=== PATIENT | male | born 1930 | race Hispanic/Latino ===

== ENCOUNTER 2018-08-09 19:24 | Emergency (ER) | payer OTHER ==
--- OUTSIDE RECORDS SUMMARY | 2018-08-09 19:26 | XMS REPORT | Clinical Summary ---
:1930 Author Organization [facility] Address [address] [place] [address] Care Team Providers Name Role Phone Asked, No Pcp Primary Care Provider Unavailable Allergies Active Allergy Reactions Severity Noted Date Comments Iodine Other (See Comments) 11/08/2015 Patient and family member does not know thw reaction Medications Medication Sig Dispensed Refills Start Date End Date Status carvedilol (COREG) 3.125 Take 3.125 mg by 0 Active MG tablet mouth 2 (two) times a day with meals. pravastatin (PRAVACHOL) Take 40 mg by 0 Active 40 MG tablet mouth daily. clopidogrel (PLAVIX) 75 Take 75 mg by 0 Active mg tablet mouth daily. torsemide (DEMADEX) 100 Take 100 mg by 0 Active MG tablet mouth daily. ezetimibe (ZETIA) 10 mg Take 10 mg by 0 Active tablet mouth daily. levothyroxine Take 75 mcg by 0 Active (SYNTHROID, LEVOTHROID) mouth every 75 MCG tablet morning. albuterol (PROVENTIL Inhale 2 puffs 0 Active HFA;VENTOLIN HFA) 90 every 6 (six) mcg/actuation inhaler hours as needed for wheezing. spironolactone Take 25 mg by 0 Active (ALDACTONE) 25 MG tablet mouth daily. tamsulosin (FLOMAX) 0.4 Take 0.4 mg by 0 Active mg capsule,extended mouth daily. release 24hr finasteride (PROSCAR) 5 Take 5 mg by 0 Active mg tablet mouth daily. Active Problems No known active problems Social History Tobacco Use Types Packs/Day Years Used Date Former Smoker Cigarettes 1.5 50 Quit: 2006 Alcohol Use Drinks/Week oz/Week Comments Yes Sex Assigned at Date Recorded Not on file Job Start Date Occupation Industry Not on file Not on file Not on file Travel History Travel Start Travel End No recent travel history available. Last Filed Vital Signs Not on file Plan of Treatment Not on file Results Not on fileafter 08/08/2017 Insurance Payer Benefit Plan / Group Subscriber ID Type Phone Address MEDICARE MEDICARE PART A AND B xxxxxxxxxx Medicare [place], [place] AETNA AETNA PPO OPEN CHOICE xxxxxxxxx PPO Advance Directives Patient has advance care planning documents on file. For more information, please contact:Coy [address] [place] [address]
--- OUTSIDE RECORDS SUMMARY | 2018-08-09 19:26 | XMS REPORT ---
:1930 [facility] Address [address] [place] [address] Dr. Sa[address] [place] [id number] Care Team Providers Name Role Phone Unavailable Unavailable Unavailable Problems This patient has no known problems. Allergies, Adverse Reactions, Alerts This patient has no known allergies or adverse reactions. Medications This patient has no known medications.
--- OUTSIDE RECORDS SUMMARY | 2018-08-09 19:26 | XMS REPORT | Continuity of Care Document ---
:1930 Author Organization Interface Problems Problem Status Onset Date Classification Date Comments Source Reported Medications Medication Details Route Status Patient Ordering Order Source Instructions Provider Date Allergies, Adverse Reactions, Alerts Substance Category Reaction Severity Reaction Status Date Comments Source type Reported Immunizations Immunization Date Given Site Status Last Updated Comments Source Results Order Results Value Reference Date Interpretation Comments Source Name Range Vital Signs Vital Sign Value Date Comments Source Encounters Location Location Encounter Encounter Reason Attending ADM DC Status Source Details Type Number For Provider Date Date Visit Outpatient [id number] [facility] 03/10 Active [facility] [place] Out[facility] [id number] [facility] 04/08 Active [facility] [place] Outpatient [id number] [facility] 08/05 [facility] Procedures Procedure Code Date Perfomer Comments Source
[2018-08-09 20:30] LABS: Absolute Lymphocytes (CBC) 3.3 K/uL (0.7-4.9); Absolute Neutrophil 5.8 K/uL (1.8-8.0); Basophils % 0.4 % (0-1.3); Eosinophils % 1.1 % (0-4.4); Hematocrit 37.9 % (39.6-49.0); MPV 8.3 fL (7.6-11.3); Monocytes % 9.9 % (3.3-12.3); RBC Red Blood Cell Count 4.02 M/uL (4.33-5.43)
--- NOTE | 2018-08-09 20:44 | RAD REPORT ---
EXAM DESCRIPTION: CT - Head Brain Wo Cont - 08/09/2018 8:22 pm CLINICAL HISTORY: Alteration of awareness/confusion COMPARISON: None TECHNIQUE: Computed axial tomography of the head was obtained. IV contrast was not requested. All CT scans are performed using dose optimization technique as appropriate and may include automated exposure control or mA/KV adjustment according to patient size. FINDINGS: An intracranial bleed is not seen . The ventricles are normal in caliber. 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 No extra-axial fluid collection is noted. Mild to moderate low-density areas within periventricular, deep and subcortical white matter likely represent ischemic changes secondary to small vessel disease . Fluid within the sinuses/ mastoids is not seen. IMPRESSION: No acute intracranial abnormality is seen. If patient's symptoms persist MRI of the bra in would be recommended.
[2018-08-09] MEDS ORDERED: ONDANSETRON 4 MG/2 ML VIAL ONE ×2 (20:49→22:58)
[2018-08-09 21:28] LABS: Albumin 3.4 g/dL (3.4-5.0); Bilirubin Total 0.3 mg/dL (0.2-1.0); Potassium 5.1 mmol/L (3.5-5.1); Protein, Total 7.8 g/dL (6.4-8.2); Troponin (Emerg Dept Use Only) 0.03 ng/mL (0.0-0.045)
[2018-08-09 21:50] LABS: Urine Appearance CLOUDY; Urine Bilirubin NEGATIVE (NEG); Urine Blood NEGATIVE (NEG); Urine Color YELLOW; Urine Glucose NEGATIVE (NEG); Urine Protein NEGATIVE (NEG); Urine Urobilinogen 0.2 mg/dL (0.2-1.0); Urine pH 6.5 (5.0-7.0)
[2018-08-09 21:55] LABS: Urine Microscopic Reflex ORDER UMIC
[2018-08-09 22:04] LABS: Urine Bacteria <20 /HPF (NONE SEEN); Urine Culture Reflex Order REFLEXED; Urine RBC NONE SEEN /HPF (NONE SEEN); Urine Yeast PRESENT (NONE SEEN)
[2018-08-09 22:16] LABS: Urine Blood NEGATIVE (NEG); Urine Glucose NEGATIVE (NEG); Urine Protein NEGATIVE (NEG); Urine Specific Gravity 1.015 (1.005-1.030)
[2018-08-09] MEDS ORDERED: NA CHLORIDE 0.9% 100 ML IV ONE (22:54)
[2018-08-09] MEDS ORDERED: LEVETIRACETAM 500 MG/5 ML VIAL IV ONE (22:54)
--- NOTE | 2018-08-10 | ER ---
Nurse's Notes [facility] Name: Rohan Eubanks Age: 88 yrs Sex: Male : 1930 Arrival Date: 08/09/2018 Time: 19:37 Bed 25 Private MD: Diagnosis: new onset seizures;Vomiting, unspecified Presentation: 08/09 19:37 Presenting complaint: EMS states: patient had 2 seizure episodes prior to arrival. last mg2 episode was 30 min ago and lasted for 10 seconds. no history of seizure disorder. patient complains of headache too. Transition of care: patient was not received from another setting of care. Onset of symptoms was August 09, 2018 at 19:10. Risk Assessment: Do you want to hurt yourself or someone else? Patient reports no desire to harm self or others. Initial Sepsis Screen: Does the patient meet any 2 criteria? No. Patient's initial sepsis screen is negative. Does the patient have a suspected source of infection? No. Patient's initial sepsis screen is negative. Care prior to arrival: None. 19:37 Method Of Arrival: EMS: [facility] 19:37 Acuity: [place] 3 mg2 Historical: - Allergies: 19:48 Iodine; mg2 - Home Meds: 23:23 aspirin 81 mg Oral chew 1 tab once daily [Active]; carvedilol 3.125 mg Oral tab mg2 [Active]; donepezil Oral [Active]; finasteride Oral [Active]; Levothroid 75 mcg Oral tab 1 tab once daily [Active]; Plavix 75 mg Oral tab 1 tab once daily [Active]; Potassium Chloride Oral [Active]; pravastatin Oral [Active]; Spironolactone Oral [Active]; Spironolactone Oral [Active]; torsemide Oral [Active]; - PMHx: 19:48 Anemia; CAD; CHF; Hernia (obstructed, gangrene, cholostomy); High Cholesterol; mg2 Hypertension; Open wound to abdomen; renal insufficiency; Sepsis; COPD; Dementia; - PSHx: 19:48 Colostomy; 2 abdominal surgeries; mg2 - Immunization history:: Flu vaccine is up to date. - Social history:: Smoking status: Patient/guardian denies using tobacco, Patient/guardian denies using alcohol, street drugs, IV drugs. - Ebola Screening: : No symptoms or risks identified at this time. Screenin:50 Abuse screen: Denies threats or abuse. Denies injuries from another. Nutritional mg2 screening: No deficits noted. Tuberculosis screening: No symptoms or risk factors identified. Fall Risk IV access (20 points). Assessment: 23:28 General: Appears in no apparent distress. comfortable, Behavior is calm, cooperative. mg2 Pain: Complains of pain in head Pain does not radiate. Pain currently is 4 out of 10 on a pain scale. Quality of pain is described as aching, Pain began gradually. Neuro: Level of Consciousness is awake, alert, obeys commands, Oriented to person, place, time, situation, Reports headache. Neuro: Reports Seizure activity reported prior to arrival. Type of seizure: partial seizure. Cardiovascular: Capillary refill < 3 seconds Patient's skin is warm and dry. Respiratory: Airway is patent Respiratory effort is even, unlabored, Respiratory pattern is regular, symmetrical. GI: Pt is actively vomiting undigested food. : No signs and/or symptoms were reported regarding the genitourinary system. EENT: No signs and/or symptoms were reported regarding the EENT system. Derm: Skin is intact, is healthy with good turgor, Skin is pink, warm \T\ dry. normal. Musculoskeletal: Circulation, motion, and sensation intact. Capillary refill < 3 seconds. 08/10 00:20 Reassessment: Patient denies pain at this time. Patient states feeling better. mg2 Vital Signs: 08/09 19:45 Pulse 76; Resp 18; Temp 98; Pulse Ox 92% on R/A; Weight 90.72 kg; Height 5 ft. 7 in. mg2 (170.18 cm); Pain 4/10; 21:32 BP 100 / 69; Pulse 70; Resp 18; Pulse Ox 93% on R/A; Pain 0/10; mg2 22:41 BP 98 / 86; Pulse 74; Resp 19; Pulse Ox 96% ; lt1 23:03 BP 116 / 63; Pulse 66; Resp 25; Pulse Ox 96% on R/A; ca1 23:22 BP 98 / 70; Pulse 69; Resp 18; Pulse Ox 97% on R/A; mg2 08/10 00:19 BP 96 / 68; Pulse 70; Resp 17; Temp 98; Pulse Ox 95% on R/A; Pain 0/10; mg2 08/09 19:45 Body Mass Index 31.32 (90.72 kg, 170.18 cm) mg2 ED Course: 08/09 19:37 Patient arrived in ED. mg2 19:39 Stalin Woods MD is Attending Physician. tw4 19:45 Triage completed. mg2 19:48 Arm band placed on. mg2 19:49 No provider procedures requiring assistance completed. Inserted saline lock: in left mg2 antecubital area, using aseptic technique. Blood collected. 20 \T\ LAC. 19:55 Moi Welch, RN is Primary Nurse. mg2 20:[address] nj 20:20 CT completed. Patient tolerated procedure well. Patient moved back from CT. nj 20:22 CT Head Brain wo Cont In Process Unspecified. EDMS 23:22 Patient has correct armband on for positive identification. Pulse ox on. NIBP on. mg2 08/10 00:00 Louis Esquivel MD is Referral Physician. tw4 00:20 IV discontinued, intact, bleeding controlled, No redness/swelling at site. Pressure mg2 dressing applied. Administered Medications: 08/09 20:42 Drug: Zofran 4 mg Route: IVP; Site: right antecubital; mg2 22:02 Follow up: Response: No adverse reaction; Marked relief of symptoms mg2 22:52 Drug: Keppra 1000 mg Route: IV; Rate: calculated rate; Site: right antecubital; mg2 23:41 Follow up: Response: No adverse reaction; Marked relief of symptoms; IV Status: mg2 Completed infusion 22:53 Drug: Zofran 4 mg Route: IVP; Site: right antecubital; mg2 23:41 Follow up: Response: No adverse reaction; Marked relief of symptoms mg2 Outcome: 08/10 00:00 Discharge ordered by . tw4 00:20 Discharged to home via wheelchair, with family. mg2 00:20 Condition: stable 00:20 Discharge instructions given to patient, family, Instructed on discharge instructions, follow up and referral plans. medication usage, Demonstrated understanding of instructions, follow-up care, medications, Prescriptions given X 2. 00:20 Patient left the ED. mg2 Signatures: Dispatcher [employer] EDMS Juan C Duque [place], MD MD tw4 Moi Welch RN RN [facility] Roya Malhotra RN RN [facility] Sana Guillaume 1 Corrections: (The following items were deleted from the chart) 08/09 22:03 21:32 Pulse 70bpm; Resp 18bpm; Pulse Ox 93% RA; Pain 0/10; mg2 mg2
--- NOTE | 2018-08-10 | EDPHYS ---
Physician Documentation [facility] Name: Rohan Eubanks Age: 88 yrs Sex: Male : 1930 Arrival Date: 08/09/2018 Time: 19:37 Bed 25 Private MD: ED Physician Stalin Woods HPI: 08/10 06:43 This 88 yrs old Male presents to ER via EMS with complaints of seizure. tw4 06:43 The patient presents after having a single isolated seizure. Character of seizure(s): tw4 Loss of consciousness:. Seizure onset: just prior to arrival. Context: the seizure(s) was witnessed, by family. Seizure Hx: the patient has no previous seizure history. Associated injury: The patient did not suffer any apparent associated injury. The patient has not experienced similar symptoms in the past. Historical: - Allergies: 08/09 19:48 Iodine; mg2 - Home Meds: 23:23 aspirin 81 mg Oral chew 1 tab once daily [Active]; carvedilol 3.125 mg Oral tab mg2 [Active]; donepezil Oral [Active]; finasteride Oral [Active]; Levothroid 75 mcg Oral tab 1 tab once daily [Active]; Plavix 75 mg Oral tab 1 tab once daily [Active]; Potassium Chloride Oral [Active]; pravastatin Oral [Active]; Spironolactone Oral [Active]; Spironolactone Oral [Active]; torsemide Oral [Active]; - PMHx: 19:48 Anemia; CAD; CHF; Hernia (obstructed, gangrene, cholostomy); High Cholesterol; mg2 Hypertension; Open wound to abdomen; renal insufficiency; Sepsis; COPD; Dementia; - PSHx: 19:48 Colostomy; 2 abdominal surgeries; mg2 - Immunization history:: Flu vaccine is up to date. - Social history:: Smoking status: Patient/guardian denies using tobacco, Patient/guardian denies using alcohol, street drugs, IV drugs. - Ebola Screening: : No symptoms or risks identified at this time. ROS: 08/10 06:43 Constitutional: Negative for fever, chills, and weight loss, Eyes: Negative for injury, tw4 pain, redness, and discharge, Cardiovascular: Negative for chest pain, palpitations, and edema, Respiratory: Negative for shortness of breath, cough, wheezing, and pleuritic chest pain, Abdomen/GI: Negative for abdominal pain, nausea, vomiting, diarrhea, and constipation, Back: Negative for injury and pain, MS/Extremity: Negative for injury and deformity, Skin: Negative for injury, rash, and discoloration. Neuro: Positive for seizure activity, Negative for altered mental status, dizziness, gait disturbance, headache, tinnitus. Exam: 06:43 Constitutional: This is a well developed, well nourished patient who is awake, alert, tw4 and in no acute distress. Head/Face: Normocephalic, atraumatic. Chest/axilla: Normal chest wall appearance and motion. Nontender with no deformity. No lesions are appreciated. Cardiovascular: Regular rate and rhythm with a normal S1 and S2. No gallops, murmurs, or rubs. Normal PMI, no JVD. No pulse deficits. Respiratory: Lungs have equal breath sounds bilaterally, clear to auscultation and percussion. No rales, rhonchi or wheezes noted. No increased work of breathing, no retractions or nasal flaring. Abdomen/GI: Soft, non-tender, with normal bowel sounds. No distension or tympany. No guarding or rebound. No evidence of tenderness throughout. MS/ Extremity: Pulses equal, no cyanosis. Neurovascular intact. Full, normal range of motion. Neuro: Awake and alert, GCS 15, oriented to person, place, time, and situation. Cranial nerves II-XII grossly intact. Motor strength 5/5 in all extremities. Sensory grossly intact. Cerebellar exam normal. Normal gait. Vital Signs: 08/09 19:45 Pulse 76; Resp 18; Temp 98; Pulse Ox 92% on R/A; Weight 90.72 kg; Height 5 ft. 7 in. mg2 (170.18 cm); Pain 4/10; 21:32 BP 100 / 69; Pulse 70; Resp 18; Pulse Ox 93% on R/A; Pain 0/10; mg2 22:41 BP 98 / 86; Pulse 74; Resp 19; Pulse Ox 96% ; lt1 23:03 BP 116 / 63; Pulse 66; Resp 25; Pulse Ox 96% on R/A; ca1 23:22 BP 98 / 70; Pulse 69; Resp 18; Pulse Ox 97% on R/A; mg2 08/10 00:19 BP 96 / 68; Pulse 70; Resp 17; Temp 98; Pulse Ox 95% on R/A; Pain 0/10; mg2 08/09 19:45 Body Mass Index 31.32 (90.72 kg, 170.18 cm) mg2 MDM: 08/09 19:41 Patient medically screened. tw4 08/10 06:43 Differential diagnosis: cerebral vascular accident, drug overdose, seizure. Data tw4 reviewed: vital signs, nurses notes. Data interpreted: Pulse oximetry: Interpretation: normal. Test interpretation: by ED physician or midlevel provider: ECG, plain radiologic studies. Counseling: I had a detailed discussion with the patient and/or guardian regarding: the historical points, exam findings, and any diagnostic results supporting the discharge/admit diagnosis, lab results, radiology results. Medication response: Response to treatment: and as a result, I will discharge patient. Special discussion: I discussed with the patient/guardian in detail that at this point there is no indication for admission to the hospital. It is understood, however, that if the symptoms persist or worsen the patient needs to return immediately for re-evaluation. Further emergent ED testing is not indicated at this point in time. I discussed with the patient/guardian in detail the need to arrange with the PCP or specialist further outpatient testing, EEG. Based on the history and exam findings, there is no indication for further emergent testing or inpatient evaluation. I discussed with the patient/guardian the need to see the neurologist for further evaluation of the symptoms. 08/09 20:12 Order name: CBC with Diff tw4 08/09 20:12 Order name: Urinalysis; Complete Time: 23:53 tw4 08/09 23:53 Interpretation: Normal except: UESTR 3+. tw4 08/09 20:41 Order name: Comprehensive Metabolic Panel; Complete Time: 22:33 EDMS 08/09 22:33 Interpretation: Normal except: NA 133; CL 97; GLUC 120; BUN 82; CRE 1.90; GFR 34. tw4 08/09 20:41 Order name: Troponin (Emerg Dept Use Only); Complete Time: 22:33 EDMS 08/09 20:12 Order name: CT Head Brain wo Cont; Complete Time: 22:33 tw4 08/09 20:12 Order name: EKG - Nurse/Tech; Complete Time: 20:48 tw4 08/09 21:40 Order name: Urine Dipstick--Ancillary (enter results); Complete Time: 22:34 mw2 08/09 22:02 Order name: Urine Microscopic Only; Complete Time: 22:32 EDMS 08/09 22:05 Order name: Urine Culture EDMS EC:01 Rate is 73 beats/min. Rhythm is regular with Occasional PVCs. QRS [place] is Normal. RI tw4 interval is normal. QRS interval is normal. QT interval is normal. No Q waves. T waves are Normal. No ST changes noted. Clinical impression: NSR w/ Non-specific ST/T Changes. Interpreted by me. Reviewed by me. Administered Medications: 08/09 20:42 Drug: Zofran 4 mg Route: IVP; Site: right antecubital; mg2 22:02 Follow up: Response: No adverse reaction; Marked relief of symptoms mg2 22:52 Drug: Keppra 1000 mg Route: IV; Rate: calculated rate; Site: right antecubital; mg2 23:41 Follow up: Response: No adverse reaction; Marked relief of symptoms; IV Status: mg2 Completed infusion 22:53 Drug: Zofran 4 mg Route: IVP; Site: right antecubital; mg2 23:41 Follow up: Response: No adverse reaction; Marked relief of symptoms mg2 Disposition: 08/10/18 00:00 Discharged to Home. Impression: new onset seizures, Vomiting, unspecified. - Condition is Stable. - Discharge Instructions: Nausea and Vomiting, Adult, Seizure, Adult, [id number]. - Prescriptions for Zofran 4 mg Oral Tablet - take 1 tablet by ORAL route every 12 hours As needed; 6 tablet. Keppra 500 mg Oral Tablet - take 1 tablet by ORAL route every 12 hours; 20 tablet. - Medication Reconciliation Form, Thank You Letter, Antibiotic Education, Prescription Opioid Use form. - Follow up: Private Physician; When: Upon discharge from the Emergency Department; Reason: If symptoms return, Recheck today's complaints, Continuance of care. Follow up: Louis Esquivel MD; When: Upon discharge from the Emergency Department; Reason: If symptoms return, Recheck today's complaints, Continuance of care. - Problem is new. - Symptoms have improved. Signatures: Dispatcher [employer] EDStalin Parkinson MD MD tw4 Mio Welch RN RN mg2 Corrections: (The following items were deleted from the chart) 20:40 20:12 COMPREHENSIVE METABOLIC PANEL+C.LAB.BRZ ordered. EDIL EDMS 20:40 20:12 TROPONIN I+C.LAB.BRZ ordered. EDIL EDIL 08/10 00:00 00:00 08/10/2018 00:00 Discharged to Home. Impression: new onset seizures; Vomiting, tw4 unspecified. Condition is Stable. Forms are Medication Reconciliation Form, Thank You Letter, Antibiotic Education, Prescription Opioid Use. Follow up: Private Physician; When: Upon discharge from the Emergency Department; Reason: If symptoms return, Recheck today's complaints, Continuance of care. Problem is new. Symptoms have improved. tw4 : 00:00 08/10/2018 00:00 Discharged to Home. Impression: new onset seizures; Vomiting, mg2 unspecified. Condition is Stable. Forms are Medication Reconciliation Form, Thank You Letter, Antibiotic Education, Prescription Opioid Use. Follow up: Private Physician; When: Upon discharge from the Emergency Department; Reason: If symptoms return, Recheck today's complaints, Continuance of care. Follow up: Louis Esquivel; When: Upon discharge from the Emergency Department; Reason: If symptoms return, Recheck today's complaints, Continuance of care. Problem is new. Symptoms have improved. tw4
[2018-08-10 01:26] VITALS: TEMP 98
[2018-08-10 01:32] VITALS: BP 96/68; O2SAT 95
--- NOTE | 2018-08-10 12:21 | EKG ---
Test Date: 2018-08-09 Test Time: 20:40:46 [employer] Operator: LMT MEASUREMENT RESULTS: Intervals: Rate: 72 NE: 138 QRSD: 110 QT: 422 QTc: 462 [place]: P: 17 NE: 138 QRS: 21 T: -5 INTERPRETIVE STATEMENTS: Sinus rhythm with occasional premature ventricular complexes Low voltage QRS Incomplete right bundle branch block T wave abnormality, non specific Prolonged QT Abnormal ECG Compared to ECG 04/13/2017 13:08:08 Ventricular premature complex(es) now present Low QRS voltage now present Incomplete right bundle-branch block now present Sinus bradycardia no longer present T-wave abnormality still present Electronically Signed On 08-10-18 12:21:08 CDT by Raul Diaz
== END 2018-08-10 00:20 | disposition home or self-care (01) ==
LOC: ER 19:24
DX: R56.9 Unspecified convulsions (principal); R11.10 Vomiting, unspecified; I10 Essential (primary) hypertension; J44.9 Chronic obstructive pulmonary disease, unspecified; F03.90 Unspecified dementia, unspecified severity, without behavioral disturbance, psychotic disturbance, mood disturbance, and anxiety; E78.00 Pure hypercholesterolemia, unspecified; Z79.01 Long term (current) use of anticoagulants; Z79.82 Long term (current) use of aspirin; Z91.048 Other nonmedicinal substance allergy status
CPT/HCPCS: 96365; 93005; 87088; 85025; 87086; 36415; 84484; 80053; 70450; 96375; 99285; J1953; J2405 ×2; 81003; 81015

== ENCOUNTER 2019-05-30 15:51 | Inpatient (IN) | payer OTHER ==
--- OUTSIDE RECORDS SUMMARY | 2019-05-30 15:53 | XMS REPORT ---
:1930 [facility] Address [address] [place] [address] Dr. Saenz [address] [place] [id number] Care Team Providers Name Role Phone Unavailable Unavailable Unavailable Problems This patient has no known problems. Allergies, Adverse Reactions, Alerts This patient has no known allergies or adverse reactions. Medications This patient has no known medications.
[2019-05-30 16:56] LABS: Absolute Lymphocytes (CBC) 1.8 K/uL (0.7-4.9); Basophils % 0.7 % (0-1.3); Hematocrit 34.5 % (39.6-49.0); Lymphocytes % 25.2 % (15.3-44.8); MPV 7.8 fL (7.6-11.3); RBC Red Blood Cell Count 3.71 M/uL (4.33-5.43)
[2019-05-30 16:57] LABS: Protime INR 1.04
[2019-05-30 17:14] LABS: ALT/SGPT 15 U/L (12-78); AST/SGOT 9 U/L (15-37); Albumin 2.7 g/dL (3.4-5.0); Alkaline Phosphatase 62 U/L (45-117); BUN Blood Urea Nitrogen 24 mg/dL (7-18); Bicarbonate 31 mmol/L (21-32); Bilirubin Direct < 0.1 mg/dL (0-0.2); Bilirubin Total 0.2 mg/dL (0.2-1.0); Glucose Level 99 mg/dL (74-106); Magnesium 1.7 mg/dL (1.8-2.4); NT PRO-BNP 1224 pg/mL (<450); Potassium 4.9 mmol/L (3.5-5.1); Protein, Total 6.5 g/dL (6.4-8.2); Sodium Level 143 mmol/L (136-145); Troponin (Emerg Dept Use Only) < 0.02 ng/mL (0.0-0.045)
--- NOTE | 2019-05-30 17:16 | RAD REPORT ---
EXAM DESCRIPTION: RAD - Chest Single View - 05/30/2019 4:50 pm CLINICAL HISTORY: weakness Chest pain. COMPARISON: Chest Single View dated 04/13/2017; Chest Single View dated 03/22/2017; Chest Single Vie w dated 09/01/2016; Chest Single View dated 08/31/2016 FINDINGS: Portable technique limits examination quality. Mild to moderate pulmonary edema is seen. The heart is mildly enlarged in size with sternotomy wires present. No displaced fractures. IMPRESSION: Mild to moderate CHF versus volume overload pattern.
--- NOTE | 2019-05-30 18:12 | ER ---
Nurse's Notes [facility] Name: Rohan Eubanks Age: 89 yrs Sex: Male : 1930 Arrival Date: 05/30/2019 Time: 15:53 Bed 4 Private MD: Diagnosis: Unspecified combined systolic (congestive) and diastolic (congestive) heart failure;Shortness of breath Presentation: 05/30 15:55 Presenting complaint: Pt's family states "his caregiver said he was confused today and aa5 he's also been having congestion for about 2 weeks now. Pt denies pain. Pt is A\\T\\O x person and place. Transition of care: patient was not received from another setting of care. Onset of symptoms was May 30, 2019. Risk Assessment: Do you want to hurt yourself or someone else? Unable to obtain. Initial Sepsis Screen: Does the patient meet any 2 criteria? No. Patient's initial sepsis screen is negative. Does the patient have a suspected source of infection? No. Patient's initial sepsis screen is negative. Care prior to arrival: None. 15:55 Acuity: [place] 3 aa5 15:55 Method Of Arrival: Wheelchair aa5 Historical: - Allergies: 15:57 Iodine; aa5 - Home Meds: 16:21 aspirin 81 mg Oral chew 1 tab once daily [Active]; carvedilol 3.125 mg Oral tab mg2 [Active]; donepezil Oral [Active]; finasteride Oral [Active]; Levothroid 75 mcg Oral tab 1 tab once daily [Active]; Plavix 75 mg Oral tab 1 tab once daily [Active]; Potassium Chloride Oral [Active]; pravastatin Oral [Active]; Spironolactone Oral [Active]; Spironolactone Oral [Active]; torsemide Oral [Active]; - PMHx: 15:57 Anemia; CAD; CHF; COPD; Dementia; Hernia (obstructed, gangrene, cholostomy); High aa5 Cholesterol; Hypertension; Open wound to abdomen; renal insufficiency; Sepsis; - PSHx: 15:57 Colostomy; 2 abdominal surgeries; aa5 - Immunization history:: Pneumococcal vaccine is not up to date, Flu vaccine is not up to date. - Social history:: Smoking status: Patient/guardian denies using tobacco. - Ebola Screening: : No symptoms or risks identified at this time. Screenin:06 Abuse screen: Denies threats or abuse. Denies injuries from another. Nutritional hb screening: No deficits noted. Tuberculosis screening: No symptoms or risk factors identified. 16:20 Fall Risk None identified. mg2 Assessment: 16:19 General: Appears in no apparent distress. comfortable, Behavior is calm, cooperative. mg2 Pain: Denies pain. Neuro: Level of Consciousness is awake, alert, obeys commands, Oriented to person, place, time, situation. Cardiovascular: Capillary refill < 3 seconds Patient's skin is warm and dry. Respiratory: Airway is patent Respiratory effort is even, unlabored, Respiratory pattern is regular, symmetrical, Parent/caregiver reports the patient having cough that is. GI: No signs and/or symptoms were reported involving the gastrointestinal system. : No signs and/or symptoms were reported regarding the genitourinary system. EENT: Parent/caregiver reports the patient having nasal congestion. Derm: Skin is intact, is healthy with good turgor, Skin is pink, warm \\T\\ dry. normal. Musculoskeletal: Circulation, motion, and sensation intact. Capillary refill < 3 seconds. 16:46 Reassessment: Patient appears in no apparent distress at this time. mg2 18:00 Reassessment: Patient appears in no apparent distress at this time. Patient and/or mg2 family updated on plan of care and expected duration. Pain level reassessed. Patient is alert, oriented x 3, equal unlabored respirations, skin warm/dry/pink. 19:15 Reassessment: Patient and/or family updated on plan of care and expected duration. Pain vc level reassessed. Patients family at bedside, notified that we are waiting for a room upstairs. 20:26 Reassessment: Attempted to give report to AAKASH Jay, will call back. vc 20:30 Reassessment: Patient sitting in wheelchair, eating tacos at this time. Waiting for vc nurse to receive report on patient. 21:00 Reassessment: Patient took home prescriptions, a copy of list located in patients chart.vc Vital Signs: 15:57 BP 108 / 48; Pulse 52; Resp 18 S; Temp 98.3(O); Pulse Ox 96% on R/A; aa5 16:47 BP 107 / 54; Pulse 60; Resp 18; Pulse Ox 100% on 3 lpm NC; mg2 18:00 BP 132 / 54; Pulse 49; Resp 18; Pulse Ox 97% on R/A; mg2 19:30 BP 109 / 52; Pulse 60; Resp 22; Pulse Ox 98% on R/A; vc 20:30 BP 131 / 65; Pulse 66; Resp 22; Temp 98.6(O); Pulse Ox 98% on R/A; vc 21:17 BP 133 / 76; Pulse 83; Resp 18; Pulse Ox 100% on R/A; Pain 0/10; vc ED Course: 15:53 Patient arrived in ED. aa5 15:55 Arm band placed on. aa5 15:56 Triage completed. aa5 16:02 Yuval Steiner MD is Attending Physician. kdr 16:06 Patient has correct armband on for positive identification. Bed in low position. Call hb light in reach. Side rails up X 1. 16:19 Moi Welch, RN is Primary Nurse. mg2 16:19 No provider procedures requiring assistance completed. mg2 16:46 Inserted saline lock: 20 gauge in right antecubital area, using aseptic technique. mg2 Blood collected. 17:00 XRAY Chest (1 view) In Process Unspecified. EDMS 18:09 Prince Jurado MD is Hospitalizing Provider. kdr 20:06 Primary Nurse role handed off by Moi Welch, AAKASH vc 20:06 María Rubin, AAKASH is Primary Nurse. vc 21:20 Patient admitted, IV remains in place. vc Administered Medications: No medications were administered Outcome: 18:09 Decision to Hospitalize by Provider. kdr 21:20 Admitted to Med/surg accompanied by nurse, family with patient, via wheelchair, room vc 204. 21:20 Condition: improved 21:20 Discharge instructions given to patient, family, Instructed on the need for admit. vc 21:21 Patient left the ED. vc Signatures: Dispatcher [employer] EDOH Yuval Steiner MD MD kdr Taemra Ku RN RN aa5 Lola Yarbrough RN RN Moi Welch RN RN mg2 María Rubin RN RN vc Corrections: (The following items were deleted from the chart) 23:06 20:59 Reassessment: vc vc
--- NOTE | 2019-05-30 18:12 | EDPHYS ---
Physician Documentation [facility] Name: Rohan Eubanks Age: 89 yrs Sex: Male : 1930 Arrival Date: 05/30/2019 Time: 15:53 Bed 4 Private MD: ED Physician Yuval Steiner HPI: 05/30 17:06 This 89 yrs old Male presents to ER via Wheelchair with complaints of Altered kdr Mental Status, Congestion. 17:06 The patient presents with agitation. kdr 18:10 Onset: The symptoms/episode began/occurred The patient has had chronic congestion which kdr has become worse today. Home health noted that he was having some difficulty breathing and that his oxygen saturation was decreased. He is normally on oxygen at home. Possible causes: CHF exacerbation, NV. Associated signs and symptoms: Pertinent positives: Pertinent negatives: abdominal pain, agitation, ataxia, blurred vision, chest pain, combativeness, confusion. Patient's baseline: Neuro: alert and fully oriented, Motor: no deficits, Ambulation: walks with assist only. The patient has not experienced similar symptoms in the past. The patient has not recently seen a physician. Historical: - Allergies: 15:57 Iodine; aa5 - Home Meds: 16:21 aspirin 81 mg Oral chew 1 tab once daily [Active]; carvedilol 3.125 mg Oral tab mg2 [Active]; donepezil Oral [Active]; finasteride Oral [Active]; Levothroid 75 mcg Oral tab 1 tab once daily [Active]; Plavix 75 mg Oral tab 1 tab once daily [Active]; Potassium Chloride Oral [Active]; pravastatin Oral [Active]; Spironolactone Oral [Active]; Spironolactone Oral [Active]; torsemide Oral [Active]; - PMHx: 15:57 Anemia; CAD; CHF; COPD; Dementia; Hernia (obstructed, gangrene, cholostomy); High aa5 Cholesterol; Hypertension; Open wound to abdomen; renal insufficiency; Sepsis; - PSHx: 15:57 Colostomy; 2 abdominal surgeries; aa5 - Immunization history:: Pneumococcal vaccine is not up to date, Flu vaccine is not up to date. - Social history:: Smoking status: Patient/guardian denies using tobacco. - Ebola Screening: : No symptoms or risks identified at this time. ROS: 18:10 Constitutional: Negative for fever, chills, and weight loss, Eyes: Negative for injury, kdr pain, redness, and discharge, Neck: Negative for injury, pain, and swelling, Abdomen/GI: Negative for abdominal pain, nausea, vomiting, diarrhea, and constipation, Back: Negative for injury and pain, : Negative for injury, bleeding, discharge, and swelling, Skin: Negative for injury, rash, and discoloration, Neuro: Negative for headache, weakness, numbness, tingling, and seizure activity. Psych: Negative for depression, anxiety, suicide ideation, homicidal ideation, and hallucinations, Allergy/Immunology: Negative for hives, rash, and allergies, Endocrine: Negative for neck swelling, polydipsia, polyuria, polyphagia, and marked weight changes, Hematologic/Lymphatic: Negative for swollen nodes, abnormal bleeding, and unusual bruising. 18:10 Cardiovascular: Positive for edema, Negative for chest pain, palpitations, paroxysmal nocturnal dyspnea. 18:10 Respiratory: Positive for dyspnea on exertion, shortness of breath, on exertion. 18:10 MS/extremity: Positive for swelling, Chronic peripheral edema. Exam: 18:10 Constitutional: This is a well developed, well nourished patient who is awake, alert, kdr and in no acute distress. Head/Face: Normocephalic, atraumatic. Eyes: Pupils equal round and reactive to light, extra-ocular motions intact. Lids and lashes normal. Conjunctiva and sclera are non-icteric and not injected. Cornea within normal limits. Periorbital areas with no swelling, redness, or edema. Neck: Trachea midline, no thyromegaly or masses palpated, and no cervical lymphadenopathy. Supple, full range of motion without nuchal rigidity, or vertebral point tenderness. No Meningismus. Chest/axilla: Normal chest wall appearance and motion. Nontender with no deformity. No lesions are appreciated. Cardiovascular: Regular rate and rhythm with a normal S1 and S2. No gallops, murmurs, or rubs. Normal PMI, no JVD. No pulse deficits. Back: No spinal tenderness. No costovertebral tenderness. Full range of motion. 18:10 Respiratory: mild respiratory distress is noted, Respirations: normal, Breath sounds: rales, that are mild, are located in both bases. 18:10 Abdomen/GI: Inspection: The patient has a right sided colostomy that appears in good kdr condition and a chronic midline wound that has an intact and clean dressing - per family, the patient had a dehiscence of a midline incision that is non-resolving, Bowel sounds: normal, active, Palpation: soft, in all quadrants. Vital Signs: 15:57 BP 108 / 48; Pulse 52; Resp 18 S; Temp 98.3(O); Pulse Ox 96% on R/A; aa5 16:47 BP 107 / 54; Pulse 60; Resp 18; Pulse Ox 100% on 3 lpm NC; mg2 18:00 BP 132 / 54; Pulse 49; Resp 18; Pulse Ox 97% on R/A; mg2 19:30 BP 109 / 52; Pulse 60; Resp 22; Pulse Ox 98% on R/A; vc 20:30 BP 131 / 65; Pulse 66; Resp 22; Temp 98.6(O); Pulse Ox 98% on R/A; vc 21:17 BP 133 / 76; Pulse 83; Resp 18; Pulse Ox 100% on R/A; Pain 0/10; vc MDM: 18:09 Patient medically screened. kdr 18:10 Data reviewed: vital signs, nurses notes, lab test result(s), radiologic studies. kdr Counseling: I had a detailed discussion with the patient and/or guardian regarding: the historical points, exam findings, and any diagnostic results supporting the discharge/admit diagnosis, lab results, radiology results, the need for further work-up and treatment in the hospital. Physician consultation: Prince Adrien QUINTEROS regarding admission, and will see patient in inpatient room, later today. 05/30 16:28 Order name: Basic Metabolic Panel; Complete Time: 17:59 kdr 05/30 16:28 Order name: CBC with Diff; Complete Time: 17:59 kdr 05/30 16:28 Order name: LFT's; Complete Time: 17:59 kdr 05/30 16:28 Order name: Magnesium; Complete Time: 17:59 kdr 05/30 16:28 Order name: NT PRO-BNP; Complete Time: 17:59 kdr 05/30 16:28 Order name: PT-INR; Complete Time: 17:59 kdr 05/30 16:28 Order name: Troponin (emerg Dept Use Only); Complete Time: 17:59 kdr 05/30 16:28 Order name: XRAY Chest (1 view); Complete Time: 17:59 kdr 05/30 16:28 Order name: EKG; Complete Time: 16:30 kdr 05/30 16:28 Order name: Cardiac monitoring; Complete Time: 16:46 kdr 05/30 16:28 Order name: EKG - Nurse/Tech; Complete Time: 16:46 kdr 05/30 16:28 Order name: IV Saline Lock; Complete Time: 16:46 kdr 05/30 16:28 Order name: Labs collected and sent; Complete Time: 16:46 kdr 05/30 16:28 Order name: O2 Per Protocol; Complete Time: 16:46 kdr 05/30 16:28 Order name: O2 Sat Monitoring; Complete Time: 16:46 kdr Administered Medications: No medications were administered Disposition: 05/30/19 18:09 Hospitalization ordered by Prince Adrien for Inpatient Admission. Preliminary diagnosis are Unspecified combined systolic (congestive) and diastolic (congestive) heart failure, Shortness of breath. - Bed requested for Telemetry/MedSurg (Inpatient). - Status is Inpatient Admission. vc - Condition is Fair. - Problem is an acute exacerbation. - Symptoms have improved. UTI on Admission? No Signatures: Dispatcher [employer] EDMS Jessica Zuniga RN RN Yuval Steiner MD MD [facility] Tamera Ku RN RN aa5 Moi Welch RN RN mg2 María Rubin RN RN vc Corrections: (The following items were deleted from the chart) 19:52 18:09 Hospitalization Ordered by Prince Adrien QUINTEROS for Inpatient Admission. Preliminary diagnosis is Unspecified combined systolic (congestive) and diastolic (congestive) heart failure; Shortness of breath. Bed requested for Telemetry/MedSurg (Inpatient). Status is Inpatient Admission. Condition is Fair. Problem is an acute exacerbation. Symptoms have improved. UTI on Admission? No. kdr 21:21 19:52 05/30/2019 18:09 Hospitalization Ordered by Prince Adrien QUINTEROS for Inpatient vc Admission. Preliminary diagnosis is Unspecified combined systolic (congestive) and diastolic (congestive) heart failure; Shortness of breath. Bed requested for Telemetry/MedSurg (Inpatient). Status is Inpatient Admission. Condition is Fair. Problem is an acute exacerbation. Symptoms have improved. UTI on Admission? No. mw
--- NOTE | 2019-05-30 20:25 | P.HP ---
Certification for Inpatient Patient admitted to: Inpatient With expected LOS: >2 Midnights Practitioner: I am a practitioner with admitting privileges, knowledge of patient current condition, hospital course, and medical plan of care. Services: Services provided to patient in accordance with Admission requirements found in Title 42 Section 412.3 of the Code of Federal Regulations Patient History Date of Service: 05/31/19 Reason for admission: Shortness of breath History of Present Illness: 89-year-old gentleman with a history of chronic diastolic heart failure, arrhythmia, chronic peripheral edema was brought to the emergency department due to an episode of respiratory distress which occurred this morning. According to the family, this is the 2nd episode in 1 week where patient developed respiratory distress. Family mentioned his heart rate was as low as 19, and oxygen saturation was on recordable during the 1st episode. They stated that the patient got revived several minutes after they placed oxygen on him. Family reports nonproductive cough and intermittent wheezing at this time. He also reports increased bilateral lower extremity edema. He was discharged from hospice about 6 months ago. He uses oxygen intermittently at home. His chest x-ray in the ED demonstrated vascular congestion. EKG demonstrated sinus bradycardia with frequent PVCs and nonspecific ST-T changes. His initial troponin is negative. The patient is admitted for further management of CHF exacerbation. Allergies iodine Allergy (Verified 06/20/18 14:17) Hives/Rash Home Medications: Aspirin Enteric Coated [ASPIRIN 81 MG EC*] 81 mg PO DAILY 09/25/12 Levothyroxine [Synthroid*] 0.12 mg PO [id number] 09/25/12 Spironolactone [Aldactone*] 25 mg PO BID 09/25/12 Donepezil HCl [Aricept] 10 mg PO BEDTIME 05/30/19 Finasteride [Proscar*] 5 mg PO DAILY 05/30/19 Potassium Chloride [Klor-Con 10] 1 tab PO DAILY 05/30/19 Trazodone [Desyrel*] 50 mg PO BEDTIME 05/30/19 metOLazone [Zaroxolyn*] 2.5 mg PO SEECOM 05/30/19 - Past Medical/Surgical History Diabetic: No -: CAD -: CHF - Family History Family History: Reviewed- Non-Contributory - Family History Father -: Heart disease, Diabetes Mother -: Other (see notes) Notes: depression due to sons - Social History Alcohol use: No CD- Drugs: No Caffeine use: Yes Review of Systems Other: General: No fever, no malaise, no unintentional weight loss. Eyes: No eye discharge, CVS: No chest pain, no palpitation, no lightheadedness. GI: No abdominal pain, no nausea no vomit, no constipation, no diarrhea. Genitourinary: No dysuria, no urinary frequency, no incontinence, no hematuria. Musculoskeletal: No joint pains, or joint swelling. Neurology: No headache, no asymmetric weakness, no problem with swallowing. Except as documented, all other systems reviewed and negative. Physical Examination - Physical Exam General: In no apparent distress, Oriented x2, Cooperative HEENT: Atraumatic, PERRLA, Mucous membr. moist/pink Neck: Supple, JVD not distended Respiratory: Normal air movement, Crackles/rales (Mild bibasilar rales) Cardiovascular: Other (Bradycardia), Edema (3+ bilateral lower extremity pitting edema), Irregular heart rate/rhythm Gastrointestinal: Normal bowel sounds, Soft and benign, No tenderness ( Bilateral lower extremity erythema) Integumentary: Erythema (Bilateral lower extremity) Neurological: Normal speech, Normal strength at 5/5 x4 extr - Studies Laboratory Data (last 24 hrs) 05/30/19 16:40: PT 12.2, INR 1.04 05/30/19 16:40: WBC 7.0, Hgb 11.0 L, Hct 34.5 L, Plt Count 254 05/30/19 16:40: Sodium 143, Potassium 4.9, BUN 24 H, Creatinine 1.35 H, Glucose 99, Magnesium 1.7 L, Total Bilirubin 0.2, AST 9 L, ALT 15, Alkaline Phosphatase 62 Assessment and Plan - Problems (Diagnosis) (1) Acute on chronic diastolic CHF (congestive heart failure) Current Visit: Yes Status: Acute (2) Chronic kidney disease, stage 3 Current Visit: Yes Status: Acute (3) HTN (hypertension) Onset Date: 09/01/16 Current Visit: No Status: Acute - Plan Admit to general medical floor Will diurese with IV Lasix Continue home dose Aldactone and metolazone Bronchodilators. Check echocardiogram Monitor intake and output and daily weight Hold Coreg due to intermittent bradycardia. Replace Coreg with amlodipine if there is the need to treat blood pressure. Monitor renal function while receiving IV Lasix. Patient is currently full code. I discussed DNR with them and they are yet to make a decision regarding that. - Advance Directives Does patient have a Living Will: No Does patient have a Durable POA for Healthcare: No
[2019-05-30] MEDS ORDERED: MAGNESIUM SULFATE 1 gm IVPB 1 GM/100 ML BAG IV ONE (21:52)
[2019-05-30] MEDS ORDERED: NA CHLORIDE 0.9% 250 ML ONE (23:08)
[2019-05-31] MEDS: HEPARIN 5000 UNIT/ML 1 ML VIAL SQ SCH ×3 (00:49→17:16)
[2019-05-31 05:32] LABS: Absolute Lymphocytes (CBC) 1.7 K/uL (0.7-4.9); Basophils % 0.7 % (0-1.3); Lymphocytes % 23.5 % (15.3-44.8); RBC Red Blood Cell Count 3.78 M/uL (4.33-5.43)
[2019-05-31 05:45] LABS: Magnesium 2.2 mg/dL (1.8-2.4); Phosphorus 3.5 mg/dL (2.5-4.9); Potassium 4.7 mmol/L (3.5-5.1)
--- NOTE | 2019-05-31 07:22 | EKG ---
Test Date: 2019-05-30 Test Time: 16:55:38 Vp Platforms: KIRSTEN MEASUREMENT RESULTS: Intervals: Rate: 54 IA: 148 QRSD: 96 QT: 458 QTc: 434 [place]: P: 34 IA: 148 QRS: 77 T: -6 INTERPRETIVE STATEMENTS: Sinus bradycardia with occasional premature ventricular complexes Low voltage QRS Incomplete right bundle branch block Nonspecific ST and T wave abnormality Abnormal ECG Compared to ECG 08/09/2018 20:40:46 ST (T wave) deviation now present Sinus rhythm no longer present T-wave abnormality no longer present Prolonged QT interval no longer present Electronically Signed On 05-31-19 07:22:12 [employer]IL[employer]CH[employer] by Raul Diaz
[2019-05-31] MEDS ORDERED: PNEUMOCOCCAL VACCINE 0.5 ML IMVAC ONE (08:00)
[2019-05-31] MEDS ORDERED: INFLUENZA VACCINE (for 3y+) 0.5 ML DOSE IMVAC ONE (08:00)
[2019-05-31] MEDS ORDERED: FUROSEMIDE 40 MG/4 ML VIAL IV SCH (09:00)
[2019-05-31] MEDS ORDERED: ASPIRIN EC 81 MG TAB PO SCH (09:00)
[2019-05-31] MEDS ORDERED: FINASTERIDE 5 MG TAB PO SCH (09:00)
--- NOTE | 2019-05-31 10:41 | ECHO ---
HEIGHT: 5 ft 5 in WEIGHT: 211 lb 4 oz DATE OF STUDY: 05/31/[address]: Prince Jose Luis Jurado MD 2-DIMENSIONAL: YES M.MODE: YES DOPPLER: YES COLOR FLOW: YES TDS: YES PORTABLE: NO DEFINITY: NO BUBBLE STUDY: NO DIAGNOSIS: CONGESTIVE HEART FAILURE CARDIAC HISTORY: CATHERIZATION: SURGERY: PROSTHETIC VALVE: PACEMAKER: MEASUREMENTS (cm) DIASTOLIC (NORMALS) SYSTOLIC (NORMALS) IVSd 1.2 (0.6-1.2) LA Diam (1.9-4.0) LVEF 42% LVIDd 4.6 (3.5-5.7) LVIDs 3.7 (2.0-3.5) %FS 20% LVPWd 1.2 (0.6-1.2) Ao Diam 3.4 (2.0-3.7) 2 DIMENSIONAL ASSESSMENT: RIGHT ATRIUM: NORMAL LEFT ATRIUM: DILATED RIGHT VENTRICLE: NORMAL LEFT VENTRICLE: LEFT VENTRICULAR HYPERTROPHY TRICUSPID VALVE: NORMAL MITRAL VALVE: NORMAL PULMONIC VALVE: NORMAL AORTIC VALVE: NORMAL PERICARDIAL EFFUSION: NONE AORTIC ROOT: NORMAL LEFT VENTRICULAR WALL MOTION: INFERIOR, POSTEROBASAL, LATERAL BASAL AKINESIS. DOPPLER/COLOR FLOW: NOT APPLICABLE, PATIENT WAS UNCOOPERATIVE. COMMENTS: DEPRESSED LEFT VENTRICULAR EJECTION FRACTION WITH OLD POSTERIOR, INFERIOR INFARCT. LEFT VENTRICULAR HYPERTROPHY. DILATED LEFT ATRIUM. LIMITED STUDY. TECHNOLOGIST: JOCELYNN MEDEIROS
--- NOTE | 2019-05-31 11:23 | P.PN ---
Subjective Date of Service: 05/31/19 Chief Complaint: Shortness of breath Patient seen this morning. The daughter at bedside. He is hard of hearing. He reports improvement of the symptoms. Currently on supplemental oxygen via nasal cannula. Not dyspneic. Physical Examination - Vital Signs Temperature: 97.9 F Blood Pressure: 144/65 Pulse: 66 Respirations: 17 Pulse Ox (%): 95 - Physical Exam General: Alert, In no apparent distress, Cooperative (Physically deconditioned and lethargic), Other HEENT: Atraumatic, Normocephalic, EOMI Neck: Supple Respiratory: Diminished, Crackles/rales Cardiovascular: Normal pulses, Regular rate/rhythm, Edema (1+ pitting edema bilateral) Gastrointestinal: Normal bowel sounds, Soft and benign, Non-distended, Other ( Large ventral hernia) Musculoskeletal: Swelling Neurological: Normal speech, Normal affect - Studies Laboratory Data (last 24 hrs) 05/30/19 16:40: PT 12.2, INR 1.04 05/30/19 16:40: WBC 7.0, Hgb 11.0 L, Hct 34.5 L, Plt Count 254 05/30/19 16:40: Sodium 143, Potassium 4.9, BUN 24 H, Creatinine 1.35 H, Glucose 99, Magnesium 1.7 L, Total Bilirubin 0.2, AST 9 L, ALT 15, Alkaline Phosphatase 62 Assessment & Plan Physician Review Additional Text: Impression: Patient is a 89-year-old male with a known past medical history of COPD intermittently on supplemental oxygen at home, CHF, hypertension and coronary disease was currently admitted for CHF exacerbation. He presented with oxygen saturation 85%. Physical exam significant for bibasilar crackles and his chest x-ray revealed mild to moderate evidence of volume overload. BNP 1224 on admission. He has responded to schedule diuresis. His net - 1 L Overnight. He is 2D echo revealed depressed left ventricular EF at 42%, with multiple wall motion abnormalities and evidence of LVH. 1. Acute hypoxemic respiratory failure 2. 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 Chronic COPD 4. Dementia 5. Coronary disease 6. Anemia 7. BPH Plan: 1. Continue diuresis and monitor ins and out 2. Continue supplemental oxygen via nasal cannula and wean off as tolerated. 3. Continue holding metolazone and spironolactone due to soft blood pressures. 4. JAYMIE wrap for bilateral lower extremity edema 5. Encourage protein intake (ensure) given low albumin 6. Resume donepezil and finasteride for dementia and BPH, respectively. Time Spent Managing Pts Care (In Minutes): 35
[2019-05-31] MEDS ORDERED: ENSURE HIGH PROTEIN 237 ML CAN PO SCH (12:00)
[2019-05-31 16:31] VITALS: O2SAT 93
[2019-05-31] MEDS: ENSURE HIGH PROTEIN 237 ML CAN PO SCH (17:16)
[2019-05-31] MEDS: FUROSEMIDE 40 MG/4 ML VIAL IV SCH (17:16)
[2019-05-31] MEDS: TRAZODONE 50 MG TABLET PO SCH (20:49)
[2019-05-31] MEDS: DONEPEZIL HCL 5 MG TAB PO SCH (20:50)
[2019-05-31] MEDS ORDERED: DONEPEZIL HCL 5 MG TAB PO SCH (21:00)
[2019-05-31] MEDS ORDERED: TRAZODONE 50 MG TABLET PO SCH (21:00)
[2019-06-01] MEDS: HEPARIN 5000 UNIT/ML 1 ML VIAL SQ SCH ×3 (00:34→16:44)
[2019-06-01] MEDS ORDERED: LEVOTHYROXINE SOD 0.05 MG TABLET PO SCH (06:00)
[2019-06-01] MEDS ORDERED: FINASTERIDE 5 MG TAB ONE (07:47)
[2019-06-01] MEDS ORDERED: HEPARIN 5000 UNIT/ML 1 ML VIAL ONE (07:47)
[2019-06-01] MEDS ORDERED: FUROSEMIDE 40 MG/4 ML VIAL ONE (07:48)
[2019-06-01] MEDS ORDERED: ASPIRIN 81 MG CHEWABLE TABLET ONE (07:48)
[2019-06-01] MEDS: ENSURE HIGH PROTEIN 237 ML CAN PO SCH ×3 (08:19→16:44)
[2019-06-01 08:35] LABS: Magnesium 1.9 mg/dL (1.8-2.4)
[2019-06-01 08:36] LABS: Potassium 4.8 mmol/L (3.5-5.1)
[2019-06-01] MEDS: ASPIRIN EC 81 MG TAB PO SCH (09:00)
[2019-06-01] MEDS: FINASTERIDE 5 MG TAB PO SCH (09:00)
[2019-06-01] MEDS: FUROSEMIDE 40 MG/4 ML VIAL IV SCH (09:00)
--- NOTE | 2019-06-01 10:25 | RAD REPORT ---
EXAM DESCRIPTION: RAD - Chest Pa And Lat (2 Views) - 06/01/2019 10:14 am CLINICAL HISTORY: CHF Chest pain. COMPARISON: Chest Single View dated 05/30/2019; Chest Single View dated 04/13/2017; Chest Single View dated 03/22/2017; Chest Single View dated 09/01/2016 FINDINGS: Mild interstitial pulmonary edema is present with bilateral pleural effusions. Lung aerati on appears mildly to moderately improved since prior study. The heart is mildly enlarged in size with sternotomy wires present. No displaced fractures. IMPRESSION: Mild CHF. Lung aeration appears mildly to moderately improved since study.
--- NOTE | 2019-06-01 13:59 | P.PN ---
Subjective Date of Service: 06/01/19 Chief Complaint: Shortness of breath Patient continues to improve with diuresis. Is still requiring supplemental oxygen but is not dyspneic. Good urine output with diuresis. Physical Examination - Vital Signs Temperature: 97.2 F Blood Pressure: 116/60 Pulse: 54 Respirations: 19 Pulse Ox (%): 94 - Physical Exam General: Mild distress HEENT: Atraumatic, Normocephalic, EOMI Neck: JVD distended Respiratory: Clear to auscultation bilaterally, Normal air movement, Diminished (Diminished breath sounds in both lung bases) Cardiovascular: No edema, Regular rate/rhythm, Normal S1 S2, Edema (Pitting edema in both lower extremities. Karl wraps applied.) Gastrointestinal: Normal bowel sounds (Large ventral hernia) Integumentary: No rashes, No tenderness/swelling, No erythema Neurological: Normal speech, Normal affect, Other (Patient is hard of hearing) Assessment & Plan Physician Review Additional Text: Impression: Patient is a 89-year-old male with a known past medical history of COPD intermittently on supplemental oxygen at home, CHF, hypertension and coronary disease was currently admitted for CHF exacerbation. He presented with oxygen saturation 85%. Physical exam significant for bibasilar crackles and his chest x-ray revealed mild to moderate evidence of volume overload. BNP 1224 on admission. He has responded to scheduled diuresis. Repeat chest x-ray reveals moderately improved lung aeration. His 2D echo revealed depressed left ventricular EF at 42%, with multiple wall motion abnormalities and evidence of LVH. 1. Acute hypoxemic respiratory failure 2. 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 Chronic COPD 4. Dementia 5. Coronary disease 6. Anemia 7. BPH Plan: 1. Start patient on low dose beta blockers and monitor response 2. Transition to oral diuresis and monitor ins and out 3. Continue supplemental oxygen via nasal cannula and wean off as tolerated. 4. Continue holding metolazone and spironolactone due to soft blood pressures. 5. Encourage protein intake (ensure) given low albumin 6. Resume donepezil and finasteride for dementia and BPH, respectively.
[2019-06-01] MEDS: carvediloL 6.25 MG TAB PO SCH ×2 (16:43→21:02)
[2019-06-01] MEDS: FUROSEMIDE 40 MG TABLET PO SCH (16:43)
[2019-06-01] MEDS ORDERED: carvediloL 6.25 MG TAB ONE (20:27)
[2019-06-01] MEDS ORDERED: DONEPEZIL HCL 5 MG TAB ONE (20:28)
[2019-06-01] MEDS ORDERED: TRAZODONE 50 MG TABLET ONE (20:28)
[2019-06-01] MEDS: DONEPEZIL HCL 5 MG TAB PO SCH (21:02)
[2019-06-01] MEDS: TRAZODONE 50 MG TABLET PO SCH (21:02)
[2019-06-02] MEDS: HEPARIN 5000 UNIT/ML 1 ML VIAL SQ SCH ×2 (01:06→09:00)
[2019-06-02 05:12] VITALS: BMI 34.0
[2019-06-02 05:23] LABS: Magnesium 1.8 mg/dL (1.8-2.4); Phosphorus 2.8 mg/dL (2.5-4.9)
[2019-06-02] MEDS ORDERED: MAGNESIUM SULFATE 1 gm IVPB 1 GM/100 ML BAG IV ONE (05:54)
[2019-06-02] MEDS: ENSURE HIGH PROTEIN 237 ML CAN PO SCH (08:00)
[2019-06-02] MEDS ORDERED: HEPARIN 5000 UNIT/ML 1 ML VIAL ONE (08:34)
[2019-06-02] MEDS ORDERED: carvediloL 6.25 MG TAB ONE (08:34)
[2019-06-02] MEDS ORDERED: ASPIRIN 81 MG CHEWABLE TABLET ONE (08:34)
[2019-06-02] MEDS ORDERED: FINASTERIDE 5 MG TAB ONE (08:34)
[2019-06-02] MEDS ORDERED: FUROSEMIDE 40 MG TABLET ONE (08:35)
[2019-06-02 08:55] LABS: Absolute Lymphocytes (CBC) 1.7 K/uL (0.7-4.9); Basophils % 0.7 % (0-1.3); Hematocrit 37.2 % (39.6-49.0); Lymphocytes % 21.7 % (15.3-44.8); MPV 7.6 fL (7.6-11.3); RBC Red Blood Cell Count 4.03 M/uL (4.33-5.43)
[2019-06-02] MEDS: FUROSEMIDE 40 MG TABLET PO SCH (09:00)
[2019-06-02] MEDS: FINASTERIDE 5 MG TAB PO SCH (09:00)
[2019-06-02] MEDS: carvediloL 6.25 MG TAB PO SCH (09:00)
[2019-06-02] MEDS: ASPIRIN EC 81 MG TAB PO SCH (09:00)
[2019-06-02 09:09] LABS: Potassium 4.7 mmol/L (3.5-5.1)
--- NOTE | 2019-06-02 12:05 | P.DS ---
Admission Date: 05/30/19 Discharge Date: 06/02/19 Disposition: DC HOME/HOME HEALTH CARE Discharge Condition: GOOD Reason for Admission: Shortness of breath Brief History of Present Illness: Mr. Eubanks is 89-year-old Sami-speaking male with a known past medical history of hypertension, hyperlipidemia, heart failure with reduced ejection fraction, COPD intermittently on supplemental oxygen. He presented to the hospital with worsening shortness of breath and cough andwas found to be in CHF exacerbation. Hospital Course: Patient was admitted for CHF exacerbation. His echocardiogram revealed an ejection fraction of 42% with an old inferior wall infarct. He was placed on IV diuresis. Maintain net negative fluid balance for most of his hospital stay and was successfully transitioned to oral furosemide. He had evidence of 3rd spacing and bilateral lower extremity edema. His albumin level was 2.5. He was started on Ensure to supplement his nutrition status. On the day of admission, I developed an episode of epistaxis which resolved with nasal compression. No ENT consult. Vital Signs/Physical Exam: Temp Pulse Resp BP Pulse Ox 97.6 F 55 18 140/70 94 06/02/19 08:00 06/02/19 08:00 06/02/19 08:00 06/02/19 08:00 06/02/19 08:00 General: Alert, In no apparent distress, Cachectic, Other (mild epistaxis) HEENT: Atraumatic, Normocephalic, EOMI Neck: Supple Respiratory: Clear to auscultation bilaterally, Normal air movement Cardiovascular: No edema, Normal pulses, Regular rate/rhythm, Normal S1 S2 Gastrointestinal: Normal bowel sounds, Soft and benign, Non-distended, Other ( Ventral hernia, colostomy bag in place. Stoma viable and functional) Musculoskeletal: Swelling Integumentary: Warmth Neurological: Normal speech, Normal affect Laboratory Data at Discharge: WBC 7.8 K/uL (4.3-10.9) 06/02/19 08:41 Hgb 12.0 g/dL (13.6-17.9) L 06/02/19 08:41 Hct 37.2 % (39.6-49.0) L 06/02/19 08:41 Plt Count 253 K/uL (152-406) 06/02/19 08:41 PT 12.2 SECONDS (9.5-12.5) 05/30/19 16:40 INR 1.04 05/30/19 16:40 Sodium 138 mmol/L (136-145) 06/02/19 08:41 Potassium 4.7 mmol/L (3.5-5.1) 06/02/19 08:41 BUN 35 mg/dL (7-18) H 06/02/19 08:41 Creatinine 1.70 mg/dL (0.55-1.3) H 06/02/19 08:41 Glucose 132 mg/dL (74-106) H 06/02/19 08:41 Phosphorus 2.8 mg/dL (2.5-4.9) 06/02/19 04:00 Magnesium 1.8 mg/dL (1.8-2.4) 06/02/19 04:00 Total Bilirubin 0.2 mg/dL (0.2-1.0) 05/30/19 16:40 AST 9 U/L (15-37) L 05/30/19 16:40 ALT 15 U/L (12-78) 05/30/19 16:40 Alkaline Phosphatase 62 U/L (45-117) 05/30/19 16:40 Home Medications: Aspirin Enteric Coated [ASPIRIN 81 MG EC*] 81 mg PO DAILY 09/25/12 Levothyroxine [Synthroid*] 0.12 mg PO [id number] 09/25/12 Donepezil HCl [Aricept] 10 mg PO BEDTIME 05/30/19 Finasteride [Proscar*] 5 mg PO DAILY 05/30/19 Potassium Chloride [Klor-Con 10] 1 tab PO DAILY 05/30/19 Trazodone [Desyrel*] 50 mg PO BEDTIME 05/30/19 metOLazone [Zaroxolyn*] 2.5 mg PO SEECOM 05/30/19 Ensure High Protein 237 ml PO TIDWM can 06/02/19 Furosemide [Lasix*] 40 mg PO BIDL tab 06/02/19 carvediloL [Coreg*] 6.25 mg PO BID #60 tab 06/02/19 New Medications: carvediloL [Coreg*] 6.25 mg PO BID #60 tab Diet: AHA Activity: Fall precautions
[2019-06-02 12:26] VITALS: BP 110/70; TEMP 97.5
== END 2019-06-02 12:56 | disposition home health service (06) | DRG 291 ==
LOC: ER 15:51 → ERHOLD 18:27 → 2ND 21:01
PROVIDERS: ADMIT Internal Medicine; ATTEND Internal Medicine
DX: I13.0 Hypertensive heart and chronic kidney disease with heart failure and stage 1 through stage 4 chronic kidney disease, or unspecified chronic kidney disease (principal); I50.33 Acute on chronic diastolic (congestive) heart failure; J96.21 Acute and chronic respiratory failure with hypoxia; N18.3 Chronic kidney disease, stage 3 (moderate); J44.9 Chronic obstructive pulmonary disease, unspecified; I25.10 Atherosclerotic heart disease of native coronary artery without angina pectoris; D64.9 Anemia, unspecified; N40.0 Benign prostatic hyperplasia without lower urinary tract symptoms; L89.151 Pressure ulcer of sacral region, stage 1; F03.90 Unspecified dementia, unspecified severity, without behavioral disturbance, psychotic disturbance, mood disturbance, and anxiety; Z99.81 Dependence on supplemental oxygen
CPT/HCPCS: 36415; 71045; 71046; 80048; 80076; 82947; 83735; 83880; 84100; 84484; 85025; 85610; 93005; 93306; 94760; 97116; 97161; 97530; 99285; J1644; J1940; J3475; J7030

== ENCOUNTER 2019-06-23 12:02 | Inpatient (IN) | payer OTHER ==
--- OUTSIDE RECORDS SUMMARY | 2019-06-23 12:04 | XMS REPORT ---
:1930 [facility] Address [address] [place] [address] Dr. Saenz [address] [place] [id number] Care Team Providers Name Role Phone Unavailable Unavailable Unavailable Problems This patient has no known problems. Allergies, Adverse Reactions, Alerts This patient has no known allergies or adverse reactions. Medications This patient has no known medications.
[2019-06-23 12:50] LABS: Absolute Lymphocytes (CBC) 2.3 K/uL (0.7-4.9); Basophils % 0.4 % (0-1.3); Hematocrit 35.3 % (39.6-49.0); RBC Red Blood Cell Count 3.85 M/uL (4.33-5.43)
[2019-06-23 13:01] LABS: Potassium 4.8 mmol/L (3.5-5.1)
[2019-06-23 13:10] LABS: Urine Blood 1+ (NEG); Urine Glucose NEGATIVE (NEG); Urine Protein NEGATIVE (NEG); Urine Specific Gravity 1.015 (1.005-1.030)
--- NOTE | 2019-06-23 13:46 | EKG ---
Test Date: 2019-06-23 Test Time: 12:21:50 Ophthalmic Aide: NUSRAT MEASUREMENT RESULTS: Intervals: Rate: 53 NH: 146 QRSD: 110 QT: 460 QTc: 431 [place]: P: 21 NH: 146 QRS: 33 T: 20 INTERPRETIVE STATEMENTS: Sinus bradycardia Incomplete right bundle branch block Nonspecific T wave abnormality Abnormal ECG Compared to ECG 05/30/2019 16:55:38 T-wave abnormality now present Ventricular premature complex(es) no longer present ST (T wave) deviation no longer present Electronically Signed On 06-23-19 13:45:29 [employer] by Raffaele Bravo
--- NOTE | 2019-06-23 13:47 | RAD REPORT ---
EXAM DESCRIPTION: RAD - Chest Pa And Lat (2 Views) - 06/23/2019 1:29 pm CLINICAL HISTORY: COUGH, hypotension COMPARISON: Chest Pa And Lat (2 Views) dated 06/01/2019; Chest Single View dated 05/30/2019 TECHNIQUE: Frontal and lateral views of the chest were obtained. FINDINGS: The lungs are normal volume. Diaphragm is flattened. Chronic interstitial lung changes are present. Left base assessment is limited by body habitus and portable technique. Lung markings are s imilar or less prominent in each base when compared with the June 01 study. Heart size is normal and central vasculature is within normal limits. Mild costophrenic angle blunting present. No pneumo thorax. Sternotomy wires in place. No acute bony finding noted. No aortic abnormality. IMPRESSION: Chronic interstitial lung disease is present similar or slightly less pronounced than se en on prior study. No significant failure or volume overload findings.
[2019-06-23 13:50] LABS: Urine Bacteria >50 /HPF (NONE SEEN)
[2019-06-23 13:51] LABS: Urine Culture Reflex Order NOT NEEDED
--- NOTE | 2019-06-23 14:15 | ER ---
Nurse's Notes [facility] Name: Rohan Eubanks Age: 89 yrs Sex: Male : 1930 Arrival Date: 06/23/2019 Time: 12:05 Bed 15 Private MD: Diagnosis: Urinary tract infection, site not specified;Dehydration;Iliac artery Aneurysm Presentation: 06/23 12:10 Presenting complaint: Child states: Daughter states that the home health nurse had low sg BP readings, 80's/40's at home, tried three different machines with all low and similar readings, pt denies any other symptoms at this time, reports " I feel fine". Transition of care: patient was not received from another setting of care. Onset of symptoms was June 23, 2019. Risk Assessment: Do you want to hurt yourself or someone else? Patient reports no desire to harm self or others. Initial Sepsis Screen: Does the patient meet any 2 criteria? Does the patient have a suspected source of infection? No. Patient's initial sepsis screen is negative. Care prior to arrival: None. 12:10 Method Of Arrival: Wheelchair sg 12:10 Acuity: [place] 3 sg Historical: - Allergies: 12:11 Iodine; sg - Home Meds: 12:14 aspirin 81 mg Oral chew 1 tab once daily [Active]; carvedilol 3.125 mg Oral tab tw2 [Active]; donepezil Oral [Active]; finasteride Oral [Active]; Levothroid 75 mcg Oral tab 1 tab once daily [Active]; Plavix 75 mg Oral tab 1 tab once daily [Active]; Potassium Chloride Oral [Active]; pravastatin Oral [Active]; Spironolactone Oral [Active]; Spironolactone Oral [Active]; torsemide Oral [Active]; - PMHx: 12:11 Anemia; CAD; CHF; COPD; Dementia; Hernia (obstructed, gangrene, cholostomy); High sg Cholesterol; Hypertension; Open wound to abdomen; renal insufficiency; Sepsis; - PSHx: 12:11 Colostomy; 2 abdominal surgeries; sg - Immunization history:: Adult Immunizations up to date. - Coronavirus screen:: The patient has NOT traveled to [place], [place], or [place] in the past 14 days. The patient has NOT had contact with known/suspected case of Coronavirus? Proceed with normal triage procedures. - Social history:: Smoking status: Patient denies any tobacco usage or history of. - Ebola Screening: : Patient negative for fever greater than or equal to 101.5 degrees Fahrenheit, and additional compatible Ebola Virus Disease symptoms Patient denies exposure to infectious person Patient denies travel to an Ebola-affected area in the 21 days before illness onset No symptoms or risks identified at this time. Screenin:12 Abuse screen: Denies threats or abuse. Nutritional screening: No deficits noted. tw2 Tuberculosis screening: No symptoms or risk factors identified. Fall Risk Secondary diagnosis (15 points) impaired mobility. Assessment: 12:18 General: Appears in no apparent distress. uncomfortable, Behavior is calm, cooperative, jl7 appropriate for age. Pain: Denies pain. Neuro: Level of Consciousness is awake, alert, obeys commands. Cardiovascular: Heart tones present Patient's skin is warm and dry. Respiratory: Airway is patent Respiratory effort is even, unlabored, Respiratory pattern is regular, symmetrical, Breath sounds with wheezes in right posterior upper lobe, right posterior middle lobe and right posterior lower lobe. Derm: Skin is pink, warm \\T\\ dry. 13:00 Reassessment: Patient appears in no apparent distress at this time. No changes from jl7 previously documented assessment. Patient and/or family updated on plan of care and expected duration. Pain level reassessed. 14:00 Reassessment: Patient appears in no apparent distress at this time. No changes from jl7 previously documented assessment. Patient and/or family updated on plan of care and expected duration. Pain level reassessed. 15:00 Reassessment: Patient appears in no apparent distress at this time. No changes from jl7 previously documented assessment. Patient and/or family updated on plan of care and expected duration. Pain level reassessed. 16:06 Reassessment: Patient appears in no apparent distress at this time. No changes from jl7 previously documented assessment. Patient and/or family updated on plan of care and expected duration. Pain level reassessed. GI: Pt has a colostomy, family takes care of maintenance. 17:00 Reassessment: Patient appears in no apparent distress at this time. No changes from jl7 previously documented assessment. Patient and/or family updated on plan of care and expected duration. Pain level reassessed. 18:00 Reassessment: Dr. Hoff at bedside. jl7 19:26 Reassessment: Patient and/or family updated on plan of care and expected duration. Pain ea level reassessed. Pt alert and oriented to self, place and situation. Respirations even and unlabored, family at bedside. EMS at facility for transfer. Pt left ED via stretcher per EMS, tolerating well. Vital Signs: 12:12 Pulse 77; Resp 18; Temp 98.8(TE); Pulse Ox 100% on R/A; Pain 0/10; sg 12:16 BP 106 / 63; jl7 13:00 BP 107 / 72; Pulse 52; Resp 19 S; Pulse Ox 97% on R/A; jl7 14:00 BP 121 / 58; Pulse 52; Resp 17 S; Pulse Ox 98% on R/A; jl7 15:00 BP 112 / 68; Pulse 51; Resp 18 S; Pulse Ox 95% on R/A; jl7 15:55 BP 112 / 68; Pulse 55; Resp 19 S; Pulse Ox 100% on R/A; jl7 17:00 BP 119 / 68; Pulse 54; Resp 16 S; Pulse Ox 99% on R/A; Pain 0/10; jl7 18:00 BP 133 / 83; Pulse 56; Resp 17 S; Pulse Ox 92% on R/A; Pain 0/10; jl7 19:00 BP 117 / 67; Pulse 56; Resp 16; Pulse Ox 95% on R/A; ea ED Course: 12:05 Patient arrived in ED. mr 12:06 [facility] snw 12:06 Neeraj Douglas MD is Attending Physician. snw 12:10 Arm band placed on. sg 12:12 Triage completed. sg 12:12 Bed in low position. Call light in reach. Adult w/ patient. tw2 12:13 Larry Farnsworth, AAKASH is Primary Nurse. jl7 12:15 monitoring and evaluation advisor on. Pulse ox on. NIBP on. jl7 12:34 Initial lab(s) drawn, by il, sent to lab. First set of blood cultures drawn by me. 3 Inserted saline lock: 20 gauge in right wrist, using aseptic technique. Blood collected. 12:50 Second set of blood cultures drawn by il. dh3 12:53 Urine collected: clean catch specimen, cloudy. dh3 13:36 Chest Pa And Lat (2 Views) XRAY In Process Unspecified. EDMS 14:12 Dakota Hoff is Hospitalizing Provider. snw 14:25 CT Abd/Pelvis - Without Contrast In Process Unspecified. EDMS 14:49 Price cath inserted, using sterile technique, 18 Fr., by il, balloon inflated, to tw2 gravity drainage, other Gabi, Eboni served as automobile mechanic supervisor. 17:[address] Hoff the hospitalist with [facility] from the [facility]. 17:51 administrative approval given by Gema Collins/ patient has been accepted to [facility] bed 1014/ Dr. Vasquez has accepted the patient in transfer/ report to be called to [phone]. 18:00 No provider procedures requiring assistance completed. Patient transferred, IV remains jl7 in place. intact, No redness/swelling at site. Administered Medications: 14:39 Drug: NS 0.9% 1000 ml Route: IV; Rate: 75 ml/hr; Site: right wrist; tw2 16:10 Follow up: Response: No adverse reaction; IV Status: Infusion continued upon admission jl7 14:39 Drug: Rocephin 1 grams Route: IV; Rate: calculated rate; Site: right wrist; tw2 14:46 Follow up: IV Status: Completed infusion tw2 Outcome: 14:13 Decision to Hospitalize by Provider. snw 18:00 Transferred by ground EMS to [facility], Transfer form completed. jl7 X-rays sent w/ patient. 18:00 Condition: stable 18:00 Discharge instructions given to patient, family, Instructed on the need for transfer, Demonstrated understanding of instructions. 18:45 ER care complete, transfer ordered by . rn 19:30 Patient left the ED. ea Signatures: Dispatcher [employer] EDMS Michael Piña, RN Edie Myers, CLAY WASHER-C CLAY WASHER-Csnw Ana M Da Silva mr Neeraj Douglas MD MD rn Wise, Tara, RN RN tw2 Larry Farnsworth RN RN 7 Gabi Kennedy 3 Misty Canales RN RN ea Botello, Elizabeth Corrections: (The following items were deleted from the chart) 12:19 12:10 Initial Sepsis Screen: Does the patient meet any 2 criteria? Systolic BP < 90 sg mmHg. Does the patient have a suspected source of infection? No. Patient's initial sepsis screen is negative. sg
--- NOTE | 2019-06-23 14:15 | EDPHYS ---
Physician Documentation [facility] Name: Rohan Eubanks Age: 89 yrs Sex: Male : 1930 Arrival Date: 06/23/2019 Time: 12:05 Bed 15 Private MD: ED Physician Neeraj Douglas HPI: 06/23 12:55 This 89 yrs old Male presents to ER via Wheelchair with complaints of Blood snw Pressure Problem. 12:55 Pt was seen by home health and his blood pressure readings were low x 2 attempts. Pt snw without complaint. Family states he has been afebrile, congested, and has some cough with sputum.. Onset: The symptoms/episode began/occurred acutely. Severity of symptoms: At their worst the symptoms were moderate. It is unknown whether or not the patient has had similar symptoms in the past. It is unknown whether or not the patient has recently seen a physician. Historical: - Allergies: 12:11 Iodine; sg - Home Meds: 12:14 aspirin 81 mg Oral chew 1 tab once daily [Active]; carvedilol 3.125 mg Oral tab tw2 [Active]; donepezil Oral [Active]; finasteride Oral [Active]; Levothroid 75 mcg Oral tab 1 tab once daily [Active]; Plavix 75 mg Oral tab 1 tab once daily [Active]; Potassium Chloride Oral [Active]; pravastatin Oral [Active]; Spironolactone Oral [Active]; Spironolactone Oral [Active]; torsemide Oral [Active]; - PMHx: 12:11 Anemia; CAD; CHF; COPD; Dementia; Hernia (obstructed, gangrene, cholostomy); High sg Cholesterol; Hypertension; Open wound to abdomen; renal insufficiency; Sepsis; - PSHx: 12:11 Colostomy; 2 abdominal surgeries; sg - Immunization history:: Adult Immunizations up to date. - Coronavirus screen:: The patient has NOT traveled to [place], [place], or [place] in the past 14 days. The patient has NOT had contact with known/suspected case of Coronavirus? Proceed with normal triage procedures. - Social history:: Smoking status: Patient denies any tobacco usage or history of. - Ebola Screening: : Patient negative for fever greater than or equal to 101.5 degrees Fahrenheit, and additional compatible Ebola Virus Disease symptoms Patient denies exposure to infectious person Patient denies travel to an Ebola-affected area in the 21 days before illness onset No symptoms or risks identified at this time. ROS: 12:55 Constitutional: Negative for fever, chills, and weight loss, Eyes: Negative for injury, snw pain, redness, and discharge, ENT: Negative for injury, pain, and discharge, Neck: Negative for injury, pain, and swelling, Cardiovascular: Negative for chest pain, palpitations, and edema, Abdomen/GI: Negative for abdominal pain, nausea, vomiting, diarrhea, and constipation, Back: Negative for injury and pain, : Negative for injury, bleeding, discharge, and swelling, MS/Extremity: Negative for injury and deformity, Skin: Negative for injury, rash, and discoloration, Neuro: Negative for headache, weakness, numbness, tingling, and seizure, Psych: Negative for depression, anxiety, suicide ideation, homicidal ideation, and hallucinations. 12:55 Respiratory: Positive for cough, congestion. Exam: 12:57 Head/Face: Normocephalic, atraumatic. Eyes: Pupils equal round and reactive to light, snw extra-ocular motions intact. Lids and lashes normal. Conjunctiva and sclera are non-icteric and not injected. Cornea within normal limits. Periorbital areas with no swelling, redness, or edema. 12:57 Neck: Trachea midline, no thyromegaly or masses palpated, and no cervical lymphadenopathy. Supple, full range of motion without nuchal rigidity, or vertebral point tenderness. No Meningismus. Chest/axilla: Normal chest wall appearance and motion. Nontender with no deformity. No lesions are appreciated. Cardiovascular: Regular rate and rhythm with a normal S1 and S2. No gallops, murmurs, or rubs. Normal PMI, no JVD. No pulse deficits. 12:57 Back: No spinal tenderness. No costovertebral tenderness. Full range of motion. Skin: Warm, dry with normal turgor. Normal color with no rashes, no lesions, and no evidence of cellulitis. MS/ Extremity: Pulses equal, no cyanosis. Neurovascular intact. Full, normal range of motion. Neuro: Awake and alert, GCS 15, oriented to person, place, time, and situation. Cranial nerves II-XII grossly intact. Motor strength 5/5 in all extremities. Sensory grossly intact. Cerebellar exam normal. Normal gait. 12:57 Constitutional: The patient appears alert, awake, frail, uncomfortable. 12:57 ENT: TM's: are normal, Nose: is normal, Posterior pharynx: erythema, that is moderate, Voice: is normal. 12:57 Respiratory: Respirations: shallow respirations, Breath sounds: bronchial sounds, + upper airway congestion. typically SpO2 is 91%, Home O2 prn. 12:57 Abdomen/GI: Inspection: distension, that is mild, Bowel sounds: normal, Palpation: mild abdominal tenderness, in all quadrants. Vital Signs: 12:12 Pulse 77; Resp 18; Temp 98.8(TE); Pulse Ox 100% on R/A; Pain 0/10; sg 12:16 BP 106 / 63; jl7 13:00 BP 107 / 72; Pulse 52; Resp 19 S; Pulse Ox 97% on R/A; jl7 14:00 BP 121 / 58; Pulse 52; Resp 17 S; Pulse Ox 98% on R/A; jl7 15:00 BP 112 / 68; Pulse 51; Resp 18 S; Pulse Ox 95% on R/A; jl7 15:55 BP 112 / 68; Pulse 55; Resp 19 S; Pulse Ox 100% on R/A; jl7 17:00 BP 119 / 68; Pulse 54; Resp 16 S; Pulse Ox 99% on R/A; Pain 0/10; jl7 18:00 BP 133 / 83; Pulse 56; Resp 17 S; Pulse Ox 92% on R/A; Pain 0/10; jl7 19:00 BP 117 / 67; Pulse 56; Resp 16; Pulse Ox 95% on R/A; ea MDM: 12:09 Patient medically screened. snw 14:10 Data reviewed: vital signs, nurses notes. Data interpreted: Pulse oximetry: on room air snw is 88 %. Interpretation: hypoxia. Plan: O2 by NC applied. Counseling: I had a detailed discussion with the patient and/or guardian regarding: the historical points, exam findings, and any diagnostic results supporting the discharge/admit diagnosis, lab results, radiology results, the need for further work-up and treatment in the hospital, to return to the emergency department if symptoms worsen or persist or if there are any questions or concerns that arise at home. Response to treatment: the patient's symptoms have mildly improved after treatment. Physician consultation: Dakota Hoff was called at 14:11, was contacted at 14:11, regarding admission, to the telemetry unit. Special discussion:. 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 Pt snw family knows risks of aneurysm rupture will result in . Pt has seen Dr. Pablo (vascular) in the past and the aneurysm was known, evaluated, and no intervention was deemed necessary. Pt and family want to stay at this facility and get IVF and IV abx. Will f/u with Dr. Pablo post discharge. Again, pt and family accept risks of aneurysm rupture. Dr. Hoff apparently spoke with a vascular surgeon and has transfer arrangement pending. 18:17 ED course: Majority of family still declining and refusing transfer, Miller Hoff has rn been speaking to patient and new family member arrived who is amenable to transfer. Patient accepted for transfer to [facility]. Dr. Hoff states family has accepted transfer. . 18:17 ED course: Pt here for transient hypotension, no evidence of dissection or leakage, no pattern cleaner thrombus/flap. No indication that aneurysmal dilation is cause of what brought patient to ER today. Incidental finding, as CT abdomen obtained only to evaluate for hydronephrosis as cause or evidence of acute renal failure, but insisted by Dr. Hoff to transfer, ultimately family agrees to transfer for evaluation. Family states they do not want surgical intervention anyway. . 06/23 12:16 Order name: CBC with Diff; Complete Time: 12:54 [facility] 06/23 12:16 Order name: Chem 7; Complete Time: 13:02 [facility] 06/23 12:16 Order name: Blood Culture Adult (2) [facility] 06/23 12:16 Order name: Urine Culture [facility] 06/23 12:16 Order name: Urine Microscopic Only; Complete Time: 13:55 [facility] 06/23 12:59 Order name: Urine Dipstick--Ancillary (enter results); Complete Time: 13:18 06/23 12:16 Order name: EKG; Complete Time: 12:16 [facility] 06/23 12:16 Order name: EKG - Nurse/Tech; Complete Time: 12:34 [facility] 06/23 12:16 Order name: Saline Lock; Complete Time: 12:34 snw 06/23 12:16 Order name: Urine Dipstick-Ancillary (obtain specimen); Complete Time: 12:53 snw 06/23 12:26 Order name: Chest Pa And Lat (2 Views) XRAY; Complete Time: 14:35 snw 06/23 13:59 Order name: CT Abd/Pelvis - Without Contrast; Complete Time: 15:10 snw 06/23 14:06 Order name: Price; Complete Time: 14:53 snw Administered Medications: 14:39 Drug: NS 0.9% 1000 ml Route: IV; Rate: 75 ml/hr; Site: right wrist; tw2 16:10 Follow up: Response: No adverse reaction; IV Status: Infusion continued upon admission jl7 14:39 Drug: Rocephin 1 grams Route: IV; Rate: calculated rate; Site: right wrist; tw2 14:46 Follow up: IV Status: Completed infusion tw2 Disposition: 18:17 Co-signature as Attending Physician, Neeraj Douglas MD. rn Disposition: 06/23/19 18:[address] [facility]. Diagnosis are Urinary tract infection, site not specified, Dehydration, Iliac artery Aneurysm. - Reason for transfer: Higher level of care. - Accepting physician is Dr. Vasquez. - Condition is Stable. - Problem is new. - Symptoms have improved. Signatures: Dispatcher [employer] EDMS Sonja Cancino RN RN dw Gay, Steven, RN RN sg Edie Nevarez, ADMINISTRATIVE AIDE-C ADMINISTRATIVE AIDE-Csnw Neeraj Douglas MD MD rn Wise, Tara, RN RN tw2 Misty Canales RN RN ea Botello, Elizabeth eb Leal, Jahala RN jl7 Corrections: (The following items were deleted from the chart) 17:17 14:13 Hospitalization Ordered by Dakota Hoff for Inpatient Admission. Preliminary eb diagnosis is Acute kidney failure; Dehydration; Urinary tract infection, site not specified. Bed requested for Telemetry/MedSurg (Inpatient). Status is Inpatient Admission. Condition is Stable. Problem is an acute exacerbation. Symptoms are unchanged. UTI on Admission? Yes. snw 18:21 18:17 ED course: Pt here for transient hypotension, no evidence of dissection trolley car operator leakage, no acute thrombus/flap. No indication that aneurysmal dilation is cause of what brought patient to ER today. Incidental finding, but insisted by Dr. Hoff to transfer, ultimately family agrees to transfer for evaluation. Family states they do not want surgical intervention anyway. . rn 18:37 17:17 06/23/2019 14:13 Hospitalization Ordered by Dakota Hoff for Inpatient dw Admission. Preliminary diagnosis is Acute kidney failure; Dehydration; Urinary tract infection, site not specified. Bed requested for Telemetry/MedSurg (Inpatient). Status is Inpatient Admission. Condition is Stable. Problem is an acute exacerbation. Symptoms are unchanged. UTI on Admission? Yes. eb 18:45 18:37 06/23/2019 14:13 Hospitalization Ordered by Dakota Hoff for Inpatient internal grinder. Preliminary diagnosis is Acute kidney failure; Dehydration; Urinary tract infection, site not specified. Bed requested for Telemetry/MedSurg (Inpatient). Status is Inpatient Admission. Condition is Stable. Problem is an acute exacerbation. Symptoms are unchanged. UTI on Admission? Yes. dw 19:30 18:45 06/23/2019 18:[address] [facility]. ea Diagnosis is Urinary tract infection, site not specified; Dehydration; Iliac artery Aneurysm. Reason for transfer: Higher level of care. Accepting physician is Dr. Vasquez. Condition is Stable. Problem is new. Symptoms have improved. rn
[2019-06-23] MEDS ORDERED: NA CHLORIDE 0.9% 1,000 ML ONE (14:35)
[2019-06-23] MEDS ORDERED: CEFTRIAXONE/SWI 1gm 1 GM/10 ML SYR ONE (14:35)
--- NOTE | 2019-06-23 14:43 | RAD REPORT ---
EXAM DESCRIPTION: CT - Abdomen Pelvis Wo Contrast - 06/23/2019 2:21 pm CLINICAL HISTORY: ABD PAIN COMPARISON: CT ABDOMEN PELVIS WO CONTRAST dated 09/24/2012 TECHNIQUE: Axial [address] imaging of the abdomen and pelvis was performed without IV contrast. No IV contrast was given because of allergy, abnormal renal function, patient refusal or physician re quest. No oral contrast given. All CT scans are performed using dose optimization technique as appropriate and may include automated exposure control or mA/KV adjustment according to patient size. FINDINGS: No acute lung base abnormality. Fibrotic stranding in the posterior gutter on the left not substantially different in 2013. Borderline cardiomegaly present without pericardial effusion. The liver, spleen and pancreas show no suspicious findings on non-contrast imaging. Gallbladder is ab sent. No biliary tree dilatation. No obstructing calculi. No right-sided hydronephrosis. A 2.9 centimeter low-density mass medial upper pole right kidney has enlarged since 2013. A 2.7 centimeter isodense mass posterior mid left kidney has decreased in size from prior imaging. A 2.2 centimeter low-density mass exophytic lateral left ki dney measures slightly larger than prior study. In the central hilar region a 3.8 centimeter low-dens ity mass is present. This may be a dilated renal pelvis rather than a parapelvic cyst. The ureter is not dilated. Full assessment is limited in the absence of contrast. Patient could have a mild strictu re at the UPJ. No significant adrenal finding. Isodense renal masses and pyelonephritis cannot be exc luded in the absence of IV contrast. No urinary bladder abnormality seen. Patient has a prominent pro state gland that projects into the bladder base. No gastric dilatation or gastric wall thickening. Prominent sigmoid diverticulosis is present. There is a large amount of stool distending the rectum. 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 This is associated with a large ventral ventral wall and very stomal hernia. The peristo mal hernia to the right of midline is 12 cm in diameter. There is a 9 centimeter associated hernia to the left of midline. Scar tissue is present in the midline. Both hernias contain small bowel. No wal l edema edematous fatty tissue or other acute component suspected. No free air, free fluid or inflammatory stranding. No mass or bulky lymphadenopathy. Disc and bony degenerative changes are present. No pathologic bone process. Prominent mesenteric and renal vascular calcifications are present. Aortic calcifications are present . Infrarenal abdominal aortic aneurysm is present 5.5 cm AP x 4.9 cm TR. No displaced calcifications. Dense iliac artery calcifications are present. A very large iliac artery aneurysm is present 5.6 cm AP x 5.9 cm TR. This measure approximately 3 cm in 2013. This is probably arising from the left commo n iliac artery. Assessment is limited in the absence of IV contrast. There is no fluid or stranding a round either of these large aneurysms. IMPRESSION: No bowel obstruction, free air or surgically emergent finding. No acute GI process identifiable. Patient has large complex ventral and peristomal hernia changes in the mid abdomen. No acute findings at either site. Infrarenal abdominal aortic aneurysm 5.5 cm in size. This is only minimally increased from 2013. Large 5.6 x 5.9 centimeter common iliac artery aneurysm, probably from the left common iliac artery, substantially increased from 2013. Aneurysm assessment is limited in the absence of contrast. Additional nonacute findings detailed in the body of the report. Full assessment is limited is the absence of IV contrast.
--- NOTE | 2019-06-23 16:19 | P.HP ---
Certification for Inpatient With expected LOS: >2 Midnights Practitioner: I am a practitioner with admitting privileges, knowledge of patient current condition, hospital course, and medical plan of care. Services: Services provided to patient in accordance with Admission requirements found in Title 42 Section 412.3 of the Code of Federal Regulations Patient History Date of Service: 06/23/19 Reason for admission: Hypotension History of Present Illness: 89-year-old gentleman with a history of heart failure, COPD and renal insufficiency was brought to the emergency department due to an episode of hypotension. Patient's caregiver noted his systolic blood pressure was 80 and therefore directed him to the emergency department. Patient's systolic blood pressure was up to 100 on arrival. His urinalysis suggested presence of UTI. Blood chemistry resulted increase in serum creatinine above baseline suggesting acute renal failure. Patient denied any complain. He denied any dysuria or increased urinary frequency. He is on Lasix for congestive heart failure. Patient is admitted for further management. Allergies iodine Allergy (Verified 06/20/18 14:17) Hives/Rash Home Medications: Aspirin Enteric Coated [ASPIRIN 81 MG EC*] 81 mg PO DAILY 09/25/12 Levothyroxine [Synthroid*] 0.12 mg PO [id number] 09/25/12 Donepezil HCl [Aricept] 10 mg PO BEDTIME 05/30/19 Finasteride [Proscar*] 5 mg PO DAILY 05/30/19 Potassium Chloride [Klor-Con 10] 1 tab PO DAILY 05/30/19 Trazodone [Desyrel*] 50 mg PO BEDTIME 05/30/19 metOLazone [Zaroxolyn*] 2.5 mg PO SEECOM 05/30/19 Ensure High Protein 237 ml PO TIDWM can 06/02/19 Furosemide [Lasix*] 40 mg PO BIDL tab 06/02/19 carvediloL [Coreg*] 6.25 mg PO BID #60 tab 06/02/19 - Past Medical/Surgical History Diabetic: No -: CAD -: CHF -: Anemia -: COPD -: HTN -: Renal Insufficiency -: Colostomy -: Hernia repair -: Removal of nasal tumour - Family History Father -: Heart disease, Diabetes Mother -: Other (see notes) Notes: depression due to sons - Social History Alcohol use: No CD- Drugs: No Caffeine use: Yes Physical Examination - Physical Exam General: In no apparent distress, Obese HEENT: Atraumatic, Mucous membr. moist/pink, Sclerae nonicteric Neck: JVD not distended Respiratory: Clear to auscultation bilaterally, Normal air movement Cardiovascular: Regular rate/rhythm, Normal S1 S2 Gastrointestinal: Normal bowel sounds, No tenderness, Other (Ileostomy, ventral hernia.) Musculoskeletal: Other (Bilateral lower extremity lymphedema.) Integumentary: Other (Bilateral lower extremity venostasis dermatitis) Neurological: Normal speech, Normal strength at 5/5 x4 extr - Studies Laboratory Data (last 24 hrs) 06/23/19 12:34: Sodium 134 L, Potassium 4.8, BUN 76 H, Creatinine 2.19 H, Glucose 85 06/23/19 12:34: WBC 10.4, Hgb 11.6 L, Hct 35.3 L, Plt Count 249 Assessment and Plan - Problems (Diagnosis) (1) 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 There has been significant enlargement since previous CT in 2013. This needs to be addressed urgently based on the size of the aneurysm and the high risk of life-threatening rupture. Patient had apparently undergone an emergent aortic aneurysm repair in the past which per family was also an incidental finding. I spoke to Dr. Mckee vascular surgeon at [facility] who recommended patient to be transferred for evaluation tomorrow for repair. I spoke to Dr. Vasquez, Hospitalist at [facility] who has accepted the patient to the hospitalist service. Family informed and the purpose of the transfer explained and they agree for the patient to be transferred. Vitals are currently stable for transfer. - Advance Directives Does patient have a Living Will: No Does patient have a Durable POA for Healthcare: No
[2019-06-23 19:38] VITALS: TEMP 98.8
[2019-06-23 19:49] VITALS: BP 117/67; O2SAT 95
== END 2019-06-23 19:30 | disposition short-term general hospital (02) | DRG 683 ==
LOC: ER 12:02 → ERHOLD 16:02
PROVIDERS: ADMIT Internal Medicine; ATTEND Internal Medicine
DX: N17.9 Acute kidney failure, unspecified (principal); N39.0 Urinary tract infection, site not specified; I71.4 Abdominal aortic aneurysm, without rupture; I72.3 Aneurysm of iliac artery; I10 Essential (primary) hypertension; I50.9 Heart failure, unspecified; J44.9 Chronic obstructive pulmonary disease, unspecified; N28.9 Disorder of kidney and ureter, unspecified
CPT/HCPCS: 36415; 51702; 71046; 74176; 80048; 81003; 81015; 85025; 87040; 87086; 87088; 93005; 95810; 96361; 96374; 99285; J0696; J7030

== ENCOUNTER 2019-09-22 15:04 | Inpatient (IN) | payer OTHER ==
--- OUTSIDE RECORDS SUMMARY | 2019-09-22 15:11 | XMS REPORT ---
:1930 Author Organization [facility] t Address [address] [place] [address] Dr. Saenz [address] [place] [id number] Care Team Providers Name Role Phone GREGORY AYERS Unavailable Unavailable YARITZA Unavailable Unavailable RADHA STRICKLAND Unavailable Unavailable Problems This patient has no known problems. Allergies, Adverse Reactions, Alerts This patient has no known allergies or adverse reactions. Medications This patient has no known medications. Results Test Description Test Time Test Comments Text Results Atomic Results Result Comments BASIC METABOLIC PANEL 2019-09-11 07:25:00 Test Item Value Reference Range Comments SODIUM (BEAKER) (test code = 141 meq/L 136-145 381) POTASSIUM (BEAKER) (test code = 3.8 meq/L 3.5-5.1 379) CHLORIDE (BEAKER) (test code = 108 meq/L 98-107 382) CO2 (BEAKER) (test code = 355) 28 meq/L 22-29 BLOOD UREA NITROGEN (BEAKER) 11 mg/dL 7-21 (test code = 354) CREATININE (BEAKER) (test code 1.26 mg/dL 0.57-1.25 = 358) GLUCOSE RANDOM (BEAKER) (test 81 mg/dL 70-105 code = 652) CALCIUM (BEAKER) (test code = 8.0 mg/dL 8.4-10.2 697) EGFR (BEAKER) (test code = INSUF FICIENT CLINICAL DATA TO 1092) CALCULATE ESTIMA TIARRA GFR. 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 ID - PISANYA [id number] 07:12:00 Test Item Value Reference Range Comments PHOSPHORUS (BEAKER) (test code = 604) 2.6 mg/dL 2.3-4.7 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 ID - ZENIA [id number] 07:12:00 Test Item Value Reference Range Comments MAGNESIUM (BEAKER) (test code = 627) 1.8 mg/dL 1.6-2.6 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 ID - PIAYA LCBC W/PLT COUNT & AUTO [id number] 06:19:00 Test Item Value Reference Range Comments WHITE BLOOD CELL COUNT (BEAKER) (test code = 6.7 K/ L 3.5 -10.5 775) RED BLOOD CELL COUNT (BEAKER) (test code = 761) 2.88 M/ L 4.63-6.08 HEMOGLOBIN (BEAKER) (test code = 410) 8.9 GM/DL 13.7-17.5 HEMATOCRIT (BEAKER) (test code = 411) 28.6 % 40.1-51.0 MEAN CORPUSCULAR VOLUME (BEAKER) (test code = 99.3 fL 79 .0-92.2 753) MEAN CORPUSCULAR HEMOGLOBIN (BEAKER) (test code 30.9 pg 25.7-32.2 = 751) MEAN CORPUSCULAR HEMOGLOBIN CONC (BEAKER) (test 31.1 GM/DL 32.3-36.5 code = 752) RED CELL DISTRIBUTION WIDTH (BEAKER) (test code 17.4 % 11.6-14.4 = 412) PLATELET COUNT (BEAKER) (test code = 756) 228 K/CU MM 150-45 0 MEAN PLATELET VOLUME (BEAKER) (test code = 754) 9.4 fL 9.4-12.4 NUCLEATED RED BLOOD CELLS (BEAKER) (test code = 0 /100 WBC 0-0 413) NEUTROPHILS RELATIVE PERCENT (BEAKER) (test code 60 % = 429) LYMPHOCYTES RELATIVE PERCENT (BEAKER) (test code 26 % = 430) MONOCYTES RELATIVE PERCENT (BEAKER) (test code = 10 % 431) EOSINOPHILS RELATIVE PERCENT (BEAKER) (test code 3 % = 432) BASOPHILS RELATIVE PERCENT (BEAKER) (test code = 0 % 437) NEUTROPHILS ABSOLUTE COUNT (BEAKER) (test code = 4.04 K/ L 1.78-5.38 670) LYMPHOCYTES ABSOLUTE COUNT (BEAKER) (test code = 1.73 K/ L 1.32-3.57 414) MONOCYTES ABSOLUTE COUNT (BEAKER) (test code = 0.68 K/ L 0 .30-0.82 415) EOSINOPHILS ABSOLUTE COUNT (BEAKER) (test code = 0.23 K/ L 0.04-0.54 416) BASOPHILS ABSOLUTE COUNT (BEAKER) (test code = 0.02 K/ L 0 .01-0.08 417) IMMATURE GRANULOCYTES-RELATIVE PERCENT (BEAKER) 0 % 0-1 (test code = 2801) BASIC METABOLIC [id number] 05:56:00 Test Item Value Reference Range Comments SODIUM (BEAKER) (test code = 139 meq/L 136-145 381) POTASSIUM (BEAKER) (test 3.7 meq/L 3.5-5.1 code = 379) CHLORIDE (BEAKER) (test code 108 meq/L 98-107 = 382) CO2 (BEAKER) (test code = 26 meq/L 22-29 355) BLOOD UREA NITROGEN (BEAKER) 13 mg/dL 7-21 (test code = 354) CREATININE (BEAKER) (test 1.40 mg/dL 0.57-1.25 code = 358) GLUCOSE RANDOM (BEAKER) 107 mg/dL 70-105 (test code = 652) CALCIUM (BEAKER) (test code 7.8 mg/dL 8.4-10.2 = 697) EGFR (BEAKER) (test code = INSUF FICIENT CLINICAL DATA TO 1092) CALCULATE ESTIMA TIARRA GFR. 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 ID - PISANYA [id number] 05:25:00 Test Item Value Reference Range Comments PHOSPHORUS (BEAKER) (test code = 604) 2.4 mg/dL 2.3-4.7 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 ID - PISANYA [id number] 05:25:00 Test Item Value Reference Range Comments MAGNESIUM (BEAKER) (test code = 627) 2.0 mg/dL 1.6-2.6 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 ID - PISANYA LCBC W/PLT COUNT & AUTO [id number] 04:41:00 Test Item Value Reference Range Comments WHITE BLOOD CELL COUNT (BEAKER) (test code = 5.5 K/ L 3.5 -10.5 775) RED BLOOD CELL COUNT (BEAKER) (test code = 761) 2.75 M/ L 4.63-6.08 HEMOGLOBIN (BEAKER) (test code = 410) 8.2 GM/DL 13.7-17.5 HEMATOCRIT (BEAKER) (test code = 411) 26.9 % 40.1-51.0 MEAN CORPUSCULAR VOLUME (BEAKER) (test code = 97.8 fL 79 .0-92.2 753) MEAN CORPUSCULAR HEMOGLOBIN (BEAKER) (test code 29.8 pg 25.7-32.2 = 751) MEAN CORPUSCULAR HEMOGLOBIN CONC (BEAKER) (test 30.5 GM/DL 32.3-36.5 code = 752) RED CELL DISTRIBUTION WIDTH (BEAKER) (test code 17.2 % 11.6-14.4 = 412) PLATELET COUNT (BEAKER) (test code = 756) 165 K/CU MM 150-45 0 MEAN PLATELET VOLUME (BEAKER) (test code = 754) 9.4 fL 9.4-12.4 NUCLEATED RED BLOOD CELLS (BEAKER) (test code = 0 /100 WBC 0-0 413) NEUTROPHILS RELATIVE PERCENT (BEAKER) (test code 57 % = 429) LYMPHOCYTES RELATIVE PERCENT (BEAKER) (test code 27 % = 430) MONOCYTES RELATIVE PERCENT (BEAKER) (test code = 12 % 431) EOSINOPHILS RELATIVE PERCENT (BEAKER) (test code 4 % = 432) BASOPHILS RELATIVE PERCENT (BEAKER) (test code = 0 % 437) NEUTROPHILS ABSOLUTE COUNT (BEAKER) (test code = 3.13 K/ L 1.78-5.38 670) LYMPHOCYTES ABSOLUTE COUNT (BEAKER) (test code = 1.45 K/ L 1.32-3.57 414) MONOCYTES ABSOLUTE COUNT (BEAKER) (test code = 0.65 K/ L 0 .30-0.82 415) EOSINOPHILS ABSOLUTE COUNT (BEAKER) (test code = 0.22 K/ L 0.04-0.54 416) BASOPHILS ABSOLUTE COUNT (BEAKER) (test code = 0.01 K/ L 0 .01-0.08 417) IMMATURE GRANULOCYTES-RELATIVE PERCENT (BEAKER) 0 % 0-1 (test code = 2801) BASIC METABOLIC [id number] 07:38:00 Test Item Value Reference Range Comments SODIUM (BEAKER) (test code = 140 meq/L 136-145 381) POTASSIUM (BEAKER) (test 3.8 meq/L 3.5-5.1 code = 379) CHLORIDE (BEAKER) (test code 107 meq/L 98-107 = 382) CO2 (BEAKER) (test code = 29 meq/L 22-29 355) BLOOD UREA NITROGEN (BEAKER) 12 mg/dL 7-21 (test code = 354) CREATININE (BEAKER) (test 1.19 mg/dL 0.57-1.25 code = 358) GLUCOSE RANDOM (BEAKER) 90 mg/dL 70-105 (test code = 652) CALCIUM (BEAKER) (test code 7.8 mg/dL 8.4-10.2 = 697) EGFR (BEAKER) (test code = INSUF FICIENT CLINICAL DATA TO 1092) CALCULATE ESTIMA TIARRA GFR. 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 ID - ZENIA [id number] 07:36:00 Test Item Value Reference Range Comments PHOSPHORUS (BEAKER) (test code = 604) 2.3 mg/dL 2.3-4.7 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 ID - MILTONSANYA [id number] 07:36:00 Test Item Value Reference Range Comments MAGNESIUM (BEAKER) (test code = 627) 2.1 mg/dL 1.6-2.6 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 ID - ZENIA LCBC W/PLT COUNT & AUTO [id number] 06:35:00 Test Item Value Reference Range Comments WHITE BLOOD CELL COUNT (BEAKER) (test code = 6.5 K/ L 3.5 -10.5 775) RED BLOOD CELL COUNT (BEAKER) (test code = 761) 2.95 M/ L 4.63-6.08 HEMOGLOBIN (BEAKER) (test code = 410) 8.7 GM/DL 13.7-17.5 HEMATOCRIT (BEAKER) (test code = 411) 28.2 % 40.1-51.0 MEAN CORPUSCULAR VOLUME (BEAKER) (test code = 95.6 fL 79 .0-92.2 753) MEAN CORPUSCULAR HEMOGLOBIN (BEAKER) (test code 29.5 pg 25.7-32.2 = 751) MEAN CORPUSCULAR HEMOGLOBIN CONC (BEAKER) (test 30.9 GM/DL 32.3-36.5 code = 752) RED CELL DISTRIBUTION WIDTH (BEAKER) (test code 17.4 % 11.6-14.4 = 412) PLATELET COUNT (BEAKER) (test code = 756) 203 K/CU MM 150-45 0 MEAN PLATELET VOLUME (BEAKER) (test code = 754) 9.2 fL 9.4-12.4 NUCLEATED RED BLOOD CELLS (BEAKER) (test code = 0 /100 WBC 0-0 413) NEUTROPHILS RELATIVE PERCENT (BEAKER) (test code 62 % = 429) LYMPHOCYTES RELATIVE PERCENT (BEAKER) (test code 25 % = 430) MONOCYTES RELATIVE PERCENT (BEAKER) (test code = 10 % 431) EOSINOPHILS RELATIVE PERCENT (BEAKER) (test code 3 % = 432) BASOPHILS RELATIVE PERCENT (BEAKER) (test code = 0 % 437) NEUTROPHILS ABSOLUTE COUNT (BEAKER) (test code = 4.01 K/ L 1.78-5.38 670) LYMPHOCYTES ABSOLUTE COUNT (BEAKER) (test code = 1.60 K/ L 1.32-3.57 414) MONOCYTES ABSOLUTE COUNT (BEAKER) (test code = 0.66 K/ L 0 .30-0.82 415) EOSINOPHILS ABSOLUTE COUNT (BEAKER) (test code = 0.21 K/ L 0.04-0.54 416) BASOPHILS ABSOLUTE COUNT (BEAKER) (test code = 0.01 K/ L 0 .01-0.08 417) IMMATURE GRANULOCYTES-RELATIVE PERCENT (BEAKER) 0 % 0-1 (test code = 2801) HEMOGLOBIN AND [id number] 23:15:00 Test Item Value Reference Range Comments HEMOGLOBIN (BEAKER) (test code = 410) 8.5 GM/DL 13.7-17.5 HEMATOCRIT (BEAKER) (test code = 411) 27.1 % 40.1-51.0 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 ID - [id number] AND [id number] 18:34:00 Test Item Value Reference Range Comments HEMOGLOBIN (BEAKER) (test code = 410) 9.5 GM/DL 13.7-17.5 HEMATOCRIT (BEAKER) (test code = 411) 30.6 % 40.1-51.0 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 ID - [id number] 15:27:00 Test Item Value Reference Range Comments POTASSIUM (BEAKER) (test code = 379) 4.4 meq/L 3.5-5.1 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 ID - [id number] 15:27:00 Test Item Value Reference Range Comments MAGNESIUM (BEAKER) (test code = 627) 2.0 mg/dL 1.6-2.6 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 ID - DBCBC W/PLT COUNT & AUTO [id number] 05:26:00 Test Item Value Reference Range Comments WHITE BLOOD CELL COUNT (BEAKER) (test code = 6.1 K/ L 3.5 -10.5 775) RED BLOOD CELL COUNT (BEAKER) (test code = 761) 2.37 M/ L 4.63-6.08 HEMOGLOBIN (BEAKER) (test code = 410) 7.1 GM/DL 13.7-17.5 HEMATOCRIT (BEAKER) (test code = 411) 23.2 % 40.1-51.0 MEAN CORPUSCULAR VOLUME (BEAKER) (test code = 97.9 fL 79 .0-92.2 753) MEAN CORPUSCULAR HEMOGLOBIN (BEAKER) (test code 30.0 pg 25.7-32.2 = 751) MEAN CORPUSCULAR HEMOGLOBIN CONC (BEAKER) (test 30.6 GM/DL 32.3-36.5 code = 752) RED CELL DISTRIBUTION WIDTH (BEAKER) (test code 16.8 % 11.6-14.4 = 412) PLATELET COUNT (BEAKER) (test code = 756) 171 K/CU MM 150-45 0 MEAN PLATELET VOLUME (BEAKER) (test code = 754) 9.3 fL 9.4-12.4 NUCLEATED RED BLOOD CELLS (BEAKER) (test code = 0 /100 WBC 0-0 413) NEUTROPHILS RELATIVE PERCENT (BEAKER) (test code 64 % = 429) LYMPHOCYTES RELATIVE PERCENT (BEAKER) (test code 20 % = 430) MONOCYTES RELATIVE PERCENT (BEAKER) (test code = 11 % 431) EOSINOPHILS RELATIVE PERCENT (BEAKER) (test code 4 % = 432) BASOPHILS RELATIVE PERCENT (BEAKER) (test code = 0 % 437) NEUTROPHILS ABSOLUTE COUNT (BEAKER) (test code = 3.94 K/ L 1.78-5.38 670) LYMPHOCYTES ABSOLUTE COUNT (BEAKER) (test code = 1.22 K/ L 1.32-3.57 414) MONOCYTES ABSOLUTE COUNT (BEAKER) (test code = 0.69 K/ L 0 .30-0.82 415) EOSINOPHILS ABSOLUTE COUNT (BEAKER) (test code = 0.25 K/ L 0.04-0.54 416) BASOPHILS ABSOLUTE COUNT (BEAKER) (test code = 0.01 K/ L 0 .01-0.08 417) IMMATURE GRANULOCYTES-RELATIVE PERCENT (BEAKER) 0 % 0-1 (test code = 2801) BASIC METABOLIC [id number] 05:08:00 Test Item Value Reference Range Comments SODIUM (BEAKER) (test code = 140 meq/L 136-145 381) POTASSIUM (BEAKER) (test 3.9 meq/L 3.5-5.1 code = 379) CHLORIDE (BEAKER) (test code 109 meq/L 98-107 = 382) CO2 (BEAKER) (test code = 26 meq/L 22-29 355) BLOOD UREA NITROGEN (BEAKER) 12 mg/dL 7-21 (test code = 354) CREATININE (BEAKER) (test 1.17 mg/dL 0.57-1.25 code = 358) GLUCOSE RANDOM (BEAKER) 92 mg/dL 70-105 (test code = 652) CALCIUM (BEAKER) (test code 7.4 mg/dL 8.4-10.2 = 697) EGFR (BEAKER) (test code = INSUF FICIENT CLINICAL DATA TO 1092) CALCULATE ESTIMA TIARRA GFR. 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 ID - LINDSEY [id number] 04:56:00 Test Item Value Reference Range Comments PHOSPHORUS (BEAKER) (test code = 604) 2.3 mg/dL 2.3-4.7 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 ID - LINDSEY [id number] 04:56:00 Test Item Value Reference Range Comments MAGNESIUM (BEAKER) (test code = 627) 2.1 mg/dL 1.6-2.6 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 ID - LINDSEY [id number] 15:40:00 Test Item Value Reference Range Comments FERRITIN (BEAKER) (test code = 361) 97.89 ng/mL 5.00-275.00 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 ID - YVONNE MESSINA, TIBC, % SAT. (WITHOUT FERRITIN)2019-09-07 15:20:00 Test Item Value Reference Range Comments IRON (BEAKER) (test code = 547) 21.0 ug/dL 40.0-160.0 TOTAL IRON BINDING CAPACITY (BEAKER) (test code = 224 ug/dL 250-450 769) IRON % SATURATION (2) (BEAKER) (test code = 2590) 9 % 20-55 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 ID Leonidas RUSSELL [id number] 15:19:00 Test Item Value Reference Range Comments POTASSIUM (BEAKER) (test code = 379) 4.4 meq/L 3.5-5.1 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 ID - YVONNE [id number] 15:19:00 Test Item Value Reference Range Comments MAGNESIUM (BEAKER) (test code = 627) 2.2 mg/dL 1.6-2.6 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 ID - YVONNE MBASIC METABOLIC [id number] 06:12:00 Test Item Value Reference Range Comments SODIUM (BEAKER) (test code = 144 meq/L 136-145 381) POTASSIUM (BEAKER) (test 3.4 meq/L 3.5-5.1 code = 379) CHLORIDE (BEAKER) (test code 114 meq/L 98-107 = 382) CO2 (BEAKER) (test code = 26 meq/L 22-29 355) BLOOD UREA NITROGEN (BEAKER) 12 mg/dL 7-21 (test code = 354) CREATININE (BEAKER) (test 1.06 mg/dL 0.57-1.25 code = 358) GLUCOSE RANDOM (BEAKER) 87 mg/dL 70-105 (test code = 652) CALCIUM (BEAKER) (test code 6.7 mg/dL 8.4-10.2 = 697) EGFR (BEAKER) (test code = INSUF FICIENT CLINICAL DATA TO 1092) CALCULATE ESTIMA TIARRA GFR. 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 ID - YVONNE [id number] 06:02:00 Test Item Value Reference Range Comments PHOSPHORUS (BEAKER) (test code = 604) 2.2 mg/dL 2.3-4.7 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 ID - YVONNE [id number] 06:02:00 Test Item Value Reference Range Comments MAGNESIUM (BEAKER) (test code = 627) 1.6 mg/dL 1.6-2.6 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 ID - YVONNE MCBC W/PLT COUNT & AUTO [id number] 05:27:00 Test Item Value Reference Range Comments WHITE BLOOD CELL COUNT (BEAKER) (test code = 6.2 K/ L 3.5 -10.5 775) RED BLOOD CELL COUNT (BEAKER) (test code = 761) 2.48 M/ L 4.63-6.08 HEMOGLOBIN (BEAKER) (test code = 410) 7.4 GM/DL 13.7-17.5 HEMATOCRIT (BEAKER) (test code = 411) 24.3 % 40.1-51.0 MEAN CORPUSCULAR VOLUME (BEAKER) (test code = 98.0 fL 79 .0-92.2 753) MEAN CORPUSCULAR HEMOGLOBIN (BEAKER) (test code 29.8 pg 25.7-32.2 = 751) MEAN CORPUSCULAR HEMOGLOBIN CONC (BEAKER) (test 30.5 GM/DL 32.3-36.5 code = 752) RED CELL DISTRIBUTION WIDTH (BEAKER) (test code 16.9 % 11.6-14.4 = 412) PLATELET COUNT (BEAKER) (test code = 756) 163 K/CU MM 150-45 0 MEAN PLATELET VOLUME (BEAKER) (test code = 754) 9.3 fL 9.4-12.4 NUCLEATED RED BLOOD CELLS (BEAKER) (test code = 0 /100 WBC 0-0 413) NEUTROPHILS RELATIVE PERCENT (BEAKER) (test code 62 % = 429) LYMPHOCYTES RELATIVE PERCENT (BEAKER) (test code 22 % = 430) MONOCYTES RELATIVE PERCENT (BEAKER) (test code = 11 % 431) EOSINOPHILS RELATIVE PERCENT (BEAKER) (test code 4 % = 432) BASOPHILS RELATIVE PERCENT (BEAKER) (test code = 0 % 437) NEUTROPHILS ABSOLUTE COUNT (BEAKER) (test code = 3.86 K/ L 1.78-5.38 670) LYMPHOCYTES ABSOLUTE COUNT (BEAKER) (test code = 1.38 K/ L 1.32-3.57 414) MONOCYTES ABSOLUTE COUNT (BEAKER) (test code = 0.66 K/ L 0 .30-0.82 415) EOSINOPHILS ABSOLUTE COUNT (BEAKER) (test code = 0.26 K/ L 0.04-0.54 416) BASOPHILS ABSOLUTE COUNT (BEAKER) (test code = 0.02 K/ L 0 .01-0.08 417) IMMATURE GRANULOCYTES-RELATIVE PERCENT (BEAKER) 0 % 0-1 (test code = 2801) RAD, CHEST, 1 VIEW, NON [id number] 02:58:00Reason for exam:->acute respiratory insufficiencyShould this be performed at the bedside?->YesFINAL REPORT RAD, CHEST, 1 VIEW, NON DEPT INDICATION: acute respiratory insufficiency COMPARISON: Prior day's exam FINDINGS: Portable frontal view of the chest. IMPRESSION: Support Lines: Stable. Lungs and pleura: No significant change in diffuse bilateral coarse interstitialopacities with central venous congestion. Small bilateral pleural effusions similar to prior. No pneumothorax.Heart and mediastinum: Stable contours. Stable surgical changes.Additional findings: None. Signed: Singh Tuttle MDReport Verified Date/Time: 09/07/2019 02:58:19 BASIC METABOLIC [id number] 05:22:00 Test Item Value Reference Range Comments SODIUM (BEAKER) (test code = 141 meq/L 136-145 381) POTASSIUM (BEAKER) (test 3.8 meq/L 3.5-5.1 Specime n slightly hemolyzed code = 379) CHLORIDE (BEAKER) (test code 108 meq/L 98-107 = 382) CO2 (BEAKER) (test code = 27 meq/L 22-29 355) BLOOD UREA NITROGEN (BEAKER) 15 mg/dL 7-21 (test code = 354) CREATININE (BEAKER) (test 1.22 mg/dL 0.57-1.25 Specim en slightly hemolyzed code = 358) GLUCOSE RANDOM (BEAKER) 96 mg/dL 70-105 (test code = 652) CALCIUM (BEAKER) (test code 7.4 mg/dL 8.4-10.2 = 697) EGFR (BEAKER) (test code = INSUF FICIENT CLINICAL DATA TO 1092) CALCULATE ESTIMA TIARRA GFR. 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 ID - ZENIA [id number] 05:20:00 Test Item Value Reference Range Comments MAGNESIUM (BEAKER) (test code = 1.9 mg/dL 1.6-2.6 Specimen slightly hemolyzed 627) 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 ID - ZENIA [id number] 05:20:00 Test Item Value Reference Range Comments PHOSPHORUS (BEAKER) (test code 2.1 mg/dL 2.3-4.7 S pecimen slightly hemolyzed = 604) 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 ID - ZENIA LCALCIUM, [id number] 05:12:00 Test Item Value Reference Range Comments CALCIUM IONIZED (BEAKER) (test code = 698) 1.01 mmol/L 1.12- 1.27 PH, BLOOD (BEAKER) (test code = 1810) 7.41 BLOOD GAS, [id number] 04:58:00 Test Item Value Reference Range Comments PH ARTERIAL (BEAKER) (test code = 383) 7.41 7.35-7.45 PCO2 ARTERIAL (BEAKER) (test code = 384) 44 mmHg 35-45 PO2 ARTERIAL (BEAKER) (test code = 385) 82 mmHg 80-90 O2 SATURATION ARTERIAL (BEAKER) (test code = 386) 96.1 % 96.0-97.0 HCO3 ARTERIAL (BEAKER) (test code = 388) 27 mmol/L 21-29 BASE EXCESS ARTERIAL (BEAKER) (test code = 387) 2.4 mmol/L -2.0-3.0 PATIENT TEMPERATURE (BEAKER) (test code = 1818) 37.0 C FIO2 (BEAKER) (test code = 1819) 50.0 % OXYGEN SATURATION, [id number] 04:56:00 Test Item Value Reference Range Comments O2 SATURATION (MEASURED) (BEAKER) (test code = 1455) 64.5 % CBC W/PLT COUNT & AUTO [id number] 04:52:00 Test Item Value Reference Range Comments WHITE BLOOD CELL COUNT (BEAKER) (test code = 6.8 K/ L 3.5 -10.5 775) RED BLOOD CELL COUNT (BEAKER) (test code = 761) 2.46 M/ L 4.63-6.08 HEMOGLOBIN (BEAKER) (test code = 410) 7.4 GM/DL 13.7-17.5 HEMATOCRIT (BEAKER) (test code = 411) 24.0 % 40.1-51.0 MEAN CORPUSCULAR VOLUME (BEAKER) (test code = 97.6 fL 79 .0-92.2 753) MEAN CORPUSCULAR HEMOGLOBIN (BEAKER) (test code 30.1 pg 25.7-32.2 = 751) MEAN CORPUSCULAR HEMOGLOBIN CONC (BEAKER) (test 30.8 GM/DL 32.3-36.5 code = 752) RED CELL DISTRIBUTION WIDTH (BEAKER) (test code 16.8 % 11.6-14.4 = 412) PLATELET COUNT (BEAKER) (test code = 756) 175 K/CU MM 150-45 0 MEAN PLATELET VOLUME (BEAKER) (test code = 754) 9.8 fL 9.4-12.4 NUCLEATED RED BLOOD CELLS (BEAKER) (test code = 0 /100 WBC 0-0 413) NEUTROPHILS RELATIVE PERCENT (BEAKER) (test code 64 % = 429) LYMPHOCYTES RELATIVE PERCENT (BEAKER) (test code 20 % = 430) MONOCYTES RELATIVE PERCENT (BEAKER) (test code = 12 % 431) EOSINOPHILS RELATIVE PERCENT (BEAKER) (test code 4 % = 432) BASOPHILS RELATIVE PERCENT (BEAKER) (test code = 0 % 437) NEUTROPHILS ABSOLUTE COUNT (BEAKER) (test code = 4.35 K/ L 1.78-5.38 670) LYMPHOCYTES ABSOLUTE COUNT (BEAKER) (test code = 1.32 K/ L 1.32-3.57 414) MONOCYTES ABSOLUTE COUNT (BEAKER) (test code = 0.79 K/ L 0 .30-0.82 415) EOSINOPHILS ABSOLUTE COUNT (BEAKER) (test code = 0.25 K/ L 0.04-0.54 416) BASOPHILS ABSOLUTE COUNT (BEAKER) (test code = 0.02 K/ L 0 .01-0.08 417) IMMATURE GRANULOCYTES-RELATIVE PERCENT (BEAKER) 0 % 0-1 (test code = 2801) RAD, CHEST, 1 VIEW, NON [id number] 02:04:00Reason for exam:->acute respiratory insufficiencyShould this be performed at the bedside?->YesFINAL REPORT Chest one view. Clinical history: acute respiratory insufficiency Comparison: Chest radiograph 09/05/2019. Technique: A single frontal view of the chest was obtained. Findings: There is a left IJ central venous catheter with tip in the SVC.The patient is status post median sternotomy.The cardiomediastinal contours are stable. There are persistent diffuse bilateralairspace opacities with small bilateral pleural effusions. There is no pneumothorax. Signed: Ashley Adamson MDReport Verified Date/Time: 09/06/2019 02:04:04 BASIC METABOLIC [id number] 06:36:00 Test Item Value Reference Range Comments SODIUM (BEAKER) (test code = 140 meq/L 136-145 381) POTASSIUM (BEAKER) (test 3.8 meq/L 3.5-5.1 code = 379) CHLORIDE (BEAKER) (test code 107 meq/L 98-107 = 382) CO2 (BEAKER) (test code = 26 meq/L 22-29 355) BLOOD UREA NITROGEN (BEAKER) 18 mg/dL 7-21 (test code = 354) CREATININE (BEAKER) (test 1.29 mg/dL 0.57-1.25 code = 358) GLUCOSE RANDOM (BEAKER) 120 mg/dL 70-105 (test code = 652) CALCIUM (BEAKER) (test code 7.8 mg/dL 8.4-10.2 = 697) EGFR (BEAKER) (test code = INSUF FICIENT CLINICAL DATA TO 1092) CALCULATE ESTIMA TIARRA GFR. 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 ID - [id number] 06:34:00 Test Item Value Reference Range Comments PHOSPHORUS (BEAKER) (test code = 604) 1.6 mg/dL 2.3-4.7 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 ID - [id number] 06:34:00 Test Item Value Reference Range Comments MAGNESIUM (BEAKER) (test code = 627) 1.8 mg/dL 1.6-2.6 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 ID - [facility] W/PLT COUNT & AUTO [id number] 06:06:00 Test Item Value Reference Range Comments WHITE BLOOD CELL COUNT (BEAKER) (test code = 10.0 K/ L 3.5 -10.5 775) RED BLOOD CELL COUNT (BEAKER) (test code = 761) 2.62 M/ L 4.63-6.08 HEMOGLOBIN (BEAKER) (test code = 410) 7.9 GM/DL 13.7-17.5 HEMATOCRIT (BEAKER) (test code = 411) 25.3 % 40.1-51.0 MEAN CORPUSCULAR VOLUME (BEAKER) (test code = 96.6 fL 79 .0-92.2 753) MEAN CORPUSCULAR HEMOGLOBIN (BEAKER) (test code 30.2 pg 25.7-32.2 = 751) MEAN CORPUSCULAR HEMOGLOBIN CONC (BEAKER) (test 31.2 GM/DL 32.3-36.5 code = 752) RED CELL DISTRIBUTION WIDTH (BEAKER) (test code 16.7 % 11.6-14.4 = 412) PLATELET COUNT (BEAKER) (test code = 756) 165 K/CU MM 150-45 0 MEAN PLATELET VOLUME (BEAKER) (test code = 754) 9.3 fL 9.4-12.4 NUCLEATED RED BLOOD CELLS (BEAKER) (test code = 0 /100 WBC 0-0 413) NEUTROPHILS RELATIVE PERCENT (BEAKER) (test code 72 % = 429) LYMPHOCYTES RELATIVE PERCENT (BEAKER) (test code 15 % = 430) MONOCYTES RELATIVE PERCENT (BEAKER) (test code = 10 % 431) EOSINOPHILS RELATIVE PERCENT (BEAKER) (test code 2 % = 432) BASOPHILS RELATIVE PERCENT (BEAKER) (test code = 0 % 437) NEUTROPHILS ABSOLUTE COUNT (BEAKER) (test code = 7.21 K/ L 1.78-5.38 670) LYMPHOCYTES ABSOLUTE COUNT (BEAKER) (test code = 1.48 K/ L 1.32-3.57 414) MONOCYTES ABSOLUTE COUNT (BEAKER) (test code = 0.98 K/ L 0 .30-0.82 415) EOSINOPHILS ABSOLUTE COUNT (BEAKER) (test code = 0.24 K/ L 0.04-0.54 416) BASOPHILS ABSOLUTE COUNT (BEAKER) (test code = 0.03 K/ L 0 .01-0.08 417) IMMATURE GRANULOCYTES-RELATIVE PERCENT (BEAKER) 0 % 0-1 (test code = 2801) RAD, CHEST, 1 VIEW, NON [id number] 04:24:00Reason for exam:->acute respiratory insufficiencyShould this be performed at the bedside?->YesFINAL REPORT Chest one view. Clinical history: acute respiratory insufficiency Comparison: Chest radiograph 09/04/2019. Technique: A single frontal view of the chest was obtained. Findings:The patient is status post median sternotomy. This is a left IJ central venous catheter with tip in the proximal right atrium.The cardiomediastinal contours are stable. There are bilateral airspace opacities, mildly decreased. There are persistent small bilateral pleural effusions. There isno pneumothorax. Signed: Ashley Adamson MDReport Verified Date/Time: 09/05/2019 04:24:00 BASIC METABOLIC [id number] 10:52:00 Test Item Value Reference Range Comments SODIUM (BEAKER) (test code = 139 meq/L 136-145 381) POTASSIUM (BEAKER) (test 4.2 meq/L 3.5-5.1 code = 379) CHLORIDE (BEAKER) (test code 105 meq/L 98-107 = 382) CO2 (BEAKER) (test code = 25 meq/L 22-29 355) BLOOD UREA NITROGEN (BEAKER) 27 mg/dL 7-21 (test code = 354) CREATININE (BEAKER) (test 1.50 mg/dL 0.57-1.25 code = 358) GLUCOSE RANDOM (BEAKER) 173 mg/dL 70-105 (test code = 652) CALCIUM (BEAKER) (test code 8.1 mg/dL 8.4-10.2 = 697) EGFR (BEAKER) (test code = INSUF FICIENT CLINICAL DATA TO 1092) CALCULATE ESTIMA TIARRA GFR. 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 ID - AYANA CCALCIUM, [id number] 09:38:00 Test Item Value Reference Range Comments CALCIUM IONIZED (BEAKER) (test code = 698) 1.10 mmol/L 1.12- 1.27 PH, BLOOD (BEAKER) (test code = 1810) 7.40 BLOOD GAS, [id number] 06:11:00 Test Item Value Reference Range Comments PH ARTERIAL (BEAKER) (test code = 383) 7.37 7.35-7.45 PCO2 ARTERIAL (BEAKER) (test code = 384) 49 mmHg 35-45 PO2 ARTERIAL (BEAKER) (test code = 385) 124 mmHg 80-90 O2 SATURATION ARTERIAL (BEAKER) (test code = 386) 98.3 % 96.0-97.0 HCO3 ARTERIAL (BEAKER) (test code = 388) 28 mmol/L 21-29 BASE EXCESS ARTERIAL (BEAKER) (test code = 387) 2.1 mmol/L -2.0-3.0 PATIENT TEMPERATURE (BEAKER) (test code = 1818) 37.0 C FIO2 (BEAKER) (test code = 1819) 100.0 % BASIC METABOLIC [id number] 05:59:00 Test Item Value Reference Range Comments SODIUM (BEAKER) (test code = 139 meq/L 136-145 381) POTASSIUM (BEAKER) (test 4.3 meq/L 3.5-5.1 code = 379) CHLORIDE (BEAKER) (test code 106 meq/L 98-107 = 382) CO2 (BEAKER) (test code = 27 meq/L 22-29 355) BLOOD UREA NITROGEN (BEAKER) 28 mg/dL 7-21 (test code = 354) CREATININE (BEAKER) (test 1.45 mg/dL 0.57-1.25 code = 358) GLUCOSE RANDOM (BEAKER) 161 mg/dL 70-105 (test code = 652) CALCIUM (BEAKER) (test code 8.1 mg/dL 8.4-10.2 = 697) EGFR (BEAKER) (test code = INSUF FICIENT CLINICAL DATA TO 1092) CALCULATE ESTIMA TIARRA GFR. 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 ID - YVONNE [id number] 05:58:00 Test Item Value Reference Range Comments PHOSPHORUS (BEAKER) (test code = 604) 2.2 mg/dL 2.3-4.7 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 ID - YVONNE [id number] 05:58:00 Test Item Value Reference Range Comments MAGNESIUM (BEAKER) (test code = 627) 2.2 mg/dL 1.6-2.6 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 ID - YVONNE MCBC (HEMOGRAM ONLY)2019-09-04 05:37:00 Test Item Value Reference Range Comments WHITE BLOOD CELL COUNT (BEAKER) (test code = 12.5 K/ L 3.5 -10.5 775) RED BLOOD CELL COUNT (BEAKER) (test code = 761) 2.96 M/ L 4.63-6.08 HEMOGLOBIN (BEAKER) (test code = 410) 8.5 GM/DL 13.7-17.5 HEMATOCRIT (BEAKER) (test code = 411) 27.7 % 40.1-51.0 MEAN CORPUSCULAR VOLUME (BEAKER) (test code = 93.6 fL 79 .0-92.2 753) MEAN CORPUSCULAR HEMOGLOBIN (BEAKER) (test code 28.7 pg 25.7-32.2 = 751) MEAN CORPUSCULAR HEMOGLOBIN CONC (BEAKER) (test 30.7 GM/DL 32.3-36.5 code = 752) RED CELL DISTRIBUTION WIDTH (BEAKER) (test code 16.8 % 11.6-14.4 = 412) PLATELET COUNT (BEAKER) (test code = 756) 182 K/CU MM 150-45 0 MEAN PLATELET VOLUME (BEAKER) (test code = 754) 9.0 fL 9.4-12.4 NUCLEATED RED BLOOD CELLS (BEAKER) (test code = 0 /100 WBC 0-0 413) BASIC METABOLIC [id number] 01:33:00 Test Item Value Reference Range Comments SODIUM (BEAKER) (test code = 140 meq/L 136-145 381) POTASSIUM (BEAKER) (test 3.8 meq/L 3.5-5.1 code = 379) CHLORIDE (BEAKER) (test code 105 meq/L 98-107 = 382) CO2 (BEAKER) (test code = 27 meq/L 22-29 355) BLOOD UREA NITROGEN (BEAKER) 30 mg/dL 7-21 (test code = 354) CREATININE (BEAKER) (test 1.46 mg/dL 0.57-1.25 code = 358) GLUCOSE RANDOM (BEAKER) 133 mg/dL 70-105 (test code = 652) CALCIUM (BEAKER) (test code 8.1 mg/dL 8.4-10.2 = 697) EGFR (BEAKER) (test code = INSUF FICIENT CLINICAL DATA TO 1092) CALCULATE ESTIMA TIARRA GFR. 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 ID - YVONNE [id number] 01:23:00 Test Item Value Reference Range Comments MAGNESIUM (BEAKER) (test code = 627) 2.4 mg/dL 1.6-2.6 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 ID - YVONNE MCALCIUM, [id number] 00:57:00 Test Item Value Reference Range Comments CALCIUM IONIZED (BEAKER) (test code = 698) 1.00 mmol/L 1.12- 1.27 PH, BLOOD (BEAKER) (test code = 1810) 7.48 RAD, CHEST, 1 VIEW, NON [id number] 00:24:00Reason for exam:->pulm statusShould this be performed at the bedside?->YesFINAL REPORT CLINICAL INDICATION: Pulmonary status Comparison: 09/03/2019 The examination is limited by low lung volumes and obscuration of the medial apices by the patient's head. The cardiomediastinal contours are stable. Central pulmonary vascular congestion and bilateral parenchymal and pleural opacities are similar to previous. There is no visible pneumothorax. A left IJ central venous catheter is stable. Signed: Jesús Garcia MDReport Verified Date/Time: 09/04/2019 00:24:21 BASIC METABOLIC [id number] 16:31:00 Test Item Value Reference Range Comments SODIUM (BEAKER) (test code = 137 meq/L 136-145 381) POTASSIUM (BEAKER) (test 3.8 meq/L 3.5-5.1 code = 379) CHLORIDE (BEAKER) (test code 105 meq/L 98-107 = 382) CO2 (BEAKER) (test code = 24 meq/L 22-29 355) BLOOD UREA NITROGEN (BEAKER) 34 mg/dL 7-21 (test code = 354) CREATININE (BEAKER) (test 1.49 mg/dL 0.57-1.25 code = 358) GLUCOSE RANDOM (BEAKER) 153 mg/dL 70-105 (test code = 652) CALCIUM (BEAKER) (test code 7.8 mg/dL 8.4-10.2 = 697) EGFR (BEAKER) (test code = INSUF FICIENT CLINICAL DATA TO 1092) CALCULATE ESTIMA TIARRA GFR. 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 ID - [id number] 16:28:00 Test Item Value Reference Range Comments MAGNESIUM (BEAKER) (test code = 627) 2.1 mg/dL 1.6-2.6 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 ID - DBHEMOGLOBIN AND [id number] 16:08:00 Test Item Value Reference Range Comments HEMOGLOBIN (BEAKER) (test code = 410) 8.3 GM/DL 13.7-17.5 HEMATOCRIT (BEAKER) (test code = 411) 26.1 % 40.1-51.0 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 ID - [id number] 09:51:00 Test Item Value Reference Range Comments POTASSIUM (BEAKER) (test code = 4.0 meq/L 3.5-5.1 Specimen slightly hemolyzed 379) 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 ID - AYANA CHEMOGLOBIN AND [id number] 09:38:00 Test Item Value Reference Range Comments HEMOGLOBIN (BEAKER) (test code = 410) 7.6 GM/DL 13.7-17.5 HEMATOCRIT (BEAKER) (test code = 411) 23.3 % 40.1-51.0 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 ID - [id number], [id number] 09:36:00 Test Item Value Reference Range Comments CALCIUM IONIZED (BEAKER) (test code = 698) 1.04 mmol/L 1.12- 1.27 PH, BLOOD (BEAKER) (test code = 1810) 7.39 TROPONIN [id number] 07:06:00 Test Item Value Reference Range Comments TROPONIN I (BEAKER) (test code = 397) 0.88 ng/mL 0.00-0.03 Troponin I (TnI) levels must be interpreted in the context of the presenting symptoms and the clinical findings. Elevated TnI levels indicate myocardial damage, but are not specific for ischemic heart disease. 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 ID - ZENIA LCALCIUM, IONIZED 2019-09-03 05:40:00 Test Item Value Reference Range Comments CALCIUM IONIZED (BEAKER) (test code = 698) 1.05 mmol/L 1.12- 1.27 PH, BLOOD (BEAKER) (test code = 1810) 7.37 BLOOD GAS, [id number] 05:34:00 Test Item Value Reference Range Comments PH ARTERIAL (BEAKER) (test code = 383) 7.37 7.35-7.45 PCO2 ARTERIAL (BEAKER) (test code = 384) 47 mmHg 35-45 PO2 ARTERIAL (BEAKER) (test code = 385) 67 mmHg 80-90 O2 SATURATION ARTERIAL (BEAKER) (test code = 386) 92.5 % 96.0-97.0 HCO3 ARTERIAL (BEAKER) (test code = 388) 26 mmol/L 21-29 BASE EXCESS ARTERIAL (BEAKER) (test code = 387) 0.5 mmol/L -2.0-3.0 PATIENT TEMPERATURE (BEAKER) (test code = 1818) 37.0 C FIO2 (BEAKER) (test code = 1819) 100.0 % CBC (HEMOGRAM ONLY)2019-09-03 05:10:00 Test Item Value Reference Range Comments WHITE BLOOD CELL COUNT (BEAKER) (test code = 13.0 K/ L 3.5 -10.5 775) RED BLOOD CELL COUNT (BEAKER) (test code = 761) 2.64 M/ L 4.63-6.08 HEMOGLOBIN (BEAKER) (test code = 410) 7.9 GM/DL 13.7-17.5 HEMATOCRIT (BEAKER) (test code = 411) 24.7 % 40.1-51.0 MEAN CORPUSCULAR VOLUME (BEAKER) (test code = 93.6 fL 79 .0-92.2 753) MEAN CORPUSCULAR HEMOGLOBIN (BEAKER) (test code 29.9 pg 25.7-32.2 = 751) MEAN CORPUSCULAR HEMOGLOBIN CONC (BEAKER) (test 32.0 GM/DL 32.3-36.5 code = 752) RED CELL DISTRIBUTION WIDTH (BEAKER) (test code 15.7 % 11.6-14.4 = 412) PLATELET COUNT (BEAKER) (test code = 756) 172 K/CU MM 150-45 0 MEAN PLATELET VOLUME (BEAKER) (test code = 754) 9.3 fL 9.4-12.4 NUCLEATED RED BLOOD CELLS (BEAKER) (test code = 0 /100 WBC 0-0 413) BASIC METABOLIC [id number] 05:10:00 Test Item Value Reference Range Comments SODIUM (BEAKER) (test code = 139 meq/L 136-145 381) POTASSIUM (BEAKER) (test 3.4 meq/L 3.5-5.1 code = 379) CHLORIDE (BEAKER) (test code 105 meq/L 98-107 = 382) CO2 (BEAKER) (test code = 25 meq/L 22-29 355) BLOOD UREA NITROGEN (BEAKER) 42 mg/dL 7-21 (test code = 354) CREATININE (BEAKER) (test 1.71 mg/dL 0.57-1.25 code = 358) GLUCOSE RANDOM (BEAKER) 143 mg/dL 70-105 (test code = 652) CALCIUM (BEAKER) (test code 7.8 mg/dL 8.4-10.2 = 697) EGFR (BEAKER) (test code = INSUF FICIENT CLINICAL DATA TO 1092) CALCULATE ESTIMA TIARRA GFR. 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 ID - ZENIA [id number] 04:36:00 Test Item Value Reference Range Comments PHOSPHORUS (BEAKER) (test code = 604) 3.3 mg/dL 2.3-4.7 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 ID - ZENIA [id number] 04:36:00 Test Item Value Reference Range Comments MAGNESIUM (BEAKER) (test code = 627) 2.2 mg/dL 1.6-2.6 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 ID - ZENIA LCREATINE KINASE (CK)2019-09-03 04:36:00 Test Item Value Reference Range Comments CREATINE KINASE TOTAL (MP) (test code = 380) 89 U/L 29-200 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 ID - ZENIA LRAD, CHEST, 1 VIEW, NON [id number] 02:21:00Reason for exam:->pulm statusShould this be performed at the bedside?->YesFINAL REPORT Chest one view. Clinical history: Pulmonary status Comparison: Chest radiograph 09/02/2019. Technique: A single frontal view of the chest was obtained. Findings:Thepatient is status post median sternotomy. There is a left IJ central venous catheter with tip in theSVC/RA junction.The cardiomediastinal contours are stable. There is improved aeration in the bilateral lungs with residual bibasilar airspace opacities. There is a small right pleural effusion. There is no pneumothorax. Signed: Ashley Adamson Verified Date/Time: 09/03/2019 02:21:07 IS [id number] 01:53:00 Test Item Value Reference Range Comments TROPONIN I (BEAKER) (test code = 397) 1.18 ng/mL 0.00-0.03 Troponin I (TnI) levels must be interpreted in the context of the presenting symptoms and the clinical findings. Elevated TnI levels indicate myocardial damage, but are not specific for ischemic heart disease. 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 ID - ZENIA LBASIC METABOLIC [id number] 00:44:00 Test Item Value Reference Range Comments SODIUM (BEAKER) (test code = 137 meq/L 136-145 381) POTASSIUM (BEAKER) (test 3.6 meq/L 3.5-5.1 code = 379) CHLORIDE (BEAKER) (test code 103 meq/L 98-107 = 382) CO2 (BEAKER) (test code = 24 meq/L 22-29 355) BLOOD UREA NITROGEN (BEAKER) 45 mg/dL 7-21 (test code = 354) CREATININE (BEAKER) (test 1.88 mg/dL 0.57-1.25 code = 358) GLUCOSE RANDOM (BEAKER) 153 mg/dL 70-105 (test code = 652) CALCIUM (BEAKER) (test code 8.0 mg/dL 8.4-10.2 = 697) EGFR (BEAKER) (test code = INSUF FICIENT CLINICAL DATA TO 1092) CALCULATE ESTIMA TIARRA GFR. 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 ID - ZENIA [id number] 00:19:00 Test Item Value Reference Range Comments PHOSPHORUS (BEAKER) (test code = 604) 3.1 mg/dL 2.3-4.7 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 ID - ZENIA [id number] 00:19:00 Test Item Value Reference Range Comments MAGNESIUM (BEAKER) (test code = 627) 2.2 mg/dL 1.6-2.6 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 ID - ZENIA LHEMOGLOBIN AND [id number] 23:59:00 Test Item Value Reference Range Comments HEMOGLOBIN (BEAKER) (test code = 410) 6.7 GM/DL 13.7-17.5 HEMATOCRIT (BEAKER) (test code = 411) 20.6 % 40.1-51.0 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 ID - [id number]-GLUCOSE [id number] 23:37:00 Test Item Value Reference Range Comments POC-GLUCOSE METER (BEAKER) 167 mg/dL 70-110 : [facility] [address] [facility] (test code = 1538) [place], [address]: 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/Technic ramon ID = [id number] for CONNOR FOX [id number] 15:57:00 Test Item Value Reference Range Comments POTASSIUM (BEAKER) (test code = 379) 3.7 meq/L 3.5-5.1 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 ID - [id number] 15:57:00 Test Item Value Reference Range Comments MAGNESIUM (BEAKER) (test code = 627) 1.7 mg/dL 1.6-2.6 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 ID - DBBASIC METABOLIC [id number] 04:06:00 Test Item Value Reference Range Comments SODIUM (BEAKER) (test code = 145 meq/L 136-145 381) POTASSIUM (BEAKER) (test 4.0 meq/L 3.5-5.1 code = 379) CHLORIDE (BEAKER) (test code 111 meq/L 98-107 = 382) CO2 (BEAKER) (test code = 28 meq/L 22-29 355) BLOOD UREA NITROGEN (BEAKER) 46 mg/dL 7-21 (test code = 354) CREATININE (BEAKER) (test 1.80 mg/dL 0.57-1.25 code = 358) GLUCOSE RANDOM (BEAKER) 168 mg/dL 70-105 (test code = 652) CALCIUM (BEAKER) (test code 8.2 mg/dL 8.4-10.2 = 697) EGFR (BEAKER) (test code = INSUF FICIENT CLINICAL DATA TO 1092) CALCULATE ESTIMA TIARRA GFR. 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 ID - YVONNE [id number] 04:03:00 Test Item Value Reference Range Comments PHOSPHORUS (BEAKER) (test code = 604) 3.6 mg/dL 2.3-4.7 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 ID - YVONNE [id number] 04:03:00 Test Item Value Reference Range Comments MAGNESIUM (BEAKER) (test code = 627) 1.8 mg/dL 1.6-2.6 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 ID - YVONNE MCBC (HEMOGRAM ONLY)2019-09-02 03:56:00 Test Item Value Reference Range Comments WHITE BLOOD CELL COUNT (BEAKER) (test code = 16.1 K/ L 3.5 -10.5 775) RED BLOOD CELL COUNT (BEAKER) (test code = 761) 2.52 M/ L 4.63-6.08 HEMOGLOBIN (BEAKER) (test code = 410) 7.4 GM/DL 13.7-17.5 HEMATOCRIT (BEAKER) (test code = 411) 23.5 % 40.1-51.0 MEAN CORPUSCULAR VOLUME (BEAKER) (test code = 93.3 fL 79 .0-92.2 753) MEAN CORPUSCULAR HEMOGLOBIN (BEAKER) (test code 29.4 pg 25.7-32.2 = 751) MEAN CORPUSCULAR HEMOGLOBIN CONC (BEAKER) (test 31.5 GM/DL 32.3-36.5 code = 752) RED CELL DISTRIBUTION WIDTH (BEAKER) (test code 16.3 % 11.6-14.4 = 412) PLATELET COUNT (BEAKER) (test code = 756) 171 K/CU MM 150-45 0 MEAN PLATELET VOLUME (BEAKER) (test code = 754) 9.6 fL 9.4-12.4 NUCLEATED RED BLOOD CELLS (BEAKER) (test code = 0 /100 WBC 0-0 413) RAD, CHEST, 1 VIEW, NON [id number] 02:45:00Reason for exam:->pulm statusShould this be performed at the bedside?->YesFINAL REPORT CLINICAL INDICATION: Pulmonary status Comparison: 09/01/2019 at 1739 hours The cardiomediastinal contours are stable. The lung volumes remain low. Central pulmonary vascular congestion and bilateral parenchymal and pleural opacities are unchanged. There is no pneumothorax. A right subclavian CVC has been removed. A left IJ CVC is stable. Signed: [facility]s [facility]aint [facility] Verified Date/Time: 09/02/2019 02:45:46 RAD, CHEST, 1 VIEW, NON [id number] 18:23:00Reason for exam:->left ij tlc placementFINAL REPORT Chest, one view. HISTORY: left ij tlc placement COMPARISON: Radiograph from earlier today IMPRESSION: The tip of the right subclavian venous catheter has its tip over the internal jugular vein, unchanged from the prior. Consider repositioning. A left IJ central venous catheter has its tip over the high right atrium. The small right and trace left pleural effusions are unchanged. The bibasilar lower lung opacity opacities are unchanged. The stomach is distended. The cardiac silhouette is unchanged. No acute bony abnormality. Prior median sternotomy Signed: Tom Morales MDReport Verified Date/Time: 09/01/2019 18:23:54 Reading Location: [address] Radiology Reading Room RAD, CHEST, 1 VIEW, NON [id number] 17:04:00Reason for exam:->central line placementShould this be performed at the bedside?->YesFINAL REPORT TECHNIQUE: Frontal view of the chest. INDICATION: 89-year-old man after central line placement. COMPARISON: Chest radiograph 06/26/2019. FINDINGS: LINES/TUBES: The tip of a right subclavian central venous catheter terminates over the expected region of the right internal jugular vein. LUNGS: Hazy airspace opacity in the right lower lung zone. Streaky atelectasis in the left lower lung zone. PLEURA: Moderate right pleural effusion. No pneumothorax. HEART AND MEDIASTINUM: Prominent cardiac silhouette. Atherosclerotic calcifications in the ectatic/tortuous thoracic aorta. SOFT TISSUES AND BONES: Degenerative changes of the visualized spine. Unchanged median sternotomy wires. Unchanged clips project over the upper abdomen. Partially visualized abdominal aortic stentgraft. IMPRESSION:Right subclavian central venous catheter tip terminates over the expected region of the right internal jugular vein. Repositioning of the catheter is recommended. Moderate right pleural effusion. Adjacent airspace opacity in the right lower lung zone may represent atelectasis, however pneumonia cannot be excluded. Signed: Ana Maria Clark MDReport Verified Date/Time: 09/01/2019 17:04:54 Reading Location: [facility] B1 C013Y CT Body Reading Room [id number] 16:58:00 Test Item Value Reference Range Comments ACTIVATED CLOTTING TIME 136 sec : 74-137 seconds, Baseline: (BEAKER) (test code = 441) TESTE D AT [address], [facility] 0: 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/Technic ramon ID = [id number] for [employer] MORRISSEY [id number] 16:58:00 Test Item Value Reference Range Comments ACTIVATED CLOTTING TIME 274 sec : 74-137 seconds, Baseline: (BEAKER) (test code = 441) TESTE D AT [address], [facility] 0: 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/Technic ramon ID = [id number] for LEIDA JAVED [id number] 16:58:00 Test Item Value Reference Range Comments ACTIVATED CLOTTING TIME 257 sec : 74-137 seconds, Baseline: (BEAKER) (test code = 441) TESTE D AT [address], [facility] 0: 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/Technic ramon ID = [id number] for [employer] MORRISSEY [id number] 16:57:00 Test Item Value Reference Range Comments ACTIVATED CLOTTING TIME 235 sec : 74-137 seconds, Baseline: (BEAKER) (test code = 441) TESTE D AT [address], [facility] 0: 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/Technic ramon ID = [id number] for [employer] MORRISSE[employer] (CELLAVISION MANUAL DIFF)2019-09-01 16:33:00 Test Item Value Reference Range Comments NEUTROPHILS - REL (CELLAVISION)(BEAKER) (test 85 % code = 2816) LYMPHOCYTES - REL (CELLAVISION)(BEAKER) (test 6 % code = 2817) MONOCYTES - REL (CELLAVISION)(BEAKER) (test code 4 % = 2818) BANDS - REL (CELLAVISION)(BEAKER) (test code = 5 % 0 -10 6436) NEUTROPHILS - ABS (CELLAVISION)(BEAKER) (test 18.02 K/ul 1. 78-5.38 code = 2830) LYMPHOCYTES - ABS (CELLAVISION)(BEAKER) (test 1.27 K/ul 1. 32-3.57 code = 2831) MONOCYTES - ABS (CELLAVISION)(BEAKER) (test code 0.85 K/uL 0.30-0.82 = 2832) BANDS - ABS (CELLAVISION)(BEAKER) (test code = 1.06 K/uL 0 .00-0.80 2840) TOTAL COUNTED (BEAKER) (test code = 1351) 100 PLT MORPHOLOGY (BEAKER) (test code = 486) Normal SMUDGE CELLS (BEAKER) (test code = 1371) Present ANISOCYTOSIS (BEAKER) (test code = 961) 1+ few MICROCYTES (BEAKER) (test code = 965) 1+ few POIKILOCYTES (BEAKER) (test code = 966) 1+ few ELLIPTOCYTES (BEAKER) (test code = 962) 1+ few ARTIFACT (CELLAVISION)(BEAKER) (test code = 3432) Present HELMET CELLS (CELLAVISION)(BEAKER) (test code = 1+ few 3434) PLATELET CONCENTRATION (CELLAVISION)(BEAKER) Adequate (test code = 3438) 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 ID - Marguerite comments: Slide comments:[id number] 16:24:00 Test Item Value Reference Range Comments PHOSPHORUS (BEAKER) (test code = 604) 5.6 mg/dL 2.3-4.7 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 ID - [id number] 16:24:00 Test Item Value Reference Range Comments MAGNESIUM (BEAKER) (test code = 627) 1.8 mg/dL 1.6-2.6 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 ID - RADHAGCBC W/PLT COUNT & AUTO [id number] 16:16:00 Test Item Value Reference Range Comments WHITE BLOOD CELL COUNT (BEAKER) (test code = 21.2 K/ L 3.5 -10.5 775) RED BLOOD CELL COUNT (BEAKER) (test code = 761) 2.59 M/ L 4.63-6.08 HEMOGLOBIN (BEAKER) (test code = 410) 7.6 GM/DL 13.7-17.5 HEMATOCRIT (BEAKER) (test code = 411) 25.6 % 40.1-51.0 MEAN CORPUSCULAR VOLUME (BEAKER) (test code = 98.8 fL 79 .0-92.2 753) MEAN CORPUSCULAR HEMOGLOBIN (BEAKER) (test code 29.3 pg 25.7-32.2 = 751) MEAN CORPUSCULAR HEMOGLOBIN CONC (BEAKER) (test 29.7 GM/DL 32.3-36.5 code = 752) RED CELL DISTRIBUTION WIDTH (BEAKER) (test code 16.3 % 11.6-14.4 = 412) PLATELET COUNT (BEAKER) (test code = 756) 231 K/CU MM 150-45 0 MEAN PLATELET VOLUME (BEAKER) (test code = 754) 9.7 fL 9.4-12.4 NUCLEATED RED BLOOD CELLS (BEAKER) (test code = 0 /100 WBC 0-0 413) NEUTROPHILS RELATIVE PERCENT (BEAKER) (test code 81 % = 429) LYMPHOCYTES RELATIVE PERCENT (BEAKER) (test code 10 % = 430) MONOCYTES RELATIVE PERCENT (BEAKER) (test code = 7 % 431) EOSINOPHILS RELATIVE PERCENT (BEAKER) (test code 0 % = 432) BASOPHILS RELATIVE PERCENT (BEAKER) (test code = 0 % 437) NEUTROPHILS ABSOLUTE COUNT (BEAKER) (test code = 17.19 K/ L 1.78-5.38 670) LYMPHOCYTES ABSOLUTE COUNT (BEAKER) (test code = 2.17 K/ L 1.32-3.57 414) MONOCYTES ABSOLUTE COUNT (BEAKER) (test code = 1.56 K/ L 0 .30-0.82 415) EOSINOPHILS ABSOLUTE COUNT (BEAKER) (test code = 0.03 K/ L 0.04-0.54 416) BASOPHILS ABSOLUTE COUNT (BEAKER) (test code = 0.04 K/ L 0 .01-0.08 417) IMMATURE GRANULOCYTES-RELATIVE PERCENT (BEAKER) 1 % 0-1 (test code = 2801) BLOOD GAS, [id number] 15:39:00 Test Item Value Reference Range Comments PH ARTERIAL (BEAKER) (test code = 383) 7.31 7.35-7.45 PCO2 ARTERIAL (BEAKER) (test code = 384) 45 mmHg 35-45 PO2 ARTERIAL (BEAKER) (test code = 385) 82 mmHg 80-90 O2 SATURATION ARTERIAL (BEAKER) (test code = 95.7 % 96. 0-97.0 386) HCO3 ARTERIAL (BEAKER) (test code = 388) 22 mmol/L 21-29 BASE EXCESS ARTERIAL (BEAKER) (test code = 387) -3.9 mmol/L -2.0-3.0 PATIENT TEMPERATURE (BEAKER) (test code = 1818) 36.0 C FIO2 (BEAKER) (test code = 1819) 100.0 % CALCIUM, [id number] 15:39:00 Test Item Value Reference Range Comments CALCIUM IONIZED (BEAKER) (test code = 698) 1.13 mmol/L 1.12- 1.27 PH, BLOOD (BEAKER) (test code = 1810) 7.31 SODIUM NA-STAT [id number] 13:02:00 Test Item Value Reference Range Comments SODIUM (BEAKER) (test code = 381) 139 meq/L 135-148 CALCIUM, [id number] 13:02:00 Test Item Value Reference Range Comments CALCIUM IONIZED (BEAKER) (test code = 698) 1.05 mmol/L 1.12- 1.27 PH, BLOOD (BEAKER) (test code = 1810) 7.35 BLOOD GAS, [id number] 13:02:00 Test Item Value Reference Range Comments PH ARTERIAL (BEAKER) (test code = 383) 7.37 7.35-7.45 PCO2 ARTERIAL (BEAKER) (test code = 384) 42 mmHg 35-45 PO2 ARTERIAL (BEAKER) (test code = 385) 229 mmHg 80-90 O2 SATURATION ARTERIAL (BEAKER) (test code = 99.5 % 96. 0-97.0 386) HCO3 ARTERIAL (BEAKER) (test code = 388) 24 mmol/L 21-29 BASE EXCESS ARTERIAL (BEAKER) (test code = 387) -2.0 mmol/L -2.0-3.0 PATIENT TEMPERATURE (BEAKER) (test code = 1818) 36.0 C FIO2 (BEAKER) (test code = 1819) 80.0 % POTASSIUM-STAT [id number] 13:02:00 Test Item Value Reference Range Comments POTASSIUM (BEAKER) (test code = 379) 3.3 meq/L 3.6-5.5 GLUCOSE-STAT [id number] 13:02:00 Test Item Value Reference Range Comments GLUCOSE RANDOM (BEAKER) (test code = 652) 175 mg/dL 70-110 HGB/HCT (H&H) - STAT [id number] 13:02:00 Test Item Value Reference Range Comments HEMOGLOBIN (BEAKER) (test code = 410) 8.5 g/dL 13.0-16.8 HEMATOCRIT (BEAKER) (test code = 411) 25.0 % 40.0-50.0 SODIUM NA-STAT [id number] 11:53:00 Test Item Value Reference Range Comments SODIUM (BEAKER) (test code = 381) 139 meq/L 135-148 POTASSIUM-STAT [id number] 11:53:00 Test Item Value Reference Range Comments POTASSIUM (BEAKER) (test code = 379) 3.6 meq/L 3.6-5.5 BLOOD GAS, [id number] 11:53:00 Test Item Value Reference Range Comments PH ARTERIAL (BEAKER) (test code = 383) 7.45 7.35-7.45 PCO2 ARTERIAL (BEAKER) (test code = 384) 41 mmHg 35-45 PO2 ARTERIAL (BEAKER) (test code = 385) 154 mmHg 80-90 O2 SATURATION ARTERIAL (BEAKER) (test code = 386) 99.1 % 96.0-97.0 HCO3 ARTERIAL (BEAKER) (test code = 388) 28 mmol/L 21-29 BASE EXCESS ARTERIAL (BEAKER) (test code = 387) 3.4 mmol/L -2.0-3.0 PATIENT TEMPERATURE (BEAKER) (test code = 1818) 36.0 C FIO2 (BEAKER) (test code = 1819) 80.0 % GLUCOSE-STAT [id number] 11:53:00 Test Item Value Reference Range Comments GLUCOSE RANDOM (BEAKER) (test code = 652) 163 mg/dL 70-110 HGB/HCT (H&H) - STAT [id number] 11:53:00 Test Item Value Reference Range Comments HEMOGLOBIN (BEAKER) (test code = 410) 10.1 g/dL 13.0-16.8 HEMATOCRIT (BEAKER) (test code = 411) 30.0 % 40.0-50.0 CALCIUM, [id number] 11:52:00 Test Item Value Reference Range Comments CALCIUM IONIZED (BEAKER) (test code = 698) 1.17 mmol/L 1.12- 1.27 PH, BLOOD (BEAKER) (test code = 1810) 7.44 BLOOD GAS, [id number] 10:46:00 Test Item Value Reference Range Comments PH ARTERIAL (BEAKER) (test code = 383) 7.46 7.35-7.45 PCO2 ARTERIAL (BEAKER) (test code = 384) 44 mmHg 35-45 PO2 ARTERIAL (BEAKER) (test code = 385) 98 mmHg 80-90 O2 SATURATION ARTERIAL (BEAKER) (test code = 386) 97.9 % 96.0-97.0 HCO3 ARTERIAL (BEAKER) (test code = 388) 31 mmol/L 21-29 BASE EXCESS ARTERIAL (BEAKER) (test code = 387) 6.0 mmol/L -2.0-3.0 PATIENT TEMPERATURE (BEAKER) (test code = 1818) 35.8 C FIO2 (BEAKER) (test code = 1819) 66.0 % GLUCOSE-STAT [id number] 10:46:00 Test Item Value Reference Range Comments GLUCOSE RANDOM (BEAKER) (test code = 652) 144 mg/dL 70-110 HGB/HCT (H&H) - STAT [id number] 10:46:00 Test Item Value Reference Range Comments HEMOGLOBIN (BEAKER) (test code = 410) 10.7 g/dL 13.0-16.8 HEMATOCRIT (BEAKER) (test code = 411) 31.0 % 40.0-50.0 CALCIUM, [id number] 10:46:00 Test Item Value Reference Range Comments CALCIUM IONIZED (BEAKER) (test code = 698) 1.08 mmol/L 1.12- 1.27 PH, BLOOD (BEAKER) (test code = 1810) 7.44 SODIUM NA-STAT [id number] 10:45:00 Test Item Value Reference Range Comments SODIUM (BEAKER) (test code = 381) 142 meq/L 135-148 POTASSIUM-STAT [id number] 10:45:00 Test Item Value Reference Range Comments POTASSIUM (BEAKER) (test code = 379) 3.5 meq/L 3.6-5.5 BLOOD GAS, [id number] 09:19:00 Test Item Value Reference Range Comments PH ARTERIAL (BEAKER) (test code = 383) 7.53 7.35-7.45 PCO2 ARTERIAL (BEAKER) (test code = 384) 39 mmHg 35-45 PO2 ARTERIAL (BEAKER) (test code = 385) 129 mmHg 80-90 O2 SATURATION ARTERIAL (BEAKER) (test code = 386) 98.9 % 96.0-97.0 HCO3 ARTERIAL (BEAKER) (test code = 388) 32 mmol/L 21-29 BASE EXCESS ARTERIAL (BEAKER) (test code = 387) 8.5 mmol/L -2.0-3.0 PATIENT TEMPERATURE (BEAKER) (test code = 1818) 36.2 C FIO2 (BEAKER) (test code = 1819) 60.0 % POTASSIUM-STAT [id number] 09:19:00 Test Item Value Reference Range Comments POTASSIUM (BEAKER) (test code = 379) 3.4 meq/L 3.6-5.5 GLUCOSE-STAT [id number] 09:19:00 Test Item Value Reference Range Comments GLUCOSE RANDOM (BEAKER) (test code = 652) 129 mg/dL 70-110 HGB/HCT (H&H) - STAT [id number] 09:19:00 Test Item Value Reference Range Comments HEMOGLOBIN (BEAKER) (test code = 410) 10.9 g/dL 13.0-16.8 HEMATOCRIT (BEAKER) (test code = 411) 32.0 % 40.0-50.0 CALCIUM, [id number] 09:19:00 Test Item Value Reference Range Comments CALCIUM IONIZED (BEAKER) (test code = 698) 1.06 mmol/L 1.12- 1.27 PH, BLOOD (BEAKER) (test code = 1810) 7.52 SODIUM NA-STAT [id number] 09:18:00 Test Item Value Reference Range Comments SODIUM (BEAKER) (test code = 381) 139 meq/L 135-148 [id number] 05:20:00 Test Item Value Reference Range Comments PHOSPHORUS (BEAKER) (test code = 604) 4.6 mg/dL 2.3-4.7 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 ID - LINDSEY [id number] 05:20:00 Test Item Value Reference Range Comments MAGNESIUM (BEAKER) (test code = 627) 2.1 mg/dL 1.6-2.6 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 NADJA PORTILLO WBASIC METABOLIC [id number] 05:20:00 Test Item Value Reference Range Comments SODIUM (BEAKER) (test code = 143 meq/L 136-145 381) POTASSIUM (BEAKER) (test 3.9 meq/L 3.5-5.1 code = 379) CHLORIDE (BEAKER) (test code 99 meq/L 98-107 = 382) CO2 (BEAKER) (test code = 31 meq/L 22-29 355) BLOOD UREA NITROGEN (BEAKER) 56 mg/dL 7-21 (test code = 354) CREATININE (BEAKER) (test 1.78 mg/dL 0.57-1.25 code = 358) GLUCOSE RANDOM (BEAKER) 131 mg/dL 70-105 (test code = 652) CALCIUM (BEAKER) (test code 9.3 mg/dL 8.4-10.2 = 697) EGFR (BEAKER) (test code = INSUF FICIENT CLINICAL DATA TO 1092) CALCULATE ESTIMA TIARRA GFR. 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 NADJA PORTILLO WCBC (HEMOGRAM ONLY)2019-09-01 05:11:00 Test Item Value Reference Range Comments WHITE BLOOD CELL COUNT (BEAKER) (test code = 10.1 K/ L 3.5 -10.5 775) RED BLOOD CELL COUNT (BEAKER) (test code = 761) 3.74 M/ L 4.63-6.08 HEMOGLOBIN (BEAKER) (test code = 410) 11.0 GM/DL 13.7-17.5 HEMATOCRIT (BEAKER) (test code = 411) 36.1 % 40.1-51.0 MEAN CORPUSCULAR VOLUME (BEAKER) (test code = 96.5 fL 79 .0-92.2 753) MEAN CORPUSCULAR HEMOGLOBIN (BEAKER) (test code 29.4 pg 25.7-32.2 = 751) MEAN CORPUSCULAR HEMOGLOBIN CONC (BEAKER) (test 30.5 GM/DL 32.3-36.5 code = 752) RED CELL DISTRIBUTION WIDTH (BEAKER) (test code 15.0 % 11.6-14.4 = 412) PLATELET COUNT (BEAKER) (test code = 756) 264 K/CU MM 150-45 0 MEAN PLATELET VOLUME (BEAKER) (test code = 754) 9.2 fL 9.4-12.4 NUCLEATED RED BLOOD CELLS (BEAKER) (test code = 0 /100 WBC 0-0 413) POCT-GLUCOSE [id number] 01:02:00 Test Item Value Reference Range Comments POC-GLUCOSE METER (BEAKER) 125 mg/dL 70-110 : WILL TIARRA AT [facility] [address] (test code = 1538) [place], [address]: 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/Technic ramon ID = [id number] for REN WEINER BASIC METABOLIC [id number] 15:53:00 Test Item Value Reference Range Comments SODIUM (BEAKER) (test code = 140 meq/L 136-145 381) POTASSIUM (BEAKER) (test 3.5 meq/L 3.5-5.1 code = 379) CHLORIDE (BEAKER) (test code 96 meq/L 98-107 = 382) CO2 (BEAKER) (test code = 29 meq/L 22-29 355) BLOOD UREA NITROGEN (BEAKER) 61 mg/dL 7-21 (test code = 354) CREATININE (BEAKER) (test 1.72 mg/dL 0.57-1.25 code = 358) GLUCOSE RANDOM (BEAKER) 118 mg/dL 70-105 (test code = 652) CALCIUM (BEAKER) (test code 9.2 mg/dL 8.4-10.2 = 697) EGFR (BEAKER) (test code = INSUF FICIENT CLINICAL DATA TO 1092) CALCULATE ESTIMA TIARRA GFR. 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 ID - [facility] METABOLIC [id number] 05:34:00 Test Item Value Reference Range Comments SODIUM (BEAKER) (test code = 142 meq/L 136-145 381) POTASSIUM (BEAKER) (test 3.2 meq/L 3.5-5.1 code = 379) CHLORIDE (BEAKER) (test code 96 meq/L 98-107 = 382) CO2 (BEAKER) (test code = 33 meq/L 22-29 355) BLOOD UREA NITROGEN (BEAKER) 70 mg/dL 7-21 (test code = 354) CREATININE (BEAKER) (test 1.88 mg/dL 0.57-1.25 code = 358) GLUCOSE RANDOM (BEAKER) 125 mg/dL 70-105 (test code = 652) CALCIUM (BEAKER) (test code 9.3 mg/dL 8.4-10.2 = 697) EGFR (BEAKER) (test code = INSUF FICIENT CLINICAL DATA TO 1092) CALCULATE ESTIMA TIARRA GFR. 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 ID - ZENIA [id number] 05:32:00 Test Item Value Reference Range Comments PHOSPHORUS (BEAKER) (test code = 604) 3.9 mg/dL 2.3-4.7 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 ID - ZENIA [id number] 05:32:00 Test Item Value Reference Range Comments MAGNESIUM (BEAKER) (test code = 627) 2.0 mg/dL 1.6-2.6 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 ID - ZENIA LCBC (HEMOGRAM ONLY)2019-08-31 04:56:00 Test Item Value Reference Range Comments WHITE BLOOD CELL COUNT (BEAKER) (test code = 9.5 K/ L 3.5 -10.5 775) RED BLOOD CELL COUNT (BEAKER) (test code = 761) 3.76 M/ L 4.63-6.08 HEMOGLOBIN (BEAKER) (test code = 410) 10.6 GM/DL 13.7-17.5 HEMATOCRIT (BEAKER) (test code = 411) 35.2 % 40.1-51.0 MEAN CORPUSCULAR VOLUME (BEAKER) (test code = 93.6 fL 79 .0-92.2 753) MEAN CORPUSCULAR HEMOGLOBIN (BEAKER) (test code 28.2 pg 25.7-32.2 = 751) MEAN CORPUSCULAR HEMOGLOBIN CONC (BEAKER) (test 30.1 GM/DL 32.3-36.5 code = 752) RED CELL DISTRIBUTION WIDTH (BEAKER) (test code 14.7 % 11.6-14.4 = 412) PLATELET COUNT (BEAKER) (test code = 756) 290 K/CU MM 150-45 0 MEAN PLATELET VOLUME (BEAKER) (test code = 754) 9.3 fL 9.4-12.4 NUCLEATED RED BLOOD CELLS (BEAKER) (test code = 0 /100 WBC 0-0 413) B-TYPE NATRIURETIC FACTOR (BNP)2019-08-30 18:09:00 Test Item Value Reference Range Comments B-TYPE NATRIURETIC PEPTIDE (BEAKER) (test code = 55 pg/mL 0-100 700) 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 ID - BSCOMPREHENSIVE METABOLIC [id number] 18:04:00 Test Item Value Reference Range Comments TOTAL PROTEIN (BEAKER) (test 6.8 gm/dL 6.0-8.3 code = 770) ALBUMIN (BEAKER) (test code = 3.6 g/dL 3.5-5.0 1145) ALKALINE PHOSPHATASE (BEAKER) 58 U/L 40-150 (test code = 346) BILIRUBIN TOTAL (BEAKER) 0.2 mg/dL 0.2-1.2 (test code = 377) SODIUM (BEAKER) (test code = 140 meq/L 136-145 381) POTASSIUM (BEAKER) (test code 3.4 meq/L 3.5-5.1 = 379) CHLORIDE (BEAKER) (test code 95 meq/L 98-107 = 382) CO2 (BEAKER) (test code = 31 meq/L 22-29 355) BLOOD UREA NITROGEN (BEAKER) 80 mg/dL 7-21 (test code = 354) CREATININE (BEAKER) (test 2.08 mg/dL 0.57-1.25 code = 358) GLUCOSE RANDOM (BEAKER) (test 85 mg/dL 70-105 code = 652) CALCIUM (BEAKER) (test code = 8.7 mg/dL 8.4-10.2 697) AST (SGOT) (BEAKER) (test 13 U/L 5-34 code = 353) ALT (SGPT) (BEAKER) (test 8 U/L 6-55 code = 347) EGFR (BEAKER) (test code = INSUF FICIENT CLINICAL DATA TO 1092) CALCULATE ESTIMA TIARRA GFR. 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 ID - BSPROTHROMBIN [id number] 17:36:00 Test Item Value Reference Range Comments PROTIME (BEAKER) (test code = 759) 15.5 seconds 11.9-14.2 INR (BEAKER) (test code = 370) 1.3 <=5.9 Effective 10/19/2018: PT Reference Range ChangeNew: 11.9-14.2 Previous: 11.7- 14.7RECOMMENDED COUMADIN/WARFARIN INR THERAPY RANGESSTANDARD DOSE: 2.0-3.0 Includes: PROPHYLAXIS for venous thrombosis, systemic embolization; TREATMENT for venous thrombosis and/or pulmonary embolus.HIGH RISK: Target INR is2.5-3.5 for patients wiht mechanical heart valves.CBC W/PLT COUNT & AUTO [id number] 17:29:00 Test Item Value Reference Range Comments WHITE BLOOD CELL COUNT (BEAKER) (test code = 10.2 K/ L 3.5 -10.5 775) RED BLOOD CELL COUNT (BEAKER) (test code = 761) 3.31 M/ L 4.63-6.08 HEMOGLOBIN (BEAKER) (test code = 410) 9.8 GM/DL 13.7-17.5 HEMATOCRIT (BEAKER) (test code = 411) 31.6 % 40.1-51.0 MEAN CORPUSCULAR VOLUME (BEAKER) (test code = 95.5 fL 79 .0-92.2 753) MEAN CORPUSCULAR HEMOGLOBIN (BEAKER) (test code 29.6 pg 25.7-32.2 = 751) MEAN CORPUSCULAR HEMOGLOBIN CONC (BEAKER) (test 31.0 GM/DL 32.3-36.5 code = 752) RED CELL DISTRIBUTION WIDTH (BEAKER) (test code 14.8 % 11.6-14.4 = 412) PLATELET COUNT (BEAKER) (test code = 756) 279 K/CU MM 150-45 0 MEAN PLATELET VOLUME (BEAKER) (test code = 754) 9.5 fL 9.4-12.4 NUCLEATED RED BLOOD CELLS (BEAKER) (test code = 0 /100 WBC 0-0 413) NEUTROPHILS RELATIVE PERCENT (BEAKER) (test code 58 % = 429) LYMPHOCYTES RELATIVE PERCENT (BEAKER) (test code 28 % = 430) MONOCYTES RELATIVE PERCENT (BEAKER) (test code = 11 % 431) EOSINOPHILS RELATIVE PERCENT (BEAKER) (test code 2 % = 432) BASOPHILS RELATIVE PERCENT (BEAKER) (test code = 0 % 437) NEUTROPHILS ABSOLUTE COUNT (BEAKER) (test code = 5.96 K/ L 1.78-5.38 670) LYMPHOCYTES ABSOLUTE COUNT (BEAKER) (test code = 2.85 K/ L 1.32-3.57 414) MONOCYTES ABSOLUTE COUNT (BEAKER) (test code = 1.12 K/ L 0 .30-0.82 415) EOSINOPHILS ABSOLUTE COUNT (BEAKER) (test code = 0.20 K/ L 0.04-0.54 416) BASOPHILS ABSOLUTE COUNT (BEAKER) (test code = 0.03 K/ L 0 .01-0.08 417) IMMATURE GRANULOCYTES-RELATIVE PERCENT (BEAKER) 1 % 0-1 (test code = 2801) BASIC METABOLIC [id number] 12:02:00 Test Item Value Reference Range Comments SODIUM (BEAKER) (test code = 138 meq/L 136-145 381) POTASSIUM (BEAKER) (test 4.5 meq/L 3.5-5.1 code = 379) CHLORIDE (BEAKER) (test code 99 meq/L 98-107 = 382) CO2 (BEAKER) (test code = 31 meq/L 22-29 355) BLOOD UREA NITROGEN (BEAKER) 34 mg/dL 7-21 (test code = 354) CREATININE (BEAKER) (test 1.47 mg/dL 0.57-1.25 code = 358) GLUCOSE RANDOM (BEAKER) 101 mg/dL 70-105 (test code = 652) CALCIUM (BEAKER) (test code 9.3 mg/dL 8.4-10.2 = 697) EGFR (BEAKER) (test code = INSUF FICIENT CLINICAL DATA TO 1092) CALCULATE ESTIMA TIARRA GFR. 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 ID - SAVITA FFOLATE, [id number] 21:38:00 Test Item Value Reference Range Comments FOLATE (BEAKER) (test code = 362) 16.6 ng/mL >=7.0 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 ID - [id number] 16:11:00 Test Item Value Reference Range Comments FERRITIN (BEAKER) (test code = 361) 124 ng/mL 5-275 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 ID - BSHEMOGLOBIN [id number] 14:54:00 Test Item Value Reference Range Comments HEMOGLOBIN A1C (BEAKER) (test code = 368) 6.1 % 4.3-6. 1 BASIC METABOLIC [id number] 14:54:00 Test Item Value Reference Range Comments SODIUM (BEAKER) (test code = 135 meq/L 136-145 381) POTASSIUM (BEAKER) (test 3.2 meq/L 3.5-5.1 code = 379) CHLORIDE (BEAKER) (test code 92 meq/L 98-107 = 382) CO2 (BEAKER) (test code = 32 meq/L 22-29 355) BLOOD UREA NITROGEN (BEAKER) 40 mg/dL 7-21 (test code = 354) CREATININE (BEAKER) (test 1.69 mg/dL 0.57-1.25 code = 358) GLUCOSE RANDOM (BEAKER) 112 mg/dL 70-105 (test code = 652) CALCIUM (BEAKER) (test code 8.7 mg/dL 8.4-10.2 = 697) EGFR (BEAKER) (test code = INSUF FICIENT CLINICAL DATA TO 1092) CALCULATE ESTIMA TIARRA GFR. 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 ID - BSIRON, TIBC, % SAT. (WITHOUT FERRITIN)2019-07-13 14:50:00 Test Item Value Reference Range Comments IRON (BEAKER) (test code = 547) 40.0 ug/dL 40.0-160.0 TOTAL IRON BINDING CAPACITY (BEAKER) (test code = 250 ug/dL 250-450 769) IRON % SATURATION (2) (BEAKER) (test code = 2590) 16 % 20-55 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 ID - BSCBC W/PLT COUNT & AUTO [id number] 14:31:00 Test Item Value Reference Range Comments WHITE BLOOD CELL COUNT (BEAKER) 7.7 K/ L 3.5-10.5 (test code = 775) RED BLOOD CELL COUNT (BEAKER) 3.00 M/ L 4.63-6.08 (test code = 761) HEMOGLOBIN (BEAKER) (test code 9.2 GM/DL 13.7-17.5 = 410) HEMATOCRIT (BEAKER) (test code 29.6 % 40.1-51.0 = 411) MEAN CORPUSCULAR VOLUME 98.7 fL 79.0-92.2 (BEAKER) (test code = 753) MEAN CORPUSCULAR HEMOGLOBIN 30.7 pg 25.7-32.2 (BEAKER) (test code = 751) MEAN CORPUSCULAR HEMOGLOBIN 31.1 GM/DL 32.3-36.5 CONC (BEAKER) (test code = 752) RED CELL DISTRIBUTION WIDTH 15.5 % 11.6-14.4 (BEAKER) (test code = 412) PLATELET COUNT (BEAKER) (test 278 K/CU MM 150-450 code = 756) MEAN PLATELET VOLUME (BEAKER) 9.3 fL 9.4-12.4 MP V-Approximately 20% (test code = 754) positive bias due to method change. NUCLEATED RED BLOOD CELLS 0 /100 WBC 0-0 (BEAKER) (test code = 413) NEUTROPHILS RELATIVE PERCENT 68 % (BEAKER) (test code = 429) LYMPHOCYTES RELATIVE PERCENT 20 % (BEAKER) (test code = 430) MONOCYTES RELATIVE PERCENT 9 % (BEAKER) (test code = 431) EOSINOPHILS RELATIVE PERCENT 2 % (BEAKER) (test code = 432) BASOPHILS RELATIVE PERCENT 0 % (BEAKER) (test code = 437) NEUTROPHILS ABSOLUTE COUNT 5.27 K/ L 1.78-5.38 (BEAKER) (test code = 670) LYMPHOCYTES ABSOLUTE COUNT 1.54 K/ L 1.32-3.57 (BEAKER) (test code = 414) MONOCYTES ABSOLUTE COUNT 0.67 K/ L 0.30-0.82 (BEAKER) (test code = 415) EOSINOPHILS ABSOLUTE COUNT 0.17 K/ L 0.04-0.54 (BEAKER) (test code = 416) BASOPHILS ABSOLUTE COUNT 0.03 K/ L 0.01-0.08 (BEAKER) (test code = 417) IMMATURE GRANULOCYTES-RELATIVE 0 % 0-1 PERCENT (BEAKER) (test code = 2801) TROPONIN [id number] 03:50:00 Test Item Value Reference Range Comments TROPONIN I (BEAKER) (test code = 397) 0.01 ng/mL 0.00-0.03 Troponin I (TnI) levels must be interpreted in the context of the presenting symptoms and the clinical findings. Elevated TnI levels indicate myocardial damage, but are not specific for ischemic heart disease. 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 ID - GALAPTROPONIN [id number] 03:49:00 Test Item Value Reference Range Comments TROPONIN I (BEAKER) (test code = 397) 0.02 ng/mL 0.00-0.03 Troponin I (TnI) levels must be interpreted in the context of the presenting symptoms and the clinical findings. Elevated TnI levels indicate myocardial damage, but are not specific for ischemic heart disease. 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 ID - GALAPBASIC METABOLIC PANEL 2019-07-05 03:45:00 Test Item Value Reference Range Comments SODIUM (BEAKER) (test code = 137 meq/L 136-145 381) POTASSIUM (BEAKER) (test 4.9 meq/L 3.5-5.1 Specime n slightly hemolyzed code = 379) CHLORIDE (BEAKER) (test code 103 meq/L 98-107 = 382) CO2 (BEAKER) (test code = 26 meq/L 22-29 355) BLOOD UREA NITROGEN (BEAKER) 33 mg/dL 7-21 (test code = 354) CREATININE (BEAKER) (test 1.33 mg/dL 0.57-1.25 Specim en slightly hemolyzed code = 358) GLUCOSE RANDOM (BEAKER) 117 mg/dL 70-105 (test code = 652) CALCIUM (BEAKER) (test code 8.6 mg/dL 8.4-10.2 = 697) EGFR (BEAKER) (test code = INSUF FICIENT CLINICAL DATA TO 1092) CALCULATE ESTIMA TIARRA GFR. 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 ID - [id number] 03:42:00 Test Item Value Reference Range Comments MAGNESIUM (BEAKER) (test code = 1.8 mg/dL 1.6-2.6 Specimen slightly hemolyzed 627) 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 ID - [id number] 03:42:00 Test Item Value Reference Range Comments PHOSPHORUS (BEAKER) (test code 3.3 mg/dL 2.3-4.7 S pecimen slightly hemolyzed = 604) 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 ID - GALAPHEPATIC FUNCTION [id number] 03:42:00 Test Item Value Reference Range Comments TOTAL PROTEIN (BEAKER) (test 5.6 gm/dL 6.0-8.3 Spe cimen slightly hemolyzed code = 770) ALBUMIN (BEAKER) (test code = 3.0 g/dL 3.5-5.0 Sp ecimen slightly hemolyzed 1145) BILIRUBIN TOTAL (BEAKER) (test 0.4 mg/dL 0.2-1.2 S pecimen slightly hemolyzed code = 377) BILIRUBIN DIRECT (BEAKER) (test 0.3 mg/dL 0.1-0.5 Specimen slightly hemolyzed code = 706) ALKALINE PHOSPHATASE (BEAKER) 44 U/L 40-150 (test code = 346) AST (SGOT) (BEAKER) (test code 13 U/L 5-34 S pecimen slightly hemolyzed = 353) ALT (SGPT) (BEAKER) (test code 12 U/L 6-55 S pecimen slightly hemolyzed = 347) 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 ID - GALAPCBC (HEMOGRAM ONLY)2019-07-05 03:10:00 Test Item Value Reference Range Comments WHITE BLOOD CELL COUNT (BEAKER) (test code = 13.0 K/ L 3.5 -10.5 775) RED BLOOD CELL COUNT (BEAKER) (test code = 761) 3.05 M/ L 4.63-6.08 HEMOGLOBIN (BEAKER) (test code = 410) 9.1 GM/DL 13.7-17.5 HEMATOCRIT (BEAKER) (test code = 411) 29.2 % 40.1-51.0 MEAN CORPUSCULAR VOLUME (BEAKER) (test code = 95.7 fL 79 .0-92.2 753) MEAN CORPUSCULAR HEMOGLOBIN (BEAKER) (test code 29.8 pg 25.7-32.2 = 751) MEAN CORPUSCULAR HEMOGLOBIN CONC (BEAKER) (test 31.2 GM/DL 32.3-36.5 code = 752) RED CELL DISTRIBUTION WIDTH (BEAKER) (test code 15.2 % 11.6-14.4 = 412) PLATELET COUNT (BEAKER) (test code = 756) 189 K/CU MM 150-45 0 MEAN PLATELET VOLUME (BEAKER) (test code = 754) 9.3 fL 9.4-12.4 NUCLEATED RED BLOOD CELLS (BEAKER) (test code = 0 /100 WBC 0-0 413) POCT-GLUCOSE [id number] 21:31:00 Test Item Value Reference Range Comments POC-GLUCOSE METER (BEAKER) 106 mg/dL 70-110 : WILL TIARRA AT [facility] [address] (test code = 1538) [facility], [address]: 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/Technic ramon ID = [id number] for SARAHI TRINIDAD POCT-GLUCOSE [id number] 18:15:00 Test Item Value Reference Range Comments POC-GLUCOSE METER (BEAKER) 115 mg/dL 70-110 : WILL TIARRA AT [facility] [address] (test code = 1538) [facility], 7 7030: 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/Technic ramon ID = [id number] for JAN HAINES (CELLAVISION MANUAL DIFF)2019-07-04 16:47:00 Test Item Value Reference Range Comments NEUTROPHILS - REL (CELLAVISION)(BEAKER) (test 83 % code = 2816) LYMPHOCYTES - REL (CELLAVISION)(BEAKER) (test 9 % code = 2817) MONOCYTES - REL (CELLAVISION)(BEAKER) (test code 8 % = 2818) NEUTROPHILS - ABS (CELLAVISION)(BEAKER) (test 13.78 K/ul 1. 78-5.38 code = 2830) LYMPHOCYTES - ABS (CELLAVISION)(BEAKER) (test 1.49 K/ul 1. 32-3.57 code = 2831) MONOCYTES - ABS (CELLAVISION)(BEAKER) (test code 1.33 K/uL 0.30-0.82 = 2832) TOTAL COUNTED (BEAKER) (test code = 1351) 100 WBC MORPHOLOGY (BEAKER) (test code = 487) Normal GIANT PLATELETS (BEAKER) (test code = 313) Present POLYCHROMATOPHILLIC RBCS(BEAKER) (test code = 3+ many 478) ANISOCYTOSIS (BEAKER) (test code = 961) 1+ few POIKILOCYTES (BEAKER) (test code = 966) 1+ few OVALOCYTES (BEAKER) (test code = 477) 1+ few ARTIFACT (CELLAVISION)(BEAKER) (test code = 3432) Present PLATELET CONCENTRATION (CELLAVISION)(BEAKER) Adequate (test code = 3438) 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 ID - joshua Parker comments: Slide comments:CBC W/PLT COUNT & AUTO [id number] 16:26:00 Test Item Value Reference Range Comments WHITE BLOOD CELL COUNT (BEAKER) 16.6 K/ L 3.5-10.5 (test code = 775) RED BLOOD CELL COUNT (BEAKER) 3.35 M/ L 4.63-6.08 (test code = 761) HEMOGLOBIN (BEAKER) (test code 10.0 GM/DL 13.7-17.5 = 410) HEMATOCRIT (BEAKER) (test code 32.5 % 40.1-51.0 = 411) MEAN CORPUSCULAR VOLUME 97.0 fL 79.0-92.2 (BEAKER) (test code = 753) MEAN CORPUSCULAR HEMOGLOBIN 29.9 pg 25.7-32.2 (BEAKER) (test code = 751) MEAN CORPUSCULAR HEMOGLOBIN 30.8 GM/DL 32.3-36.5 CONC (BEAKER) (test code = 752) RED CELL DISTRIBUTION WIDTH 15.1 % 11.6-14.4 (BEAKER) (test code = 412) PLATELET COUNT (BEAKER) (test 216 K/CU MM 150-450 code = 756) MEAN PLATELET VOLUME (BEAKER) 9.5 fL 9.4-12.4 MP V-Approximately 20% (test code = 754) positive bias due to method change. NUCLEATED RED BLOOD CELLS 0 /100 WBC 0-0 (BEAKER) (test code = 413) BASIC METABOLIC [id number] 14:18:00 Test Item Value Reference Range Comments SODIUM (BEAKER) (test code = 137 meq/L 136-145 381) POTASSIUM (BEAKER) (test 4.7 meq/L 3.5-5.1 code = 379) CHLORIDE (BEAKER) (test code 107 meq/L 98-107 = 382) CO2 (BEAKER) (test code = 27 meq/L 22-29 355) BLOOD UREA NITROGEN (BEAKER) 26 mg/dL 7-21 (test code = 354) CREATININE (BEAKER) (test 1.12 mg/dL 0.57-1.25 code = 358) GLUCOSE RANDOM (BEAKER) 139 mg/dL 70-105 (test code = 652) CALCIUM (BEAKER) (test code 8.8 mg/dL 8.4-10.2 = 697) EGFR (BEAKER) (test code = INSUF FICIENT CLINICAL DATA TO 1092) CALCULATE ESTIMA TIARRA GFR. 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 ID - AYANA CTROPONIN [id number] 14:08:00 Test Item Value Reference Range Comments TROPONIN I (BEAKER) (test code = 397) 0.01 ng/mL 0.00-0.03 Troponin I (TnI) levels must be interpreted in the context of the presenting symptoms and the clinical findings. Elevated TnI levels indicate myocardial damage, but are not specific for ischemic heart disease. 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 ID - AYANA CPOCT-GLUCOSE METER 2019-07-04 11:46:00 Test Item Value Reference Range Comments POC-GLUCOSE METER (BEAKER) 171 mg/dL 70-110 : WILL TIARRA AT [address] (test code = 1538) [facility], 7 7030: 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/Technic ramon ID = [id number] for JACOB SOTOMAYOR TROPONIN [id number] 09:55:00 Test Item Value Reference Range Comments TROPONIN I (BEAKER) (test code = 397) 0.61 ng/mL 0.00-0.03 Troponin I (TnI) levels must be interpreted in the context of the presenting symptoms and the clinical findings. Elevated TnI levels indicate myocardial damage, but are not specific for ischemic heart disease. 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 ID - YVONNE MPOCT-GLUCOSE METER 2019-07-04 08:37:00 Test Item Value Reference Range Comments POC-GLUCOSE METER (BEAKER) 118 mg/dL 70-110 : WILL TIARRA AT [address] (test code = 1538) [facility], [address]: 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/Technic ramon ID = [id number] for JACOB SOTOMAYOR [facility] BASIC METABOLIC [id number] 04:19:00 Test Item Value Reference Range Comments SODIUM (BEAKER) (test code = 136 meq/L 136-145 381) POTASSIUM (BEAKER) (test 5.5 meq/L 3.5-5.1 Specime n slightly hemolyzed code = 379) CHLORIDE (BEAKER) (test code 107 meq/L 98-107 = 382) CO2 (BEAKER) (test code = 21 meq/L 22-29 355) BLOOD UREA NITROGEN (BEAKER) 31 mg/dL 7-21 (test code = 354) CREATININE (BEAKER) (test 1.23 mg/dL 0.57-1.25 Specim en slightly hemolyzed code = 358) GLUCOSE RANDOM (BEAKER) 184 mg/dL 70-105 (test code = 652) CALCIUM (BEAKER) (test code 8.6 mg/dL 8.4-10.2 = 697) EGFR (BEAKER) (test code = INSUF FICIENT CLINICAL DATA TO 1092) CALCULATE ESTIMA TIARRA GFR. 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 ID - [id number] 03:58:00 Test Item Value Reference Range Comments MAGNESIUM (BEAKER) (test code = 2.3 mg/dL 1.6-2.6 Specimen slightly hemolyzed 627) 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 ID - GALAPHEPATIC FUNCTION [id number] 03:58:00 Test Item Value Reference Range Comments TOTAL PROTEIN (BEAKER) (test 5.9 gm/dL 6.0-8.3 Spe cimen slightly hemolyzed code = 770) ALBUMIN (BEAKER) (test code = 3.0 g/dL 3.5-5.0 Sp ecimen slightly hemolyzed 1145) BILIRUBIN TOTAL (BEAKER) (test 0.3 mg/dL 0.2-1.2 S pecimen slightly hemolyzed code = 377) BILIRUBIN DIRECT (BEAKER) (test 0.1 mg/dL 0.1-0.5 Specimen slightly hemolyzed code = 706) ALKALINE PHOSPHATASE (BEAKER) 48 U/L 40-150 (test code = 346) AST (SGOT) (BEAKER) (test code 15 U/L 5-34 S pecimen slightly hemolyzed = 353) ALT (SGPT) (BEAKER) (test code 11 U/L 6-55 S pecimen slightly hemolyzed = 347) 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 ID - [id number] (HEMOGRAM ONLY)2019-07-04 03:31:00 Test Item Value Reference Range Comments WHITE BLOOD CELL COUNT (BEAKER) (test code = 14.6 K/ L 3.5 -10.5 775) RED BLOOD CELL COUNT (BEAKER) (test code = 761) 3.38 M/ L 4.63-6.08 HEMOGLOBIN (BEAKER) (test code = 410) 10.1 GM/DL 13.7-17.5 HEMATOCRIT (BEAKER) (test code = 411) 32.7 % 40.1-51.0 MEAN CORPUSCULAR VOLUME (BEAKER) (test code = 96.7 fL 79 .0-92.2 753) MEAN CORPUSCULAR HEMOGLOBIN (BEAKER) (test code 29.9 pg 25.7-32.2 = 751) MEAN CORPUSCULAR HEMOGLOBIN CONC (BEAKER) (test 30.9 GM/DL 32.3-36.5 code = 752) RED CELL DISTRIBUTION WIDTH (BEAKER) (test code 14.8 % 11.6-14.4 = 412) PLATELET COUNT (BEAKER) (test code = 756) 215 K/CU MM 150-45 0 MEAN PLATELET VOLUME (BEAKER) (test code = 754) 9.6 fL 9.4-12.4 NUCLEATED RED BLOOD CELLS (BEAKER) (test code = 0 /100 WBC 0-0 413) BASIC METABOLIC [id number] 21:21:00 Test Item Value Reference Range Comments SODIUM (BEAKER) (test code = 138 meq/L 136-145 381) POTASSIUM (BEAKER) (test 5.3 meq/L 3.5-5.1 code = 379) CHLORIDE (BEAKER) (test code 108 meq/L 98-107 = 382) CO2 (BEAKER) (test code = 23 meq/L 22-29 355) BLOOD UREA NITROGEN (BEAKER) 34 mg/dL 7-21 (test code = 354) CREATININE (BEAKER) (test 1.29 mg/dL 0.57-1.25 code = 358) GLUCOSE RANDOM (BEAKER) 167 mg/dL 70-105 (test code = 652) CALCIUM (BEAKER) (test code 9.4 mg/dL 8.4-10.2 = 697) EGFR (BEAKER) (test code = INSUF FICIENT CLINICAL DATA TO 1092) CALCULATE ESTIMA TIARRA GFR. 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 ID - [id number] 20:49:00 Test Item Value Reference Range Comments PARTIAL THROMBOPLASTIN TIME (BEAKER) (test code 30.2 seconds 22.5-36.0 = 760) [id number] 20:42:00 Test Item Value Reference Range Comments MAGNESIUM (BEAKER) (test code = 1.8 mg/dL 1.6-2.6 Specimen markedly hemolyzed 627) 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 ID - [id number] 20:42:00 Test Item Value Reference Range Comments PHOSPHORUS (BEAKER) (test code 4.4 mg/dL 2.3-4.7 S pecimen markedly hemolyzed = 604) 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 ID - BSCBC (HEMOGRAM ONLY)2019-07-03 20:25:00 Test Item Value Reference Range Comments WHITE BLOOD CELL COUNT (BEAKER) (test code = 13.6 K/ L 3.5 -10.5 775) RED BLOOD CELL COUNT (BEAKER) (test code = 761) 3.66 M/ L 4.63-6.08 HEMOGLOBIN (BEAKER) (test code = 410) 11.0 GM/DL 13.7-17.5 HEMATOCRIT (BEAKER) (test code = 411) 35.2 % 40.1-51.0 MEAN CORPUSCULAR VOLUME (BEAKER) (test code = 96.2 fL 79 .0-92.2 753) MEAN CORPUSCULAR HEMOGLOBIN (BEAKER) (test code 30.1 pg 25.7-32.2 = 751) MEAN CORPUSCULAR HEMOGLOBIN CONC (BEAKER) (test 31.3 GM/DL 32.3-36.5 code = 752) RED CELL DISTRIBUTION WIDTH (BEAKER) (test code 14.8 % 11.6-14.4 = 412) PLATELET COUNT (BEAKER) (test code = 756) 239 K/CU MM 150-45 0 MEAN PLATELET VOLUME (BEAKER) (test code = 754) 9.7 fL 9.4-12.4 NUCLEATED RED BLOOD CELLS (BEAKER) (test code = 0 /100 WBC 0-0 413) BLOOD GAS, [id number] 20:16:00 Test Item Value Reference Range Comments PH ARTERIAL (BEAKER) (test code = 383) 7.39 7.35-7.45 PCO2 ARTERIAL (BEAKER) (test code = 384) 41 mmHg 35-45 PO2 ARTERIAL (BEAKER) (test code = 385) 65 mmHg 80-90 O2 SATURATION ARTERIAL (BEAKER) (test code = 93.3 % 96. 0-97.0 386) HCO3 ARTERIAL (BEAKER) (test code = 388) 25 mmol/L 21-29 BASE EXCESS ARTERIAL (BEAKER) (test code = 387) -0.5 mmol/L -2.0-3.0 PATIENT TEMPERATURE (BEAKER) (test code = 1818) 36.5 C FIO2 (BEAKER) (test code = 1819) 36.0 % [id number] 17:30:00 Test Item Value Reference Range Comments ACTIVATED CLOTTING TIME 235 sec Referenc e Range: 74-137 (BEAKER) (test code = 441) secon ds, Baseline/TESTED AT [address] [address] [id number] 16:46:00 Test Item Value Reference Range Comments ACTIVATED CLOTTING TIME 257 sec Referenc e Range: 74-137 (BEAKER) (test code = 441) secon ds, Baseline/TESTED AT [address] [address] [address], CTA AAA, W/ [id number] 16:29:00Please start scan high in abdomen/chest for eval of distal thoracic aortaAddendum BeginsREPORT STATUS:A I have reviewed the study below and agree with the nonvascular findings. Signed: Mayo Roberts MDReport Verified Date/Time: 07/03/2019 16:29:07 Reading Location: [facility] [place] Radiology Reading RoomAddendum EndsFINAL REPORT CT angiography of the abdominal aorta and pelvic arteries, 30 June 2019 INDICATION: This is a 89 years old male, with a diagnosis of aortic aneurysm presents for assessment. TECHNIQUE: Spiral acquisition before and during intravenous contrast administration using a Siemens multidetector CT scanner. Images were obtained before and during the dynamic passage of intravenous contrast material. [id number] volume- rendering reconstruction was performed using an independent workstation interactively by the interpreting physician as well as the 3-D specialist for optimal visualisation of the abdominal aorta, pelvic arteries, and its branches. Please refer to the contrast sheet scanned in the EPIC system for the amount and route of contrast given. This exam was performed according to our departmental dose-optimisation programme, which includes automated exposure control, adjustment of the mA and/or kVaccording to patient size and/or use of iterative reconstruction technique. Dose modulation, iterative reconstruction, and/or weight based adjustment of the mA/kV was utilized to reduce the radiation dose to as low as reasonably achievable. FINDINGS: VASCULAR: The aortic root and the proximal ascending thoracic aorta is unremarkable, with minimal calcification is identified. The mid and distal descending thoracic aorta only has scattered calcific and noncalcific atherosclerosis identified. No dilation is seen. 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 The left internal mammary artery bypass graft is partially identified and is patent. The left ventricleis enlarged. Left atrial enlargement is identified. The central pulmonary artery is prominent. The proximal abdominal aorta is unremarkable. At the renal level of the abdominal aorta, the left upper 20of the left renal artery, substantial atheroma localized thrombus is identified, for example image 116. 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 The length of the aneurysmal dilation is approximately 4.5 cm. Please See snapshot for details. The proximal neck is approximately 1.4 cm below the takeoff of the rightrenal artery, and the proximal neck measures approximately to 0.4 x 2.6 cm in diameter. 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 Immediately distal to the dilation, it appears patient is post graft placement in the remainder ofthe infrarenal abdominal aorta. This need to be correlate with prior surgical report. This graft is widely patent with no proximal or distal anastomotic stenosis identified. The coeliac axis is widely patent. Moderate calcification is seen at the takeoff of the SMA and remainder of the SMA is patent. The RAMÓN is not well visualised. Single left and right renal arteries are seen. Nonobstructive calcific and is seen in the proximal right renal artery. With the substantial atheroma identified at the abdominal aorta abutting the origin of the renal artery, there is mild to moderate stenosis identified at its origin. Remainder of the the left renal artery is widely patent. There is no evidence of acute aortic pathology, specifically, there is no dissection, intramural hematoma, or contained rupture. Quantitative dimensions of the abdominal aorta are as follows: 2.8 cm at the mesenteric segment; 2.8x 2.7 cm at the renal segment. There is likely pseudoaneurysmal dilation identified in the proximalleft common iliac artery, and the dilation is approximately 5.4 x 5.3 cm in diameter with some intral uminal thrombus present. Please See snapshot for details. Moderate tortuosity is identified in the left common iliac artery. The internal iliac artery artery is patent with some eccentric calcificationidentified though at the mid level it measures up to 1.7 cm in diameter. The left external iliac artery has nonobstructed calcification identified. Reference diameter is at least 6 to 7 mm in diameter.No stenosis is seen. The left common femoral artery is unremarkable. The left SFA has mild to moderate diffuse calcification identified, however, no discrete lesion is seen. The left profunda system isunremarkable. In the second dynamic data set, the left popliteal artery has eccentric nonobstructive calcification identified. In the left lower extremity, the left anterior tibial artery has mild to moderate diffuse calcification identified, however, the artery is enhanced by contrast, and overall the impression is no critical obstructive lesion is appreciated. The left tibioperoneal trunk has nonob structive calcification identified. The left peroneal artery is widely patent, and is well seen downto level of the ankle. Whilst the proximal one third of the left posterior tibial artery is patent, the distal two third of the artery has diffuse calcification identified suggesting severe stenosis subtotal occlusion present extending into the plantar arch approximately. In the right, the right common iliac right external iliac artery and the right common femoral artery has nonobstructive calcification identified. Mild dilation is seen in the proximal right internal iliac artery that measure 1.5 cmin diameter. Moderate diffuse calcification is identified in the right SFA, with moderate diffuse disease identified. By visual estimation, there appears to be no critical lesion appreciated. The rightpopliteal artery also have eccentric nonobstructive calcification identified. Diffuse calcification is seen throughout the course of the right anterior tibial artery, though enhancement is seen indicating patency. There is also diffuse calcification identified in the right tibioperoneal trunk, though enhancement is seen indicating patency. The right peroneal artery is well enhanced by contrast. Diffuse disease is identified throughout the course of the right posterior tibial artery and the right posterior tibial artery is occluded in the distal one third of the segment extending into the plantar arch. NON- VASCULAR: Dependent changes are seen in the right base. Pulmonary vasculature could be mildlyprominent. Some subsegmental atelectatic changes are seen, especially in the right base. In the abdomen, the liver and spleen appears unremarkable. The liver edge is smooth. No abnormal enhancing structures identified. Patient is post cholecystectomy. The adrenal glands are not enlarged. The pancreas appears grossly unremarkable. No acute renal pathology is seen and no hydronephrosis or perirenal fluid collection is identified. Left extrarenal pelvis is seen. Renal cysts identified and by Hounsfieldunit measurement, the larger cysts are all simple in nature. Bowel is not well assessed by CT angiography as enteric contrast is not given. No obvious bowel dilation is identified. 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 A wide neck hernia is identified in the midline of the lower abdomen, with the neck measures at least 14 cm with variable loops of bowel present with no incarceration of strangulation present. The prostate is prominent. The bladder is mildly dilated. No free air free flow seen abdomen pelvis and no significant retroperitoneal adenopathy is identified. In the bony windows, no acute bony pathology is seen. Diffuse degenerative changes is noted. A vertebral hemangioma is identified at L3 level. CONCLUSIONS: 1. The mid and distal descending thoracic aorta is unremarkable with some atherosclerosis identified and no dilation is seen. 2. Inferior to the takeoff of the renal arteries, localized aneurysmal dilation is identified, for length proximally 4.5 cm, with maximum diameter of approximately 5.1 x 4.7 cm thereafter, remainder of the mid/distal infrarenal abdominal aorta appears to have replaced by vascular graft.Correlate with operative report. Atheroma/intraluminal thrombus is seen at the renal level, abuttingthe takeoff of the left renal artery and may cause moderate stenosis of the origin of the left renalartery. 3. 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 However, the dilation does not involve the left external iliac artery. The proximal left common iliac artery, distal to the dilation, distal to the left internal iliac artery takeoff is 10.6 x 8.6 mm. Please See snapshot for details. The right pelvic arteries are relatively unremarkable despitethe presence of calcification seen throughout the left and the right pelvic arteries. 4. Details ofthe SFA, popliteal arteries, and runoff vessels as described above. 5. Other findings as described above. 6. An addendum will be dictated regarding the non-vascular findings by the Specialty Department Supervisor Radiologist. Signed: Sean Harkins MDReport Verified Date/Time: 06/30/2019 14:20:00 Electronicallysigned by: MAYO ROBERTS M.D. on 07/03/2019 04:29 [id number] 16:07:00 Test Item Value Reference Range Comments ACTIVATED CLOTTING TIME 235 sec Referenc e Range: 74-137 (BEAKER) (test code = 441) secon ds, Baseline/TESTED AT [address] [address] [id number] 15:44:00 Test Item Value Reference Range Comments ACTIVATED CLOTTING TIME 285 sec Referenc e Range: 74-137 (BEAKER) (test code = 441) secon ds, Baseline/TESTED AT [address] [address] [id number] 13:13:00 Test Item Value Reference Range Comments PARTIAL THROMBOPLASTIN TIME (BEAKER) (test code 91.7 seconds 22.5-36.0 = 760) BASIC METABOLIC [id number] 06:51:00 Test Item Value Reference Range Comments SODIUM (BEAKER) (test code = 138 meq/L 136-145 381) POTASSIUM (BEAKER) (test 5.0 meq/L 3.5-5.1 code = 379) CHLORIDE (BEAKER) (test code 105 meq/L 98-107 = 382) CO2 (BEAKER) (test code = 26 meq/L 22-29 355) BLOOD UREA NITROGEN (BEAKER) 38 mg/dL 7-21 (test code = 354) CREATININE (BEAKER) (test 1.20 mg/dL 0.57-1.25 code = 358) GLUCOSE RANDOM (BEAKER) 106 mg/dL 70-105 (test code = 652) CALCIUM (BEAKER) (test code 8.9 mg/dL 8.4-10.2 = 697) EGFR (BEAKER) (test code = INSUF FICIENT CLINICAL DATA TO 1092) CALCULATE ESTIMA TIARRA GFR. 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 ID - LINDSEY [id number] 06:48:00 Test Item Value Reference Range Comments MAGNESIUM (BEAKER) (test code = 627) 1.8 mg/dL 1.6-2.6 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 ID - LINDSEY WHEPATIC FUNCTION [id number] 06:48:00 Test Item Value Reference Range Comments TOTAL PROTEIN (BEAKER) (test code = 770) 6.3 gm/dL 6.0-8.3 ALBUMIN (BEAKER) (test code = 1145) 3.3 g/dL 3.5-5.0 BILIRUBIN TOTAL (BEAKER) (test code = 377) 0.3 mg/dL 0.2-1 .2 BILIRUBIN DIRECT (BEAKER) (test code = 706) 0.2 mg/dL 0.1- 0.5 ALKALINE PHOSPHATASE (BEAKER) (test code = 346) 51 U/L 40-150 AST (SGOT) (BEAKER) (test code = 353) 10 U/L 5-34 ALT (SGPT) (BEAKER) (test code = 347) 11 U/L 6-55 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 ID - LINDSEY [id number] 06:24:00 Test Item Value Reference Range Comments PARTIAL THROMBOPLASTIN TIME (BEAKER) (test code 98.9 seconds 22.5-36.0 = 760) CBC W/PLT COUNT & AUTO [id number] 06:16:00 Test Item Value Reference Range Comments WHITE BLOOD CELL COUNT (BEAKER) (test code = 9.9 K/ L 3.5 -10.5 775) RED BLOOD CELL COUNT (BEAKER) (test code = 761) 3.78 M/ L 4.63-6.08 HEMOGLOBIN (BEAKER) (test code = 410) 11.4 GM/DL 13.7-17.5 HEMATOCRIT (BEAKER) (test code = 411) 35.6 % 40.1-51.0 MEAN CORPUSCULAR VOLUME (BEAKER) (test code = 94.2 fL 79 .0-92.2 753) MEAN CORPUSCULAR HEMOGLOBIN (BEAKER) (test code 30.2 pg 25.7-32.2 = 751) MEAN CORPUSCULAR HEMOGLOBIN CONC (BEAKER) (test 32.0 GM/DL 32.3-36.5 code = 752) RED CELL DISTRIBUTION WIDTH (BEAKER) (test code 14.9 % 11.6-14.4 = 412) PLATELET COUNT (BEAKER) (test code = 756) 235 K/CU MM 150-45 0 MEAN PLATELET VOLUME (BEAKER) (test code = 754) 9.6 fL 9.4-12.4 NUCLEATED RED BLOOD CELLS (BEAKER) (test code = 0 /100 WBC 0-0 413) NEUTROPHILS RELATIVE PERCENT (BEAKER) (test code 62 % = 429) LYMPHOCYTES RELATIVE PERCENT (BEAKER) (test code 24 % = 430) MONOCYTES RELATIVE PERCENT (BEAKER) (test code = 11 % 431) EOSINOPHILS RELATIVE PERCENT (BEAKER) (test code 3 % = 432) BASOPHILS RELATIVE PERCENT (BEAKER) (test code = 0 % 437) NEUTROPHILS ABSOLUTE COUNT (BEAKER) (test code = 6.16 K/ L 1.78-5.38 670) LYMPHOCYTES ABSOLUTE COUNT (BEAKER) (test code = 2.36 K/ L 1.32-3.57 414) MONOCYTES ABSOLUTE COUNT (BEAKER) (test code = 1.07 K/ L 0 .30-0.82 415) EOSINOPHILS ABSOLUTE COUNT (BEAKER) (test code = 0.28 K/ L 0.04-0.54 416) BASOPHILS ABSOLUTE COUNT (BEAKER) (test code = 0.01 K/ L 0 .01-0.08 417) IMMATURE GRANULOCYTES-RELATIVE PERCENT (BEAKER) 1 % 0-1 (test code = 2801) CBC (HEMOGRAM ONLY)2019-07-03 06:16:00 Test Item Value Reference Range Comments WHITE BLOOD CELL COUNT (BEAKER) (test code = 9.9 K/ L 3.5 -10.5 775) RED BLOOD CELL COUNT (BEAKER) (test code = 761) 3.78 M/ L 4.63-6.08 HEMOGLOBIN (BEAKER) (test code = 410) 11.4 GM/DL 13.7-17.5 HEMATOCRIT (BEAKER) (test code = 411) 35.6 % 40.1-51.0 MEAN CORPUSCULAR VOLUME (BEAKER) (test code = 94.2 fL 79 .0-92.2 753) MEAN CORPUSCULAR HEMOGLOBIN (BEAKER) (test code 30.2 pg 25.7-32.2 = 751) MEAN CORPUSCULAR HEMOGLOBIN CONC (BEAKER) (test 32.0 GM/DL 32.3-36.5 code = 752) RED CELL DISTRIBUTION WIDTH (BEAKER) (test code 14.9 % 11.6-14.4 = 412) PLATELET COUNT (BEAKER) (test code = 756) 235 K/CU MM 150-45 0 MEAN PLATELET VOLUME (BEAKER) (test code = 754) 9.6 fL 9.4-12.4 NUCLEATED RED BLOOD CELLS (BEAKER) (test code = 0 /100 WBC 0-0 413) BASIC METABOLIC [id number] 06:25:00 Test Item Value Reference Range Comments SODIUM (BEAKER) (test code = 135 meq/L 136-145 381) POTASSIUM (BEAKER) (test 4.9 meq/L 3.5-5.1 code = 379) CHLORIDE (BEAKER) (test code 103 meq/L 98-107 = 382) CO2 (BEAKER) (test code = 25 meq/L 22-29 355) BLOOD UREA NITROGEN (BEAKER) 48 mg/dL 7-21 (test code = 354) CREATININE (BEAKER) (test 1.33 mg/dL 0.57-1.25 code = 358) GLUCOSE RANDOM (BEAKER) 98 mg/dL 70-105 (test code = 652) CALCIUM (BEAKER) (test code 8.5 mg/dL 8.4-10.2 = 697) EGFR (BEAKER) (test code = INSUF FICIENT CLINICAL DATA TO 1092) CALCULATE ESTIMA TIARRA GFR. 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 ID - LINDSEY [id number] 06:20:00 Test Item Value Reference Range Comments MAGNESIUM (BEAKER) (test code = 627) 1.8 mg/dL 1.6-2.6 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 ID - LINDSEY WHEPATIC FUNCTION [id number] 06:20:00 Test Item Value Reference Range Comments TOTAL PROTEIN (BEAKER) (test code = 770) 6.0 gm/dL 6.0-8.3 ALBUMIN (BEAKER) (test code = 1145) 3.2 g/dL 3.5-5.0 BILIRUBIN TOTAL (BEAKER) (test code = 377) 0.3 mg/dL 0.2-1 .2 BILIRUBIN DIRECT (BEAKER) (test code = 706) 0.2 mg/dL 0.1- 0.5 ALKALINE PHOSPHATASE (BEAKER) (test code = 346) 47 U/L 40-150 AST (SGOT) (BEAKER) (test code = 353) 10 U/L 5-34 ALT (SGPT) (BEAKER) (test code = 347) 11 U/L 6-55 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 NADJA [id number] 05:42:00 Test Item Value Reference Range Comments PARTIAL THROMBOPLASTIN TIME (BEAKER) (test code 84.3 seconds 22.5-36.0 = 760) CBC (HEMOGRAM ONLY)2019-07-02 05:33:00 Test Item Value Reference Range Comments WHITE BLOOD CELL COUNT (BEAKER) (test code = 10.1 K/ L 3.5 -10.5 775) RED BLOOD CELL COUNT (BEAKER) (test code = 761) 3.77 M/ L 4.63-6.08 HEMOGLOBIN (BEAKER) (test code = 410) 11.3 GM/DL 13.7-17.5 HEMATOCRIT (BEAKER) (test code = 411) 35.7 % 40.1-51.0 MEAN CORPUSCULAR VOLUME (BEAKER) (test code = 94.7 fL 79 .0-92.2 753) MEAN CORPUSCULAR HEMOGLOBIN (BEAKER) (test code 30.0 pg 25.7-32.2 = 751) MEAN CORPUSCULAR HEMOGLOBIN CONC (BEAKER) (test 31.7 GM/DL 32.3-36.5 code = 752) RED CELL DISTRIBUTION WIDTH (BEAKER) (test code 14.9 % 11.6-14.4 = 412) PLATELET COUNT (BEAKER) (test code = 756) 240 K/CU MM 150-45 0 MEAN PLATELET VOLUME (BEAKER) (test code = 754) 9.5 fL 9.4-12.4 NUCLEATED RED BLOOD CELLS (BEAKER) (test code = 0 /100 WBC 0-0 413) [id number] 23:45:00 Test Item Value Reference Range Comments PARTIAL THROMBOPLASTIN TIME (BEAKER) (test code 74.9 seconds 22.5-36.0 = 760) [id number] 16:47:00 Test Item Value Reference Range Comments PARTIAL THROMBOPLASTIN TIME (BEAKER) (test code 54.8 seconds 22.5-36.0 = 760) [id number] 08:48:00 Test Item Value Reference Range Comments PARTIAL THROMBOPLASTIN TIME (BEAKER) (test code 71.0 seconds 22.5-36.0 = 760) BASIC METABOLIC [id number] 08:02:00 Test Item Value Reference Range Comments SODIUM (BEAKER) (test code = 135 meq/L 136-145 381) POTASSIUM (BEAKER) (test 4.4 meq/L 3.5-5.1 code = 379) CHLORIDE (BEAKER) (test code 103 meq/L 98-107 = 382) CO2 (BEAKER) (test code = 25 meq/L 22-29 355) BLOOD UREA NITROGEN (BEAKER) 45 mg/dL 7-21 (test code = 354) CREATININE (BEAKER) (test 1.29 mg/dL 0.57-1.25 code = 358) GLUCOSE RANDOM (BEAKER) 160 mg/dL 70-105 (test code = 652) CALCIUM (BEAKER) (test code 8.7 mg/dL 8.4-10.2 = 697) EGFR (BEAKER) (test code = INSUF FICIENT CLINICAL DATA TO 1092) CALCULATE ESTIMA TIARRA GFR. 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 ID - VYONNE [id number] 07:58:00 Test Item Value Reference Range Comments MAGNESIUM (BEAKER) (test code = 627) 1.9 mg/dL 1.6-2.6 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 ID - YVONNE MHEPATIC FUNCTION [id number] 07:58:00 Test Item Value Reference Range Comments TOTAL PROTEIN (BEAKER) (test code = 770) 6.5 gm/dL 6.0-8.3 ALBUMIN (BEAKER) (test code = 1145) 3.4 g/dL 3.5-5.0 BILIRUBIN TOTAL (BEAKER) (test code = 377) 0.2 mg/dL 0.2-1 .2 BILIRUBIN DIRECT (BEAKER) (test code = 706) 0.1 mg/dL 0.1- 0.5 ALKALINE PHOSPHATASE (BEAKER) (test code = 346) 52 U/L 40-150 AST (SGOT) (BEAKER) (test code = 353) 11 U/L 5-34 ALT (SGPT) (BEAKER) (test code = 347) 11 U/L 6-55 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 ID - YVONNE [facility] W/PLT COUNT & AUTO [id number] 06:40:00 Test Item Value Reference Range Comments WHITE BLOOD CELL COUNT (BEAKER) (test code = 12.3 K/ L 3.5 -10.5 775) RED BLOOD CELL COUNT (BEAKER) (test code = 761) 3.77 M/ L 4.63-6.08 HEMOGLOBIN (BEAKER) (test code = 410) 11.2 GM/DL 13.7-17.5 HEMATOCRIT (BEAKER) (test code = 411) 36.1 % 40.1-51.0 MEAN CORPUSCULAR VOLUME (BEAKER) (test code = 95.8 fL 79 .0-92.2 753) MEAN CORPUSCULAR HEMOGLOBIN (BEAKER) (test code 29.7 pg 25.7-32.2 = 751) MEAN CORPUSCULAR HEMOGLOBIN CONC (BEAKER) (test 31.0 GM/DL 32.3-36.5 code = 752) RED CELL DISTRIBUTION WIDTH (BEAKER) (test code 14.6 % 11.6-14.4 = 412) PLATELET COUNT (BEAKER) (test code = 756) 250 K/CU MM 150-45 0 MEAN PLATELET VOLUME (BEAKER) (test code = 754) 9.7 fL 9.4-12.4 NUCLEATED RED BLOOD CELLS (BEAKER) (test code = 0 /100 WBC 0-0 413) NEUTROPHILS RELATIVE PERCENT (BEAKER) (test code 80 % = 429) LYMPHOCYTES RELATIVE PERCENT (BEAKER) (test code 13 % = 430) MONOCYTES RELATIVE PERCENT (BEAKER) (test code = 7 % 431) EOSINOPHILS RELATIVE PERCENT (BEAKER) (test code 0 % = 432) BASOPHILS RELATIVE PERCENT (BEAKER) (test code = 0 % 437) NEUTROPHILS ABSOLUTE COUNT (BEAKER) (test code = 9.79 K/ L 1.78-5.38 670) LYMPHOCYTES ABSOLUTE COUNT (BEAKER) (test code = 1.61 K/ L 1.32-3.57 414) MONOCYTES ABSOLUTE COUNT (BEAKER) (test code = 0.82 K/ L 0 .30-0.82 415) EOSINOPHILS ABSOLUTE COUNT (BEAKER) (test code = 0.00 K/ L 0.04-0.54 416) BASOPHILS ABSOLUTE COUNT (BEAKER) (test code = 0.01 K/ L 0 .01-0.08 417) IMMATURE GRANULOCYTES-RELATIVE PERCENT (BEAKER) 1 % 0-1 (test code = 2801) [id number] 06:38:00 Test Item Value Reference Range Comments PARTIAL THROMBOPLASTIN TIME (BEAKER) (test 123.8 seconds 22.5- 36.0 code = 760) CBC (HEMOGRAM ONLY)2019-07-01 06:24:00 Test Item Value Reference Range Comments WHITE BLOOD CELL COUNT (BEAKER) (test code = 12.3 K/ L 3.5 -10.5 775) RED BLOOD CELL COUNT (BEAKER) (test code = 761) 3.77 M/ L 4.63-6.08 HEMOGLOBIN (BEAKER) (test code = 410) 11.2 GM/DL 13.7-17.5 HEMATOCRIT (BEAKER) (test code = 411) 36.1 % 40.1-51.0 MEAN CORPUSCULAR VOLUME (BEAKER) (test code = 95.8 fL 79 .0-92.2 753) MEAN CORPUSCULAR HEMOGLOBIN (BEAKER) (test code 29.7 pg 25.7-32.2 = 751) MEAN CORPUSCULAR HEMOGLOBIN CONC (BEAKER) (test 31.0 GM/DL 32.3-36.5 code = 752) RED CELL DISTRIBUTION WIDTH (BEAKER) (test code 14.6 % 11.6-14.4 = 412) PLATELET COUNT (BEAKER) (test code = 756) 250 K/CU MM 150-45 0 MEAN PLATELET VOLUME (BEAKER) (test code = 754) 9.7 fL 9.4-12.4 NUCLEATED RED BLOOD CELLS (BEAKER) (test code = 0 /100 WBC 0-0 413) [id number] 03:48:00 Test Item Value Reference Range Comments PARTIAL THROMBOPLASTIN TIME (BEAKER) (test code 87.2 seconds 22.5-36.0 = 760) [id number] 03:43:00 Test Item Value Reference Range Comments MAGNESIUM (BEAKER) (test code = 627) 1.9 mg/dL 1.6-2.6 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 ID - YVONNE MHEPATIC FUNCTION [id number] 03:43:00 Test Item Value Reference Range Comments TOTAL PROTEIN (BEAKER) (test code = 770) 6.4 gm/dL 6.0-8.3 ALBUMIN (BEAKER) (test code = 1145) 3.3 g/dL 3.5-5.0 BILIRUBIN TOTAL (BEAKER) (test code = 377) 0.2 mg/dL 0.2-1 .2 BILIRUBIN DIRECT (BEAKER) (test code = 706) 0.1 mg/dL 0.1- 0.5 ALKALINE PHOSPHATASE (BEAKER) (test code = 346) 50 U/L 40-150 AST (SGOT) (BEAKER) (test code = 353) 9 U/L 5-34 ALT (SGPT) (BEAKER) (test code = 347) 9 U/L 6-55 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 ID - YVONNE MBASIC METABOLIC [id number] 03:43:00 Test Item Value Reference Range Comments SODIUM (BEAKER) (test code = 137 meq/L 136-145 381) POTASSIUM (BEAKER) (test 5.3 meq/L 3.5-5.1 code = 379) CHLORIDE (BEAKER) (test code 104 meq/L 98-107 = 382) CO2 (BEAKER) (test code = 28 meq/L 22-29 355) BLOOD UREA NITROGEN (BEAKER) 46 mg/dL 7-21 (test code = 354) CREATININE (BEAKER) (test 1.43 mg/dL 0.57-1.25 code = 358) GLUCOSE RANDOM (BEAKER) 147 mg/dL 70-105 (test code = 652) CALCIUM (BEAKER) (test code 8.9 mg/dL 8.4-10.2 = 697) EGFR (BEAKER) (test code = INSUF FICIENT CLINICAL DATA TO 1092) CALCULATE ESTIMA TIARRA GFR. 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 ID Leonidas RUSSELL [facility] (HEMOGRAM ONLY)2019-06-30 03:25:00 Test Item Value Reference Range Comments WHITE BLOOD CELL COUNT (BEAKER) (test code = 11.8 K/ L 3.5 -10.5 775) RED BLOOD CELL COUNT (BEAKER) (test code = 761) 3.55 M/ L 4.63-6.08 HEMOGLOBIN (BEAKER) (test code = 410) 10.6 GM/DL 13.7-17.5 HEMATOCRIT (BEAKER) (test code = 411) 33.5 % 40.1-51.0 MEAN CORPUSCULAR VOLUME (BEAKER) (test code = 94.4 fL 79 .0-92.2 753) MEAN CORPUSCULAR HEMOGLOBIN (BEAKER) (test code 29.9 pg 25.7-32.2 = 751) MEAN CORPUSCULAR HEMOGLOBIN CONC (BEAKER) (test 31.6 GM/DL 32.3-36.5 code = 752) RED CELL DISTRIBUTION WIDTH (BEAKER) (test code 14.4 % 11.6-14.4 = 412) PLATELET COUNT (BEAKER) (test code = 756) 233 K/CU MM 150-45 0 MEAN PLATELET VOLUME (BEAKER) (test code = 754) 9.6 fL 9.4-12.4 NUCLEATED RED BLOOD CELLS (BEAKER) (test code = 0 /100 WBC 0-0 413) [id number] 20:41:00 Test Item Value Reference Range Comments PARTIAL THROMBOPLASTIN TIME (BEAKER) (test code 67.8 seconds 22.5-36.0 = 760) [id number] 12:53:00 Test Item Value Reference Range Comments PARTIAL THROMBOPLASTIN TIME (BEAKER) (test code 60.7 seconds 22.5-36.0 = 760) BASIC METABOLIC [id number] 06:39:00 Test Item Value Reference Range Comments SODIUM (BEAKER) (test code = 138 meq/L 136-145 381) POTASSIUM (BEAKER) (test 5.5 meq/L 3.5-5.1 code = 379) CHLORIDE (BEAKER) (test code 106 meq/L 98-107 = 382) CO2 (BEAKER) (test code = 25 meq/L 22-29 355) BLOOD UREA NITROGEN (BEAKER) 38 mg/dL 7-21 (test code = 354) CREATININE (BEAKER) (test 1.45 mg/dL 0.57-1.25 code = 358) GLUCOSE RANDOM (BEAKER) 150 mg/dL 70-105 (test code = 652) CALCIUM (BEAKER) (test code 9.3 mg/dL 8.4-10.2 = 697) EGFR (BEAKER) (test code = INSUF FICIENT CLINICAL DATA TO 1092) CALCULATE ESTIMA TIARRA GFR. 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 ID - LINDSEY [id number] 06:38:00 Test Item Value Reference Range Comments MAGNESIUM (BEAKER) (test code = 627) 2.1 mg/dL 1.6-2.6 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 ID - LINDSEY WHEPATIC FUNCTION [id number] 06:38:00 Test Item Value Reference Range Comments TOTAL PROTEIN (BEAKER) (test code = 770) 7.0 gm/dL 6.0-8.3 ALBUMIN (BEAKER) (test code = 1145) 3.5 g/dL 3.5-5.0 BILIRUBIN TOTAL (BEAKER) (test code = 377) 0.3 mg/dL 0.2-1 .2 BILIRUBIN DIRECT (BEAKER) (test code = 706) 0.2 mg/dL 0.1- 0.5 ALKALINE PHOSPHATASE (BEAKER) (test code = 346) 58 U/L 40-150 AST (SGOT) (BEAKER) (test code = 353) 10 U/L 5-34 ALT (SGPT) (BEAKER) (test code = 347) 8 U/L 6-55 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 ID - LINDSEY WCBC W/PLT COUNT & AUTO [id number] 06:12:00 Test Item Value Reference Range Comments WHITE BLOOD CELL COUNT (BEAKER) (test code = 6.1 K/ L 3.5 -10.5 775) RED BLOOD CELL COUNT (BEAKER) (test code = 761) 3.97 M/ L 4.63-6.08 HEMOGLOBIN (BEAKER) (test code = 410) 11.6 GM/DL 13.7-17.5 HEMATOCRIT (BEAKER) (test code = 411) 38.1 % 40.1-51.0 MEAN CORPUSCULAR VOLUME (BEAKER) (test code = 96.0 fL 79 .0-92.2 753) MEAN CORPUSCULAR HEMOGLOBIN (BEAKER) (test code 29.2 pg 25.7-32.2 = 751) MEAN CORPUSCULAR HEMOGLOBIN CONC (BEAKER) (test 30.4 GM/DL 32.3-36.5 code = 752) RED CELL DISTRIBUTION WIDTH (BEAKER) (test code 14.2 % 11.6-14.4 = 412) PLATELET COUNT (BEAKER) (test code = 756) 235 K/CU MM 150-45 0 MEAN PLATELET VOLUME (BEAKER) (test code = 754) 9.3 fL 9.4-12.4 NUCLEATED RED BLOOD CELLS (BEAKER) (test code = 0 /100 WBC 0-0 413) NEUTROPHILS RELATIVE PERCENT (BEAKER) (test code 84 % = 429) LYMPHOCYTES RELATIVE PERCENT (BEAKER) (test code 15 % = 430) MONOCYTES RELATIVE PERCENT (BEAKER) (test code = 1 % 431) EOSINOPHILS RELATIVE PERCENT (BEAKER) (test code 0 % = 432) BASOPHILS RELATIVE PERCENT (BEAKER) (test code = 0 % 437) NEUTROPHILS ABSOLUTE COUNT (BEAKER) (test code = 5.10 K/ L 1.78-5.38 670) LYMPHOCYTES ABSOLUTE COUNT (BEAKER) (test code = 0.89 K/ L 1.32-3.57 414) MONOCYTES ABSOLUTE COUNT (BEAKER) (test code = 0.08 K/ L 0 .30-0.82 415) EOSINOPHILS ABSOLUTE COUNT (BEAKER) (test code = 0.00 K/ L 0.04-0.54 416) BASOPHILS ABSOLUTE COUNT (BEAKER) (test code = 0.00 K/ L 0 .01-0.08 417) IMMATURE GRANULOCYTES-RELATIVE PERCENT (BEAKER) 0 % 0-1 (test code = 2801) [id number] 06:00:00 Test Item Value Reference Range Comments PARTIAL THROMBOPLASTIN TIME (BEAKER) (test code 49.8 seconds 22.5-36.0 = 760) CBC (HEMOGRAM ONLY)2019-06-29 05:42:00 Test Item Value Reference Range Comments WHITE BLOOD CELL COUNT (BEAKER) (test code = 6.1 K/ L 3.5 -10.5 775) RED BLOOD CELL COUNT (BEAKER) (test code = 761) 3.97 M/ L 4.63-6.08 HEMOGLOBIN (BEAKER) (test code = 410) 11.6 GM/DL 13.7-17.5 HEMATOCRIT (BEAKER) (test code = 411) 38.1 % 40.1-51.0 MEAN CORPUSCULAR VOLUME (BEAKER) (test code = 96.0 fL 79 .0-92.2 753) MEAN CORPUSCULAR HEMOGLOBIN (BEAKER) (test code 29.2 pg 25.7-32.2 = 751) MEAN CORPUSCULAR HEMOGLOBIN CONC (BEAKER) (test 30.4 GM/DL 32.3-36.5 code = 752) RED CELL DISTRIBUTION WIDTH (BEAKER) (test code 14.2 % 11.6-14.4 = 412) PLATELET COUNT (BEAKER) (test code = 756) 235 K/CU MM 150-45 0 MEAN PLATELET VOLUME (BEAKER) (test code = 754) 9.3 fL 9.4-12.4 NUCLEATED RED BLOOD CELLS (BEAKER) (test code = 0 /100 WBC 0-0 413) [id number] 11:49:00 Test Item Value Reference Range Comments RPR SCREEN (BEAKER) (test code = 420) Nonreactive Nonreactiv e HEPATIC FUNCTION [id number] 09:29:00 Test Item Value Reference Range Comments TOTAL PROTEIN (BEAKER) (test 7.2 gm/dL 6.0-8.3 Spe cimen slightly hemolyzed code = 770) ALBUMIN (BEAKER) (test code = 3.6 g/dL 3.5-5.0 Sp ecimen slightly hemolyzed 1145) BILIRUBIN TOTAL (BEAKER) (test 0.5 mg/dL 0.2-1.2 S pecimen slightly hemolyzed code = 377) BILIRUBIN DIRECT (BEAKER) (test 0.2 mg/dL 0.1-0.5 Specimen slightly hemolyzed code = 706) ALKALINE PHOSPHATASE (BEAKER) 58 U/L 40-150 (test code = 346) AST (SGOT) (BEAKER) (test code 13 U/L 5-34 S pecimen slightly hemolyzed = 353) ALT (SGPT) (BEAKER) (test code 10 U/L 6-55 S pecimen slightly hemolyzed = 347) 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 ID - BRIDGERN [id number] 04:02:00 Test Item Value Reference Range Comments TROPONIN I (BEAKER) (test code = 397) 0.01 ng/mL 0.00-0.03 Troponin I (TnI) levels must be interpreted in the context of the presenting symptoms and the clinical findings. Elevated TnI levels indicate myocardial damage, but are not specific for ischemic heart disease. 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 ID - ASVITAMIN [id number] 03:54:00 Test Item Value Reference Range Comments VITAMIN B12 (BEAKER) (test code = 774) 569 pg/mL 213-816 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 ID - YVONNE MVITAMIN D, [id number] 03:18:00 Test Item Value Reference Range Comments VITAMIN D 25-OH (BEAKER) (test code = 2764) 34.6 ng/mL 6.6- 49.9 Effective 03/03/2017: Reference Range ChangeNew: 6.6-49.9 ng/mL Previous: 13.0-47.8 ng/mLRecommended Vitamin D Target Range: 30.0-40.0 ng/mLOperator ID - ASTSH/FREE T4 IF [id number] 03:18:00 Test Item Value Reference Range Comments THYROID STIMULATING HORMONE (BEAKER) (test code 1.01 uIU/mL 0.35-4.94 = 772) 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 ID - ASBASIC METABOLIC [id number] 03:07:00 Test Item Value Reference Range Comments SODIUM (BEAKER) (test code = 135 meq/L 136-145 381) POTASSIUM (BEAKER) (test 4.8 meq/L 3.5-5.1 Specime n slightly hemolyzed code = 379) CHLORIDE (BEAKER) (test code 102 meq/L 98-107 = 382) CO2 (BEAKER) (test code = 24 meq/L 22-29 355) BLOOD UREA NITROGEN (BEAKER) 44 mg/dL 7-21 (test code = 354) CREATININE (BEAKER) (test 1.60 mg/dL 0.57-1.25 Specim en slightly hemolyzed code = 358) GLUCOSE RANDOM (BEAKER) 125 mg/dL 70-105 (test code = 652) CALCIUM (BEAKER) (test code 9.2 mg/dL 8.4-10.2 = 697) EGFR (BEAKER) (test code = [facility]) CALCULATE ESTIMA TIARRA GFR. 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 ID - YVONNE [id number] 03:02:00 Test Item Value Reference Range Comments MAGNESIUM (BEAKER) (test code = 1.9 mg/dL 1.6-2.6 Specimen slightly hemolyzed 627) 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 ID - YVONNE [id number] 02:25:00 Test Item Value Reference Range Comments PARTIAL THROMBOPLASTIN TIME (BEAKER) (test code 79.6 seconds 22.5-36.0 = 760) CBC W/PLT COUNT & AUTO [id number] 02:11:00 Test Item Value Reference Range Comments WHITE BLOOD CELL COUNT (BEAKER) (test code = 12.2 K/ L 3.5 -10.5 775) RED BLOOD CELL COUNT (BEAKER) (test code = 761) 3.95 M/ L 4.63-6.08 HEMOGLOBIN (BEAKER) (test code = 410) 11.6 GM/DL 13.7-17.5 HEMATOCRIT (BEAKER) (test code = 411) 37.3 % 40.1-51.0 MEAN CORPUSCULAR VOLUME (BEAKER) (test code = 94.4 fL 79 .0-92.2 753) MEAN CORPUSCULAR HEMOGLOBIN (BEAKER) (test code 29.4 pg 25.7-32.2 = 751) MEAN CORPUSCULAR HEMOGLOBIN CONC (BEAKER) (test 31.1 GM/DL 32.3-36.5 code = 752) RED CELL DISTRIBUTION WIDTH (BEAKER) (test code 14.5 % 11.6-14.4 = 412) PLATELET COUNT (BEAKER) (test code = 756) 267 K/CU MM 150-45 0 MEAN PLATELET VOLUME (BEAKER) (test code = 754) 9.9 fL 9.4-12.4 NUCLEATED RED BLOOD CELLS (BEAKER) (test code = 0 /100 WBC 0-0 413) NEUTROPHILS RELATIVE PERCENT (BEAKER) (test code 60 % = 429) LYMPHOCYTES RELATIVE PERCENT (BEAKER) (test code 27 % = 430) MONOCYTES RELATIVE PERCENT (BEAKER) (test code = 10 % 431) EOSINOPHILS RELATIVE PERCENT (BEAKER) (test code 3 % = 432) BASOPHILS RELATIVE PERCENT (BEAKER) (test code = 0 % 437) NEUTROPHILS ABSOLUTE COUNT (BEAKER) (test code = 7.30 K/ L 1.78-5.38 670) LYMPHOCYTES ABSOLUTE COUNT (BEAKER) (test code = 3.26 K/ L 1.32-3.57 414) MONOCYTES ABSOLUTE COUNT (BEAKER) (test code = 1.24 K/ L 0 .30-0.82 415) EOSINOPHILS ABSOLUTE COUNT (BEAKER) (test code = 0.30 K/ L 0.04-0.54 416) BASOPHILS ABSOLUTE COUNT (BEAKER) (test code = 0.05 K/ L 0 .01-0.08 417) IMMATURE GRANULOCYTES-RELATIVE PERCENT (BEAKER) 0 % 0-1 (test code = 2801) [id number] 23:22:00 Test Item Value Reference Range Comments PARTIAL THROMBOPLASTIN TIME (BEAKER) (test code 77.6 seconds 22.5-36.0 = 760) [id number] 15:45:00 Test Item Value Reference Range Comments PARTIAL THROMBOPLASTIN TIME (BEAKER) (test code 60.8 seconds 22.5-36.0 = 760) 6 hours after starting heparin infusion and as indicated per sliding scaleU/S, RENAL, [id number] 12:54:00Reason for exam:->r/o hydronephrosisShould this be performed at the bedside?->NoFINAL REPORT TECHNIQUE: Grayscale ultrasound of the kidneys and bladder. INDICATION: 89-year-old man with acute kidney injury. COMPARISON: None. FINDINGS: RIGHT KIDNEY: The right kidney is mildly echogenic and measures 10 x 4.7 x 4 cm. Cortical thickness measures 1.2 cm. No solid mass lesions. No hydronephrosis. Renal artery and vein are patent. LEFT KIDNEY: The left kidney ismildly echogenic and measures 9.9 x 5.2 x 3.8 cm. Cortical thickness measures 1.1 cm. No solid mass lesions. Simple cysts measure 1.1 x 0.9 x 1.1 cm and 2.1 x 2.4 x 2.2 cm. Mild hydronephrosis. Renal artery and vein are patent. BLADDER/PROSTATE: The prostate is mildly prominent and measures 4.2 x 3.7 x 4.8 cm. The bladder is unremarkable. IMPRESSION:Mildly echogenic kidneys, suggestive of medical renal disease. Mild hydronephrosis on the left. If indicated, abdomen and pelvis CT may be obtained forfurther evaluation. Prostatomegaly. Signed: Ana Maria Clark MDReport Verified Date/Time: 06/27/201912:54:46 Reading Location: [address] Radiology Reading Room [id number] 10:29:00 Test Item Value Reference Range Comments PARTIAL THROMBOPLASTIN TIME (BEAKER) (test code 28.1 seconds 22.5-36.0 = 760) Prior to initiating heparinPLATELET [id number] 10:14:00 Test Item Value Reference Range Comments PLATELET COUNT (BEAKER) (test code = 756) 243 K/CU MM 150-45 0 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 ID - 6000URINE [id number] 09:58:00 Test Item Value Reference Range Comments CULTURE (BEAKER) (test code = 1095) No growth BASIC METABOLIC [id number] 07:43:00 Test Item Value Reference Range Comments SODIUM (BEAKER) (test code = 136 meq/L 136-145 381) POTASSIUM (BEAKER) (test 4.7 meq/L 3.5-5.1 code = 379) CHLORIDE (BEAKER) (test code 103 meq/L 98-107 = 382) CO2 (BEAKER) (test code = 23 meq/L 22-29 355) BLOOD UREA NITROGEN (BEAKER) 55 mg/dL 7-21 (test code = 354) CREATININE (BEAKER) (test 1.59 mg/dL 0.57-1.25 code = 358) GLUCOSE RANDOM (BEAKER) 102 mg/dL 70-105 (test code = 652) CALCIUM (BEAKER) (test code 8.7 mg/dL 8.4-10.2 = 697) EGFR (BEAKER) (test code = INSUF FICIENT CLINICAL DATA TO 1092) CALCULATE ESTIMA TIARRA GFR. 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 ID - YVONNE MURIC [id number] 07:35:00 Test Item Value Reference Range Comments URIC ACID (BEAKER) (test code = 773) 8.7 mg/dL 2.6-7.2 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 ID - YVONNE [id number] 07:35:00 Test Item Value Reference Range Comments MAGNESIUM (BEAKER) (test code = 627) 2.1 mg/dL 1.6-2.6 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 ID - YVONNE MHEPATIC FUNCTION [id number] 07:35:00 Test Item Value Reference Range Comments TOTAL PROTEIN (BEAKER) (test code = 770) 6.7 gm/dL 6.0-8.3 ALBUMIN (BEAKER) (test code = 1145) 3.4 g/dL 3.5-5.0 BILIRUBIN TOTAL (BEAKER) (test code = 377) 0.5 mg/dL 0.2-1 .2 BILIRUBIN DIRECT (BEAKER) (test code = 706) 0.2 mg/dL 0.1- 0.5 ALKALINE PHOSPHATASE (BEAKER) (test code = 346) 55 U/L 40-150 AST (SGOT) (BEAKER) (test code = 353) 13 U/L 5-34 ALT (SGPT) (BEAKER) (test code = 347) 9 U/L 6-55 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 ID - YVONNE [facility]BC W/PLT COUNT & AUTO [id number] 05:50:00 Test Item Value Reference Range Comments WHITE BLOOD CELL COUNT (BEAKER) (test code = 8.9 K/ L 3.5 -10.5 775) RED BLOOD CELL COUNT (BEAKER) (test code = 761) 3.68 M/ L 4.63-6.08 HEMOGLOBIN (BEAKER) (test code = 410) 11.1 GM/DL 13.7-17.5 HEMATOCRIT (BEAKER) (test code = 411) 34.9 % 40.1-51.0 MEAN CORPUSCULAR VOLUME (BEAKER) (test code = 94.8 fL 79 .0-92.2 753) MEAN CORPUSCULAR HEMOGLOBIN (BEAKER) (test code 30.2 pg 25.7-32.2 = 751) MEAN CORPUSCULAR HEMOGLOBIN CONC (BEAKER) (test 31.8 GM/DL 32.3-36.5 code = 752) RED CELL DISTRIBUTION WIDTH (BEAKER) (test code 14.6 % 11.6-14.4 = 412) PLATELET COUNT (BEAKER) (test code = 756) 208 K/CU MM 150-45 0 MEAN PLATELET VOLUME (BEAKER) (test code = 754) 9.6 fL 9.4-12.4 NUCLEATED RED BLOOD CELLS (BEAKER) (test code = 0 /100 WBC 0-0 413) NEUTROPHILS RELATIVE PERCENT (BEAKER) (test code 60 % = 429) LYMPHOCYTES RELATIVE PERCENT (BEAKER) (test code 26 % = 430) MONOCYTES RELATIVE PERCENT (BEAKER) (test code = 11 % 431) EOSINOPHILS RELATIVE PERCENT (BEAKER) (test code 3 % = 432) BASOPHILS RELATIVE PERCENT (BEAKER) (test code = 0 % 437) NEUTROPHILS ABSOLUTE COUNT (BEAKER) (test code = 5.34 K/ L 1.78-5.38 670) LYMPHOCYTES ABSOLUTE COUNT (BEAKER) (test code = 2.26 K/ L 1.32-3.57 414) MONOCYTES ABSOLUTE COUNT (BEAKER) (test code = 0.97 K/ L 0 .30-0.82 415) EOSINOPHILS ABSOLUTE COUNT (BEAKER) (test code = 0.25 K/ L 0.04-0.54 416) BASOPHILS ABSOLUTE COUNT (BEAKER) (test code = 0.03 K/ L 0 .01-0.08 417) IMMATURE GRANULOCYTES-RELATIVE PERCENT (BEAKER) 0 % 0-1 (test code = 2801) RAD, CHEST, 1 VIEW, NON [id number] 21:33:00Reason for exam:- >DyspneaShould this be performed at the bedside?->YesFINAL REPORT Chest one view. Clinical history: Dyspnea Comparison: Chest radi ograph 06/24/2019. Technique: A single frontal view of the chest was obtained. Findings/impression:The patient is status post median sternotomy.The cardiomediastinal contours are stable. There are low lung volumes with vascular crowding. Previously noted bilateral upper lobe opacities are not clearly de lineated on the current exam. There is mild elevation of the right hemidiaphragm. There is mild diffuse interstitial prominence, nonspecific but may represent chronic lung disease or pulmonary vascularcongestion. There are bibasilar opacities which may represent atelectasis and/or pneumonia. There isno definite pleural effusion. There is no pneumothorax. Signed: Ashley Adamson MDReport VerifiedDate/Time: 06/26/2019 21:33:13 09:33 PMTROPONIN [id number] 21:26:00 Test Item Value Reference Range Comments TROPONIN I (BEAKER) (test code = 397) < ng/mL 0.00-0.03 Troponin I (TnI) levels must be interpreted in the context of the presenting symptoms and the clinical findings. Elevated TnI levels indicate myocardial damage, but are not specific for ischemic heart disease. 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 ID - DBLACTIC ACID, ARTERIAL 2019-06-26 20:52:00 Test Item Value Reference Range Comments LACTATE BLOOD ARTERIAL (2) (BEAKER) (test code = 0.9 mmol/L 0.5-2.2 2874) 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 ID - [id number] 20:36:00 Test Item Value Reference Range Comments MAGNESIUM (BEAKER) (test code = 627) 2.1 mg/dL 1.6-2.6 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 ID - DBBASIC METABOLIC [id number] 20:36:00 Test Item Value Reference Range Comments SODIUM (BEAKER) (test code = 133 meq/L 136-145 381) POTASSIUM (BEAKER) (test 4.9 meq/L 3.5-5.1 code = 379) CHLORIDE (BEAKER) (test code 102 meq/L 98-107 = 382) CO2 (BEAKER) (test code = 21 meq/L 22-29 355) BLOOD UREA NITROGEN (BEAKER) 62 mg/dL 7-21 (test code = 354) CREATININE (BEAKER) (test 1.65 mg/dL 0.57-1.25 code = 358) GLUCOSE RANDOM (BEAKER) 92 mg/dL 70-105 (test code = 652) CALCIUM (BEAKER) (test code 8.7 mg/dL 8.4-10.2 = 697) EGFR (BEAKER) (test code = INSUF FICIENT CLINICAL DATA TO 1092) CALCULATE ESTIMA TIARRA GFR. 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 ID - DBCBC W/PLT COUNT & AUTO [id number] 20:13:00 Test Item Value Reference Range Comments WHITE BLOOD CELL COUNT (BEAKER) (test code = 9.6 K/ L 3.5 -10.5 775) RED BLOOD CELL COUNT (BEAKER) (test code = 761) 3.78 M/ L 4.63-6.08 HEMOGLOBIN (BEAKER) (test code = 410) 11.1 GM/DL 13.7-17.5 HEMATOCRIT (BEAKER) (test code = 411) 35.4 % 40.1-51.0 MEAN CORPUSCULAR VOLUME (BEAKER) (test code = 93.7 fL 79 .0-92.2 753) MEAN CORPUSCULAR HEMOGLOBIN (BEAKER) (test code 29.4 pg 25.7-32.2 = 751) MEAN CORPUSCULAR HEMOGLOBIN CONC (BEAKER) (test 31.4 GM/DL 32.3-36.5 code = 752) RED CELL DISTRIBUTION WIDTH (BEAKER) (test code 14.4 % 11.6-14.4 = 412) PLATELET COUNT (BEAKER) (test code = 756) 224 K/CU MM 150-45 0 MEAN PLATELET VOLUME (BEAKER) (test code = 754) 9.2 fL 9.4-12.4 NUCLEATED RED BLOOD CELLS (BEAKER) (test code = 0 /100 WBC 0-0 413) NEUTROPHILS RELATIVE PERCENT (BEAKER) (test code 63 % = 429) LYMPHOCYTES RELATIVE PERCENT (BEAKER) (test code 23 % = 430) MONOCYTES RELATIVE PERCENT (BEAKER) (test code = 12 % 431) EOSINOPHILS RELATIVE PERCENT (BEAKER) (test code 2 % = 432) BASOPHILS RELATIVE PERCENT (BEAKER) (test code = 0 % 437) NEUTROPHILS ABSOLUTE COUNT (BEAKER) (test code = 6.03 K/ L 1.78-5.38 670) LYMPHOCYTES ABSOLUTE COUNT (BEAKER) (test code = 2.22 K/ L 1.32-3.57 414) MONOCYTES ABSOLUTE COUNT (BEAKER) (test code = 1.13 K/ L 0 .30-0.82 415) EOSINOPHILS ABSOLUTE COUNT (BEAKER) (test code = 0.18 K/ L 0.04-0.54 416) BASOPHILS ABSOLUTE COUNT (BEAKER) (test code = 0.04 K/ L 0 .01-0.08 417) IMMATURE GRANULOCYTES-RELATIVE PERCENT (BEAKER) 0 % 0-1 (test code = 2801) POCT-BLOOD GASES, [id number] 20:09:00 Test Item Value Reference Range Comments TEMP, CELSIUS-POC (BEAKER) 36.3 (test code = 1834) FIO2-POC (BEAKER) (test 24 TESTED A T [place] [id number] B[place] code = 1835) [place] [id number] PH, ARTERIAL-POC (BEAKER) 7.448 7.350-7.450 (test code = 1836) PCO2, ARTERIAL-POC (BEAKER) 33.8 mm Hg 35.0-45.0 (test code = 1837) PO2, ARTERIAL-POC (BEAKER) 56.0 mm Hg 80.0-90.0 (test code = 1838) SO2, ARTERIAL-POC (BEAKER) 91.0 % 96.0-97.0 (test code = 1839) HCO3, ARTERIAL-POC (BEAKER) 23.6 meq/L 21.0-29.0 (test code = 1840) BASE EXCESS, ARTERIAL-POC -1.0 meq/L -2.0-3.0 (BEAKER) (test code = 1841) [id number] 20:09:00 Test Item Value Reference Range Comments POC-SODIUM (BEAKER) (test 134 meq/L 135-148 TESTED AT [place] [address] [address] code = 1542) [place] [id number] 20:09:00 Test Item Value Reference Range Comments POC-POTASSIUM (BEAKER) (test 4.7 meq/L 3.6-5.5 WILL TIARRA AT [place] [address] [address] code = 1540) [place] [id number] 20:09:00 Test Item Value Reference Range Comments POC-GLUCOSE (BEAKER) (test 96 mg/dL 70-110 TESTE D AT [place] [address] [address] code = 1855) [place] [address] POCT-CALCIUM [id number] 20:09:00 Test Item Value Reference Range Comments POC-CALCIUM IONIZED (BEAKER) 1.16 mmol/L 1.12-1.27 WILL TIARRA AT [address] (test code = 1536) [facility] [address] [id number] 20:09:00 Test Item Value Reference Range Comments POC-HEMATOCRIT (BEAKER) (test 34 % 40-50 TE STED AT [address] code = 1857) [facility] [address] [id number] 20:09:00 Test Item Value Reference Range Comments POC-HEMOGLOBIN (BEAKER) 11.6 g/dL 13.0-16.8 TESTED A T [address] (test code = 1856) [place] [address] [address] [place] [address] PET, CARDIAC PERFUSION MULTIPLE STUDIES, REST AND [id number] 14:27:00 Reason for exam:->chest painFINAL REPORT PROCEDURE: MYOCARDIAL PERFUSION PET IMAGING (Rest/Stress)CPT CODE: 19492 INDICATION: Chest discomfort, known CAD status post ACB, preoperative risk stratification for vascular surgery CARDIOVASCULAR PROFILE:CAD History: Known CAD status post ACBSymptoms: Chest discomfort, dyspneaRisk Factors: Known CAD, hypertension, CKD, obesityBMI: 36Medications: Aspirin, Plavix,pravastatin STRESS PROTOCOL:Pharmacologic stress was achieved with a 10-second intravenous infusion of regadenoson 0.4 mg. The radiopharmaceutical was administered 30 seconds after the start of the regadenoson infusion. IMAGING PROTOCOL:Limited low-dose CT imaging was performed for attenuation correction. 40.0 mCi of Rb-82 chloride was injected intravenously at rest, and gated PET images were obtained. Then, 40.1 mCi of Rb-82 chloride was injected intravenously at peak stress, and gated PET images were obtained. REST FINDINGS:HR: 56/minBP: 107/49 mmHgPrelim. EKG: Sinus bradycardia, incomplete rightbundle branch block, nonspecific T wave abnormalities.Perfusion: There is a marked severity perfusion defect of the basal to mid inferior, basal inferolateral, basal inferoseptal segments. There is a mild severity perfusion defect of the apical inferior segment.Wall Motion:Gated Images non-interpretable at rest.LV Volume: Normal.RV Volume: Normal. STRESS FINDINGS:HR: 76/min (57% of MPHR)BP: 75/42 mmHgPrelim. EKG: No ischemic changes.Symptoms: Shortness of breath (aminophylline 125mg IV given).Perfusion: There is a marked severity perfusion defect of the basal to apical inferior, basal to mid inferoseptal and anteroseptal segments. There is a moderate severity perfusion defect of the mid to apical anterior, apical lateral, apical septal, apical segments.Wall Motion: There is akinesis of the basal to mid inferior, basal to mid inferoseptal LV although the overall LVEF remains preserved. (LVEF 55%).LV Volume: Mildly increased from rest. IMPRESSION:1. Abnormal study.2. Abnormal myocardial perfusion. There is a large size, marked severity, partially reversible perfusion abnormality in the inferior and basal septal LV. There is a large size, moderate severity, mostly reversible perfusion abnormality in the mid to apical anterior and apical LV. This is indicative of multivessel obstructive coronaryartery disease. Given severity of the perfusion defect to the inferior LV, consider viability study to guide decision-making on revascularization.3.Akinesis of the basal to mid inferior and basal septal segments at stress with overall preserved ejection fraction.4. Normal extracardiac tracer distribution.5. There is no prior study for comparison. Signed: Rashaun Diaz MDReport Verified Date/Time: 06/26/2019 14:27:49 Reading Location: [address] Reading Room [id number] 06:43:00 Test Item Value Reference Range Comments MAGNESIUM (BEAKER) (test code = 627) 2.2 mg/dL 1.6-2.6 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 ID - PIAYA LHEPATIC FUNCTION [id number] 06:43:00 Test Item Value Reference Range Comments TOTAL PROTEIN (BEAKER) (test code = 770) 7.6 gm/dL 6.0-8.3 ALBUMIN (BEAKER) (test code = 1145) 3.8 g/dL 3.5-5.0 BILIRUBIN TOTAL (BEAKER) (test code = 377) 0.6 mg/dL 0.2-1 .2 BILIRUBIN DIRECT (BEAKER) (test code = 706) 0.2 mg/dL 0.1- 0.5 ALKALINE PHOSPHATASE (BEAKER) (test code = 346) 59 U/L 40-150 AST (SGOT) (BEAKER) (test code = 353) 11 U/L 5-34 ALT (SGPT) (BEAKER) (test code = 347) 9 U/L 6-55 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 NADJA KNUTSON LBASIC METABOLIC [id number] 06:43:00 Test Item Value Reference Range Comments SODIUM (BEAKER) (test code = 128 meq/L 136-145 381) POTASSIUM (BEAKER) (test 4.7 meq/L 3.5-5.1 code = 379) CHLORIDE (BEAKER) (test code 96 meq/L 98-107 = 382) CO2 (BEAKER) (test code = 23 meq/L 22-29 355) BLOOD UREA NITROGEN (BEAKER) 64 mg/dL 7-21 (test code = 354) CREATININE (BEAKER) (test 1.85 mg/dL 0.57-1.25 code = 358) GLUCOSE RANDOM (BEAKER) 109 mg/dL 70-105 (test code = 652) CALCIUM (BEAKER) (test code 9.0 mg/dL 8.4-10.2 = 697) EGFR (BEAKER) (test code = INSUF FICIENT CLINICAL DATA TO 1092) CALCULATE ESTIMA TIARRA GFR. 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 NADJA KNUTSON LPROTHROMBIN [id number] 05:58:00 Test Item Value Reference Range Comments PROTIME (BEAKER) (test code = 759) 14.7 seconds 11.9-14.2 INR (BEAKER) (test code = 370) 1.2 <=5.9 Effective 10/19/2018: PT Reference Range ChangeNew: 11.9-14.2 Previous: 11.7- 14.7RECOMMENDED COUMADIN/WARFARIN INR THERAPY RANGESSTANDARD DOSE: 2.0-3.0 Includes: PROPHYLAXIS for venous thrombosis, systemic embolization; TREATMENT for venous thrombosis and/or pulmonary embolus.HIGH RISK: Target INR is2.5-3.5 for patients wiht mechanical heart valves.CBC (HEMOGRAM ONLY)2019-06-26 05:49:00 Test Item Value Reference Range Comments WHITE BLOOD CELL COUNT (BEAKER) (test code = 10.4 K/ L 3.5 -10.5 775) RED BLOOD CELL COUNT (BEAKER) (test code = 761) 4.00 M/ L 4.63-6.08 HEMOGLOBIN (BEAKER) (test code = 410) 12.1 GM/DL 13.7-17.5 HEMATOCRIT (BEAKER) (test code = 411) 37.4 % 40.1-51.0 MEAN CORPUSCULAR VOLUME (BEAKER) (test code = 93.5 fL 79 .0-92.2 753) MEAN CORPUSCULAR HEMOGLOBIN (BEAKER) (test code 30.3 pg 25.7-32.2 = 751) MEAN CORPUSCULAR HEMOGLOBIN CONC (BEAKER) (test 32.4 GM/DL 32.3-36.5 code = 752) RED CELL DISTRIBUTION WIDTH (BEAKER) (test code 14.4 % 11.6-14.4 = 412) PLATELET COUNT (BEAKER) (test code = 756) 229 K/CU MM 150-45 0 MEAN PLATELET VOLUME (BEAKER) (test code = 754) 9.5 fL 9.4-12.4 NUCLEATED RED BLOOD CELLS (BEAKER) (test code = 0 /100 WBC 0-0 413) BASIC METABOLIC [id number] 05:21:00 Test Item Value Reference Range Comments SODIUM (BEAKER) (test code = 135 meq/L 136-145 381) POTASSIUM (BEAKER) (test 4.9 meq/L 3.5-5.1 code = 379) CHLORIDE (BEAKER) (test code 101 meq/L 98-107 = 382) CO2 (BEAKER) (test code = 24 meq/L 22-29 355) BLOOD UREA NITROGEN (BEAKER) 55 mg/dL 7-21 (test code = 354) CREATININE (BEAKER) (test 1.75 mg/dL 0.57-1.25 code = 358) GLUCOSE RANDOM (BEAKER) 112 mg/dL 70-105 (test code = 652) CALCIUM (BEAKER) (test code 9.7 mg/dL 8.4-10.2 = 697) EGFR (BEAKER) (test code = INSUF FICIENT CLINICAL DATA TO 1092) CALCULATE ESTIMA TIARRA GFR. 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 ID - PIAYA [id number] 05:18:00 Test Item Value Reference Range Comments MAGNESIUM (BEAKER) (test code = 627) 2.2 mg/dL 1.6-2.6 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 ID - ZENIA LHEPATIC FUNCTION [id number] 05:18:00 Test Item Value Reference Range Comments TOTAL PROTEIN (BEAKER) (test code = 770) 8.1 gm/dL 6.0-8.3 ALBUMIN (BEAKER) (test code = 1145) 4.0 g/dL 3.5-5.0 BILIRUBIN TOTAL (BEAKER) (test code = 377) 0.5 mg/dL 0.2-1 .2 BILIRUBIN DIRECT (BEAKER) (test code = 706) 0.3 mg/dL 0.1- 0.5 ALKALINE PHOSPHATASE (BEAKER) (test code = 346) 66 U/L 40-150 AST (SGOT) (BEAKER) (test code = 353) 11 U/L 5-34 ALT (SGPT) (BEAKER) (test code = 347) 8 U/L 6-55 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 ID - ZENIA LPROTHROMBIN [id number] 04:51:00 Test Item Value Reference Range Comments PROTIME (BEAKER) (test code = 759) 15.1 seconds 11.9-14.2 INR (BEAKER) (test code = 370) 1.2 <=5.9 Effective 10/19/2018: PT Reference Range ChangeNew: 11.9-14.2 Previous: 11.7- 14.7RECOMMENDED COUMADIN/WARFARIN INR THERAPY RANGESSTANDARD DOSE: 2.0-3.0 Includes: PROPHYLAXIS for venous thrombosis, systemic embolization; TREATMENT for venous thrombosis and/or pulmonary embolus.HIGH RISK: Target INR is2.5-3.5 for patients wiht mechanical heart valves.CBC (HEMOGRAM ONLY)2019-06-25 04:46:00 Test Item Value Reference Range Comments WHITE BLOOD CELL COUNT (BEAKER) (test code = 11.5 K/ L 3.5 -10.5 775) RED BLOOD CELL COUNT (BEAKER) (test code = 761) 4.21 M/ L 4.63-6.08 HEMOGLOBIN (BEAKER) (test code = 410) 12.6 GM/DL 13.7-17.5 HEMATOCRIT (BEAKER) (test code = 411) 39.5 % 40.1-51.0 MEAN CORPUSCULAR VOLUME (BEAKER) (test code = 93.8 fL 79 .0-92.2 753) MEAN CORPUSCULAR HEMOGLOBIN (BEAKER) (test code 29.9 pg 25.7-32.2 = 751) MEAN CORPUSCULAR HEMOGLOBIN CONC (BEAKER) (test 31.9 GM/DL 32.3-36.5 code = 752) RED CELL DISTRIBUTION WIDTH (BEAKER) (test code 14.6 % 11.6-14.4 = 412) PLATELET COUNT (BEAKER) (test code = 756) 240 K/CU MM 150-45 0 MEAN PLATELET VOLUME (BEAKER) (test code = 754) 9.5 fL 9.4-12.4 NUCLEATED RED BLOOD CELLS (BEAKER) (test code = 0 /100 WBC 0-0 413) URIC [id number] 19:33:00 Test Item Value Reference Range Comments URIC ACID (BEAKER) (test code = 773) 9.0 mg/dL 2.6-7.2 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 ID - SULEMANNIN [id number] 12:57:00 Test Item Value Reference Range Comments TROPONIN I (BEAKER) (test code = 397) < ng/mL 0.00-0.03 Troponin I (TnI) levels must be interpreted in the context of the presenting symptoms and the clinical findings. Elevated TnI levels indicate myocardial damage, but are not specific for ischemic heart disease. 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 ID - PIAYA LRAD, CHEST, 2 VIEWS 2019-06-24 10:06:00Reason for exam:->sobFINAL REPORT TECHNIQUE: 2 views of the chest. COMPARISON: None FINDINGS: Thecardiac silhouette is right. Postsurgical changes in the mediastinum. Lungs are hyperinflated. Airspace opacities in the lower lungs may be due to atelectasis or pneumonitis. Vague curvilinear densityin the right upper lobe measuring 1.2 cm could be related to atelectasis, scarring, as well as lung nodule or mass. Similarly, 1.5 cm opacity in the left apex also seen. No acute skeletal abnormality.Soft tissues appear unremarkable. IMPRESSION: Bibasilar densities could be due to atelectasis and/or pneumonitis. Opacities in the upper lobes as described for which nodule or pneumonia cannot be excluded. These could be further assessed with chest CT when feasible. Signed: Mayo Roberts MDReport Verified Date/Time: 06/24/2019 10:06:59 Reading Location: [address] Transitional Reading Room TROPONIN [id number] 09:07:00 Test Item Value Reference Range Comments TROPONIN I (BEAKER) (test code = 397) < ng/mL 0.00-0.03 Troponin I (TnI) levels must be interpreted in the context of the presenting symptoms and the clinical findings. Elevated TnI levels indicate myocardial damage, but are not specific for ischemic heart disease. 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 ID - PIAYA LURINALYSIS WITH MICROSCOPIC IF [id number] 01:53:00 Test Item Value Reference Range Comments COLOR (BEAKER) (test code = 470) Light Yellow CLARITY (BEAKER) (test code = 469) Slightly Cloudy SPECIFIC GRAVITY UA (BEAKER) (test code = 1.013 1.001- 1.035 468) PH UA (BEAKER) (test code = 467) 7.0 5.0-8.0 PROTEIN UA (BEAKER) (test code = 464) 20 mg/dL Negative GLUCOSE UA (BEAKER) (test code = 365) Negative Negative KETONES UA (BEAKER) (test code = 371) Negative Negative BILIRUBIN UA (BEAKER) (test code = 462) Negative Negative BLOOD UA (BEAKER) (test code = 461) Small Negative NITRITE UA (BEAKER) (test code = 465) Negative Negative LEUKOCYTE ESTERASE UA (BEAKER) (test code = Large Nega tive 466) UROBILINOGEN UA (BEAKER) (test code = 463) 0.2 mg/dL 0.2-1 .0 SOURCE(BEAKER) (test code = 2795) 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 ID - [auto]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 ID - techURINALYSIS [id number] 01:53:00 Test Item Value Reference Range Comments RBC UA (BEAKER) (test code = 519) 107 /HPF WBC UA (BEAKER) (test code = 520) 911 /HPF Wbc clumps seen BACTERIA (BEAKER) (test code = 517) Many HYALINE CASTS (BEAKER) (test code = 514) 5 /LPF 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 ID - techBASIC METABOLIC [id number] 01:52:00 Test Item Value Reference Range Comments SODIUM (BEAKER) (test code = 136 meq/L 136-145 381) POTASSIUM (BEAKER) (test 4.8 meq/L 3.5-5.1 code = 379) CHLORIDE (BEAKER) (test code 99 meq/L 98-107 = 382) CO2 (BEAKER) (test code = 26 meq/L 22-29 355) BLOOD UREA NITROGEN (BEAKER) 68 mg/dL 7-21 (test code = 354) CREATININE (BEAKER) (test 1.85 mg/dL 0.57-1.25 code = 358) GLUCOSE RANDOM (BEAKER) 95 mg/dL 70-105 (test code = 652) CALCIUM (BEAKER) (test code 9.1 mg/dL 8.4-10.2 = 697) EGFR (BEAKER) (test code = INSUF FICIENT CLINICAL DATA TO 1092) CALCULATE ESTIMA TIARRA GFR. 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 ID - LINDSEY WTROPONIN [id number] 01:50:00 Test Item Value Reference Range Comments TROPONIN I (BEAKER) (test code = 397) < ng/mL 0.00-0.03 Troponin I (TnI) levels must be interpreted in the context of the presenting symptoms and the clinical findings. Elevated TnI levels indicate myocardial damage, but are not specific for ischemic heart disease. 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 ID - LINDSEY WB-TYPE NATRIURETIC FACTOR (BNP)2019-06-24 01:46:00 Test Item Value Reference Range Comments B-TYPE NATRIURETIC PEPTIDE (BEAKER) (test code = 66 pg/mL 0-100 700) 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 ID - LINDSEY [id number] 01:43:00 Test Item Value Reference Range Comments MAGNESIUM (BEAKER) (test code = 627) 2.2 mg/dL 1.6-2.6 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 ID - LINDSEY WHEPATIC FUNCTION [id number] 01:43:00 Test Item Value Reference Range Comments TOTAL PROTEIN (BEAKER) (test code = 770) 7.6 gm/dL 6.0-8.3 ALBUMIN (BEAKER) (test code = 1145) 3.9 g/dL 3.5-5.0 BILIRUBIN TOTAL (BEAKER) (test code = 377) 0.5 mg/dL 0.2-1 .2 BILIRUBIN DIRECT (BEAKER) (test code = 706) 0.2 mg/dL 0.1- 0.5 ALKALINE PHOSPHATASE (BEAKER) (test code = 346) 60 U/L 40-150 AST (SGOT) (BEAKER) (test code = 353) 9 U/L 5-34 ALT (SGPT) (BEAKER) (test code = 347) 7 U/L 6-55 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 ID - LINDSEY WPROTHROMBIN TIME/[id number] 01:38:00 Test Item Value Reference Range Comments PROTIME (BEAKER) (test code = 759) 14.4 seconds 11.9-14.2 INR (BEAKER) (test code = 370) 1.2 <=5.9 Effective 10/19/2018: PT Reference Range ChangeNew: 11.9-14.2 Previous: 11.7- 14.7RECOMMENDED COUMADIN/WARFARIN INR THERAPY RANGESSTANDARD DOSE: 2.0-3.0 Includes: PROPHYLAXIS for venous thrombosis, systemic embolization; TREATMENT for venous thrombosis and/or pulmonary embolus.HIGH RISK: Target INR is2.5-3.5 for patients wiht mechanical heart valves.CBC W/PLT COUNT & AUTO [id number] 00:58:00 Test Item Value Reference Range Comments WHITE BLOOD CELL COUNT (BEAKER) (test code = 10.8 K/ L 3.5 -10.5 775) RED BLOOD CELL COUNT (BEAKER) (test code = 761) 4.03 M/ L 4.63-6.08 HEMOGLOBIN (BEAKER) (test code = 410) 12.1 GM/DL 13.7-17.5 HEMATOCRIT (BEAKER) (test code = 411) 37.6 % 40.1-51.0 MEAN CORPUSCULAR VOLUME (BEAKER) (test code = 93.3 fL 79 .0-92.2 753) MEAN CORPUSCULAR HEMOGLOBIN (BEAKER) (test code 30.0 pg 25.7-32.2 = 751) MEAN CORPUSCULAR HEMOGLOBIN CONC (BEAKER) (test 32.2 GM/DL 32.3-36.5 code = 752) RED CELL DISTRIBUTION WIDTH (BEAKER) (test code 14.4 % 11.6-14.4 = 412) PLATELET COUNT (BEAKER) (test code = 756) 225 K/CU MM 150-45 0 MEAN PLATELET VOLUME (BEAKER) (test code = 754) 9.4 fL 9.4-12.4 NUCLEATED RED BLOOD CELLS (BEAKER) (test code = 0 /100 WBC 0-0 413) NEUTROPHILS RELATIVE PERCENT (BEAKER) (test code 67 % = 429) LYMPHOCYTES RELATIVE PERCENT (BEAKER) (test code 21 % = 430) MONOCYTES RELATIVE PERCENT (BEAKER) (test code = 9 % 431) EOSINOPHILS RELATIVE PERCENT (BEAKER) (test code 2 % = 432) BASOPHILS RELATIVE PERCENT (BEAKER) (test code = 0 % 437) NEUTROPHILS ABSOLUTE COUNT (BEAKER) (test code = 7.23 K/ L 1.78-5.38 670) LYMPHOCYTES ABSOLUTE COUNT (BEAKER) (test code = 2.32 K/ L 1.32-3.57 414) MONOCYTES ABSOLUTE COUNT (BEAKER) (test code = 1.01 K/ L 0 .30-0.82 415) EOSINOPHILS ABSOLUTE COUNT (BEAKER) (test code = 0.19 K/ L 0.04-0.54 416) BASOPHILS ABSOLUTE COUNT (BEAKER) (test code = 0.04 K/ L 0 .01-0.08 417) IMMATURE GRANULOCYTES-RELATIVE PERCENT (BEAKER) 0 % 0-1 (test code = 2801) CBC (HEMOGRAM ONLY)2019-06-24 00:58:00 Test Item Value Reference Range Comments WHITE BLOOD CELL COUNT (BEAKER) (test code = 10.8 K/ L 3.5 -10.5 775) RED BLOOD CELL COUNT (BEAKER) (test code = 761) 4.03 M/ L 4.63-6.08 HEMOGLOBIN (BEAKER) (test code = 410) 12.1 GM/DL 13.7-17.5 HEMATOCRIT (BEAKER) (test code = 411) 37.6 % 40.1-51.0 MEAN CORPUSCULAR VOLUME (BEAKER) (test code = 93.3 fL 79 .0-92.2 753) MEAN CORPUSCULAR HEMOGLOBIN (BEAKER) (test code 30.0 pg 25.7-32.2 = 751) MEAN CORPUSCULAR HEMOGLOBIN CONC (BEAKER) (test 32.2 GM/DL 32.3-36.5 code = 752) RED CELL DISTRIBUTION WIDTH (BEAKER) (test code 14.4 % 11.6-14.4 = 412) PLATELET COUNT (BEAKER) (test code = 756) 225 K/CU MM 150-45 0 MEAN PLATELET VOLUME (BEAKER) (test code = 754) 9.4 fL 9.4-12.4 NUCLEATED RED BLOOD CELLS (BEAKER) (test code = 0 /100 WBC 0-0 413) CREATININE, RANDOM [id number] 00:42:00 Test Item Value Reference Range Comments CREATININE URINE (BEAKER) (test code = 375) 33.7 mg/dL Reference Range: No NormalsOperator ID - LINDSEY WUREA NITROGEN, RANDOM URINE 2019-06-24 00:42:00 Test Item Value Reference Range Comments UREA NITROGEN URINE (BEAKER) (test code = 538) 544 mg/dL Reference Range: No NormalsOperator ID - LINDSEY W
[2019-09-22] MEDS ORDERED: WATER FOR INJ,STERILE 10 ML ONE (16:02)
[2019-09-22] MEDS ORDERED: NA CHLORIDE 0.9% 1,000 ML ONE (16:02)
[2019-09-22] MEDS ORDERED: PANTOPRAZOLE 40 MG INJ ONE (16:02)
[2019-09-22 16:13] LABS: Absolute Lymphocytes (CBC) 1.8 K/uL (0.7-4.9); Basophils % 0.4 % (0-1.3); Hematocrit 30.1 % (39.6-49.0); Lymphocytes % 25.5 % (15.3-44.8); Protime INR 1.16; RBC Red Blood Cell Count 3.24 M/uL (4.33-5.43)
[2019-09-22 16:32] LABS: Arterial Blood Carboxyhemoglob 2.2 % (0-1.5); Blood Gas Oxyhemoglobin 93.9 % (94-97); Blood O2 Saturation 96.8 % (92-98.5)
[2019-09-22 16:43] LABS: ALT/SGPT 12 U/L (12-78); AST/SGOT 10 U/L (15-37); Albumin 3.1 g/dL (3.4-5.0); Alkaline Phosphatase 73 U/L (45-117); BUN Blood Urea Nitrogen 74 mg/dL (7-18); Bicarbonate 35 mmol/L (21-32); Bilirubin Direct 0.1 mg/dL (0-0.2); Bilirubin Total 0.4 mg/dL (0.2-1.0); Glucose Level 106 mg/dL (74-106); Lipase 125 U/L (73-393); Magnesium 2.1 mg/dL (1.8-2.4); NT PRO-BNP 1102 pg/mL (<450); Protein, Total 7.1 g/dL (6.4-8.2); Sodium Level 136 mmol/L (136-145); Troponin (Emerg Dept Use Only) < 0.02 ng/mL (0.0-0.045)
[2019-09-22 16:44] LABS: Potassium 2.9 mmol/L (3.5-5.1)
--- NOTE | 2019-09-22 17:04 | EDPHYS ---
Physician Documentation [facility] Name: Rohan Eubanks Age: 89 yrs Sex: Male : 1930 Arrival Date: 09/22/2019 Time: 15:06 Bed 19 Private MD: ED Physician Matthew Guadalupe HPI: 09/21 15:54 This 89 yrs old Male presents to ER via Wheelchair with complaints of Abnormal rogelio Lab Results. 15:54 sent for abnormal labs. Onset: The symptoms/episode began/occurred 1 day(s) ago. rogelio Severity of symptoms: At their worst the symptoms were mild in the emergency department the symptoms are unchanged. The patient has experienced similar episodes in the past, several times. Historical: - Allergies: 15:08 Iodine; sv - Home Meds: 15:16 metolazone 2.5 mg oral tab once or twice weekly [Active]; Levothroid 125 mcg oral tab sv once daily [Active]; finasteride 5 mg oral tab once daily [Active]; senna 8.6 mg oral cap once daily [Active]; Plavix 75 mg Oral tab 1 tab once daily [Active]; bumetanide 1 mg Oral tab 1 tab 2 times per day [Active]; Eliquis 2.5 mg oral tab 1 tab 2 times per day [Active]; pravastatin 40 mg oral tab nightly [Active]; Flomax 0.4 mg Oral cp24 1 cap once daily [Active]; melatonin 5 mg Oral tab nightly [Active]; tylenol 650 mg prn [Active]; ferrous sulfate 324 mg (65 mg iron) oral TbEC daily [Active]; - PMHx: 15:08 CAD; High Cholesterol; Hypertension; Hernia (obstructed, gangrene, cholostomy); Open sv wound to abdomen; COPD; Anemia; CHF; Dementia; renal insufficiency; Sepsis; - PSHx: 15:08 Colostomy; 2 abdominal surgeries; sv - Immunization history:: Adult Immunizations up to date. - Social history:: Smoking status: Patient denies any tobacco usage or history of. - Family history:: not pertinent. ROS: 15:54 Constitutional: Negative for fever, chills, and weight loss, Eyes: Negative for injury, rogelio pain, redness, and discharge, ENT: Negative for injury, pain, and discharge, Neck: Negative for injury, pain, and swelling, Cardiovascular: Negative for chest pain, palpitations, and edema, Respiratory: Negative for shortness of breath, cough, wheezing, and pleuritic chest pain, Back: Negative for injury and pain, : Negative for injury, bleeding, discharge, and swelling, MS/Extremity: Negative for injury and deformity, Skin: Negative for injury, rash, and discoloration, Neuro: Negative for headache, weakness, numbness, tingling, and seizure, Psych: Negative for depression, anxiety, suicide ideation, homicidal ideation, and hallucinations, Allergy/Immunology: Negative for hives, rash, and allergies, Endocrine: Negative for neck swelling, polydipsia, polyuria, polyphagia, and marked weight changes. 15:54 Abdomen/GI: Positive for black/tarry stool, at colostomy. Exam: 15:54 Constitutional: This is a well developed, well nourished patient who is awake, alert, rogelio and in no acute distress. Head/Face: Normocephalic, atraumatic. Eyes: Pupils equal round and reactive to light, extra-ocular motions intact. Lids and lashes normal. Conjunctiva and sclera are non-icteric and not injected. Cornea within normal limits. Periorbital areas with no swelling, redness, or edema. ENT: Nares patent. No nasal discharge, no septal abnormalities noted. Tympanic membranes are normal and external auditory canals are clear. Oropharynx with no redness, swelling, or masses, exudates, or evidence of obstruction, uvula midline. Mucous membranes moist. Neck: Trachea midline, no thyromegaly or masses palpated, and no cervical lymphadenopathy. Supple, full range of motion without nuchal rigidity, or vertebral point tenderness. No Meningismus. Chest/axilla: Normal chest wall appearance and motion. Nontender with no deformity. No lesions are appreciated. Cardiovascular: Regular rate and rhythm with a normal S1 and S2. No gallops, murmurs, or rubs. Normal PMI, no JVD. No pulse deficits. Respiratory: Lungs have equal breath sounds bilaterally, clear to auscultation and percussion. No rales, rhonchi or wheezes noted. No increased work of breathing, no retractions or nasal flaring. Back: No spinal tenderness. No costovertebral tenderness. Full range of motion. Male : Normal genitalia with no discharge or lesions. Skin: Warm, dry with normal turgor. Normal color with no rashes, no lesions, and no evidence of cellulitis. MS/ Extremity: Pulses equal, no cyanosis. Neurovascular intact. Full, normal range of motion. Neuro: Awake and alert, GCS 15, oriented to person, place, time, and situation. Cranial nerves II-XII grossly intact. Motor strength 5/5 in all extremities. Sensory grossly intact. Cerebellar exam normal. Normal gait. Psych: Awake, alert, with orientation to person, place and time. Behavior, mood, and affect are within normal limits. 15:54 Constitutional: The patient appears in obvious distress, hard of hearing. 15:54 Abdomen/GI: Inspection: distension, Bowel sounds: active, Palpation: nontender, Liver: no appreciated palpable abnormalities, Hernia: not appreciated, colostomy , black stool. 16:01 ECG was reviewed by the Attending Physician. [facility] Vital Signs: 15:16 BP 96 / 50; Pulse 67; Resp 20; Temp 98.9; Pulse Ox 93% on R/A; sv 16:50 BP 115 / 91; Pulse 61; Resp 16 S; Pulse Ox 97% on 3 lpm NC; ca1 17:31 BP 111 / 59; Pulse 79; Resp 20; Pulse Ox 95% on 3 lpm NC; ca1 17:47 BP 105 / 71; Pulse 81; Resp 21 S; Pulse Ox 95% on 3 lpm NC; ca1 18:19 BP 104 / 55; Pulse 73; Resp 20 S; Pulse Ox 97% on 3 lpm NC; ca1 MDM: 15:23 Patient medically screened. [facility] 16:03 Data reviewed: vital signs, nurses notes, lab test result(s), EKG, radiologic studies, [facility] plain films. 16:05 Differential Diagnosis lab values abnormal, bleeding , worsening renal function. Data [facility] interpreted: level vial grinder: rate is 67 beats/min, Pulse oximetry: on 2L(s) per nasal canula, is 93 %. Test interpretation: by ED physician or midlevel provider: ECG, plain radiologic studies. Counseling: I had a detailed discussion with the patient and/or guardian regarding: the historical points, exam findings, and any diagnostic results supporting the discharge/admit diagnosis, lab results, radiology results, the need for further work-up and treatment in the hospital. 16:56 Response to treatment: the patient's symptoms have mildly improved after treatment. [facility] Transition of care: After a detail discussion of the patient's case, care is transferred to Michael Ramos MD. ED course: PT WEAK, ASSINIBOINE AND [place], LABS CONFIRMED, RENAL FAILURE CHRONIC, ANEMIA, GASTROINTESTINAL BLEED. 09/21 15:53 Order name: Basic Metabolic Panel; Complete Time: 16:54 [facility] 09/21 15:53 Order name: CBC with Diff; Complete Time: 16:54 [facility] 09/21 15:53 Order name: LFT's; Complete Time: 16:54 [facility] 09/21 15:53 Order name: Magnesium; Complete Time: 16:54 [facility] 09/21 15:53 Order name: NT PRO-BNP; Complete Time: 16:54 [facility] 09/21 15:53 Order name: PT-INR; Complete Time: 16:54 [facility] 09/21 15:53 Order name: Troponin (emerg Dept Use Only); Complete Time: 16:54 [facility] 09/21 15:53 Order name: XRAY Chest (1 view); Complete Time: 18:27 [facility] 09/21 15:53 Order name: Lipase; Complete Time: 16:54 [facility] 09/21 15:53 Order name: Type And Screen; Complete Time: 18:27 [facility] 09/21 16:01 Order name: ABG; Complete Time: 18:27 [facility] 09/21 17:11 Order name: Urine Dipstick--Ancillary (enter results); Complete Time: 18:27 09/21 15:53 Order name: EKG; Complete Time: 15:56 [facility] 09/21 15:53 Order name: Cardiac monitoring; Complete Time: 16:01 [facility] 09/21 15:53 Order name: EKG - Nurse/Tech; Complete Time: 16:02 [facility] 09/21 15:53 Order name: IV Saline Lock; Complete Time: 16:02 [facility] 09/21 15:53 Order name: Labs collected and sent; Complete Time: 16:02 [facility] 09/21 15:53 Order name: O2 Per Protocol; Complete Time: 16:02 [facility] 09/21 15:53 Order name: O2 Sat Monitoring; Complete Time: 16:02 [facility] 09/21 15:53 Order name: Urine Dipstick-Ancillary (obtain specimen); Complete Time: 16:52 [facility] 09/21 16:04 Order name: Price: incontinent, strict i and o's needed; Complete Time: 16:50 rogelio EC:01 Rate is 66 beats/min. Rhythm is regular. QRS Harrison is Normal. NH interval is normal. QRS rogelio interval is normal. QT interval is prolonged. No Q waves. T waves are Inverted. No ST changes noted. Clinical impression: No evidence of ischemia. Interpreted by me. Reviewed by me. Administered Medications: Discontinued: NS 0.9% 1000 ml IV at 125 ml/hr continuous 16:00 Drug: NS 0.9% 1000 ml Route: IV; Rate: 125 ml/hr; Site: right antecubital; ca1 17:33 Follow up: Response: No adverse reaction; IV Status: Infusion continued upon admission ca1 16:00 Drug: ProTONIX 40 mg Route: IVP; Site: right antecubital; ca1 17:33 Follow up: Response: No adverse reaction ca1 17:04 Drug: Potassium Chloride 20 mEq Route: IV; Rate: per protocol; Site: right antecubital; ca1 17:33 Follow up: Response: No adverse reaction; IV Status: Infusion continued upon admission ca1 18:32 Drug: Lasix 40 mg Route: IVP; Site: right antecubital; ca1 18:42 Follow up: Response: No adverse reaction ca1 18:33 Drug: Potassium Effervescent Tablet 25 mEq Route: PO; ca1 18:42 Follow up: Response: No adverse reaction ca1 Disposition: 09/22/19 17:04 Hospitalization ordered by Michael Ramos for Inpatient Admission. Preliminary diagnosis are Anemia, unspecified, Gastrointestinal hemorrhage, unspecified - UPPER, Unspecified kidney failure - CHRONIC, Chronic respiratory failure with hypercapnia, Obesity, unspecified, Colostomy status, Unspecified combined systolic (congestive) and diastolic (congestive) heart failure, Hypokalemia. - Bed requested for Telemetry/MedSurg (Inpatient). - Status is Inpatient Admission. eb - Condition is Fair. - Problem is new. - Symptoms have improved. Signatures: Dispatcher [employer] EDMS Jolynn Herman RN RN sv Anderson, Corey, MD MD cha Aguilar, Jose, RN RN ja1 Julia Koch Cheryl RN RN ca1 Corrections: (The following items were deleted from the chart) 17:49 17:04 Hospitalization Ordered by Michael Ramos MD for Inpatient Admission. Preliminary eb diagnosis is Anemia, unspecified; Gastrointestinal hemorrhage, unspecified - UPPER; Unspecified kidney failure - CHRONIC; Chronic respiratory failure with hypercapnia; Obesity, unspecified; Colostomy status. Bed requested for Telemetry/MedSurg (Inpatient). Status is Inpatient Admission. Condition is Fair. Problem is new. Symptoms have improved. rogelio 18:06 17:49 09/22/2019 17:04 Hospitalization Ordered by Michael Ramos MD for Inpatient ja1 Admission. Preliminary diagnosis is Anemia, unspecified; Gastrointestinal hemorrhage, unspecified - UPPER; Unspecified kidney failure - CHRONIC; Chronic respiratory failure with hypercapnia; Obesity, unspecified; Colostomy status. Bed requested for Telemetry/MedSurg (Inpatient). Status is Inpatient Admission. Condition is Fair. Problem is new. Symptoms have improved. eb 18:29 18:06 09/22/2019 17:04 Hospitalization Ordered by Michael Ramos MD for Inpatient rogelio Admission. Preliminary diagnosis is Anemia, unspecified; Gastrointestinal hemorrhage, unspecified - UPPER; Unspecified kidney failure - CHRONIC; Chronic respiratory failure with hypercapnia; Obesity, unspecified; Colostomy status. Bed requested for Telemetry/MedSurg (Inpatient). Status is Inpatient Admission. Condition is Fair. Problem is new. Symptoms have improved. ja1 18:41 18:29 09/22/2019 17:04 Hospitalization Ordered by Michael Ramos MD for Inpatient eb Admission. Preliminary diagnosis is Anemia, unspecified; Gastrointestinal hemorrhage, unspecified - UPPER; Unspecified kidney failure - CHRONIC; Chronic respiratory failure with hypercapnia; Obesity, unspecified; Colostomy status; Unspecified combined systolic (congestive) and diastolic (congestive) heart failure; Hypokalemia. Bed requested for Telemetry/MedSurg (Inpatient). Status is Inpatient Admission. Condition is Fair. Problem is new. Symptoms have improved. rogelio
--- NOTE | 2019-09-22 17:04 | ER ---
Nurse's Notes [facility] Name: Rohan Eubanks Age: 89 yrs Sex: Male : 1930 Arrival Date: 09/22/2019 Time: 15:06 Bed 19 Private MD: Diagnosis: Anemia, unspecified;Gastrointestinal hemorrhage, unspecified-UPPER;Unspecified kidney failure-CHRONIC;Chronic respiratory failure with hypercapnia;Obesity, unspecified;Colostomy status;Unspecified combined systolic (congestive) and diastolic (congestive) heart failure;Hypokalemia Presentation: 09/21 15:08 Risk Assessment: Do you want to hurt yourself or someone else? Patient reports no sv desire to harm self or others. 15:08 Method Of Arrival: Wheelchair sv 15:10 Chief complaint: Patient's son or daughter states: sent by PCP to get further evaluated sv for blood work done at home, was told he has kidney failure, heart failure, and dehydration. Coronavirus screen: Proceed with normal triage. Patient denies a cough. Patient denies shortness of breath or difficulty breathing. Patient denies measured and/or subjective temperature greater than 100.4F prior to today's visit. Patient denies travel on a cruise ship or to a country the [facility] currently lists as an affected area. Patient denies contact with known and/or suspected case of COVID-19. Ebola Screen: No symptoms or risks identified at this time. Onset of symptoms was September 22, 2019. 15:10 Acuity: DAKOTA 2 sv 15:31 Initial Sepsis Screen: Does the patient meet any 2 criteria? No. Patient's initial ca1 sepsis screen is negative. Does the patient have a suspected source of infection? No. Patient's initial sepsis screen is negative. Historical: - Allergies: 15:08 Iodine; sv - Home Meds: 15:16 metolazone 2.5 mg oral tab once or twice weekly [Active]; Levothroid 125 mcg oral tab sv once daily [Active]; finasteride 5 mg oral tab once daily [Active]; senna 8.6 mg oral cap once daily [Active]; Plavix 75 mg Oral tab 1 tab once daily [Active]; bumetanide 1 mg Oral tab 1 tab 2 times per day [Active]; Eliquis 2.5 mg oral tab 1 tab 2 times per day [Active]; pravastatin 40 mg oral tab nightly [Active]; Flomax 0.4 mg Oral cp24 1 cap once daily [Active]; melatonin 5 mg Oral tab nightly [Active]; tylenol 650 mg prn [Active]; ferrous sulfate 324 mg (65 mg iron) oral TbEC daily [Active]; - PMHx: 15:08 CAD; High Cholesterol; Hypertension; Hernia (obstructed, gangrene, cholostomy); Open sv wound to abdomen; COPD; Anemia; CHF; Dementia; renal insufficiency; Sepsis; - PSHx: 15:08 Colostomy; 2 abdominal surgeries; sv - Immunization history:: Adult Immunizations up to date. - Social history:: Smoking status: Patient denies any tobacco usage or history of. - Family history:: not pertinent. Screenin:30 Abuse screen: Denies threats or abuse. Denies injuries from another. Nutritional ca1 screening: No deficits noted. Tuberculosis screening: No symptoms or risk factors identified. Fall Risk No secondary diagnosis (0 pts). IV access (20 points). Ambulatory Aid- Crutches/Cane/Walker (15 pts). Gait- Weak (10 pts.). Total Morrison Fall Scale indicates High Risk Score (45 or more points). Fall prevention measures have been instituted. Side Rails Up X 2 Family Present and informed to notify staff if the need to leave the bedside As available patient and family educated on Fall Prevention Program and Strategies. Assessment: 15:30 General: Appears in no apparent distress. comfortable, Behavior is calm, cooperative, ca1 appropriate for age. Pain: Denies pain. Neuro: Level of Consciousness is awake, alert, obeys commands, Oriented to person, place, time, situation. Cardiovascular: Heart tones S1 S2 present Capillary refill < 3 seconds Rhythm is sinus rhythm. Respiratory: Airway is patent Respiratory effort is even, unlabored, Respiratory pattern is regular, symmetrical, tachypnea. GI: Abdomen is round Colostomy site is clean and dry. Ostomy appliance is intact. Bowel sounds present X 4 quads. Abd is soft and non tender X 4 quads. : No signs and/or symptoms were reported regarding the genitourinary system. EENT: No signs and/or symptoms were reported regarding the EENT system. Derm: Skin is intact, is healthy with good turgor, Skin is pink, warm \T\ dry. Musculoskeletal: Circulation, motion, and sensation intact. Capillary refill < 3 seconds, Swelling present in right leg and left leg. 16:50 Reassessment: Patient appears in no apparent distress at this time. Patient and/or ca1 family updated on plan of care and expected duration. Pain level reassessed. Patient is alert, oriented x 3, equal unlabored respirations, skin warm/dry/pink. 17:31 Reassessment: Patient appears in no apparent distress at this time. Patient and/or ca1 family updated on plan of care and expected duration. Pain level reassessed. Patient is alert, oriented x 3, equal unlabored respirations, skin warm/dry/pink. Pt sitting on bed, request to dangle feet on side of bed. 17:45 Reassessment: Dr. Ramos at bedside. ca1 Vital Signs: 15:16 BP 96 / 50; Pulse 67; Resp 20; Temp 98.9; Pulse Ox 93% on R/A; sv 16:50 BP 115 / 91; Pulse 61; Resp 16 S; Pulse Ox 97% on 3 lpm NC; ca1 17:31 BP 111 / 59; Pulse 79; Resp 20; Pulse Ox 95% on 3 lpm NC; ca1 17:47 BP 105 / 71; Pulse 81; Resp 21 S; Pulse Ox 95% on 3 lpm NC; ca1 18:19 BP 104 / 55; Pulse 73; Resp 20 S; Pulse Ox 97% on 3 lpm NC; ca1 ED Course: 15:06 Patient arrived in ED. as 15:08 Arm band placed on. sv 15:12 Triage completed. sv 15:23 Matthew Guadalupe MD is Attending Physician. rogelio 15:30 Roya Malhotra, AAKASH is Primary Nurse. ca1 15:30 Patient has correct armband on for positive identification. Placed in gown. Bed in low ca1 position. Call light in reach. Side rails up X2. awake overnight monitor on. Pulse ox on. NIBP on. Warm blanket given. 15:58 Inserted saline lock: 20 gauge in right antecubital area, using aseptic technique. ca1 Blood collected. 15:58 Initial lab(s) drawn, by me, sent to lab. ca1 16:29 T\T\S collected, blood band applied to patient. em1 16:50 No provider procedures requiring assistance completed. Urine collected: Price catheter ca1 specimen, clear. Price cath inserted, using sterile technique, 16 Fr., by ok, balloon inflated, to gravity drainage, urine specimen collected. 16:59 Michael Ramos MD is Hospitalizing Provider. [facility] 17:06 XRAY Chest (1 view) In Process Unspecified. EDMS 17:14 Patient admitted, IV remains in place. ca1 Administered Medications: Discontinued: NS 0.9% 1000 ml IV at 125 ml/hr continuous 16:00 Drug: NS 0.9% 1000 ml Route: IV; Rate: 125 ml/hr; Site: right antecubital; ca1 17:33 Follow up: Response: No adverse reaction; IV Status: Infusion continued upon admission ca1 16:00 Drug: ProTONIX 40 mg Route: IVP; Site: right antecubital; ca1 17:33 Follow up: Response: No adverse reaction ca1 17:04 Drug: Potassium Chloride 20 mEq Route: IV; Rate: per protocol; Site: right antecubital; ca1 17:33 Follow up: Response: No adverse reaction; IV Status: Infusion continued upon admission ca1 18:32 Drug: Lasix 40 mg Route: IVP; Site: right antecubital; ca1 18:42 Follow up: Response: No adverse reaction ca1 18:33 Drug: Potassium Effervescent Tablet 25 mEq Route: PO; ca1 18:42 Follow up: Response: No adverse reaction ca1 Output: 17:32 Urine: 625ml (Price); Total: 625ml. em1 Outcome: 17:04 Decision to Hospitalize by Provider. [facility] 18:19 Admitted to Med/surg accompanied by tech, via wheelchair, room 218, with chart, Report ca1 called to AAKASH Cantu 18:19 Condition: stable 18:19 Instructed on the need for admit. 18:41 Patient left the ED. eb Signatures: Dispatcher [employer] EDDC Jolynn Herman RN RN Matthew Myers MD MD cha Martinez, Amelia as Martinez, Eric em1 Julia Koch Cheryl RN RN ca1 Corrections: (The following items were deleted from the chart) 15:20 15:10 Acuity: DAKOTA 3 sv sv 15:45 15:30 GI: Abdomen is round Ileostomy site is clean and dry. Ostomy appliance is intact. ca1 Bowel sounds present X 4 quads. Abd is soft and non tender X 4 quads. ca1 18:19 16:50 BP 115 / 91; Pulse 61bpm; Resp 16bpm; Spontaneous; Pulse Ox 97% RA; ca1 ca1 18:19 17:31 BP 111 / 59; Pulse 79bpm; Resp 20bpm; Pulse Ox 95% RA; ca1 ca1 18:19 17:47 BP 105 / 71; Pulse 81bpm; Resp 21bpm; Spontaneous; Pulse Ox 95% RA; ca1 ca1
[2019-09-22] MEDS ORDERED: KCL 20 MEQ/100 mL IVPB 20 MEQ/100 ML BAG IV ONE (17:08)
--- NOTE | 2019-09-22 17:17 | RAD REPORT ---
EXAM DESCRIPTION: RAD - Chest Single View - 09/22/2019 5:05 pm CLINICAL HISTORY: COUGH Chest pain. COMPARISON: Chest Pa And Lat (2 Views) dated 06/23/2019; Chest Pa And Lat (2 Views) dated 06/01/2019; C hest Single View dated 05/30/2019; Chest Single View dated 04/13/2017 FINDINGS: Portable technique limits examination quality. Moderate bilateral pulmonary opacities are present probably representing pulmonary edema. The heart i s moderately enlarged in size with sternotomy wires present. Small right pleural effusion. IMPRESSION: Moderate CHF.
[2019-09-22 17:33] LABS: Urine Blood NEGATIVE (NEG); Urine Glucose NEGATIVE (NEG); Urine Protein NEGATIVE (NEG); Urine Specific Gravity 1.015 (1.005-1.030); Urine pH 5.5 (5.0-7.0)
[2019-09-22] MEDS ORDERED: POTASSIUM 25 MEQ EFFERV TAB ONE (18:39)
[2019-09-22] MEDS ORDERED: FUROSEMIDE 40 MG/4 ML VIAL ONE (18:39)
[2019-09-22] MEDS ORDERED: ACETAMINOPHEN 500 MG TAB PO PRN (19:38)
[2019-09-22] MEDS ORDERED: NA CHLORIDE 0.9% 250 ML IV SCH (19:38)
[2019-09-22] MEDS ORDERED: ONDANSETRON 4 MG/2 ML VIAL IV PRN (19:38)
[2019-09-22 20:37] VITALS: BMI 31.4
[2019-09-22] MEDS: PANTOPRAZOLE 40 MG INJ IVP SCH (21:53)
[2019-09-23 01:58] LABS: Hematocrit 27.7 % (39.6-49.0)
--- NOTE | 2019-09-23 02:34 | HP ---
Date of Admission: 09/22/2019 Chief Complaint: Melenic stool and abnormal labs sent from [facility]. Code Status: Full. History Of Present Illness: Patient is an 89-year-old male with past medical history of abdominal sims rgery, status post colostomy with chronic wound and hernias, coronary artery disease, congestive hear t failure, anemia, COPD, hypertension, renal insufficiency who is a resident of [facility], [facility] in due to abnormal labs and drop in his hemoglobin. Patient, otherwise, denies any significant am ount of pain. It should be noted the patient is very hard of hearing, does not have his hearing aids present. The patient's symptoms are constant, moderate, progressively worsening. Workup revealed h emoglobin of 9.7, which is a drop from his previous in May of 11.6. Patient is on Eliquis and Pl avix. He has history of atrial fibrillation. Labs showed a potassium of 2.9, creatinine was 1.71, which is around his baseline. Chest x-ray showe d moderate CHF. The patient was typed and screen and then referred for admission. UA was negative. His potassium was replaced. When seen in the ER, he was awake, alert, oriented, not in any acute di stress. Past Medical History: Coronary artery disease, congestive heart failure, atrial fibrillation on Eliq uis, anemia, COPD, hypertension, chronic kidney disease stage 3. Past Surgical History: Colostomy, hernia repair, removal of nasal tumor. Allergies: TO IODINE CAUSES HIVES AND RASH. Family History: Father has heart disease and diabetes. Mother has depression due to son's . T he patient, otherwise, denies any tobacco use or alcohol use currently. Review of Systems: Ten-point system reviewed, negative except as per HPI. Physical Examination: Vital Signs: Blood pressure 115/91, pulse 61, respirations 16, O2 97% on room air, temperature 98.9. General: Awake, alert, and oriented x3, not in any acute distress. Elderly male, obese. HEENT: Normocephalic, atraumatic. PERRLA. EOMI. Moist mucous membranes. Oropharynx is clear. Po or dentition. Conjunctivae are anicteric. Neck: Supple. No JVD. Trachea midline. CV: S1, S2. Peripheral pulses present. Respiratory: Moving air well bilaterally at the apices. Diminished breath sounds at the bases. Eladio e crackles heard. No wheezing or stridor. No use of accessory muscles. Gastrointestinal: Abdomen is soft. Patient has a large ventral hernia. Colostomy bag in place with colostomy wound, which is apparently chronic. Extremities: No clubbing or cyanosis. Patient has significant peripheral edema. Neuro: Moves all 4 extremities. Nonfocal. Normal speech. Patient is very hard of hearing. Psych: Mood is okay. Affect is flat. Insight and judgment are poor. Laboratory Data: Sodium 136, potassium 2.9, chloride 96, CO2 of 35, BUN 74, creatinine 1.71, glucose 106, calcium 8.6, magnesium 2.1. WBC 7.2, H and H 10.7 and 38.1, platelets 242. Chest x-ray shows moderate CHF, small right pleural effusion. Assessment: An 89-year-old male with, 1.Acute GI bleed. Hemoglobin has dropped from 11.6 to 9.5. We will consult GI and possible scope m ay be due to the patient's blood thinners including Eliquis and Plavix, which will be held. We will continue to monitor. The patient has been type and screened. We will monitor H and H q.6 hours and transfuse as needed for hemoglobin less than 7. 2.Hypokalemia, potassium of 2.5. We will replace and monitor. 3.Chronic kidney disease stage 3. We will consult patient's metallographic technician. Monitor creatinine and a void NSAIDs. 4.Atrial fibrillation, paroxysmal. Patient is on Eliquis and Plavix at home. We will hold for now. Continue rate control. 5.Essential hypertension. Blood pressure is somewhat on the normotensive side. We will hold blood pressure medications for now given GI bleed. 6.Chronic obstructive pulmonary disease, chronic bronchitis, stable. 7.Congestive heart failure. Chest x-ray shows moderate congestive heart failure. We will avoid any IV fluids. Place on fluid restriction and continue Zaroxolyn. 8.Coronary artery disease status post bypass. We will continue home medications as appropriate. Ho ld Plavix for now due to GI bleed. We will consult Cardiology for further recommendations regarding his anticoagulation and atrial fibrillation. 9.Deep vein thrombosis prophylaxis, sequential compression devices. Plan: We will admit patient to Med-Surg, place as inpatient. Length of stay, [facility]. SA/MODL Voice ID: [id number]
[2019-09-23 06:05] LABS: Potassium 3.3 mmol/L (3.5-5.1)
[2019-09-23 06:14] LABS: Absolute Lymphocytes (CBC) 1.7 K/uL (0.7-4.9); Basophils % 0.3 % (0-1.3); Hematocrit 27.1 % (39.6-49.0); Lymphocytes % 22.9 % (15.3-44.8); RBC Red Blood Cell Count 2.94 M/uL (4.33-5.43)
[2019-09-23] MEDS: PANTOPRAZOLE 40 MG INJ IVP SCH ×2 (08:53→20:51)
[2019-09-23] MEDS ORDERED: MELATONIN 3 MG TABLET PO PRN (10:08)
[2019-09-23] MEDS: BUMETANIDE 1 MG/4 ML VIAL IV SCH (10:10)
--- NOTE | 2019-09-23 10:49 | PN ---
Date of Progress Note: 09/23/2019 History Of Present Illness: Patient seen and examined. Chart reviewed and case discussed with RN. Patient's hemoglobin remained stable overnight. Medications: List reviewed. Physical Examination: Vital Signs: Temperature 97.4, heart rate 82, blood pressure 98/52, respirations 20, O2 at 96% on ro om air. General: Awake, alert, oriented x3. Hard of hearing, elderly male, obese, BMI 31. CV: S1, S2. Regular rate and rhythm. Peripheral pulses present. Respiratory: Moving air well bilaterally. No wheezing. Gastrointestinal: Abdomen is soft, nontender, nondistended. Positive bowel sounds. Extremities: No clubbing, cyanosis. Patient has diffuse peripheral edema. Has Karl wraps around bot h of his flanks. Neurologic: Nonfocal. Cranial nerves 2 through 12 intact grossly. No focal neurological deficit. Laboratory Data: WBC 7.4, H and H 8.8 and 27.1, platelets 217. Sodium 142, potassium 3.3, chloride 100, CO2 of 35, BUN 67, creatinine 1.63, glucose 110, calcium 7.7. Assessment And Plan: 89-year-old male with: 1.Acute gastrointestinal bleed. Hemoglobin dropped from 11.6 to 9.5, now 8.8. Appreciate GI input. Patient will likely need a scope. His blood thinners including Eliquis and Plavix have been held. Hemoglobin has not dropped significantly over the past 24 hours. Continue to monitor and transfuse for hemoglobin less than 7. 2.Hypokalemia, improving. We will continue to replace and monitor. 3.Chronic kidney disease stage 3. Nephrology consultation. Monitor creatinine level. Avoid NSAIDs . 4.Paroxysmal atrial fibrillation. Eliquis and Plavix have been on hold due to his gastrointestinal bleed. 5.Acute on chronic congestive heart failure. Chest x-ray showed moderate congestive heart failure. We will continue his diuretics. Echocardiogram from May shows EF of 42%. 6.Hypertensive heart disease. 7.Essential hypertension. Patient currently hypotensive. We will hold blood pressure medications f or now likely due to gastrointestinal bleed. 8.Chronic obstructive pulmonary disease, chronic bronchitis, stable. 9.Coronary artery disease status post bypass. Plavix on hold due to gastrointestinal bleed. 10.Deep venous thrombosis prophylaxis with SCDs. No chemical anticoagulation due to bleed. SA/MODL Voice ID: [id number] Report ID: [id number]
[2019-09-23] MEDS: ATORVASTATIN 10 MG TAB PO SCH (20:51)
[2019-09-23] MEDS ORDERED: HOME MED 1 EA UNK (Pravastatin Sodium [Pravachol] 40 MG) PO SCH (21:00)
[2019-09-23] MEDS: GOLYTELY 4000 ML PO SCH (21:34)
[2019-09-23] MEDS: MAGNESIUM CITRATE 300 ML BOT PO SCH (21:34)
[2019-09-23] MEDS: METOCLOPRAMIDE 10 MG/2mL INJ IV SCH (21:34)
--- NOTE | 2019-09-24 02:26 | CON ---
Date of Consultation: 09/23/2019 Chief Complaint: Prerenal azotemia, acute kidney injury, hypokalemia. Nephrology consultation is requested for electrolyte abnormalities on September 21. Patient was found to have potassium of 3.1 and subsequently recheck potassium was 2.9, BUN was 74 and creatinine 1.71, CO2 of 35, sodium 136. Today, potassium is 3.3, BUN 67, and creatinine 1.6. Patient has multiple medical problems including history of chronic kidney disease. On previous occasion back in May, BUN was ranging from 58 to 76, creatinine of 1.73 to 2.19. Patient has history of an acute on chronic kidney injury. Baseline creatinine level is 1.26. Patient previously was admitted for acute kidney injury and did not require dialysis. History Of Present Illness: Patient is an 89-year-old man. He is admitted to the hospital because of lower GI bleeding. He is a longterm resident, was found to have melenic stool and abnormal blood work. 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 He was found to have abnormal lab work and hemoglobin level was declining. He is admitted to the hospital for acute on chronic anemia. He has history of coronary artery disease and he was treated with Eliquis and Plavix. He has history of atrial fibrillation. Potassium level was 2.9, creatinine 1.71, which is close to his previous baseline, although on occasion he has prerenal azotemia. Chest x-ray showed moderate congestive heart failure. Urinalysis was negative for abnormal urinary sediment. Review of Systems: Patient was awake, although somewhat lethargic, cannot provide review of systems. Past Medical History: Coronary artery disease, congestive heart failure, atrial fibrillation, acute on chronic kidney injury, benign nephrosclerosis, hypertensive heart and kidney disease, chronic kidney disease stage 3. Past Surgical History: Colostomy, hernia repair, removal of nasal tumor. Family History: Father had heart disease, diabetes. Mother, depression. Physical Examination: Vital Signs: Blood pressure was 115/91, heart rate 61, respiratory rate 16, SpO2 97%, temperature 98.9. Eyes: Anicteric sclerae. EOMI. Ears, Nose, Mouth, and Throat: Oral mucosa moist. No pallor. Neck: Supple. No bruits. Lungs: Clear to auscultation bilaterally. No rhonchi. No wheezing. Heart: S1, S2. No pericardial friction rub. Abdomen: Soft, benign, nontender. Extremities: No edema. No clubbing. No cyanosis. Laboratory Data: Sodium 136, potassium 2.9, chloride 96, CO2 of 35, BUN 74, creatinine 1.71, glucose 106, calcium 8.6, magnesium 2.1. WBC 7.2, hemoglobin 10.7, hematocrit 38.1, platelet count 242. Chest x-ray showed moderate congestive heart failure. Impression And Plan: 1. Acute on chronic kidney injury, prerenal azotemia, nonoliguric urine output. Patient has associated cardiorenal syndrome and severe anemia, worsening of the hemoglobin from 11.6 to 9.5. Patient may need blood transfusion. Monitor electrolytes and hemoglobin level. Consider blood transfusion. Patient was taken off blood thinners. Eliquis and Plavix are on hold. 2. Patient has atrial fibrillation. Further workup per primary team for acute on chronic kidney injury. Avoid nephrotoxic medication and monitor electrolytes. Patient may require Lasix with blood transfusion. 3. Congestive heart failure. Chest x-ray showed vascular congestion. Avoid IV fluids and patient will be on fluid restriction and he will continue Zaroxolyn. 4. Hypokalemia. Monitor magnesium level. Advance potassium replacement as needed according to blood work results. JOSSELYN/WILMA Voice ID: [id number] Report ID: [id number] RODRICK
[2019-09-24] MEDS: METOCLOPRAMIDE 10 MG/2mL INJ IV SCH ×2 (02:59→09:42)
[2019-09-24] MEDS: LEVOTHYROXINE SOD 0.125 MG TAB PO SCH (06:00)
[2019-09-24 06:21] LABS: Absolute Lymphocytes (CBC) 1.3 K/uL (0.7-4.9); Basophils % 0.5 % (0-1.3); Hematocrit 28.2 % (39.6-49.0); Lymphocytes % 17.9 % (15.3-44.8); MPV 7.9 fL (7.6-11.3); RBC Red Blood Cell Count 3.02 M/uL (4.33-5.43)
[2019-09-24] MEDS ORDERED: POTASSIUM CL 40 MEQ in NA CHLORIDE 0.9% 500 ML IV ONE (08:00)
[2019-09-24] MEDS: HOME MED 1 EA UNK (Umeclidinium Brm/Vilanterol Tr [Anoro Ellipta 62.5-25 Mcg Inh] 1 PUFF) IH SCH (09:00)
[2019-09-24] MEDS: HOME MED 1 EA UNK (Fluticasone/Vilanterol [Breo Ellipta 200-25 Mcg Inh] 1 PUFF) IH SCH (09:00)
[2019-09-24] MEDS: PANTOPRAZOLE 40 MG INJ IVP SCH ×2 (09:42→21:53)
[2019-09-24] MEDS: BUMETANIDE 1 MG/4 ML VIAL IV SCH (09:43)
[2019-09-24] MEDS: FINASTERIDE 5 MG TAB PO SCH (09:43)
[2019-09-24] MEDS: DONEPEZIL HCL 5 MG TAB PO SCH (09:43)
[2019-09-24] MEDS: Ringers Lactate 1,000 ML IV ONE ×3 (13:06→13:40)
[2019-09-24] MEDS ORDERED: EPINEPHRINE/PF 1 MG/ML AMP ONE (13:11)
--- NOTE | 2019-09-24 13:13 | EKG ---
Test Date: 2019-09-22 Test Time: 15:48:27 Letter Stamping Machine Operator: KIRSTEN MEASUREMENT RESULTS: Intervals: Rate: 66 RI: 148 QRSD: 118 QT: 450 QTc: 471 Tilden: P: 20 RI: 148 QRS: 39 T: 7 INTERPRETIVE STATEMENTS: Normal sinus rhythm Incomplete right bundle branch block Nonspecific T wave abnormality Prolonged QT Abnormal ECG Electronically Signed On 09-24-19 13:12:38 CDT by Raffaele Bravo
--- NOTE | 2019-09-24 14:19 | ENDO RPT ---
[address], [address] EGD PROCEDURE REPORT EXAM DATE: 09/24/2019 PATIENT NAME: Rohan Eubanks MR#: [id number] BIRTHDATE: 1930 ATTENDING: Hussein Reddy Dr STATUS: inpatient MECHANICAL INTEGRITY ENGINEER: Tracey Anderson RN and Julissa JOYNER INDICATIONS: The patient is a 89 yr old Male here for an EGD due to anemia PROCEDURE PERFORMED: EGD with biopsy MEDICATIONS: Per Anesthesia. TOPICAL ANESTHETIC: none CONSENT: The patient understands the risks and benefits of the procedure and understands that these risks include, but are not limited to: sedation, allergic reaction, infection, perforation and/or bleeding. Alternative means of evaluation and treatment include, among others: physical exam, x-rays, and/or surgical intervention. The patient elects to proceed with this endoscopic procedure. DESCRIPTION OF PROCEDURE: During intra-op preparation period all mechanical medical equipment was checked for proper function. Hand hygiene and appropriate measures for infection prevention was taken. Procedure, possible complications, and alternatives including but not limited to the possibility of bleeding, perforation, tear, infection, sepsis, need for surgery, need for blood transfusion, and anesthesia related complications were explained to the patient. After the risks, benefits and alternatives of the procedure were thoroughly explained, Informed consent was verified, confirmed and timeout was successfully executed by the treatment team. The patient was placed in the left lateral position. The patient was anesthetized with topical anesthesia. Through the anesthetized oropharyngeal area, the scope was passed without any difficulty. The EG-[id number] ([id number]) endoscope was introduced through the mouth and advanced to the second portion of the duodenum. Retroflexed views revealed no abnormalities. The gastroscope was then slowly withdrawn and removed. A mild stricture was found in the lower esophagus - just able to pass with gastritis was found in the antrum. Multiple biopsies were obtained and sent to pathology. Small bowel biopsies obtained. Small amount of red partially clotted blood at the posterior aspect of the upper palate in the posterior oropharynx. ADVERSE EVENTS: There were no complications. IMPRESSIONS: 1. 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 Small bowel biopsies obtained 4. Small amount of red partially clotted blood at the posterior aspect of the upper palate in the posterior oropharynx RECOMMENDATIONS: 1. await biopsy results 2. acid suppression therapy REPEAT EXAM: Hussein Reddy Dr eSigned: Hussein Reddy Dr 09/24/2019 2:18 PM cc: CPT CODES: ICD9 CODES: PATIENT NAME: EubanksRohan MR#: [id number]
--- NOTE | 2019-09-24 14:23 | ENDO RPT ---
[address], [address] COLONOSCOPY PROCEDURE REPORT EXAM DATE: 09/24/2019 PATIENT NAME: Rohan Eubanks MR #: [id number] BIRTHDATE: 1930 ATTENDING: Hussein Reddy Dr STATUS: inpatient DISASTER RECOVERY CONSULTANT: Tracey Anderson RN and Julissa JOYNER INDICATIONS: The patient is a 89 yr old Male here for a colonoscopy due to anemia and personal history of colon polyps PROCEDURE PERFORMED: Colonoscopy with biopsy - cold polypectomy MEDICATIONS: Per Anesthesia. ESTIMATED BLOOD LOSS: None CONSENT: The patient understands the risks and benefits of the procedure and understands that these risks include, but are not limited to: sedation, allergic reaction, infection, perforation and/or bleeding. Alternative means of evaluation and treatment include, among others: physical exam, x-rays, and/or surgical intervention. The patient elects to proceed with this endoscopic procedure. DESCRIPTION OF PROCEDURE: During intra-op preparation period all mechanical medical equipment was checked for proper function. Hand hygiene and appropriate measures for infection prevention was taken. Procedure, possible complications, alternatives including, but not limited to possibility of bleeding, perforation, tear, infection, sepsis, need for surgery, need for blood transfusion, were explained to the patient. After the risks, benefits and alternatives of the procedure were thoroughly explained, Informed consent was verified, confirmed and timeout was successfully executed by the treatment team. The patient was placed in the left lateral position. A digital rectal exam was performed and revealed was not performed. After appropriate level of anesthesia, the scope was passed. The EG-[id number] ([id number]) endoscope was introduced through the transverse colostomy and advanced to the cecum, which was identified by both the appendix and ileocecal valve. The quality of the prep was fair. The instrument was then slowly withdrawn as the colon was fully examined. Scope withdrawal time was 7 minutes. COLON FINDINGS: A smooth flat polyp measuring 2 mm in size was found at the cecum. A polypectomy was performed with cold forceps. Two smooth sessile polyps ranging between 3-5mm in size were found at the cecum. A polypectomy was performed with cold forceps. Retroflexed views revealed no abnormalities. The scope was then completely withdrawn from the patient and the procedure terminated. ADVERSE EVENTS: There were no complications. IMPRESSIONS: 1. 2 mm flat polyp in the cecum; polypectomy was performed with cold forceps forceps RECOMMENDATIONS: 1. await biopsy results 2. avoid NSAIDS for 2 weeks 3. Small Bowel Follow Through 4. pillcam / capsule endoscopy RECALL: Hussein Reddy Dr eSigned: Hussein Reddy Dr 09/24/2019 2:22 PM cc: CPT CODES: ICD9 CODES: 211.3 Benign neoplasm of colon
--- NOTE | 2019-09-24 19:00 | RAD REPORT ---
EXAM DESCRIPTION: RAD - Small Bowel Series - 09/24/2019 6:54 pm CLINICAL HISTORY: anemia, GI bleed Abdominal pain COMPARISON: Abdomen Pelvis Wo Contrast dated 06/23/2019 FINDINGS: Coffee Maker Servicer film shows a nonspecific bowel gas pattern. No obstruction or free air. No suspiciou s calcifications. Aortic endograft is in place. Gastric size and mucosal fold pattern are normal. No delay in transit of contrast into the small pam l. Small bowel is normal in diameter with no mucosal fold thickening. No intrinsic or extrinsic mass identifiable. Terminal ileum has normal appearance. Transit time to the colon is normal. No fluoroscopy was performed. Total images acquired: 17 IMPRESSION: Normal small bowel series.
--- NOTE | 2019-09-24 20:02 | PN ---
Date of Progress Note: 09/24/2019 Subjective: Patient seen and examined, chart reviewed, and case discussed with RN and Dr. Reddy. Janette rendon went for a colonoscopy and EGD today, tolerated procedures well. Medications: List reviewed. Physical Examination: Vital Signs: Temperature 97.7, heart rate 58, blood pressure 110/56, respirations 20, O2 saturation 91% on 3 L via nasal cannula. General: Awake, alert, oriented x2. Elderly male, obese, very hard of hearing. CV: S1, S2. Regular rate and rhythm. Peripheral pulses present. Respiratory: Diminished breath sounds. Some crackles heard. No wheezing or stridor. Gastrointestinal: Abdomen is soft, nontender, nondistended. Positive bowel sounds. Extremities: No clubbing or cyanosis. Patient has bilateral lower extremity edema. Neurologic: Nonfocal. Laboratory Data: Sodium 142, potassium 3, chloride 101, CO2 of 36, BUN 50, creatinine 1.45, glucose 120, calcium 8.5. WBC 7.2, H and H 9.1 and 28.2, platelets 234. Wound culture from the abdomen is p ending. Assessment And Plan: An 89-year-old male with: 1.Acute gastrointestinal bleed, status post scope. Endoscopy showed stricture in the lower esophagu s, which was dilated and also showed small amount of partially clotted red blood at the posterior asp ect of the upper palate and the posterior oropharynx, which is likely from his dentures. Also showed mildly atrophic gastritis. Biopsies were taken of both the small bowel and the stomach. Patient's Eliquis and Plavix have been held. Spoke with Cardiology. Okay with holding Eliquis as patient is i n sinus rhythm. Per GI, patient will need to be held off Plavix for at least a week or so. We will start on aspirin in a.m. Patient does have history of cerebrovascular accident. Colonoscopy found p olyp that was removed from the cecum. 2.Hypokalemia. Replace and monitor. 3.Chronic kidney disease stage 3. Appreciate Nephrology input. Continue to monitor creatinine, imp roving. Avoid NSAIDs. 4.Paroxysmal atrial fibrillation, currently in sinus rhythm. Plavix and Eliquis have been held due to gastrointestinal bleed. 5.Acute on chronic congestive heart failure. Continue diuresis. Patient has negative fluid balance . EF is low at 42%. Patient has systolic heart failure. 6.Hypertensive heart disease. 7.Essential hypertension. Patient still somewhat normotensive to hypotensive. We will hold blood p ressure medications. 8.Chronic obstructive pulmonary disease. Chronic bronchitis stable. 9.Coronary artery disease, status post bypass. Plavix on hold due to gastrointestinal bleed. 10.History of cerebrovascular accident. 11.Deep vein thrombosis prophylaxis, SCDs. No chemical anticoagulation due to bleed. 12.Acute blood loss anemia, drop from baseline. Hemoglobin of 11 secondary to gastrointestinal blee d. Occult blood positive. Status post esophagogastroduodenoscopy and colonoscopy. We will monitor H and H and transfuse as needed. Plan: Small bowel series in a.m. If normal, may be discharged back to nursing facility. /WILMA Voice ID: [id number] Report ID: [id number]
[2019-09-24] MEDS: GOLYTELY 4000 ML PO SCH (20:41)
[2019-09-24] MEDS: MAGNESIUM CITRATE 300 ML BOT PO SCH (20:41)
[2019-09-24] MEDS: ATORVASTATIN 10 MG TAB PO SCH (21:53)
--- NOTE | 2019-09-25 00:08 | PN ---
Date of Progress Note: 09/24/2019 Chief Complaint: Prerenal azotemia, acute kidney injury. History Of Present Illness: Nephrology consultation was requested around September 21 for abnormal electrolytes, potassium was 3.1, subsequently potassium was found to 2.9, BUN was 74, creatinine 1.71. Patient has multiple medical problems including history of chronic kidney disease. Previous creatinine baseline back in May was trending from 1.73 to 2.19, although prior to that creatinine was 1.26. Patient has history of prerenal azotemia before and did not required dialysis for acute kidney injury. Patient is 89-year-old man admitted to the hospital for lower GI bleeding. He is a care home resident. Review of Systems: No new complaints. Patient denies lower urinary tract symptoms. Physical Examination: Lungs: Clear to auscultation bilaterally. Heart: S1, S2. Abdomen: Soft, benign. Extremities: No edema. Laboratory Data: BUN 50, creatinine 1.45, sodium 142, potassium 3, chloride 101, CO2 36, glucose 128, calcium 8.2. Hemoglobin 9.1 WBC 7.2, platelet count 234,000. Impression And Plan: 1. Chronic kidney disease, stage 3. Acute kidney injury with prerenal azotemia. Continue IV fluids as tolerated. Monitor electrolytes. Advance potassium replacement. Monitor magnesium level. Patient was admitted with prerenal azotemia, although he has history of congestive heart failure with systolic dysfunction, ejection fraction of 42% and monitor for any evidence of decompensated congestive heart failure and start diuretic as needed. 2. Paroxysmal atrial fibrillation. Patient was on Plavix and Eliquis. Currently, he is on hold because of gastrointestinal bleeding. He will have blood transfusion according to the lab result. He is already consulted by critical power technician. JOSSELYN/WILMA Voice ID: [id number] Report ID: [id number] RODRICK
[2019-09-25 02:10] VITALS: O2SAT 92
[2019-09-25 05:00] LABS: Absolute Lymphocytes (CBC) 1.5 K/uL (0.7-4.9); Basophils % 0.3 % (0-1.3); Lymphocytes % 20.6 % (15.3-44.8); MPV 7.8 fL (7.6-11.3); RBC Red Blood Cell Count 3.33 M/uL (4.33-5.43)
[2019-09-25 05:12] LABS: Potassium 3.4 mmol/L (3.5-5.1)
[2019-09-25] MEDS: LEVOTHYROXINE SOD 0.125 MG TAB PO SCH (05:38)
[2019-09-25] MEDS: HOME MED 1 EA UNK (Umeclidinium Brm/Vilanterol Tr [Anoro Ellipta 62.5-25 Mcg Inh] 1 PUFF) IH SCH (09:00)
[2019-09-25] MEDS: PANTOPRAZOLE 40 MG INJ IVP SCH (09:00)
[2019-09-25] MEDS: HOME MED 1 EA UNK (Fluticasone/Vilanterol [Breo Ellipta 200-25 Mcg Inh] 1 PUFF) IH SCH (09:00)
[2019-09-25] MEDS: DONEPEZIL HCL 5 MG TAB PO SCH (09:30)
[2019-09-25] MEDS: FINASTERIDE 5 MG TAB PO SCH (09:35)
[2019-09-25] MEDS: BUMETANIDE 1 MG/4 ML VIAL IV SCH (09:35)
[2019-09-25] MEDS ORDERED: POTASSIUM 25 MEQ EFFERV TAB PO ONE (10:46)
[2019-09-25 12:25] VITALS: BP 135/64; TEMP 98.7
--- NOTE | 2019-09-26 01:14 | DS ---
Date of Discharge: 09/25/2019 Consultants: Dr. Cobb with Nephrology, Dr. Reddy with GI, Dr. Talbot, Cardiology. Procedures: On 09/24/2019, EGD and colonoscopy. 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 Colonoscopy found 2 mm polyp in the cecum with p olypectomy performed. Admitting Diagnoses: 1.Acute gastrointestinal bleed. 2.Acute blood loss anemia. 3.Hypokalemia. 4.Chronic kidney disease stage 3. 5.Atrial fibrillation, paroxysmal. 6.Systolic congestive heart failure, chronic. 7.Acute hypokalemia. 8.Chronic obstructive pulmonary disease, chronic bronchitis. 9.Coronary artery disease status post bypass. Discharge Diagnoses: 1.Acute gastrointestinal bleed likely secondary to blood thinners. 2.History of cerebrovascular accident, on Plavix, will be held. 3.Paroxysmal atrial fibrillation, currently in sinus rhythm. Eliquis recommended to be held due to gastrointestinal bleed for now. 4.Chronic kidney disease, stage 3, stable. 5.Hypokalemia, replaced. 6.Acute on chronic congestive heart failure, EF 42%, stable. 7.Hypertensive heart disease. 8.Essential hypertension, stable. 9.Chronic obstructive pulmonary disease, chronic bronchitis, stable. 10.Coronary artery disease status post bypass in 2005. Plavix on hold due to gastrointestinal bleed . Will be on aspirin for at least 2 weeks. 11.Acute blood loss anemia. 12.History of cerebrovascular accident. Hospital Course: Patient is an 89-year-old male with past medical history of abdominal surgery; stat us post colostomy with chronic wounds and hernia and the colostomy; coronary artery disease; CHF; ane marcus; atrial fibrillation on Eliquis; history of CVA on Plavix; COPD; hypertension; renal insufficienc y, resident of nursing facility, came in with a drop in his hemoglobin. Patient's hemoglobin dropped from 11 to 9.7. Patient is on Eliquis and Plavix. He was admitted to the hospital. Blood thinners were stopped. GI was consulted. Patient had the above-named procedures endoscopy and colonoscopy. Polyp was found. Patient also had some esophageal stricture which was dilated. His electrolytes we re also replaced. I spoke with global project manager who consulted Dr. Talbot and he recommended holding off on the Eliquis as the patient is currently in sinus rhythm and to hold off the Plavix for at least 2 weeks. Patient will be switched over to aspirin. He does have history of CVA. His bypass was in 10 11. Due to his acute blood loss anemia and GI bleed, he will need to hold off on Eliquis and Plavix for now and to reassess with Cardiology and GI when to restart, possibly in 2 weeks with the Plavix a s far the Eliquis if he goes back into atrial fibrillation, he will need Eliquis. He can have a Stone er monitor study done as an outpatient to determine that otherwise his kidney function remained stabl e. He was seen by Nephrology. He did have a little bit of acute congestive heart failure. He has s ystolic dysfunction. He was given IV Bumex. He did have some significant urinary output with negati ve fluid balance. Overall remained stable. He was able to tolerate his diet. Small bowel series wa s also negative. Patient was then cleared for discharge from Nephrology standpoint and GI standpoint and will be returning back to the nursing facility. Diet: Low-sodium, fluid restriction. Activity: Fall precautions. Followup: Patient to follow up with primary care physician in 1 week. Follow up with director business travel, Dr. Wesley in 2 weeks. Follow up with GI, Dr. Reddy in 2 weeks. Return to ER for worsening condition. Medications: As per medication reconciliation list. Again, the patient's Eliquis and Plavix being h eld temporarily. He will need to have Holter monitor study to see if he is still having paroxysmal a trial fibrillation and to resume if necessary in the setting of GI bleed and anemia. His Plavix will be switched to aspirin for at least 2 weeks. Primary care physician can address his chronic anticoa gulation status in conjunction with his GI and global project manager. Patient will also need to follow up wit h his primary global project manager in 2-4 weeks regarding his anticoagulation status. Physical Examination: General: Awake, alert, oriented, elderly male obese CV: S1, S2. Regular rate and rhythm. Respiratory: Moving air well bilaterally. Abdomen: Soft, nontender, nondistended. Positive bowel sounds. Extremities: No clubbing, cyanosis. Patient has peripheral edema. Neurologic: Nonfocal. Total time spent discharging patient was 42 minutes. SA/MODL Voice ID: [id number] Report ID: [id number]
--- NOTE | 2019-09-26 03:42 | PN ---
Date of Progress Note: 09/25/2019 Chief Complaint: Prerenal azotemia, acute kidney injury. Subjective: Nephrology consultation was requested for abnormal electrolytes. Potassium level was 3. 1. Subsequently, patient was found to have potassium of 2.9, BUN 74, creatinine 1.71. He has multip le medical problems including history of chronic kidney disease. Previous baseline creatinine level in May was trending from 1.673 to 2.19, although few months ago, creatinine level was 1.26. Ann ent has history of acute kidney injury, did not require dialysis. He presented to the [facility] bleeding and received blood transfusion. Renal function improved. Review of Systems: Denies new complaints. Physical Examination: Lungs: Clear to auscultation bilaterally. Heart: S1, S2. Abdomen: Soft, benign. Extremities: No edema. Laboratory Data: Glucose 128, hemoglobin 9.1, platelet count 234,000, WBC 7.2. Sodium is 142, potas sium 3.0, chloride 101. Impression And Plan: 1.Acute kidney injury with prerenal azotemia, nonoliguric acute tubular necrosis. Continue IV fluid s as tolerated. Advance potassium replacement as needed to treat hyperkalemia. Patient may benefit from spironolactone. 2.Paroxysmal atrial fibrillation, on Plavix and Eliquis. Further recommendation per primary team. Patient developed GI bleeding and Plavix and Eliquis on hold. JOSSELYN/MODL Voice ID: [id number] Report ID: [id number]
[2019-09-26] MEDS ORDERED: SPIRONOLACTONE 25 MG TABLET PO SCH (09:00)
== END 2019-09-25 14:58 | disposition home health service (06) | DRG 377 ==
LOC: ER 15:04 → ERHOLD 17:26 → 2ND 18:20
PROVIDERS: ADMIT Family Medicine; ATTEND Family Medicine
PROC: 0DB88ZX Excision of Small Intestine, Via Natural or Artificial Opening Endoscopic, Diagnostic (ICD-10-PCS; 2019-09-24)
PROC: 0DB78ZX Excision of Stomach, Pylorus, Via Natural or Artificial Opening Endoscopic, Diagnostic (ICD-10-PCS; principal; 2019-09-24 12:00)
PROC: 0DBH8ZX Excision of Cecum, Via Natural or Artificial Opening Endoscopic, Diagnostic (ICD-10-PCS; 2019-09-24 12:00)
DX: K29.41 Chronic atrophic gastritis with bleeding (principal); I50.23 Acute on chronic systolic (congestive) heart failure; N17.0 Acute kidney failure with tubular necrosis; I13.0 Hypertensive heart and chronic kidney disease with heart failure and stage 1 through stage 4 chronic kidney disease, or unspecified chronic kidney disease; D62 Acute posthemorrhagic anemia; I25.10 Atherosclerotic heart disease of native coronary artery without angina pectoris; E78.00 Pure hypercholesterolemia, unspecified; J44.9 Chronic obstructive pulmonary disease, unspecified; Z93.3 Colostomy status; E87.6 Hypokalemia; N18.3 Chronic kidney disease, stage 3 (moderate); I48.0 Paroxysmal atrial fibrillation; Z91.09 Other allergy status, other than to drugs and biological substances; Z79.890 Hormone replacement therapy; Z79.02 Long term (current) use of antithrombotics/antiplatelets; Z79.899 Other long term (current) drug therapy; Z86.73 Personal history of transient ischemic attack (TIA), and cerebral infarction without residual deficits; E87.5 Hyperkalemia; Z95.1 Presence of aortocoronary bypass graft; K22.2 Esophageal obstruction
CPT/HCPCS: 36415; 51702; 71045; 74250; 80048; 80076; 81003; 82274; 82805; 83690; 83735; 83880; 84484; 85014; 85018; 85025; 85610; 86850; 86900; 86901; 87070; 87077; 87186; 87205; 88305; 88312; 93005; 94760; 96361; 96365; 96375; 99285; C9113; J0171; J1940; J2765; J7030; J7040; J7120

== ENCOUNTER 2020-03-16 18:14 | Emergency (ER) | payer OTHER ==
[2020-03-16] MEDS ORDERED: AMIODARONE HCL 150 MG/3 ML INJ IV ONE (18:15)
[2020-03-16] MEDS ORDERED: NA CHLORIDE 0.9% 1,000 ML IV ONE (18:15)
[2020-03-16] MEDS ORDERED: ATROPINE SULF 1 MG/10 ML SYR IV ONE (18:15)
[2020-03-16] MEDS ORDERED: EPINEPHrine 1 MG/10 ML SYR IV ONE (18:15)
[2020-03-16] MEDS ORDERED: MAGNESIUM SULF 1GM/2ML VIAL IV ONE (18:15)
--- OUTSIDE RECORDS SUMMARY | 2020-03-16 18:16 | XMS REPORT | Clinical Summary ---
:1930 Author Organization [facility] Address [address] [place] [address] Care Team Providers Name Role Phone Asked, Pcp Primary Care Provider Unavailable Allergies Active Allergy Reactions Severity Noted Date Comments Iodine Other (See Comments) 11/08/2015 Patient and family member does not know t hw reaction Medications Medication Sig Dispensed Refills Start [...] daily. levothyroxine Take 75 mcg by 0 A ctive (SYNTHROID, LEVOTHROID) mouth every 75 MCG tablet morning. albuterol (PROVENTIL Inhale 2 puffs 0 Active HFA;VENTOLIN HFA) 90 every 6 (six) mcg/actuation inhaler hours as needed for wheezing. spironolactone Take 25 mg by 0 A ctive (ALDACTONE) 25 MG tablet mouth daily. tamsulosin (FLOMAX) 0.4 Take 0.4 mg by 0 Active mg capsule,extended mouth daily. release 24hr finasteride (PROSCAR) 5 Take 5 mg by 0 Active mg tablet mouth daily. Active Problems No known active problems Surgical History Surgery Date Site/Laterality Comments PROSTATE SURGERY 05/24/2014 - 05/23/2015 HERNIA REPAIR KNEE ARTHROPLASTY 05/24/2014 - Left 05/23/2015 CATARACT EXTRACTION W/ 05/24/2007 - Bilateral INTRAOCULAR LENS IMPLANT 05/23/2008 CHOLECYSTECTOMY 05/24/1996 - 05/23/1997 AORTA SURGERY 05/24/1996 - 05/23/1997 NASAL MASS EXCISION 05/24/1987 - benign 05/23/1988 VA VITRECTOMY PARS PLANA 11/08/2015 Eye/Left Procedu re: VITRECTOMY, REMOVE PRERETINAL MEMBRANE MEMBR ANE PEEL, AIR-FLUID EXCHANGE, 22% SF 6 GAS INJECTION, LEFT EYE; Surgeon: Beny carroll MD; Location: [facility] OP [facility] OR; Service: Ophthal mology Medical History Medical History Date Comments COPD (chronic obstructive pulmonary disease) (HCC) CAD (coronary artery disease) CHF (congestive heart failure) (HCC) Sleep apnea Hyperlipidemia Osteoarthritis BPH (benign prostatic hyperplasia) Renal insufficiency Social History Tobacco Use Types Packs/Day Years Used Date Former Smoker Cigarettes 1.5 50 Quit: 2005 Alcohol Use Drinks/Week oz/Week Comments Yes Sex Assigned at Date Recorded Not on file Last Filed Vital Signs Not on file Plan of Treatment Not on file Results Not on fileafter 03/16/2019 Insurance Payer Benefit Plan / Subscriber ID Effective Dates Phone Addre ss Type Group MEDICARE MEDICARE PART A [id number] 1997-Present [facility] [[email or web address] , [place] Medicare AND B AETNA AETNA PPO OPEN [id number] 2000-Present PPO CHOICE (Home) [place] [address] Advance Directives For more information, please contact: [phone] Type Date 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
[2020-03-16] MEDS ORDERED: NA CHLORIDE 0.9% 1,000 ML ONE (18:18)
--- OUTSIDE RECORDS SUMMARY | 2020-03-16 18:19 | XMS REPORT | Clinical Summary ---
:1930 Author Organization [facility] Address [address] [place] [address] Care Team Providers Name Role Phone MD Soy Primary Care Provider Allergies Active Allergy Reactions Severity Noted Date Comments Iodine Rash, Hives Low 12/26/2013 Medications Medication Sig Dispensed Refills Start End Date Status Date umeclidinium Inhale by 0 Active brm/vilanterol tr mouth via (ANORO ELLIPTA INHL) inhaler. senna (SENOKOT) 8.6 Take 1 60 tablet 1 07/12/19 Active mg tabletIndications: tablet (8.6 0 21 Slow transit mg total) by constipation mouth daily as needed for Constipation . levothyroxine Take 1 90 tablet 3 08/28/19 Active (SYNTHROID, tablet (125 0 21 LEVOTHROID) 125 MCG mcg total) tablet by mouth Every morning on an empty stomach. pravastatin Take 40 mg 0 Active (PRAVACHOL) 40 MG by mouth. tablet albuterol HFA Inhale 2 0 Active (VENTOLIN HFA) 90 puffs by mcg/actuation inhaler mouth via inhaler as needed. finasteride (PROSCAR) 5 mg. 0 Active 5 mg tablet 0 metOLazone Take 2.5 mg 0 Active (ZAROXOLYN) 2.5 MG by mouth tablet once a week. tamsulosin (FLOMAX) Take 1 30 capsule 0 Active 0.4 mg Cap 24 hr capsule (0.4 0 capsule mg total) by mouth daily. acetaminophen Take 650 mg 0 Acti ve (TYLENOL) 500 MG by mouth tablet every 6 (six) hours as needed for Pain. melatonin 3 mg Tab Take 5 mg by 0 Active tablet mouth nightly. ferrous sulfate 324 Take 1 90 tablet 3 Active mg (65 mg iron) TbEC tablet (324 0 mg total) by mouth daily with breakfast. aspirin 81 MG EC Take 1 0 07/05/19 Dis continued tablet tablet by 20 (Stop Taki ng at mouth daily. Dischar ge) carvedilol (COREG) Take 3.125 0 07/05/19 Discontinued 3.125 MG tablet mg by mouth 20 (S top Taking at daily. Discharge) donepezil (ARICEPT) 5 Take 1 0 07/06/19 Discontinued MG tablet tablet by 20 (Reorder) mouth daily. finasteride (PROSCAR) Take 1 0 07/06/19 Discontinued 5 mg tablet tablet by 9 20 (Reorder ) mouth daily. levothyroxine Take 125 mcg 0 07/06/19 Dis continued (SYNTHROID, by mouth 20 (Reorder ) LEVOTHROID) 125 MCG daily . tablet clopidogrel (PLAVIX) Take 75 mg 0 07/06/19 Discontinued 75 mg tablet by mouth 20 (Reorde r) daily. potassium chloride SA Take 1 0 07/05/19 Discontinued (K-DUR,KLOR-CON) 10 tablet by 9 20 (Stop Taking at MEQ tablet mouth daily. Discha rge) pravastatin Take 40 mg 0 07/06/19 Discont inued (PRAVACHOL) 40 MG by mouth 20 (R eorder) tablet nightly. spironolactone Take 50 mg 0 07/05/19 Disc ontinued (ALDACTONE) 25 MG by mouth 2 9 20 ( Stop Taking at tablet (two) times Discharg e) daily. torsemide (DEMADEX) Take 100 mg 0 07/04/19 Discontinued 100 MG tablet by mouth 20 (Error ) daily. bumetanide (BUMEX) 1 Take 1 0 07/05/19 Discontinued MG tablet tablet by 20 (Reorder) mouth 2 (two) times daily. metOLazone Take 2.5 mg 0 07/06/19 Discont inued (ZAROXOLYN) 2.5 MG by mouth 9 20 ( Reorder) tablet once a week. traZODone (DESYREL) Take 1 0 07/05/19 Discontinued 50 MG tablet tablet by 9 20 (Stop T aking at mouth Discharge) nightly. melatonin 5 mg Cap Take 1 0 07/06/19 D iscontinued capsule by 20 (Reorder) mouth nightly. apixaban (ELIQUIS) 5 Take 1 60 tablet 0 07/06/19 Discontinued mg Tab tablet tablet (5 mg 0 20 total) by mouth 2 (two) times daily for 30 days. pantoprazole Take 1 30 tablet 0 07/06/19 Discont inued (PROTONIX) 40 MG tablet (40 0 20 tablet mg total) by mouth daily for 30 days. polyethylene glycol Take 17 g by 14 each 0 0 Discontinued (GLYCOLAX) 17 gram mouth daily 0 20 packet as needed for up to 30 days. sodium bicarbonate Take 1 90 tablet 0 07/06/19 D iscontinued 650 MG tablet tablet (650 0 20 mg total) by mouth 3 (three) times daily for 30 days. bumetanide (BUMEX) 1 Take 1 30 tablet 1 07/06/19 Discontinued MG tablet tablet (1 mg 0 20 (Reorde r) total) by mouth daily. pravastatin Take 1 30 tablet 1 07/13/20 Disconti nued (PRAVACHOL) 40 MG tablet (40 0 20 tablet mg total) by mouth nightly. clopidogrel (PLAVIX) Take 1 30 tablet 1 07/06/19 Discontinued 75 mg tablet tablet (75 0 20 mg total) by mouth daily. bumetanide (BUMEX) 1 Take 1 30 tablet 1 07/06/19 Discontinued MG tablet tablet (1 mg 0 20 (Reorde r) total) by mouth daily for 30 days. clopidogrel (PLAVIX) Take 1 30 tablet 1 07/13/19 Discontinued 75 mg tablet tablet (75 0 20 (Reord er) mg total) by mouth daily for 30 days. apixaban (ELIQUIS) 5 Take 1 60 tablet 0 07/06/19 Discontinued mg Tab tablet tablet (5 mg 0 20 total) by mouth 2 (two) times daily for 30 days. pravastatin Take 1 30 tablet 0 07/13/19 Disconti nued (PRAVACHOL) 40 MG tablet (40 0 20 ( Reorder) tablet mg total) by mouth nightly for 30 days. apixaban (ELIQUIS) 5 Take 1 60 tablet 0 07/13/19 Discontinued mg Tab tablet tablet (5 mg 0 20 (Re order) total) by mouth 2 (two) times daily for 30 days. bumetanide (BUMEX) 1 Take 1 30 tablet 1 07/13/19 Discontinued MG tablet tablet (1 mg 0 20 (Reorde r) total) by mouth daily for 30 days. clopidogrel (PLAVIX) Take 1 30 tablet 0 07/13/19 Discontinued 75 mg tablet tablet (75 0 20 mg total) by mouth daily for 30 days. donepezil (ARICEPT) 5 Take 1 30 tablet 0 08/05/19 MG tablet tablet (5 mg 0 20 total) by mouth daily for 30 days. finasteride (PROSCAR) Take 1 30 tablet 0 08/05/19 5 mg tablet tablet (5 mg 0 20 total) by mouth daily for 30 days. levothyroxine Take 1 30 tablet 0 08/05/19 d (SYNTHROID, tablet (125 0 20 LEVOTHROID) 125 MCG mcg total) tablet by mouth daily for 30 days. melatonin 5 mg Cap Take 1 30 each 0 08/05/19 E xpired capsule by 0 20 mouth nightly for 30 days. metOLazone Take 1 4 tablet 0 07/13/19 Discontin ued (ZAROXOLYN) 2.5 MG tablet (2.5 0 20 (Reorder) tablet mg total) by mouth once a week for 30 days. pantoprazole Take 1 30 tablet 0 07/13/19 Discont inued (PROTONIX) 40 MG tablet (40 0 20 tablet mg total) by mouth daily for 30 days. polyethylene glycol Take 17 g by 14 each 0 0 (GLYCOLAX) 17 gram mouth daily 0 20 packet as needed for up to 30 days. sodium bicarbonate Take 1 90 tablet 0 07/13/19 D iscontinued 650 MG tablet tablet (650 0 20 (Reo rder) mg total) by mouth 3 (three) times daily for 30 days. ranitidine (ZANTAC) Take 1 60 tablet 2 08/30/19 Discontinued 75 MG tablet (75 0 20 (Med Hist ory: tabletIndications: mg total) by Patient Reported Gastroesophageal mouth daily M ed no longer reflux disease with as needed taking) esophagitis for Heartburn. apixaban (ELIQUIS) 5 Take 1 180 tablet 1 09/11/19 Discontinued mg Tab tablet (5 mg 0 20 (Reorde r) tabletIndications: total) by Chronic atrial mouth 2 fibrillation (HCC) (two) times daily for 90 days. bumetanide (BUMEX) 1 Take 1 90 tablet 3 10/11/19 MG tabletIndications: tablet (1 mg 0 20 Chronic combined total) by systolic and mouth daily diastolic congestive for 90 days. heart failure (HCC) clopidogrel (PLAVIX) Take 1 90 tablet 3 10/11/19 75 mg tablet (75 0 20 tabletIndications: mg total) by Coronary artery mouth daily disease involving for 90 days. coronary bypass graft of [place] heart without angina pectoris metOLazone Take 1 4 tablet 3 08/12/19 (ZAROXOLYN) 2.5 MG tablet (2.5 0 20 tabletIndications: mg total) by Chronic combined mouth once a systolic and week for 30 diastolic congestive days. heart failure (HCC) pravastatin Take 1 90 tablet 1 08/12/19 (PRAVACHOL) 40 MG tablet (40 0 20 tabletIndications: mg total) by Coronary artery mouth disease involving nightly for coronary bypass graft 30 days. of [place] heart without angina pectoris sodium bicarbonate Take 1 270 tablet 1 07/13/19 Discontinued 650 MG tablet (650 0 20 tabletIndications: mg total) by CKD (chronic kidney mouth 3 disease), stage III (three) times daily for 90 days. fluticasone Inhale by 0 09/14/19 Disconti nued furoate-vilanterol mouth via 20 ( Discontinued by (ALBINO ELLIPTA) 200-25 inhaler another mcg/dose DsDv daily. [facility]) levothyroxine Take 1 30 tablet 0 08/28/19 Discon tinued (SYNTHROID, tablet (125 0 20 LEVOTHROID) 125 MCG mcg total) tablet by mouth Every morning on an empty stomach. donepeziL (ARICEPT) 5 AT BEDTIME 0 0 Discontinued MG tablet 0 20 (Stop Taki ng at Discharge) apixaban (ELIQUIS) 5 Take 0.5 180 tablet 1 12/10/19 mg Tab tablets (2.5 0 20 tabletIndications: mg total) by Chronic atrial mouth 2 fibrillation (HCC) (two) times daily for 90 days. lisinopriL Take 1 30 tablet 1 09/11/19 Discontin ued (PRINIVIL,ZESTRIL) tablet (2.5 0 20 (Stop Taking at 2.5 MG tablet mg total) by Dis charge) mouth daily. 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 11/27/2016 Dyslipidemia 09/01/2016 CKD (chronic kidney disease), stage III Resolved Problems Problem Noted Date Resolved Date 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/31/2019 09/10/2019 Encounters Date Type Specialty Care Team Description 02/20/2020 Refill Omega Arellano Medicine MD 02/19/2020 Refill Omega Arellano Medicine MD 11/20/2019 Documentation Omega Arellano Medicine MD 11/01/2019 Telephone Omega Arellano, Patient upd ate Medicine 11/01/2019 Documentation Omega Arellano Medicine MD 10/25/2019 Documentation Omega Arellano Medicine MD 10/20/2019 Documentation Omega Arellano Medicine MD 10/06/2019 Documentation Omega Arellano Medicine MD 09/28/2019 Telephone Omega Arellano, House Calls Medicine 09/26/2019 Telephone Geriatric Richard Epperson returned page Medicine 09/19/2019 Office Visit Omega Arellano, Severe epis taxis; Medicine Traumatic hemat uria; Physical decond itioning; Frailty syndrom e in geriatric patient 09/19/2019 Telephone Shannon Meyer MD catheter Medicine 09/18/2019 Telephone Omega Arellano, blood thinn er Medicine 09/18/2019 Telephone Geriatric Apple Reece PA environmental restoration planner cove rage f/u Medicine (bloody nose) 09/15/2019 Telephone Omega Arellano, HOME HEALTH REFERRAL Medicine 09/14/2019 Office Visit Omega Arellano, CHF (conges tive heart failure), NYHA class IV, chronic, combined (HCC) (Primary Dx); Medicine Urinary retenti on; Price catheter in place; Pseudoaneurysm of femoral artery following procedure ([facility]); Oxygen dependen t; Chronic systoli c congestive heart failure, NYHA class 4 ([facility]) 09/14/2019 Telephone Omega Arellano, Urinary Ret ention Medicine 09/12/2019 Documentation Omega Arellano Medicine MD 09/11/2019 Telephone Omega Arellano, 48h EARLENE fol low up Medicine 09/08/2019 Telephone Internal Isa Lamb Medicine MD Drew 09/01/2019 Surgery Yeison Cabello MD REPAIR,ANEU RYSM FEMORAL/POPLITE AL 09/01/2019 Anesthesia Event Jhonatan Chowdary Jr., Mariusz Greenberg AA 08/30/2019 Hospital Encounter Cardiology Isa Lamb 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 kidney disease), stage III ([facility]); - MD Drew Chronic obstructive pulmonary disease, u nspecified COPD type ([facility]); 09/11/2019 Lee Ann Vasquez Dementia w ithout behavioral disturbance, unspecified dementia type ([facility]); MD Cate Essential hypertension; Sonja Renteria Hypothyroidism , unspecified type; MD Lacey Iliac aneurysm ([facility]); Ann Bone Iliac artery ps eudoaneurysm ([facility]); MD Luis Acute metabolic encephalopathy; Tameka Rodriguez Moderate dem entia without behavioral disturbance ([facility]); MD Fabrizio Frailty syndrom e in geriatric patient; ALDO (acute kidn ey injury) ([facility]); Multifactorial functional impairment; Severe muscle d econditioning; Hypoxia; Acute anemia; Physical decond itioning; Chronic atrial fibrillation 08/30/2019 Travel 08/30/2019 Orders Only Internal Isa Lamb Medicine MD Drew 08/28/2019 Telephone Omega Arellano, Medication Refill Medicine 08/15/2019 Documentation Omega Arellano Medicine MD 08/07/2019 Telephone Omega Arellano, dme form co mpleted Medicine 08/07/2019 Documentation Omega Arellano Medicine MD 07/25/2019 Telephone Omega Arellano, Rx request Medicine 07/20/2019 Office Visit Omega Arellano ALDO (acute kidney injury) ([facility]) (Primary Dx); Mac QUINTEROS Chronic kidney disease (CKD), stage III (moderate) ([facility]); Acute combined systolic and diastolic CHF, NYHA class 3 ([facility]); Slow transit co nstipation; Colostomy care ([facility]); CKD (chronic ki dney disease), stage III ([facility]); Dementia with b ehavioral disturbance, unspecified dementia type ([facility]); Chronic atrial fibrillation; Hypothyroidism, unspecified type 07/18/2019 Telephone Omega Arellano Leg Swellin g Medicine 07/17/2019 Telephone Omega Arellano Medicine MD 07/13/2019 Office Visit Omega Arellano ALDO (acute kidney injury) ([facility]) (Primary Dx); Mac QUINTEROS CKD (chronic ki dney disease), stage III ([facility]); CKD (chronic ki dney disease) stage 3, GFR 30-59 ml/min ([facility]); Normocytic anem ia; Fatigue associa josefina with anemia; Hyperglycemia; Slow transit co nstipation; Gastroesophagea l reflux disease with esophagitis; Chronic atrial fibrillation; 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); Coronary artery disease involving coronary bypass graft of [place] heart without angina pectoris; Mixed hyperlipi demia 07/06/2019 Telephone Geriatric Apple Reece PA 48h EARLENE call f/u Medicine 07/03/2019 Anesthesia Event Reynaldo Robles MD Devoe, Ross A, AA 07/03/2019 Surgery Yeison Cabello MD EVAR EXCLUS ION MCR - IP PROC ONLY 06/28/2019 Surgery Bennett Andrade & HUY Ortiz MD 06/24/2019 Orders Only General Internal Medicine 06/24/2019 Travel 06/23/2019 Hospital Encounter Cardiac Lee Ann Vasquez ALDO (acute kidney injury) ([facility]); - Intensive Care MD Cate CKD (chronic kidney disease) stage 3, GF R 30-59 ml/min ([facility]); 07/06/2019 Norma Chaney Essential h ypertension; MD Bhakti Urinary tract infection without hematuri a, site unspecified; Julissa Matos MD Urinary obstruction; Sutaria, Madhu S, Moderate d ementia without behavioral disturbance ([facility]); Atrial fibrilla tion with RVR ([facility]); Hypothyroidism, unspecified type; 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 ([facility]); Aneurysm of inf rarenal abdominal aorta ([facility]); Age-related ost eoporosis with current pathological fracture with routine healing, subsequent encounter; Physical decond itioning; Hyperkalemia; Acute postopera tive pain; Chronic atrial fibrillation; Benign prostati c hyperplasia, unspecified whether lower urinary tract symptoms present after 03/16/2019 Immunizations Name Administration Dates Next Due Influenza TIV (IM) 06/14/2019 Family History Medical History Relation Name Comments Diabetes Son Relation Name Status Comments Son Social History Tobacco Use Types Packs/Day Years Used Date Former Smoker Quit: 1989 Smokeless Tobacco: Never Used Alcohol Use Drinks/Week oz/Week Comments No Alcohol Habits Answer Date Recorded How often do you have a drink containing alcohol? Never 06/23/2019 How many drinks containing alcohol do you have on a typical Not asked day when you are drinking? How often do you have six or more drinks on one occasion? No t asked Sex Assigned at Date Recorded Not on file Last Filed Vital Signs Vital Sign Reading Time Taken Comments Blood Pressure 87/52 09/11/2019 11:05 AM CDT Pulse 76 09/11/2019 11:05 AM CDT Temperature 36.4 C (97.5 F) 09/11/2019 11:05 AM CDT Respiratory Rate 18 09/11/2019 11:05 AM CDT Oxygen Saturation 92% 09/11/2019 11:05 AM CDT Inhaled Oxygen Concentration 32% 09/10/2019 8:14 PM CDT Weight 88.9 kg (196 lb) 09/08/2019 10:00 AM CDT Height 157.5 cm (5' 2") 09/03/2019 7:00 AM CDT Body Mass Index 35.85 09/03/2019 7:00 AM CDT Plan of Treatment Health Maintenance Due Date Last Done Comments PNEUMOCOCCAL 65+ YRS (1 of 1 - [id number]) 02/22/1997 MEDICARE ANNUAL WELLNESS (YEAR 2 or FIRST YEAR if no 02/22/1998 IPPE) INFLUENZA VACCINE (#1) 2020 06/14/2019 Implants Implanted Type Area Supervisor Maintenance And Custodians Device Shelf Model / Identifier Expiration Serial / Date Lot Mreye Embolization Coil Coil Left: [employer] 05/2019 [id number] / Implanted: Qty: 1 on 07/03/2019 by Yeison Cabello MD at [facility] Iliac / [id number] Description:BRANCH OFF ILIAC Stent Excluder C3 28x14.5mmx14 [id number] - [id number] IMPLANTS N/A: Aorta ALE FRASER & [id number] / Implanted: Qty: 1 on 07/03/2019 by Yeison Cabello MD at [facility] ASSC:MED PRDT / Stent Grft Excluder 20mx11.5cm [id number] - [id number] IMPLANTS R ight: WL GORE & [id number] / Implanted: Qty: 1 on 07/03/2019 by Yeison Cabello MD at [facility] Iliac ASSC:MED PRDT [id number] / Stent Grft Excluder 20mmx9.5cm [id number] - [id number] IMPLANTS L eft: WL GORE & [id number] 04/09 [id number] / Implanted: Qty: 1 on 07/03/2019 by Yeison Cabello MD at [facility] Iliac ASSC:MED PRDT /2021 [id number] / Coil Embolization 8x10 .038 [id number] - [id number] IMPLANTS Left: COOK:PERIPHERAL [id number] 10/21 [id number] / Implanted: Qty: 1 on 07/03/2019 by Yeison Cabello MD at [facility] Iliac INTERVENTION /2023 / [id number] Description:LEFT ILIAC BRANCH Grft Excluder 12x14 [id number] - [id number] IMPLANTS Left: Iliac WL GOR E & [id number] / Implanted: Qty: 1 on 07/03/2019 by Yeison Cabello MD at [facility] ASSC:MED PRDT / Stent Trachbronch Rp 47p41oc [id number] - [id number] IMPLANTS Left: Iliac BOSTON [id number] 10/09 [id number] / Implanted: Qty: 1 on 07/03/2019 by Yeison Cabello MD at [facility] SCI:PERIPHERA /2020 / L INTERV [id number] Stent Trachbronch Rp [id number] - [id number] IMPLANTS Right: Derrick c BOSTON [id number] / Implanted: Qty: 1 on 07/03/2019 by Yeison Cabello MD at [facility] SCI:PERIPHERA / L INTERV Stent Bili Expr Ld 6x27mm 135 [id number] - [id number] IMPLA NTS Right: BOSTON [id number] 08/21 [id number] / Implanted: Qty: 1 on 07/03/2019 by Yeison Cabello MD at [facility] Abdomen SCI:PERIPHERA /2021 / L INTERV [id number] Description:Right renal artery Patch Periph Vascu-Grd 0.8x8cm [id number] - [id number] IMPLANTS Gr oin [employer] 10/26/2023 [id number] / Implanted: Qty: 1 on 09/01/2019 by Yeison Cabello MD at [facility] TECH:SURG INNOV / [id number] Patch Periph Vascu-Grd 0.8x8cm Vg-0108n - [id number] IMPLANTS Left: Groin [employer] [id number] / Implanted: Qty: 1 on 09/01/2019 by Yeison Cabello MD at [facility] TECH:SURG INNOV / [id number] Description:PATCH PERIPH VASCU-GRD Mreye Embolization Coil Left: Iliac [employer] 1 06/30/2020 [id number] / Implanted: Qty: 1 on 07/03/2019 by Yeison Cabello MD at [facility] / [id number] Description:LEFT ILIAC BRANCH Mreye Embolization Coil Left: Iliac [employer] 1 07/07/2019 [id number] / Implanted: Qty: 1 on 07/03/2019 by Yeison Cabello MD at [facility] / [id number] Description:LEFT ILIAC BRANCH Mreye Embolization Coil Left: Iliac [employer] [id number] 11/05/2022 [id number] / Implanted: Qty: 1 on 07/03/2019 by Yeison Cabello MD at [facility] / [id number] Description:LEFT ILIAC BRANCH Mreye Embolization Coil Left: Iliac [employer] [id number] 11/05/2022 [id number] / Implanted: Qty: 1 on 07/03/2019 by Yeison Cabello MD at [facility] / [id number] Description:Branch off iliac Procedures Procedure Name Priority Date/Time Associated Comments Diagnosis RHYTHM STRIP - SCAN 09/18/2019 3:52 PM CDT CBC W/PLT COUNT & Routine 09/11/2019 5:06 Result s for this AUTO DIFFERENTIAL AM CDT procedure are in the results section. BASIC METABOLIC PANEL Routine 09/11/2019 5:06 Re sults for this (7) AM CDT procedure are i n the results section. CBC W/PLT COUNT & Routine 09/11/2019 5:06 Result s for this AUTO DIFFERENTIAL AM CDT procedure are in the results section. PHOSPHORUS Routine 09/11/2019 5:06 Results for this AM CDT procedure are i n the results section. MAGNESIUM Routine 09/11/2019 5:06 Results for this AM CDT procedure are i n the results section. TRANSFUSION SERVICE 09/10/2019 6:00 REPORT - SCAN PM CDT CBC W/PLT COUNT & Routine 09/10/2019 4:06 Result s for this AUTO DIFFERENTIAL AM CDT procedure are in the results section. BASIC METABOLIC PANEL Routine 09/10/2019 4:06 Re sults for this (7) AM CDT procedure are i n the results section. CBC W/PLT COUNT & Routine 09/10/2019 4:06 Result s for this AUTO DIFFERENTIAL AM CDT procedure are in the results section. PHOSPHORUS Routine 09/10/2019 4:06 Results for this AM CDT procedure are i n the results section. MAGNESIUM Routine 09/10/2019 4:06 Results for this AM CDT procedure are i n the results section. PREPARE LEUKO-REDUCED Routine 09/09/2019 11:54 Re sults for this RBC PM CDT procedure are i n the results section. TRANSFUSION SERVICE 09/09/2019 6:02 REPORT - SCAN PM CDT CBC W/PLT COUNT & Routine 09/09/2019 6:13 Result s for this AUTO DIFFERENTIAL AM CDT procedure are in the results section. BASIC METABOLIC PANEL Routine 09/09/2019 6:13 Re sults for this (7) AM CDT procedure are i n the results section. CBC W/PLT COUNT & Routine 09/09/2019 6:13 Result s for this AUTO DIFFERENTIAL AM CDT procedure are in the results section. PHOSPHORUS Routine 09/09/2019 6:13 Results for this AM CDT procedure are i n the results section. MAGNESIUM Routine 09/09/2019 6:13 Results for this AM CDT procedure are i n the results section. HEMOGLOBIN AND STAT 09/08/2019 11:07 Results f or this HEMATOCRIT PM CDT procedure are i n the results section. TRANSFUSE Routine 09/08/2019 7:05 LEUKO-REDUCED RED PM CDT BLOOD CELLS HEMOGLOBIN AND STAT 09/08/2019 6:10 Results f or this HEMATOCRIT PM CDT procedure are i n the results section. POTASSIUM Routine 09/08/2019 3:00 Results for this PM CDT procedure are i n the results section. MAGNESIUM Routine 09/08/2019 3:00 Results for this PM CDT procedure are i n the results section. TYPE AND SCREEN, DANIEL 09/08/2019 11:38 Results for this AUTOMATED AM CDT procedure are i n the results section. CBC W/PLT COUNT & Routine 09/08/2019 3:53 Result s for this AUTO DIFFERENTIAL AM CDT procedure are in the results section. BASIC METABOLIC PANEL Routine 09/08/2019 3:53 Re sults for this (7) AM CDT procedure are i n the results section. CBC W/PLT COUNT & Routine 09/08/2019 3:53 Result s for this AUTO DIFFERENTIAL AM CDT procedure are in the results section. PHOSPHORUS Routine 09/08/2019 3:53 Results for this AM CDT procedure are i n the results section. MAGNESIUM Routine 09/08/2019 3:53 Results for this AM CDT procedure are i n the results section. POTASSIUM Routine 09/07/2019 2:55 Results for this PM CDT procedure are i n the results section. MAGNESIUM Routine 09/07/2019 2:55 Results for this PM CDT procedure are i n the results section. FERRITIN Routine 09/07/2019 2:55 Results for this PM CDT procedure are i n the results section. IRON, TIBC, % SAT. Routine 09/07/2019 2:55 Resul ts for this (WITHOUT FERRITIN) PM CDT procedure are in the results section. BASIC METABOLIC PANEL Routine 09/07/2019 5:30 Re sults for this (7) AM CDT procedure are i n the results section. PHOSPHORUS Routine 09/07/2019 5:30 Results for this AM CDT procedure are i n the results section. MAGNESIUM Routine 09/07/2019 5:30 Results for this AM CDT procedure are i n the results section. CBC W/PLT COUNT & Routine 09/07/2019 4:25 Result s for this AUTO DIFFERENTIAL AM CDT procedure are in the results section. CBC W/PLT COUNT & Routine 09/07/2019 4:25 Result s for this AUTO DIFFERENTIAL AM CDT procedure are in the results section. XR CHEST 1 VIEW Routine 09/07/2019 1:37 Results for this PORTABLE/BEDSIDE AM CDT procedure a re in the results section. OXYGEN SATURATION, STAT 09/06/2019 4:04 Resul ts for this MEASURED AM CDT procedure are i n the results section. BLOOD GAS, ARTERIAL Routine 09/06/2019 3:58 Resu lts for this AM CDT procedure are i n the results section. CBC W/PLT COUNT & Routine 09/06/2019 3:57 Result s for this AUTO DIFFERENTIAL AM CDT procedure are in the results section. BASIC METABOLIC PANEL Routine 09/06/2019 3:57 Re sults for this (7) AM CDT procedure are i n the results section. CBC W/PLT COUNT & Routine 09/06/2019 3:57 Result s for this AUTO DIFFERENTIAL AM CDT procedure are in the results section. PHOSPHORUS Routine 09/06/2019 3:57 Results for this AM CDT procedure are i n the results section. MAGNESIUM Routine 09/06/2019 3:57 Results for this AM CDT procedure are i n the results section. CALCIUM, IONIZED STAT 09/06/2019 3:57 Results for this AM CDT procedure are i n the results section. XR CHEST 1 VIEW Routine 09/06/2019 1:43 Results for this PORTABLE/BEDSIDE AM CDT procedure a re in the results section. TRANSFUSION SERVICE 09/05/2019 5:51 REPORT - SCAN PM CDT CBC W/PLT COUNT & Routine 09/05/2019 5:06 Result s for this AUTO DIFFERENTIAL AM CDT procedure are in the results section. BASIC METABOLIC PANEL Routine 09/05/2019 5:06 Re sults for this (7) AM CDT procedure are i n the results section. CBC W/PLT COUNT & Routine 09/05/2019 5:06 Result s for this AUTO DIFFERENTIAL AM CDT procedure are in the results section. PHOSPHORUS Routine 09/05/2019 5:06 Results for this AM CDT procedure are i n the results section. MAGNESIUM Routine 09/05/2019 5:06 Results for this AM CDT procedure are i n the results section. XR CHEST 1 VIEW Routine 09/05/2019 4:05 Results for this PORTABLE/BEDSIDE AM CDT procedure a re in the results section. 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 Prolonged QT Abnormal ECG When compared with ECG of 03:37, Premature atrial complexes a re no longer Present ECG 12-LEAD Routine 09/05/2019 3:37 AM CDT Procedure Note - Interface, External Ris In - 09/05/2019 3:48 AM CDT Ventricular Rate 54 BPM Atrial Rate 54 BPM P-R Interval 148 ms QRS Duration 114 ms Q-T Interval 522 ms QTC Calculation(Bazett) 495 ms P [place] 10 degrees R [place] 48 degrees T [place] 44 degrees Sinus bradycardia with [place] atrial complexes Cannot rule out Inferior inf arct (cited on or before 30-AUG-2019) ST & T 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 PREPARE LEUKO-REDUCED RBC Routine 09/04/2019 11:54 PM CDT Results for this procedure are i n the results section . PREPARE LEUKO-REDUCED RBC STAT 09/04/2019 11:54 PM CDT Results for this procedure are i n the results section . TRANSFUSION SERVICE REPORT 09/04/2019 5:51 PM CDT - SCAN ECG 12-LEAD Routine 09/04/2019 10:57 AM CDT Procedure Note - Interface, External Ris In - 09/20/2019 10:30 AM CDT Ventricular Rate 119 BPM Atrial Rate 238 BPM QRS Duration 140 ms Q-T Interval 402 ms QTC Calculation(Bazett) 565 ms P [place] 263 degrees R [place] 41 degrees T [place] -27 degrees Atrial flutter with 2:1 A-V conduction Right bundle branch block Cannot rule out Inferior inf arct , age undetermined Abnormal ECG When compared with ECG of 11:20, Atrial flutter has replaced Sinus rhythm Vent. rate has increased BY 50 BPM Right bundle branch block phillips s replaced Incomplete right bundle branch block ECG 12-LEAD STAT 09/04/2019 10:57 AM CDT Resu lts for this procedure are i n the results section . BASIC METABOLIC PANEL (7) Routine 09/04/2019 10:19 AM CDT Results for this procedure are i n the results section . CALCIUM, IONIZED Routine 09/04/2019 9:32 AM CDT Results for this procedure are i n the results section . BLOOD GAS, ARTERIAL Routine 09/04/2019 5:18 AM CDT Results for this procedure are i n the results section . MAGNESIUM Routine 09/04/2019 5:17 AM CDT Resu lts for this procedure are i n the results section . PHOSPHORUS Routine 09/04/2019 5:17 AM CDT Resu lts for this procedure are i n the results section . BASIC METABOLIC PANEL (7) Routine 09/04/2019 5:17 AM CDT Results for this procedure are i n the results section . CBC (HEMOGRAM ONLY) Routine 09/04/2019 5:17 AM CDT Results for this procedure are i n the results section . XR CHEST 1 VIEW Routine 09/04/2019 12:15 AM CDT R esults for this PORTABLE/BEDSIDE procedure a re in the results section . CALCIUM, IONIZED STAT 09/03/2019 11:53 PM CDT Results for this procedure are i n the results section . MAGNESIUM STAT 09/03/2019 11:53 PM CDT Resu lts for this procedure are i n the results section . BASIC METABOLIC PANEL (7) Routine 09/03/2019 11:53 PM CDT Results for this procedure are i n the results section . ECHOCARDIOGRAM REPORT - SCAN 09/03/2019 9:10 PM CDT TRANSFUSION SERVICE REPORT - 09/03/2019 5:51 PM CDT SCAN MAGNESIUM Routine 09/03/2019 3:54 PM CDT Resu lts for this procedure are i n the results section . BASIC METABOLIC PANEL (7) Routine 09/03/2019 3:54 PM CDT Results for this procedure are i n the results section . HEMOGLOBIN AND HEMATOCRIT Routine 09/03/2019 3:54 PM CDT Results for this procedure are i n the results section . TRANSFUSE LEUKO-REDUCED RED Routine 09/03/2019 2:46 PM CDT BLOOD CELLS ECG 12-LEAD Routine 09/03/2019 11:20 AM CDT Procedure Note - Interface, External Ris In - 09/20/2019 10:30 AM CDT Ventricular Rate 69 BPM Atrial Rate 69 BPM P-R Interval 140 ms QRS Duration 102 ms Q-T Interval 452 ms QTC Calculation(Bazett) 484 ms P [place] 9 degrees R [place] 44 degrees T [place] 81 degrees Normal sinus rhythm Incomplete right bundle bran ch block Nonspecific ST and T wave ab normality Prolonged QT Abnormal ECG When compared with ECG of 03:31, No significant change was fo und ECG 12-LEAD STAT 09/03/2019 11:20 AM CDT Resu lts for this procedure are i n the results section . 2D ECHO W/ DOPPLER STAT 09/03/2019 9:52 AM CDT Results for this (CW/PW/COLOR) procedure are in the results section . HEMOGLOBIN AND HEMATOCRIT STAT 09/03/2019 9:18 AM CDT Results for this procedure are i n the results section . CALCIUM, IONIZED STAT 09/03/2019 9:17 AM CDT Results for this procedure are i n the results section . POTASSIUM STAT 09/03/2019 9:17 AM CDT Resu lts for this procedure are i n the results section . BLOOD GAS, ARTERIAL STAT 09/03/2019 4:51 AM CDT Results for this procedure are i n the results section . CALCIUM, IONIZED STAT 09/03/2019 4:51 AM CDT Results for this procedure are i n the results section . TROPONIN I STAT 09/03/2019 4:51 AM CDT Resu lts for this procedure are i n the results section . CBC (HEMOGRAM ONLY) Routine 09/03/2019 4:51 AM CDT Results for this procedure are i n the results section . 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 CREATINE KINASE STAT 09/03/2019 3:17 Results for this (CK) AM CDT procedure are i n the results section. MAGNESIUM Routine 09/03/2019 3:17 Results for this AM CDT procedure are i n the results section. PHOSPHORUS Routine 09/03/2019 3:17 Results for this AM CDT procedure are i n the results section. BASIC METABOLIC Routine 09/03/2019 3:17 Results for this PANEL (7) AM CDT procedure are i n the results section. XR CHEST 1 VIEW Routine 09/03/2019 1:55 Results for this PORTABLE/BEDSIDE AM CDT procedure a re in the results section. PREPARE Routine 09/02/2019 11:54 Results for this LEUKO-REDUCED RBC PM CDT procedure are in the results section. PREPARE Routine 09/02/2019 11:54 Results for this LEUKO-REDUCED RBC PM CDT procedure are in the results section. TYPE AND SCREEN, STAT 09/02/2019 11:38 Results for this AUTOMATED PM CDT procedure are i n the results section. TROPONIN I STAT Add-on 09/02/2019 11:38 Results for this PM CDT procedure are i n the results section. PHOSPHORUS STAT 09/02/2019 11:38 Results for this PM CDT procedure are i n the results section. MAGNESIUM STAT 09/02/2019 11:38 Results for this PM CDT procedure are i n the results section. BASIC METABOLIC STAT 09/02/2019 11:38 Results for this PANEL (7) PM CDT procedure are i n the results section. HEMOGLOBIN AND STAT 09/02/2019 11:38 Results f or this HEMATOCRIT PM CDT procedure are i n the results section. POCT-GLUCOSE METER Routine 09/02/2019 11:25 Resul ts for this PM CDT procedure are i n the results section. TRANSFUSION SERVICE 09/02/2019 5:51 REPORT - SCAN PM CDT POTASSIUM Routine 09/02/2019 3:27 Results for this PM CDT procedure are i n the results section. MAGNESIUM Routine 09/02/2019 3:27 Results for this PM CDT procedure are i n the results section. CBC (HEMOGRAM ONLY) Routine 09/02/2019 3:25 Resu lts for this AM CDT procedure are i n the results section. MAGNESIUM Routine 09/02/2019 3:24 Results for this AM CDT procedure are i n the results section. PHOSPHORUS Routine 09/02/2019 3:24 Results for this AM CDT procedure are i n the results section. BASIC METABOLIC Routine 09/02/2019 3:24 Results for this PANEL (7) AM CDT procedure are i n the results section. XR CHEST 1 VIEW Routine 09/02/2019 2:28 Results for this PORTABLE/BEDSIDE AM CDT procedure a re in the results section. TRANSFUSE Routine 09/02/2019 1:42 LEUKO-REDUCED RED AM CDT BLOOD CELLS TRANSFUSION SERVICE 09/01/2019 5:50 REPORT - SCAN PM CDT XR CHEST 1 VIEW STAT 09/01/2019 5:39 Results for this PORTABLE/BEDSIDE PM CDT procedure a re in the results section. BLOOD GAS, ARTERIAL STAT 09/01/2019 3:23 Resu lts for this PM CDT procedure are i n the results section. (CELLAVISION MANUAL STAT 09/01/2019 3:22 Resu lts for this DIFF) PM CDT procedure are i n the results section. CBC W/PLT COUNT & STAT 09/01/2019 3:22 Result s for this AUTO DIFFERENTIAL PM CDT procedure are in the results section. PREPARE RBC STAT 09/01/2019 3:22 Results for this PM CDT procedure are i n the results section. CALCIUM, IONIZED STAT 09/01/2019 3:22 Results for this PM CDT procedure are i n the results section. PHOSPHORUS STAT 09/01/2019 3:22 Results for this PM CDT procedure are i n the results section. MAGNESIUM STAT 09/01/2019 3:22 Results for this PM CDT procedure are i n the results section. CBC W/PLT COUNT & STAT 09/01/2019 3:22 Result s for this AUTO DIFFERENTIAL PM CDT procedure are in the results section. XR CHEST 1 VIEW STAT 09/01/2019 3:07 Results for this PORTABLE/BEDSIDE PM CDT procedure a re in the results section. HGB/HCT (H&H) - STAT 09/01/2019 12:46 Results for this STAT LAB PM CDT procedure are i n the results section. GLUCOSE-STAT LAB STAT 09/01/2019 12:46 Results for this PM CDT procedure are i n the results section. POTASSIUM-STAT LAB STAT 09/01/2019 12:46 Resul ts for this PM CDT procedure are i n the results section. SODIUM NA-STAT LAB STAT 09/01/2019 12:46 Resul ts for this PM CDT procedure are i n the results section. BLOOD GAS, ARTERIAL STAT 09/01/2019 12:46 Resu lts for this PM CDT procedure are i n the results section. CALCIUM, IONIZED STAT 09/01/2019 12:46 Results for this PM CDT procedure are i n the results section. RRL CRITICAL LABS STAT 09/01/2019 12:46 Result s for this (ABG,NA,K,H&H,GLUCO PM CDT procedur e are in SE) the results section. POCT-ACT Routine 09/01/2019 12:19 Results for this PM CDT procedure are i n the results section. POCT-ACT Routine 09/01/2019 11:43 Results for this AM CDT procedure are i n the results section. HGB/HCT (H&H) - STAT 09/01/2019 11:42 Results for this STAT LAB AM CDT procedure are i n the results section. GLUCOSE-STAT LAB STAT 09/01/2019 11:42 Results for this AM CDT procedure are i n the results section. POTASSIUM-STAT LAB STAT 09/01/2019 11:42 Resul ts for this AM CDT procedure are i n the results section. SODIUM NA-STAT LAB STAT 09/01/2019 11:42 Resul ts for this AM CDT procedure are i n the results section. BLOOD GAS, ARTERIAL STAT 09/01/2019 11:42 Resu lts for this AM CDT procedure are i n the results section. CALCIUM, IONIZED STAT 09/01/2019 11:42 Results for this AM CDT procedure are i n the results section. RRL CRITICAL LABS STAT 09/01/2019 11:42 Result s for this (ABG,NA,K,H&H,GLUCO AM CDT procedur e are in SE) the results section. POCT-ACT Routine 09/01/2019 11:15 Results for this AM CDT procedure are i n the results section. TRANSFUSE Routine 09/01/2019 10:46 LEUKO-REDUCED RED AM CDT BLOOD CELLS HGB/HCT (H&H) - STAT 09/01/2019 10:37 Results for this STAT LAB AM CDT procedure are i n the results section. GLUCOSE-STAT LAB STAT 09/01/2019 10:37 Results for this AM CDT procedure are i n the results section. POTASSIUM-STAT LAB STAT 09/01/2019 10:37 Resul ts for this AM CDT procedure are i n the results section. SODIUM NA-STAT LAB STAT 09/01/2019 10:37 Resul ts for this AM CDT procedure are i n the results section. BLOOD GAS, ARTERIAL STAT 09/01/2019 10:37 Resu lts for this AM CDT procedure are i n the results section. CALCIUM, IONIZED STAT 09/01/2019 10:37 Results for this AM CDT procedure are i n the results section. RRL CRITICAL LABS STAT 09/01/2019 10:37 Result s for this (ABG,NA,K,H&H,GLUCO AM CDT procedur e are in SE) the results section. POCT-ACT Routine 09/01/2019 10:14 Results for this AM CDT procedure are i n the results section. HGB/HCT (H&H) - STAT 09/01/2019 9:06 Results for this STAT LAB AM CDT procedure are i n the results section. GLUCOSE-STAT LAB STAT 09/01/2019 9:06 Results for this AM CDT procedure are i n the results section. POTASSIUM-STAT LAB STAT 09/01/2019 9:06 Resul ts for this AM CDT procedure are i n the results section. SODIUM NA-STAT LAB STAT 09/01/2019 9:06 Resul ts for this AM CDT procedure are i n the results section. BLOOD GAS, ARTERIAL STAT 09/01/2019 9:06 Resu lts for this AM CDT procedure are i n the results section. CALCIUM, IONIZED STAT 09/01/2019 9:06 Results for this AM CDT procedure are i n the results section. RRL CRITICAL LABS STAT 09/01/2019 9:06 Result s for this (ABG,NA,K,H&H,GLUCO AM CDT procedur e are in SE) the results section. 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 PHOSPHORUS Routine 09/01/2019 4:40 AM CDT Resu lts for this procedure are i n the results section . BASIC METABOLIC PANEL (7) Routine 09/01/2019 4:40 AM CDT Results for this procedure are i n the results section . CBC (HEMOGRAM ONLY) Routine 09/01/2019 4:40 AM CDT Results for this procedure are i n the results section . POCT-GLUCOSE METER Routine 09/01/2019 12:50 AM CDT Results for this procedure are i n the results section . TRANSFUSION SERVICE REPORT 08/31/2019 5:50 PM CDT - SCAN BASIC METABOLIC PANEL (7) Routine 08/31/2019 2:37 PM CDT Results for this procedure are i n the results section . MAGNESIUM Routine 08/31/2019 4:13 AM CDT Resu lts for this procedure are i n the results section . PHOSPHORUS Routine 08/31/2019 4:13 AM CDT Resu lts for this procedure are i n the results section . BASIC METABOLIC PANEL (7) Routine 08/31/2019 4:13 AM CDT Results for this procedure are i n the results section . CBC (HEMOGRAM ONLY) Routine 08/31/2019 4:13 AM CDT Results for this procedure are i n the results section . ECG 12-LEAD Routine 08/30/2019 5:03 PM CDT Procedure Note - Interface, External Ris In - 08/30/2019 5:16 PM CDT Ventricular Rate 74 BPM Atrial Rate 74 BPM P-R Interval 154 ms QRS Duration 118 ms Q-T Interval 466 ms QTC Calculation(Bazett) 517 ms P [place] 35 degrees R [place] 56 degrees T [place] 21 degrees Sinus rhythm with Premature atrial complexes Inferior-posterior infarct , age undetermined Prolonged QT Abnormal ECG When compared with ECG of 02:18, Previous ECG has undetermine d rhythm, needs review Questionable change in QRS d uration Inferior-posterior infarct i s now Present ECG 12-LEAD STAT 08/30/2019 5:03 Results for this PM CDT procedure are i n the results section. CBC W/PLT COUNT & STAT 08/30/2019 4:58 Result s for this AUTO DIFFERENTIAL PM CDT procedure are in the results section. TYPE AND SCREEN, STAT 08/30/2019 4:58 Results for this AUTOMATED PM CDT procedure are i n the results section. B-TYPE NATRIURETIC STAT 08/30/2019 4:58 Resul ts for this FACTOR (BNP) PM CDT procedure are i n the results section. PROTHROMBIN TIME/INR STAT 08/30/2019 4:58 Res ults for this PM CDT procedure are i n the results section. CBC W/PLT COUNT & STAT 08/30/2019 4:58 Result s for this AUTO DIFFERENTIAL PM CDT procedure are in the results section. COMPREHENSIVE STAT 08/30/2019 4:58 Results fo r this METABOLIC PANEL PM CDT procedure ar e in the results section. BASIC METABOLIC PANEL Routine 07/20/2019 10:15 ALDO (acute kidn ey Results for this (7) AM OTOLARYNGOLOGY REP injury) (HCC) procedure are in Chronic kidney the results disease (CKD), stage section . III (moderate) (HCC) CBC W/PLT COUNT & Routine 07/13/2019 11:46 Normocytic an emia Results for this AUTO DIFFERENTIAL AM OTOLARYNGOLOGY REP Fatigue associated proc edure are in with anemia the results section. HEMOGLOBIN A1C Routine 07/13/2019 11:46 Hyperglycemia Results for this AM OTOLARYNGOLOGY REP procedure are i n the results section. BASIC METABOLIC PANEL Routine 07/13/2019 11:46 ALDO (acute kidn ey Results for this (7) AM OTOLARYNGOLOGY REP injury) (HCC) procedure are in CKD (chronic kidney the resu lts disease) stage 3, GFR sectio n. 30-59 ml/min (HCC) FOLATE, SERUM Routine 07/13/2019 11:46 Normocytic anemia Resul ts for this AM OTOLARYNGOLOGY REP procedure are i n the results section. FERRITIN Routine 07/13/2019 11:46 Normocytic anemia Result s for this AM OTOLARYNGOLOGY REP procedure are i n the results section. IRON, TIBC, % SAT. Routine 07/13/2019 11:46 Normocytic anemia Results for this (WITHOUT FERRITIN) AM OTOLARYNGOLOGY REP procedure are in the results section. CBC W/PLT COUNT & Routine 07/13/2019 11:46 Normocytic an emia Results for this AUTO DIFFERENTIAL AM OTOLARYNGOLOGY REP Fatigue associated proc edure are in with anemia the results section. VASCULAR DIAGRAM 07/07/2019 1:40 -SCAN PM OTOLARYNGOLOGY REP REPORT OF PROCEDURE - 07/07/2019 1:40 ENDOSCOPY SCAN PM OTOLARYNGOLOGY REP RHYTHM STRIP - SCAN 07/07/2019 1:40 PM OTOLARYNGOLOGY REP RHYTHM STRIP - SCAN 07/07/2019 1:40 PM OTOLARYNGOLOGY REP CARDIAC CATH REPORT - 07/07/2019 1:40 SCAN PM OTOLARYNGOLOGY REP CARDIAC CATH REPORT - 07/07/2019 1:40 SCAN PM OTOLARYNGOLOGY REP VASCULAR DIAGRAM 07/05/2019 1:32 -SCAN PM OTOLARYNGOLOGY REP PHOSPHORUS Routine 07/05/2019 2:53 Results for this AM OTOLARYNGOLOGY REP procedure are i n the results section. TROPONIN I Routine 07/05/2019 2:53 Results for this AM OTOLARYNGOLOGY REP procedure are i n the results section. MAGNESIUM Routine 07/05/2019 2:53 Results for this AM OTOLARYNGOLOGY REP procedure are i n the results section. HEPATIC FUNCTION Routine 07/05/2019 2:53 Results for this PANEL AM OTOLARYNGOLOGY REP procedure are i n the results section. CBC (HEMOGRAM ONLY) Routine 07/05/2019 2:53 Resu lts for this AM OTOLARYNGOLOGY REP procedure are i n the results section. BASIC METABOLIC PANEL Routine 07/05/2019 2:53 Re sults for this (7) AM OTOLARYNGOLOGY REP procedure are i n the results section. POCT-GLUCOSE METER Routine 07/04/2019 9:20 Resul ts for this PM OTOLARYNGOLOGY REP procedure are i n the results section. TROPONIN I Routine 07/04/2019 8:08 Results for this PM OTOLARYNGOLOGY REP procedure are i n the results section. POCT-GLUCOSE METER Routine 07/04/2019 6:02 Resul ts for this PM OTOLARYNGOLOGY REP procedure are i n the results section. TRANSFUSION SERVICE 07/04/2019 5:52 REPORT - SCAN PM OTOLARYNGOLOGY REP (CELLAVISION MANUAL Routine 07/04/2019 4:04 Resu lts for this DIFF) PM OTOLARYNGOLOGY REP procedure are i n the results section. CBC W/PLT COUNT & Routine 07/04/2019 4:04 Result s for this AUTO DIFFERENTIAL PM OTOLARYNGOLOGY REP procedure are in the results section. CBC W/PLT COUNT & Routine 07/04/2019 4:04 Result s for this AUTO DIFFERENTIAL PM OTOLARYNGOLOGY REP procedure are in the results section. RHYTHM STRIP - SCAN 07/04/2019 3:50 PM OTOLARYNGOLOGY REP ARRYTHMIA IMPLANT 07/04/2019 2:30 REPORT - SCAN PM OTOLARYNGOLOGY REP TROPONIN I Routine 07/04/2019 1:04 Results for this PM OTOLARYNGOLOGY REP procedure are i n the results section. BASIC METABOLIC PANEL Routine 07/04/2019 1:04 Re sults for this (7) PM OTOLARYNGOLOGY REP procedure are i n the results section. POCT-GLUCOSE METER Routine 07/04/2019 11:34 Resul ts for this AM OTOLARYNGOLOGY REP procedure are i n the results section. POCT-GLUCOSE METER Routine 07/04/2019 8:25 Resul ts for this AM OTOLARYNGOLOGY REP procedure are i n the results section. TROPONIN I Add-On 07/04/2019 3:16 Results for this AM OTOLARYNGOLOGY REP procedure are i n the results section. MAGNESIUM Routine 07/04/2019 3:16 Results for this AM OTOLARYNGOLOGY REP procedure are i n the results section. HEPATIC FUNCTION Routine 07/04/2019 3:16 Results for this PANEL AM OTOLARYNGOLOGY REP procedure are i n the results section. CBC (HEMOGRAM ONLY) Routine 07/04/2019 3:16 Resu lts for this AM OTOLARYNGOLOGY REP procedure are i n the results section. BASIC METABOLIC PANEL Routine 07/04/2019 3:16 Re sults for this (7) AM OTOLARYNGOLOGY REP procedure are i n the results section. ECG 12-LEAD Routine 07/04/2019 2:18 AM OTOLARYNGOLOGY REP Procedure Note - Interface, External Ris In - 07/04/2019 7:17 AM OTOLARYNGOLOGY REP Ventricular Rate 66 BPM Atrial Rate 64 BPM QRS Duration 154 ms Q-T Interval 484 ms QTC Calculation(Bazett) 507 ms R [place] 58 degrees T [place] 252 degrees Wide QRS rhythm Non-specific intra-ventricul ar conduction block Abnormal ECG When compared with ECG of 20:23, Wide QRS rhythm has replaced Sinus rhythm ECG 12-LEAD Routine 07/04/2019 2:18 AM OTOLARYNGOLOGY REP Resu lts for this procedure are i n the results section . BASIC METABOLIC PANEL (7) Routine 07/03/2019 8:50 PM OTOLARYNGOLOGY REP Results for this procedure are i n the results section . ECG 12-LEAD Routine 07/03/2019 8:23 PM OTOLARYNGOLOGY REP Resu lts for this procedure are i n the results section . ECG 12-LEAD Routine 07/03/2019 8:23 PM OTOLARYNGOLOGY REP Procedure Note - Interface, External Ris In - 07/03/2019 7:26 PM OTOLARYNGOLOGY REP Ventricular Rate 59 BPM Atrial Rate 59 BPM P-R Interval 138 ms QRS Duration 114 ms Q-T Interval 458 ms QTC Calculation(Bazett) 453 ms P [place] 12 degrees R [place] 35 degrees T [place] -54 degrees Sinus bradycardia Incomplete right bundle bran ch block T wave abnormality, consider inferior ischemia Abnormal ECG When compared with ECG of 01:58, Significant changes have occ urred BLOOD GAS, ARTERIAL Routine 07/03/2019 8:12 PM R esults for this OTOLARYNGOLOGY REP procedure are i n the results section. PHOSPHORUS Add-On 07/03/2019 8:11 PM Results for this OTOLARYNGOLOGY REP procedure are i n the results section. APTT Routine 07/03/2019 8:11 PM Results for this OTOLARYNGOLOGY REP procedure are i n the results section. MAGNESIUM Routine 07/03/2019 8:11 PM Results for this OTOLARYNGOLOGY REP procedure are i n the results section. CBC (HEMOGRAM ONLY) Routine 07/03/2019 8:11 PM R esults for this OTOLARYNGOLOGY REP procedure are i n the results section. PREPARE LEUKO-REDUCED Routine 07/03/2019 7:19 PM Results for this RBC OTOLARYNGOLOGY REP procedure are i n the results section. POCT-ACT Routine 07/03/2019 5:22 PM Results for this OTOLARYNGOLOGY REP procedure are i n the results section. POCT-ACT Routine 07/03/2019 4:39 PM Results for this OTOLARYNGOLOGY REP procedure are i n the results section. POCT-ACT Routine 07/03/2019 4:01 PM Results for this OTOLARYNGOLOGY REP procedure are i n the results section. POCT-ACT Routine 07/03/2019 3:27 PM Results for this OTOLARYNGOLOGY REP procedure are i n the results section. 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 TYPE AND SCREEN, Routine 07/03/2019 8:35 AM Resu lts for this AUTOMATED OTOLARYNGOLOGY REP procedure are i n the results section. CBC W/PLT COUNT & Routine 07/03/2019 5:44 AM Res ults for this AUTO DIFFERENTIAL OTOLARYNGOLOGY REP procedure are in the results section. CBC W/PLT COUNT & Routine 07/03/2019 5:44 AM Res ults for this AUTO DIFFERENTIAL OTOLARYNGOLOGY REP procedure are in the results section. APTT Routine 07/03/2019 5:44 AM Results for this OTOLARYNGOLOGY REP procedure are i n the results section. MAGNESIUM Routine 07/03/2019 5:44 AM Results for this OTOLARYNGOLOGY REP procedure are i n the results section. HEPATIC FUNCTION Routine 07/03/2019 5:44 AM Resu lts for this PANEL OTOLARYNGOLOGY REP procedure are i n the results section. CBC (HEMOGRAM ONLY) Routine 07/03/2019 5:44 AM R esults for this OTOLARYNGOLOGY REP procedure are i n the results section. BASIC METABOLIC PANEL Routine 07/03/2019 5:44 AM Results for this (7) OTOLARYNGOLOGY REP procedure are i n the results section. APTT Routine 07/02/2019 5:08 AM Results for this OTOLARYNGOLOGY REP procedure are i n the results section. MAGNESIUM Routine 07/02/2019 5:08 AM Results for this OTOLARYNGOLOGY REP procedure are i n the results section. HEPATIC FUNCTION Routine 07/02/2019 5:08 AM Resu lts for this PANEL OTOLARYNGOLOGY REP procedure are i n the results section. CBC (HEMOGRAM ONLY) Routine 07/02/2019 5:08 AM R esults for this OTOLARYNGOLOGY REP procedure are i n the results section. BASIC METABOLIC PANEL Routine 07/02/2019 5:08 AM Results for this (7) OTOLARYNGOLOGY REP procedure are i n the results section. APTT Routine 07/01/2019 11:17 PM Results for this OTOLARYNGOLOGY REP procedure are i n the results section. APTT Routine 07/01/2019 4:29 PM Results for this OTOLARYNGOLOGY REP procedure are i n the results section. APTT Routine 07/01/2019 8:05 AM Results for this OTOLARYNGOLOGY REP procedure are i n the results section. CBC W/PLT COUNT & Routine 07/01/2019 5:30 AM Res ults for this AUTO DIFFERENTIAL OTOLARYNGOLOGY REP procedure are in the results section. CBC W/PLT COUNT & Routine 07/01/2019 5:30 AM Res ults for this AUTO DIFFERENTIAL OTOLARYNGOLOGY REP procedure are in the results section. MAGNESIUM Routine 07/01/2019 5:30 AM Results for this OTOLARYNGOLOGY REP procedure are i n the results section. HEPATIC FUNCTION Routine 07/01/2019 5:30 AM Resu lts for this PANEL OTOLARYNGOLOGY REP procedure are i n the results section. CBC (HEMOGRAM ONLY) Routine 07/01/2019 5:30 AM R esults for this OTOLARYNGOLOGY REP procedure are i n the results section. BASIC METABOLIC PANEL Routine 07/01/2019 5:30 AM Results for this (7) OTOLARYNGOLOGY REP procedure are i n the results section. APTT Routine 07/01/2019 5:30 AM Results for this OTOLARYNGOLOGY REP procedure are i n the results section. TRANSFUSION SERVICE 06/30/2019 5:50 PM REPORT - SCAN OTOLARYNGOLOGY REP CT/CTA AAA AND RUNOFF STAT 06/30/2019 1:16 PM Results for this OTOLARYNGOLOGY REP procedure are i n the results section. MAGNESIUM Routine 06/30/2019 3:14 AM Results for this OTOLARYNGOLOGY REP procedure are i n the results section. HEPATIC FUNCTION Routine 06/30/2019 3:14 AM Resu lts for this PANEL OTOLARYNGOLOGY REP procedure are i n the results section. CBC (HEMOGRAM ONLY) Routine 06/30/2019 3:14 AM R esults for this OTOLARYNGOLOGY REP procedure are i n the results section. BASIC METABOLIC PANEL Routine 06/30/2019 3:14 AM Results for this (7) OTOLARYNGOLOGY REP procedure are i n the results section. APTT Routine 06/30/2019 3:14 AM Results for this OTOLARYNGOLOGY REP procedure are i n the results section. APTT Routine 06/29/2019 8:24 PM Results for this OTOLARYNGOLOGY REP procedure are i n the results section. TRANSFUSION SERVICE 06/29/2019 6:00 PM REPORT - SCAN OTOLARYNGOLOGY REP APTT Routine 06/29/2019 12:34 PM Results for this OTOLARYNGOLOGY REP procedure are i n the results section. CBC W/PLT COUNT & Routine 06/29/2019 5:16 AM Res ults for this AUTO DIFFERENTIAL OTOLARYNGOLOGY REP procedure are in the results section. ABORH, MANUAL STAT 06/29/2019 5:16 AM Results for this OTOLARYNGOLOGY REP procedure are i n the results section. CBC W/PLT COUNT & Routine 06/29/2019 5:16 AM Res ults for this AUTO DIFFERENTIAL OTOLARYNGOLOGY REP procedure are in the results section. APTT Routine 06/29/2019 5:16 AM Results for this OTOLARYNGOLOGY REP procedure are i n the results section. MAGNESIUM Routine 06/29/2019 5:16 AM Results for this OTOLARYNGOLOGY REP procedure are i n the results section. HEPATIC FUNCTION Routine 06/29/2019 5:16 AM Resu lts for this PANEL OTOLARYNGOLOGY REP procedure are i n the results section. CBC (HEMOGRAM ONLY) Routine 06/29/2019 5:16 AM R esults for this OTOLARYNGOLOGY REP procedure are i n the results section. BASIC METABOLIC PANEL Routine 06/29/2019 5:16 AM Results for this (7) OTOLARYNGOLOGY REP procedure are i n the results section. L CATH & PCI 06/28/2019 3:46 PM Congestive heart OTOLARYNGOLOGY REP failure, unspecified HF chronicity, unspecified heart failure type (HCC) TYPE AND SCREEN, Routine 06/28/2019 3:04 PM Resu lts for this AUTOMATED OTOLARYNGOLOGY REP procedure are i n the results section. HEPATIC FUNCTION Add-On 06/28/2019 2:35 AM Resu lts for this PANEL OTOLARYNGOLOGY REP procedure are i n the results section. MAGNESIUM STAT 06/28/2019 2:35 AM Results for this OTOLARYNGOLOGY REP procedure are i n the results section. BASIC METABOLIC PANEL STAT 06/28/2019 2:35 AM Results for this (7) OTOLARYNGOLOGY REP procedure are i n the results section. TROPONIN I STAT 06/28/2019 2:35 AM Results for this OTOLARYNGOLOGY REP procedure are i n the results section. CBC W/PLT COUNT & STAT 06/28/2019 2:03 AM Res ults for this AUTO DIFFERENTIAL OTOLARYNGOLOGY REP procedure are in the results section. CBC W/PLT COUNT & STAT 06/28/2019 2:03 AM Res ults for this AUTO DIFFERENTIAL OTOLARYNGOLOGY REP procedure are in the results section. APTT Routine 06/28/2019 2:00 AM Results for this OTOLARYNGOLOGY REP procedure are i n the results section. RPR Routine 06/28/2019 2:00 AM Results for this OTOLARYNGOLOGY REP procedure are i n the results section. VITAMIN B12 Routine 06/28/2019 2:00 AM Results for this OTOLARYNGOLOGY REP procedure are i n the results section. VITAMIN D, 25-HYDROXY Routine 06/28/2019 2:00 AM Results for this OTOLARYNGOLOGY REP procedure are i n the results section. TSH/FREE T4 IF Routine 06/28/2019 2:00 AM Result s for this INDICATED OTOLARYNGOLOGY REP procedure are i n the results section. ECG 12-LEAD Routine 06/28/2019 1:58 AM Results for this OTOLARYNGOLOGY REP procedure are i n the results section. ECG 12-LEAD Routine 06/28/2019 1:58 AM OTOLARYNGOLOGY REP Procedure Note - Interface, External Ris In - 06/28/2019 2:09 AM OTOLARYNGOLOGY REP Ventricular Rate 123 BPM Atrial Rate 246 BPM QRS Duration 110 ms Q-T Interval 346 ms QTC Calculation(Bazett) 495 ms P [place] 257 degrees R [place] 32 degrees T [place] -35 degrees Atrial flutter with 2:1 A-V conduction Inferior-posterior infarct ( cited on or before 28-JUN-2019) ACUTE DC / STEMI Consider right ventricular i nvolvement in acute inferior infarct Abnormal ECG When compared with ECG of 01:55, Atrial flutter has replaced Sinus rhythm ECG 12-LEAD Routine 06/28/2019 1:55 AM OTOLARYNGOLOGY REP Procedure Note - Interface, External Ris In - 06/28/2019 2:09 AM OTOLARYNGOLOGY REP Ventricular Rate 121 BPM Atrial Rate 121 BPM P-R Interval 276 ms QRS Duration 110 ms Q-T Interval 336 ms QTC Calculation(Bazett) 477 ms P [place] 4 degrees R [place] 37 degrees T [place] -28 degrees Sinus tachycardia with 1st d egree A-V block Inferior-posterior infarct ( cited on or before 28-JUN-2019) ACUTE DC / STEMI Consider right ventricular i nvolvement in acute inferior infarct Abnormal ECG When compared with ECG of 01:55, Fusion complexes are no long er Present ECG 12-LEAD Routine 06/28/2019 1:55 AM OTOLARYNGOLOGY REP Resu lts for this procedure are in the results section . ECG 12-LEAD Routine 06/28/2019 1:55 AM OTOLARYNGOLOGY REP Procedure Note - Interface, External Ris In - 06/28/2019 2:09 AM OTOLARYNGOLOGY REP Ventricular Rate 121 BPM Atrial Rate 121 BPM P-R Interval 266 ms QRS Duration 112 ms Q-T Interval 356 ms QTC Calculation(Bazett) 505 ms P [place] -1 degrees R [place] 33 degrees T [place] -35 degrees Sinus tachycardia with 1st d egree A-V block with Fusion complexes Inferior-posterior infarct ( cited on or before 28-JUN-2019) ACUTE DC / STEMI Consider right ventricular i nvolvement in acute inferior infarct Abnormal ECG When compared with ECG of 01:41, Fusion complexes are now Pre sent ECG 12-LEAD Routine 06/28/2019 1:41 AM OTOLARYNGOLOGY REP Resu lts for this procedure are in the results section . 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 ECG 12-LEAD Routine 06/28/2019 1:33 AM OTOLARYNGOLOGY REP Procedure Note - Interface, External Ris In - 06/28/2019 2:09 AM OTOLARYNGOLOGY REP Ventricular Rate 133 BPM Atrial Rate 131 BPM QRS Duration 112 ms Q-T Interval 336 ms QTC Calculation(Bazett) 500 ms R [place] 71 degrees T [place] -66 degrees Atrial fibrillation with rap id ventricular response Inferior-posterior infarct ( cited on or before 28-JUN-2019) ACUTE DC / STEMI Consider right ventricular i nvolvement in acute inferior infarct Abnormal ECG When compared with ECG of 19:50, Atrial fibrillation has repl aced Atrial flutter T wave inversion less eviden t in Inferior leads T wave inversion less eviden t in Anterolateral leads APTT Routine 06/27/2019 10:39 PM OTOLARYNGOLOGY REP Resu lts for this procedure are i n the results section . APTT Routine 06/27/2019 3:21 PM OTOLARYNGOLOGY REP Resu lts for this procedure are i n the results section . APTT Routine 06/27/2019 10:05 AM OTOLARYNGOLOGY REP Resu lts for this procedure are i n the results section . PLATELET COUNT Routine 06/27/2019 10:05 AM OTOLARYNGOLOGY REP Re sults for this procedure are i n the results section . US RENAL COMPLETE Routine 06/27/2019 9:11 AM OTOLARYNGOLOGY REP Results for this procedure are i n the results section . CBC W/PLT COUNT & AUTO Routine 06/27/2019 5:02 AM OTOLARYNGOLOGY REP Results for this DIFFERENTIAL procedure are i n the results section . CBC W/PLT COUNT & AUTO Routine 06/27/2019 5:02 AM OTOLARYNGOLOGY REP Results for this DIFFERENTIAL procedure are i n the results section . MAGNESIUM Routine 06/27/2019 5:02 AM OTOLARYNGOLOGY REP Resu lts for this procedure are i n the results section . HEPATIC FUNCTION PANEL Routine 06/27/2019 5:02 AM OTOLARYNGOLOGY REP Results for this procedure are i n the results section . BASIC METABOLIC PANEL (7) Routine 06/27/2019 5:02 AM OTOLARYNGOLOGY REP Results for this procedure are i n the results section . URIC ACID Routine 06/27/2019 5:02 AM OTOLARYNGOLOGY REP Resu lts for this procedure are i n the results section . ECHOCARDIOGRAM REPORT - SCAN 06/26/2019 9:20 PM OTOLARYNGOLOGY REP POCT-HEMOGLOBIN Routine 06/26/2019 8:04 PM OTOLARYNGOLOGY REP R esults for this procedure are i n the results section . POCT-HEMATOCRIT Routine 06/26/2019 8:04 PM OTOLARYNGOLOGY REP R esults for this procedure are i n the results section . POCT-CALCIUM IONIZED Routine 06/26/2019 8:04 PM OTOLARYNGOLOGY REP Results for this procedure are i n the results section . POCT-GLUCOSE Routine 06/26/2019 8:04 PM OTOLARYNGOLOGY REP Resu lts for this procedure are i n the results section . POCT-POTASSIUM Routine 06/26/2019 8:04 PM OTOLARYNGOLOGY REP Re sults for this procedure are i n the results section . POCT-SODIUM Routine 06/26/2019 8:04 PM OTOLARYNGOLOGY REP Resu lts for this procedure are i n the results section . POCT-BLOOD GASES, ARTERIAL Routine 06/26/2019 8:04 PM OTOLARYNGOLOGY REP Results for this procedure are i n the results section . XR CHEST 1 VIEW STAT 06/26/2019 8:03 PM OTOLARYNGOLOGY REP R esults for this PORTABLE/BEDSIDE procedure a re in the results section . CBC W/PLT COUNT & AUTO Routine 06/26/2019 8:00 PM OTOLARYNGOLOGY REP Results for this DIFFERENTIAL procedure are i n the results section . TROPONIN I STAT 06/26/2019 8:00 PM OTOLARYNGOLOGY REP Resu lts for this procedure are i n the results section . LACTIC ACID, ARTERIAL Routine 06/26/2019 8:00 PM OTOLARYNGOLOGY REP Results for this procedure are i n the results section . CBC W/PLT COUNT & AUTO Routine 06/26/2019 8:00 PM OTOLARYNGOLOGY REP Results for this DIFFERENTIAL procedure are i n the results section . MAGNESIUM Routine 06/26/2019 8:00 PM OTOLARYNGOLOGY REP Resu lts for this procedure are i n the results section . BASIC METABOLIC PANEL (7) Routine 06/26/2019 8:00 PM OTOLARYNGOLOGY REP Results for this procedure are i n the results section . 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 rate has increased BY 78 BPM Right bundle branch block is no longer Present ECG 12-LEAD STAT 06/26/2019 7:50 PM OTOLARYNGOLOGY REP Resu lts for this procedure are i n the results section . 2D ECHO W/ DOPPLER Routine 06/26/2019 10:51 AM OTOLARYNGOLOGY REP Results for this (CW/PW/COLOR) procedure are in the results section . NM CARDIAC PET PERFUSION Routine 06/26/2019 10:15 AM OTOLARYNGOLOGY REP Results for this REST AND/OR STRESS procedure are in the results section . TREADMILL Routine 06/26/2019 10:08 AM OTOLARYNGOLOGY REP Resu lts for this TOLERANCE(NON-NUCLEAR proced ure are in the TREADMILL) results section . ECG 12-LEAD Routine 06/26/2019 10:04 AM OTOLARYNGOLOGY REP Resu lts for this procedure are i n the results section . ECG 12-LEAD Routine 06/26/2019 10:04 AM OTOLARYNGOLOGY REP Procedure Note - Interface, External Ris In - 06/26/2019 10:36 AM OTOLARYNGOLOGY REP Ventricular Rate 51 BPM Atrial Rate 51 BPM P-R Interval 144 ms QRS Duration 126 ms Q-T Interval 468 ms QTC Calculation(Bazett) 431 ms P [place] 27 degrees R [place] 56 degrees T [place] 21 degrees Sinus bradycardia Right bundle branch block Abnormal ECG ECG 12-LEAD Routine 06/26/2019 10:03 AM OTOLARYNGOLOGY REP Procedure Note - Interface, External Ris In - 06/26/2019 10:36 AM OTOLARYNGOLOGY REP Ventricular Rate 66 BPM Atrial Rate 66 BPM P-R Interval 150 ms QRS Duration 116 ms Q-T Interval 480 ms QTC Calculation(Bazett) 503 ms P [place] 74 degrees R [place] 62 degrees T [place] 27 degrees Normal sinus rhythm Incomplete right bundle bran ch block ST & T wave abnormality, 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 BASIC METABOLIC PANEL (7) Routine 06/26/2019 5:28 AM OTOLARYNGOLOGY REP Results for this procedure are i n the results section . CBC (HEMOGRAM ONLY) Routine 06/26/2019 5:28 AM OTOLARYNGOLOGY REP Results for this procedure are i n the results section . MAGNESIUM Routine 06/26/2019 5:28 AM OTOLARYNGOLOGY REP Resu lts for this procedure are i n the results section . PROTHROMBIN TIME/INR Routine 06/26/2019 5:28 AM OTOLARYNGOLOGY REP Results for this procedure are i n the results section . URINE CULTURE Routine 06/25/2019 12:47 PM OTOLARYNGOLOGY REP Res ults for this procedure are i n the results section . HEPATIC FUNCTION PANEL Routine 06/25/2019 4:19 AM OTOLARYNGOLOGY REP Results for this procedure are i n the results section . BASIC METABOLIC PANEL (7) Routine 06/25/2019 4:19 AM OTOLARYNGOLOGY REP Results for this procedure are i n the results section . CBC (HEMOGRAM ONLY) Routine 06/25/2019 4:19 AM OTOLARYNGOLOGY REP Results for this procedure are i n the results section . MAGNESIUM Routine 06/25/2019 4:19 AM OTOLARYNGOLOGY REP Resu lts for this procedure are i n the results section . PROTHROMBIN TIME/INR Routine 06/25/2019 4:19 AM OTOLARYNGOLOGY REP Results for this procedure are i n the results section . 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 URIC ACID Add-On 06/24/2019 12:27 PM OTOLARYNGOLOGY REP Resu lts for this procedure are i n the results section . TROPONIN I Routine 06/24/2019 12:27 PM OTOLARYNGOLOGY REP Resu lts for this procedure are i n the results section . XR CHEST 2 VIEWS Routine 06/24/2019 9:17 AM OTOLARYNGOLOGY REP Results for this procedure are i n the results section . TROPONIN I Routine 06/24/2019 5:50 AM OTOLARYNGOLOGY REP Resu lts for this procedure are i n the results section . CBC W/PLT COUNT & AUTO Routine 06/24/2019 12:46 AM OTOLARYNGOLOGY REP Results for this DIFFERENTIAL procedure are i n the results section . CBC (HEMOGRAM ONLY) Routine 06/24/2019 12:46 AM OTOLARYNGOLOGY REP Results for this procedure are i n the results section . MAGNESIUM Routine 06/24/2019 12:46 AM OTOLARYNGOLOGY REP Resu lts for this procedure are i n the results section . PROTHROMBIN TIME/INR Routine 06/24/2019 12:46 AM OTOLARYNGOLOGY REP Results for this procedure are i n the results section . B-TYPE NATRIURETIC FACTOR Routine 06/24/2019 12:46 AM OTOLARYNGOLOGY REP Results for this (BNP) procedure are i n the results section . CBC W/PLT COUNT & AUTO Routine 06/24/2019 12:46 AM OTOLARYNGOLOGY REP Results for this DIFFERENTIAL procedure are i n the results section . HEPATIC FUNCTION PANEL Routine 06/24/2019 12:46 AM OTOLARYNGOLOGY REP Results for this procedure are i n the results section . BASIC METABOLIC PANEL (7) Routine 06/24/2019 12:46 AM OTOLARYNGOLOGY REP Results for this procedure are i n the results section . TROPONIN I Routine 06/24/2019 12:46 AM OTOLARYNGOLOGY REP Resu lts for this procedure are i n the results section . URINALYSIS MICROSCOPIC Routine 06/23/2019 11:32 PM OTOLARYNGOLOGY REP Results for this procedure are i n the results section . URINALYSIS WITH MICROSCOPIC Routine 06/23/2019 11:32 PM OTOLARYNGOLOGY REP Results for this IF INDICATED procedure are i n the results section . UREA NITROGEN, RANDOM URINE Routine 06/23/2019 11:32 PM OTOLARYNGOLOGY REP Results for this procedure are i n the results section . CREATININE, RANDOM URINE Routine 06/23/2019 11:32 PM OTOLARYNGOLOGY REP Results for this procedure are i n the results section . after 03/16/2019 Results RHYTHM STRIP - SCAN (09/18/2019 3:52 PM CDT)Only the most recent of4 results within the time period is included. Narrative Performed At This result has an attachment that is no t available. CBC with platelet count + automated diff (09/11/2019 5:06 AM CDT)Only the most recent of18 resultswithin the time period is included. Pathologist Sig nature WBC 6.7 3.5 - 10.5 [facility] K/L [facility] RBC 2.88 (L) 4.63 - 6.08 [facility] M/L [facility] Hemoglobin 8.9 (L) 13.7 - 17.5 [facility] GM/DL [facility] Hematocrit 28.6 (L) 40.1 - 51.0 % [facility] MCV 99.3 (H) 79.0 - 92.2 fL [facility] MCH 30.9 25.7 - 32.2 pg [facility] MCHC 31.1 (L) 32.3 - 36.5 [facility] GM/DL [facility] RDW 17.4 (H) 11.6 - 14.4 % [facility] Platelets 228 150 - 450 K/CU [facility] MPV 9.4 9.4 - 12.4 fL [facility] nRBC 0 0 - 0 /100 WBC [facility] % Neutros 60 % [facility] % Lymphs 26 % [facility] % Monos 10 % [facility] % Eos 3 % [facility] % Baso 0 % [facility] # Neutros 4.04 1.78 - 5.38 [facility] # Lymphs 1.73 1.32 - 3.57 [facility] # Monos 0.68 0.30 - 0.82 [facility] # Eos 0.23 0.04 - 0.54 [facility] # Baso 0.02 0.01 - 0.08 [facility] Immature 0 0 - 1 % [facility] Specimen Blood Performing Organization Address City/[facility]/Zipcode Phone Number [address] [address] CENTER Phosphorus (09/11/2019 5:06 AM CDT)Only the most recent of16 resultswithin the time period is included. Pathologist Sig nature Phosphorus 2.6 2.3 - 4.7 mg/dL [facility] Specimen Blood Narrative Performed At Therapeutic Support Staff NADJA - ZENIA L [facility] Performing Organization Address City/State/Zipcode Phone Number [address] [address] CENTER Magnesium (09/11/2019 5:06 AM CDT)Only the most recent of33 resultswithin the time period is included. Pathologist Sig nature Magnesium 1.8 1.6 - 2.6 mg/dL [facility] Specimen Blood Narrative Performed At Therapeutic Support Staff ID - ZENIA L [facility] Performing Organization Address [facility] Phone Number [facility] [address] [place] [address] [place] Basic Metabolic Panel (09/11/2019 5:06 AM CDT)Only the most recent of34 results within the time period is included. Sodium 141 136 - 145 [facility] meq/L [facility] Potassium 3.8 3.5 - 5.1 [facility] meq/L [facility] Chloride 108 (H) 98 - 107 meq/L [facility] CO2 28 22 - 29 meq/L [facility] BUN 11 7 - 21 mg/dL [facility] Creatinine 1.26 (H) 0.57 - 1.25 [facility] mg/dL [facility] Glucose 81 70 - 105 mg/dL [facility] Calcium 8.0 (L) 8.4 - 10.2 [facility] mg/dL [facility] EGFR Comment: INSUFFICIENT [facility] CLINICAL DATA TO [facility] GFR. Specimen Blood Narrative Performed At Therapeutic Support Staff ID - ZENIA L [facility] Performing Organization Address [facility] Cent[facility]ode Phone Number [facility] [address] [place] [address] [place] TRANSFUSION SERVICE REPORT - SCAN (09/10/2019 6:00 PM CDT)Only the most recent of11 resultswithin the time period is included. Narrative Performed At This result has an attachment that is no t available. Prepare Leuko-Red RBC (09/09/2019 11:54 PM CDT)Only the most recent of6 results within the time period is included. Pathologist Sig nature CROSSMATCH COMPATIBLE SAFETRACE TX Unit ABO B Pos SAFETRACE TX UNIT NUMBER [id number] SAFETRACE TX Status TX_TIMEINCHART SAFETRACE TX Blood Bank Product RED BLOOD CELLS SAFETRACE TX PRODUCT CODE [id number] SAFETRACE TX Specimen Other Performing Organization Address [facility] Phone Number SAFETRACE TX Hemoglobin and hematocrit (09/08/2019 11:07 PM CDT)Only the most recent of5 resultswithin the time period is included. Pathologist Sig nature Hemoglobin 8.5 (L) 13.7 - 17.5 GM/DL [facility] Hematocrit 27.1 (L) 40.1 - 51.0 % [facility] Specimen Blood - Central venous catheter, device (physical object) Narrative Performed At Therapeutic Support Staff ID - [id number] [facility] Performing Organization Address [facility] Phone Number [address] [address] CENTER Transfuse Leuko-Red RBC (09/08/2019 7:05 PM CDT)Only the most recent of5 resultswithin the time period is included.Potassium (09/08/2019 3:00 PM CDT) Only the most recent of4 resultswithin the time period is included. Pathologist Sig nature Potassium 4.4 3.5 - 5.1 meq/L [facility] Specimen Blood Narrative Performed At Therapeutic Support Staff ID - DB [facility] Performing Organization Address [facility] Phone Number [address] [address] CENTER Type and screen, automated (09/08/2019 11:38 AM CDT)Only the most recent of5 resultswithin the time period is included. Pathologist Sig nature ABO/RH AUTOMATED B POSITIVE [facility] (BEAKER) [facility] Ab Scrn NEGATIVE [facility] Specimen Blood Performing Organization Address [facility] Phone Number [place] [phone] [place] [address] [phone] Iron, TIBC, % sat. (without ferritin) (09/07/2019 2:55 PM CDT)Only the most recent of2 resultswithin the time period is included. Pathologist Sig nature Iron 21.0 (L) 40.0 - 160.0 [facility] ug/dL [facility] TIBC 224 (L) 250 - 450 ug/dL [facility] Iron % Saturation 9 (L) 20 - 55 % [facility] Specimen Blood Narrative Performed At Therapeutic Support Staff ID - YVONNE Lux [facility] Performing Organization Address City/State/Zipcode Phone Number [address] [address] CENTER Ferritin (09/07/2019 2:55 PM CDT)Only the most recent of2 resultswithin the time period is included. Pathologist Sig nature Ferritin 97.89 5.00 - 275.00 ng/mL [facility] Specimen Blood Narrative Performed At Therapeutic Support Staff ID - YVONNE Lux [facility] Performing Organization Address City/[facility]/Zipcode Phone Number [address] [phone] CENTER XR chest 1 view portable / bedside (09/07/2019 1:37 AM CDT)Only the most recent of9 resultswithin the time period is included. Specimen Narrative Performed At FINAL REPORT [facility] RAD, CHEST, 1 VIEW, NON DEPT INDICATION: acute respiratory insufficie ncy COMPARISON: Prior day's exam FINDINGS: Portable frontal view of the c hest. IMPRESSION: Support Lines: Stable. Lungs and pleura: No significant change in diffuse bilateral coarse interstitial opacities with central veno us congestion. Small bilateral pleural effusions similar to p rior. No pneumothorax. Heart and mediastinum: Stable contours. Stable surgical changes. Additional findings: None. Signed: Singh Tuttle MD Report Verified Date/Time: 09/07/2019 02:58:19 Procedure Note Interface, External Ris In - 09/07/2019 3:00 AM CDT FINAL REPORT RAD, CHEST, 1 VIEW, NON DEPT INDICATION: acute respiratory insufficie ncy COMPARISON: Prior day's exam FINDINGS: Portable frontal view of the c hest. IMPRESSION: Support Lines: Stable. Lungs and pleura: No significant change in diffuse bilateral coarse interstitial opacities with central veno us congestion. Small bilateral pleural effusions similar to p rior. No pneumothorax. Heart and mediastinum: Stable contours. Stable surgical changes. Additional findings: None. Signed: Singh Tuttle MD Report Verified Date/Time: 09/07/2019 0 2:58:19 Performing Organization Address City/State/Zipcode Phone Number [facility] Oxygen saturation, measured (09/06/2019 4:04 AM CDT) Pathologist Sig nature O2 Saturation (Measured) 64.5 % [facility] Specimen Blood Performing Organization Address City/State/Zipcode Phone Number [address] [address] CENTER Blood gas, arterial (09/06/2019 3:58 AM CDT)Only the most recent of9 results within the time period is included. Pathologist Sig nature pH, Arterial 7.41 7.35 - 7.45 [facility] pCO2, Arterial 44 35 - 45 mmHg [facility] pO2, Arterial 82 80 - 90 mmHg [facility] O2 Sat, Arterial 96.1 96.0 - 97.0 % [facility] HCO3, Arterial 27 21 - 29 mmol/L [facility] Base Excess, Arterial 2.4 -2.0 - 3.0 [facility] H mmol/L [facility] Patient Temperature 37.0 C [facility] FIO2 50.0 % [facility] Specimen Blood, Arterial Performing Organization Address [facility] Centerconv Phone Number [facility] [address] [place] [address] [place] Calcium, Ionized (09/06/2019 3:57 AM CDT)Only the most recent of10 results within the time period is included. Pathologist Sig nature Calcium, Ion 1.01 (L) 1.12 - 1.27 mmol/L [facility] pH, Blood 7.41 [facility] Specimen Blood Performing Organization Address [facility] Phone Number [facility] [address] [place] [address] [place] ECG 12 lead (09/05/2019 3:37 AM CDT)Only the most recent of14 resultswithin the time period is included. Specimen Narrative Performed At Ventricular Rate 54 BPM GE MUSE Atrial Rate 54 BPM P-R Interval 148 ms QRS Duration 114 ms Q-T Interval 522 ms QTC Calculation(Bazett) 495 ms P [place] 10 degrees R [place] 48 degrees T [place] 44 degrees Sinus bradycardia with Premature atrial complexes Cannot rule out Inferior infarct (cited on or before 30-AUG-2019) ST & T wave abnormality, consider anteri or ischemia Abnormal ECG When compared with ECG of 30-AUG-2019 17 :03, No significant change was found Confirmed by MD VILLANUEVA JOSEPH P ([id number]) on 0 6:28:38 AM Procedure Note Interface, External Ris In - 09/05/2019 6:28 AM CDT Ventricular Rate 54 BPM Atrial Rate 54 BPM P-R Interval 148 ms QRS Duration 114 ms Q-T Interval 522 ms QTC Calculation(Bazett) 495 ms P [place] 10 degrees R [place] 48 degrees T [place] 44 degrees Sinus bradycardia with Premature atrial complexes Cannot rule out Inferior infarct (cited on or before 30-AUG-2019) ST & T wave abnormality, consider anteri or ischemia Abnormal ECG When compared with ECG of 30-AUG-2019 17 :03, No significant change was found Confirmed by MD VILLANUEVA JOSEPH P ([id number]) on 09/05/2019 6:28:38 AM Performing Organization Address City/[facility] Centercode Phone Number GE MUSE CBC (Hemogram only) (09/04/2019 5:17 AM CDT)Only the most recent of16 results within the time period is included. Pathologist Sig nature WBC 12.5 (H) 3.5 - 10.5 K/L [facility] RBC 2.96 (L) 4.63 - 6.08 M/L [facility] Hemoglobin 8.5 (L) 13.7 - 17.5 GM/DL [facility] Hematocrit 27.7 (L) 40.1 - 51.0 % [facility] MCV 93.6 (H) 79.0 - 92.2 fL [facility] MCH 28.7 25.7 - 32.2 pg [facility] MCHC 30.7 (L) 32.3 - 36.5 GM/DL [facility] RDW 16.8 (H) 11.6 - 14.4 % [facility] Platelets 182 150 - 450 K/CU MM [facility] MPV 9.0 (L) 9.4 - 12.4 fL [facility] nRBC 0 0 - 0 /100 WBC [facility] Specimen Blood Performing Organization Address City/State/Zipcode Phone Number [facility] [address] [place] [address] [place] ECHOCARDIOGRAM REPORT - SCAN (09/03/2019 9:10 PM CDT) Narrative Performed At This result has an attachment that is no t available. 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 Clinical History HGB 7.9 HCT 24.7 % AAA CAD CHF CKD COPD HTN RENAL ARTERY STENT REPAIR ARTERY WITH SUTURE Contrast Medium: Definity. Amount - 2 ml Height: 62 inches Weight: 91.63 kg (202 lbs) BSA: 1.92 m^2 BMI: 36.95 kg/m^2 HR: 73 bpm BP: 117/50 mmHg Summary 1. The left ventricle is chamber size (by vol index) is mildly enlarged. Mild septal hypertrophy is present. Basal to mid inferior and inferolateral altham are severely hypokinetic. All other LV segments have low normal contractility. LVEF by Rodriguez's method of disk assessment is mildly reduced (40-44%) . Grade 1 diastolic dysfunction (impaired relaxation and low-normal LA pressure). 2. RV chamber size is moderately enlarged . Global RV systolic function is mild to moderately reduced. Estimated peak systolic PA pressure is 40-45 mmHg (mild pulmonary hypertension). 3. No significant valvular abnormalitie s. Previous Study In comparison with the prior exam on 06-26-19 there are no significant changes. Signature Findings Left Ventricle The left ventricle is chamber size (by vol index) is mildly enlarged (male - LVED 75-89ml/m2). Mild septal hypertrophy is present. Basal to mid inferior and inferolateral latham are severely hypokinetic. All other LV segments have low normal cont ractility. Global LV systolic function mildly reduced . LVEF by Rodriguez's method of disk assessment is mildly reduced (40-44%) . The LVEF was measured using Rodriguez's bi-plane method of disk . LV endocardium is adequately visualized with IV ultrasound enhancing agent. Grade 1 diastolic dysfunction (impaired relaxati on and low-normal LA pressure). Left Atrium LA size by qualitative assessment (unable to measure). LA size is normal . Right Ventricle RV chamber size is moderately enlarged . Global RV systolic function is mild to moderately redu joslyn. Right Atrium RA cavity size is mildly enlarged. Aortic Valve Mild AoV cusp calcification. No evidence of aortic stenosis. No evidence of aortic regurgitation. Mitral Valve Mild mitral annular calcification. Mild MV leaflet calcification. Trace mitral regurgitation. Tricuspid Valve A trace of tricuspid regurgitation. Estimated peak systolic PA pressure is 40-45 mmHg (mild pulmonary hypertension) . Pulmonic Valve Normal PV structure and function. Aorta Aortic root size (SInus of Valsalva diameter) is norm al . Pericardium No significant pericardial effusion is visualized. IVC/SVC/PA/PV/Pleural A left pleural effusion is noted. The estimated RA pressure by IVC dynamics 5-10mmHg . Chambers/Structures Left Ventricle LVIDd: 5.3 cm LV Septum Diastolic: 1.32 cm LV PW Diastolic: 0.78 cm LVEDV Rodriguez's:170.11 ml LVESV Rodriguez's:97.85 ml LVEF Rodriguez's: 42.5 % LVEDVI: 89 ml/m^2 LVESVI: 51 ml/m^2 LVOT Diameter: 2.21 cm Right Atrium RA Vol. (Sngl Plane): 62.82 ml Right Ventricle RVOT VTI: 15.99 cm TAPSE: 1.4 cm Aorta Ao Root S of Tiara.: 3.5 cm Doppler/Quantitative Measurements Mitral Valve MV Peak E-Wave: 0.88 m/s MV Peak A-Wave: 0.95 m/s E/A Ratio: 0.93 Peak Gradient: 3.12 mmHg Deceleration Time: 245.8 msec MV Javier. Peak: Tissue Doppler E' Septal Velocity: 0.1 m/s E/E': 9.13 E' Lateral Velocity: 0.12 m/s Aortic Valve Peak Velocity: 1.25 m/s Mean Velocity: 0.84 m/s Peak Gradient: 6.23 mmHg Mean Gradient: 3.38 mmHg AV Area (continuity): 2.93 cm^2 AV VTI: 26.25 cm AV DVI: 0.76 LVOT Peak Velocity: 0.84 m/s Peak Gradient: 2.81 mmHg Mean Velocity: 0.54 m/s Mean Gradient: 1.37 mmHg LVOT Diameter: 2.21 cm LVOT VTI: 20.07 cm LVOT Area: 3.84 cm^2 LVOT SV:76.95 ml LVOT CO: 5.62 l/min LVOT CI: 2.93 l/min/m^2 Tricuspid Valve TR Velocity: 2.89 m/s TR Gradient: 33.5 mmHg Procedure Note Interface, External Ris In - 09/03/2019 1:56 PM CDT Transthoracic Echocardiography Report (TTE) Demographics Patient Name ROHAN PRADHAN Date of Study 09/03/2019 ROSALVA Gende r Male Visit Number [id number] Race Unknown Room Number C825 Number Date of 1930 Refer [facility] Physician Mitchell Chapman Age 89 year(s) Sonog rapher Abed Alex Metal Trim Erector Bk Simon MD Physi aidee Procedure Type of Study TTE procedure:2DECHO W DOPPLE R(CW/PW/COLOR) (STAT) Indications:Hypotension or hemodynamic i nstability. Clinical History HGB 7.9 HCT 24.7 % AAA CAD CHF CKD COPD HTN RENAL ARTERY STENT REPAIR ARTERY WITH SUTURE Contrast Medium: Definity. Amount - 2 ml Height: 62 inches Weight: 91.63 kg (202 lbs) BSA: 1.92 m^2 BMI: 36.95 kg/m^2 HR: 73 bpm BP: 117/50 mmHg Summary 1. The left ventricle is chamber size ( by vol index) is mildly enlarged. Mild septal hypertrophy is present. Bas al to mid inferior and inferolateral latham are severely hypoki netic. All other LV segments have low normal contractility. LVEF by Simps on's method of disk assessment is mildly reduced (40-44%) . Grade 1 diast olic dysfunction (impaired relaxation and low-normal LA pressure). 2. RV chamber size is moderately enlarg ed . Global RV systolic function is mild to moderately reduced. Estimated p eak systolic PA pressure is 40-45 mmHg (mild pulmonary hypertension). 3. No significant valvular abnormalitie s. Previous Study In comparison with the prior exam on 06-26-19 there are no significant changes. Signature Findings Left Ventricle The left ventric le is chamber size (by vol index) is mildly enlarg ed (male - LVED 75-89ml/m2). Mild septal hypertrop hy is present. Basal to mid inferior and inf erolateral latham are severely hypokinetic. All other LV segments have low normal contractility. Global LV systol ic function mildly reduced . LVEF by Rodriguez' s method of disk assessment is mildly reduced ( 40-44%) . The LVEF was ada sured using Rodriguez's bi-plane method of disk . LV endocardium i s adequately visualized with IV ultrasound enhan cing agent. Grade 1 diastoli c dysfunction (impaired relaxation and low-normal L A pressure). Left Atrium LA size by quali tative assessment (unable to measure). LA siz e is normal . Right Ventricle RV chamber size is moderately enlarged . Global RV systol ic function is mild to moderately reduced. Right Atrium RA cavity size i s mildly enlarged. Aortic Valve Mild AoV cusp ca lcification. No evidence of a ortic stenosis. No evidence of a ortic regurgitation. Mitral Valve Mild mitral michela lar calcification. Mild MV leaflet calcification. Trace mitral reg urgitation. Tricuspid Valve A trace of tricu spid regurgitation. Estimated peak s ystolic PA pressure is 40-45 mmHg (mild pulmonary hypertension) . Pulmonic Valve Normal PV struct ure and function. Aorta Aortic root size (SInus of Valsalva diameter) is normal . Pericardium No significant p ericardial effusion is visualized. IVC/SVC/PA/PV/Pleural A left pleural e ffusion is noted. The estimated RA pressure by IVC dynamics 5-10mmHg . Chambers/Structures Left Ventricle LVIDd: 5.3 cm LV Septum Diastolic: 1.32 cm LV PW Diastolic: 0.78 cm LVEDV Rodriguez's:170.11 ml LVESV Rodriguez's:97.85 ml LVEF Rodriguez's: 42.5 % LVEDVI: 89 ml/m^2 LVESVI: 51 ml/m^2 LVOT Diameter: 2.21 cm Right Atrium RA Vol. (Sngl Plane): 62.82 ml Right Ventricle RVOT VTI: 15.99 cm TAPSE: 1.4 cm Aorta Ao Root S of Tiara.: 3.5 cm Doppler/Quantitative Measurements Mitral Valve MV Peak E-Wave: 0.88 m/s M V Peak A-Wave: 0.95 m/s E /A Ratio: 0.93 P eak Gradient: 3.12 mmHg D eceleration Time: 245.8 msec MV Javier. Peak: Tissue Doppler E' Septal Velocity: 0.1 m/s E /E': 9.13 E' Lateral Velocity: 0.12 m/s Aortic Valve Peak Velocity: 1.25 m/s Mean Velocity: 0.84 m/s Peak Gradient: 6.23 mmHg Mean Gradient: 3.38 mmHg AV Area (continuity): 2.93 cm^2 AV VTI: 26.25 cm AV DVI: 0.76 LVOT Peak Velocity: 0.84 m/s Pea k Gradient: 2.81 mmHg Mean Velocity: 0.54 m/s Ada n Gradient: 1.37 mmHg LVOT Diameter: 2.21 cm LVO T VTI: 20.07 cm LVOT Area: 3.84 cm^2 LVO T SV:76.95 ml LVOT CO: 5.62 l/min LVO T CI: 2.93 l/min/m^2 Tricuspid Valve TR Velocity: 2.89 m/s TR Gradient: 33.5 mmHg Performing Organization Address City/State/Zipcode Phone Number [facility] Troponin I (09/03/2019 4:51 AM CDT)Only the most recent of11 resultswithin the time period is included. Pathologist Sig nature Troponin I 0.88 (HH) 0.00 - 0.03 ng/mL [facility] Specimen Blood Narrative Performed At Troponin I (TnI) levels must be interpreted [facility] in the context of the presenting symptoms and the clinical findings. Elevated TnI levels indicate myocardial damage, but are not specific for ischemic heart disease. Elevated TnI levels are seen in patients with other cardiac conditions (including myocarditis and congestive heart failure), and slight TnI elevations occur in patients with other conditions, including sepsis, renal failure, acidosis, acute neurological disease, and persistent tachyarrhythmia. Therapeutic Support Staff ID - ZENIA L Performing Organization Address [facility] Cent[facility]ode Phone Number [address] [phone] [place] Creatine Kinase (CK) (09/03/2019 3:17 AM CDT) Pathologist Sig nature Total CK 89 29 - 200 U/L [facility] Specimen Blood Narrative Performed At Therapeutic Support Staff NADJA ROSESANYA Xi [facility] Performing Organization Address [facility] Centercode Phone Number [address] [phone] [place] POC-Glucose meter (09/02/2019 11:25 PM CDT)Only the most recent of6 results within the time period is included. POC-Glucose Meter 167 (H)Comment: 70 - 110 mg/dL [facility] : TESTED AT [address], [address]: Therapeutic Support Staff/Technic ramon ID = [id number] for DEBRA FOX Specimen Blood Performing Organization Address [facility] Centercode Phone Number [address] [phone] CENTER Manual Differential (09/01/2019 3:22 PM CDT)Only the most recent of2 results within the time period is included. Pathologist Sig nature % Neutros 85 % [facility] % Lymphs 6 % [facility] % Monos 4 % [facility] % Bands 5 0 - 10 % [facility] # Neutros 18.02 (H) 1.78 - 5.38 [facility] # Lymphs 1.27 (L) 1.32 - 3.57 [facility] # Monos 0.85 (H) 0.30 - 0.82 [facility] # Bands 1.06 (H) 0.00 - 0.80 [facility] Total Counted 100 [facility] Platelet Morphology Normal [facility] Smudge Cells Present [facility] Anisocytosis 1+ few [facility] Microcytes 1+ few [facility] Poikilocytes 1+ few [facility] Elliptocytes 1+ few [facility] Artifact Present [facility] Helmet Cells 1+ few [facility] Platelet Conc Adequate [facility] Specimen Blood Narrative Performed At Therapeutic Support Staff ID - Jolynn [facility] User comments: Slide comments: Performing Organization Address City/State/Zipcode Phone Number [facility] [address] [place] [address] CENTER Prepare RBC (09/01/2019 3:22 PM CDT) Pathologist Sig nature CROSSMATCH COMPATIBLE SAFETRACE TX Unit ABO B Pos SAFETRACE TX UNIT NUMBER [id number] SAFETRACE TX Status RETURNED FROM ISSUE SAFETRACE TX Blood Bank Product RED BLOOD CELLS SAFETRACE TX PRODUCT CODE [id number] SAFETRACE TX CROSSMATCH COMPATIBLE SAFETRACE TX Unit ABO B Pos SAFETRACE TX UNIT NUMBER [id number] SAFETRACE TX Status RETURNED FROM ISSUE SAFETRACE TX Blood Bank Product RED BLOOD CELLS SAFETRACE TX PRODUCT CODE [id number] SAFETRACE TX Performing Organization Address [facility] Phone Number SAFETRACE [place] Potassium-Stat Lab (09/01/2019 12:46 PM CDT)Only the most recent of4 results within the time period is included. Pathologist Sig nature Potassium 3.3 (L) 3.6 - 5.5 meq/L [facility] Specimen Blood, Arterial Performing Organization Address [facility] Phone Number [address] [address] CENTER Sodium Na-Stat Lab (09/01/2019 12:46 PM CDT)Only the most recent of4 results within the time period is included. Pathologist Sig nature Sodium 139 135 - 148 meq/L [facility] Specimen Blood, Arterial Performing Organization Address [facility] [place] Phone Number [address] [address] [place] Glucose-Stat Lab (09/01/2019 12:46 PM CDT)Only the most recent of4 resultswithin the time period is included. Pathologist Sig nature Glucose 175 (H) 70 - 110 mg/dL [facility] Specimen Blood, Arterial Performing Organization Address [facility] [place] Phone Number [address] [address] C[place] HGB/HCT (H&H)-Stat Lab (09/01/2019 12:46 PM CDT)Only the most recent of4 resultswithin the time period is included. Pathologist Sig nature Hemoglobin 8.5 (L) 13.0 - 16.8 g/dL [facility] Hematocrit 25.0 (L) 40.0 - 50.0 % [facility] Specimen Blood, Arterial Performing Organization Address [facility]/Zipcode Phone Number [address] [phone] CENTER POC ACTIVATED CLOTTING TIME (09/01/2019 12:19 PM CDT)Only the most recent of8 resultswithin the time period is included. Activated Clotting 136Comment: : sec [facility] Time 74-137 seconds, [facility] Baseline: TESTED CENTER AT [address], [address]: Therapeutic Support Staff/Technici an ID = [id number] for [employer] Specimen Blood Performing Organization Address [facility] Phone Number [address] [address] C[place] Prothrombin time/INR (08/30/2019 4:58 PM CDT)Only the most recent of4 results within the time period is included. Pathologist Sig nature Protime 15.5 (H) 11.9 - 14.2 seconds [facility] INR 1.3 <=5.9 [facility] Specimen Blood Narrative Performed At Effective 10/19/2018: PT Reference Range [facility] Change New: 11.9-14.2 Previous: 11.7-14.7 RECOMMENDED COUMADIN/WARFARIN INR THERAPY RANGES STANDARD DOSE: 2.0-3.0 Includes: PROPHYLAXIS for venous thrombosis, systemic embolization; TREATMENT for venous thrombosis and/or pulmonary embolus. HIGH RISK: Target INR is 2.5-3.5 for patients wiht mechanical heart valves. Performing Organization Address City/[facility]/Zipcode Phone Number [address] [address] C[place] B-type Natriuretic Factor (BNP) (08/30/2019 4:58 PM CDT)Only the most recent of 2 resultswithin the time period is included. Pathologist Sig nature BNP 55 0 - 100 pg/mL [facility] Specimen Blood Narrative Performed At Therapeutic Support Staff ID - BS [facility] Performing Organization Address City/[facility]/Zipcode Phone Number [facility] [address] [place] [address] [place] Comprehensive metabolic panel (08/30/2019 4:58 PM CDT) Protein, Total 6.8 6.0 - 8.3 [facility] gm/dL [facility] Albumin 3.6 3.5 - 5.0 [facility] g/dL [facility] Alkaline 58 40 - 150 U/L [facility] Phosphatase [facility] Total Bilirubin 0.2 0.2 - 1.2 [facility] mg/dL [facility] Sodium 140 136 - 145 [facility] meq/L [facility] Potassium 3.4 (L) 3.5 - 5.1 [facility] meq/L [facility] Chloride 95 (L) 98 - 107 [facility] meq/L [facility] CO2 31 (H) 22 - 29 [facility] meq/L [facility] BUN 80 (H) 7 - 21 mg/dL [facility] Creatinine 2.08 (H) 0.57 - 1.25 [facility] mg/dL [facility] Glucose 85 70 - 105 [facility] mg/dL [facility] Calcium 8.7 8.4 - 10.2 [facility] mg/dL [facility] AST 13 5 - 34 U/L [facility] ALT 8 6 - 55 U/L [facility] EGFR Comment: [facility] CLINICAL DATA TO MEDICAL CENTER CALCULATE ESTIMATED GFR. Specimen Blood Narrative Performed At Therapeutic Support Staff ID - BS [facility] Performing Organization Address City/[facility]/Zipcode Phone Number [facility] [address] [place] [address] [place] Hemoglobin A1c (07/13/2019 11:46 AM OTOLARYNGOLOGY REP) Pathologist Sig nature Hemoglobin A1C 6.1 4.3 - 6.1 % [facility] Specimen Blood Performing Organization Address City/State/Zipcode Phone Number [facility] [address] [place] [address] CENTER Folate (07/13/2019 11:46 AM OTOLARYNGOLOGY REP) Pathologist Sig nature Folate 16.6 >=7.0 ng/mL [facility] Specimen Blood Narrative Performed At Therapeutic Support Staff ID - BS [facility] Performing Organization Address City/[facility]/Zipcode Phone Number [facility] [address] [place] [address] [place] VASCULAR DIAGRAM -SCAN (07/07/2019 1:40 PM OTOLARYNGOLOGY REP)Only the most recent of2 results within the time period is included. Narrative Performed At This result has an attachment that is no t available. EKG-SCANNED (07/07/2019 1:40 PM OTOLARYNGOLOGY REP) Narrative Performed At This result has an attachment that is no t available. CARDIAC CATH REPORT - SCAN (07/07/2019 1:40 PM OTOLARYNGOLOGY REP) Narrative Performed At This result has an attachment that is no t available. CARDIAC CATH REPORT - SCAN (07/07/2019 1:40 PM OTOLARYNGOLOGY REP) Narrative Performed At This result has an attachment that is no t available. Hepatic function panel (07/05/2019 2:53 AM OTOLARYNGOLOGY REP)Only the most recent of12 resultswithin the time period is included. Protein, Total 5.6 (L)Comment: 6.0 - 8.3 [facility] Specimen slightly gm/dL [facility] Albumin 3.0 (L)Comment: 3.5 - 5.0 [facility] Specimen slightly g/dL [facility] Total Bilirubin 0.4Comment: 0.2 - 1.2 [facility] Specimen slightly mg/dL [facility] Bilirubin, Direct 0.3Comment: 0.1 - 0.5 [facility] Specimen slightly mg/dL [facility] Alkaline 44 40 - 150 U/L [facility] AST 13Comment: 5 - 34 U/L [facility] Specimen [facility] hemolyzed [facility] ALT 12Comment: 6 - 55 U/L [facility] Specimen [facility] hemolyzed [facility] Specimen Blood Narrative Performed At Therapeutic Support Staff ID - HAROONAP [facility] Performing Organization Address City/[facility]/Zipcode Phone Number [address] [phone] CENTER ARRYTHMIA IMPLANT REPORT - SCAN (07/04/2019 2:30 PM OTOLARYNGOLOGY REP) Narrative Performed At This result has an attachment that is no t available. aPTT (07/03/2019 8:11 PM OTOLARYNGOLOGY REP)Only the most recent of16 resultswithin the time period is included. Pathologist Sig nature PTT 30.2 22.5 - 36.0 seconds [facility] Specimen Blood Performing Organization Address [facility] Phone Number [address] [address] [place] CTA AAA and Runoff (06/30/2019 1:16 PM OTOLARYNGOLOGY REP) Specimen Narrative Performed At Addendum [facility] [email or web address] REPORT STATUS:A I have reviewed the study below and agre e with the nonvascular findings. Signed: Mayo Roberts MD Report Verified Date/Time: 07/03/2019 16:29:07 Reading Location: [facility] Radiology Readin g Room Addendum Ends FINAL REPORT CT angiography of the abdominal aorta an d pelvic arteries, 30 June 2019 INDICATION: This is a 89 years old male, with a diagnosis of aortic aneurysm presents for assessment. TECHNIQUE: Spiral acquisition before and during intravenous contrast administration using a Siemens multidete ctor CT scanner. Images were obtained before and during the dynamic p assage of intravenous contrast material. Multi-planar 3-D vo lume-rendering reconstruction was performed using an independent works tation interactively by the interpreting physician as well as the 3- D specialist for optimal visualisation of the abdominal aorta, pe lvic arteries, and its branches. Please refer to the contrast sheet scann ed in the Snatch that Jerky system for the amount and route of contrast given. This exam was performed according to our departmental dose-optimisation programme, which inclu enzo automated exposure control, adjustment of the mA and/or kV according to patient size and/or use of iterative reconstruction t echnique. Dose modulation, iterative reconstruction, and/or weight based adjustment of the mA/kV was utilized to reduce the radiation dos e to as low as reasonably achievable. FINDINGS: VASCULAR: The aortic root and the proximal ascendi ng thoracic aorta is unremarkable, with minimal calcification is identified. The mid and distal descending thoracic aorta only phillips s scattered calcific and noncalcific atherosclerosis identified. No dilation is seen. 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 The left internal sales al mammary artery bypass graft is partially identified and is pat ent. The left ventricle is enlarged. Left atrial enlargement is terence ntified. The central pulmonary artery is prominent. The proximal abdominal aorta is unremark able. At the renal level of the abdominal aort a, the left upper 20 of the left renal artery, substantial atheroma localized thrombus is identified, for example image 116. Aneurysmal dilation identified in the pr oximal infrarenal abdominal aorta, with maximum diameter measured to be approximately 5.1 x 4.7 cm in diameter, with some intraluminal t hrombus identified, as expected and is nonobstructive. The aubree th of the aneurysmal dilation is approximately 4.5 cm. Please See snap shot for details. The proximal neck is approximately 1.4 cm be low the takeoff of the right renal artery, and the proximal neck sonja ures approximately to 0.4 x 2.6 cm in diameter. The calibre of the d istal neck of the aneurysmal dilation is measured to be approximately 2.6 x 2.5 cm in diameter. Immediately distal to the dilation, it a ppears patient is post graft placement in the remainder of the infrar enal abdominal aorta. This need to be correlate with prior surgical report. This graft is widely patent with no proximal or distal anasto motic stenosis identified. The coeliac axis is widely patent. Moder ate calcification is seen at the takeoff of the SMA and remainder of the SMA is patent. The RAMÓN is not well visualised. Single left and rig ht renal arteries are seen. Nonobstructive calcific and is seen in t he proximal right renal artery. With the substantial atheroma id entified at the abdominal aorta abutting the origin of the renal a rtery, there is mild to moderate stenosis identified at its orig in. Remainder of the the left renal artery is widely patent. There is no evidence of acute aortic pat hology, specifically, there is no dissection, intramural hematoma, o r contained rupture. Quantitative dimensions of the abdominal aorta are as follows: 2.8 cm at the mesenteric segment; 2.8 x 2.7 cm at the renal segment. There is likely pseudoaneurysmal dilatio n identified in the proximal left common iliac artery, and the dilati on is approximately 5.4 x 5.3 cm in diameter with some intraluminal th rombus present. Please See snapshot for details. Moderate tortuosit y is identified in the left common iliac artery. The internal iliac artery artery is patent with some eccentric calcification identified though at the mid level it measures up to 1.7 cm in diameter. The left external iliac artery has nonob structed calcification identified. Reference diameter is at fam st 6 to 7 mm in diameter. No stenosis is seen. The left common femora l artery is unremarkable. The left SFA has mild to moderate diffus e calcification identified, however, no discrete lesion is seen. The left profunda system is unremarkable. In the second dynamic data set, the left popliteal artery has eccentric nonobstructive calcification i dentified. In the left lower extremity, the left an terior tibial artery has mild to moderate diffuse calcification identi fied, however, the artery is enhanced by contrast, and overall the im pression is no critical obstructive lesion is appreciated. The l eft tibioperoneal trunk has nonobstructive calcification identified. The left peroneal artery is widely patent, and is well seen down to level of the ankle. Whilst the proximal one third of the left poste rior tibial artery is patent, the distal two third of the artery has d iffuse calcification identified suggesting severe stenosis sims btotal occlusion present extending into the plantar arch approxim ately. In the right, the right common iliac rig ht external iliac artery and the right common femoral artery has nono bstructive calcification identified. Mild dilation is seen in the proximal right internal iliac artery that measure 1.5 cm in diam eter. Moderate diffuse calcification is identi fied in the right SFA, with moderate diffuse disease identified. By visual estimation, there appears to be no critical lesion appreci ated. The right popliteal artery also have ecc entric nonobstructive calcification identified. Diffuse calcification is seen throughout the course of the right anterior tibial artery, though enhanceme nt is seen indicating patency. There is also diffuse calcifica tion identified in the right tibioperoneal trunk, though enhancement is seen indicating patency. The right peroneal artery is well enhanc ed by contrast. Diffuse disease is identified throughout the cou rse of the right posterior tibial artery and the right posterior ti bial artery is occluded in the distal one third of the segment exte nding into the plantar arch. NON-VASCULAR: Dependent changes are seen in the right base. Pulmonary vasculature could be mildly prominent. Some subsegme ntal atelectatic changes are seen, especially in the right base. In the abdomen, the liver and spleen sim ears unremarkable. The liver edge is smooth. No abnormal enhancing st ructures identified. Patient is post cholecystectomy. The adrenal gla nds are not enlarged. The pancreas appears grossly unremarkable. No acute renal pathology is seen and no hydronephrosis or perirenal fluid collection is identified. Left ext rarenal pelvis is seen. Renal cysts identified and by Hounsfield unit measurement, the larger cysts are all simple in nature. Bowel is not well assessed by CT angiogr aphy as enteric contrast is not given. No obvious bowel dilation is identified. 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 A wide neck hernia is identified in the midline of the lower abdomen, with t he neck measures at least 14 cm with variable loops of bowel present with no incarceration of strangulation present. The prostate is prominent. The bladder i s mildly dilated. No free air free flow seen abdomen pelvi s and no significant retroperitoneal adenopathy is identified . In the bony windows, no acute bony patho logy is seen. Diffuse degenerative changes is noted. A vertebr al hemangioma is identified at L3 level. CONCLUSIONS: 1. The mid and distal descending thora cic aorta is unremarkable with some atherosclerosis identified and no d ilation is seen. 2. Inferior to the takeoff of the renal arteries, localized aneurysmal dilation is identified, for l ength proximally 4.5 cm, with maximum diameter of approximately 5.1 x 4.7 cm thereafter, remainder of the mid/distal infrarenal abdominal a rima appears to have replaced by vascular graft. Correlate with operat antonia report. Atheroma/intraluminal thrombus is seen a t the renal level, abutting the takeoff of the left renal artery and may cause moderate stenosis of the origin of the left renal artery. 3. 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 However, the dilation does not involve t he left external iliac artery. The proximal left common iliac a rtery, distal to the dilation, distal to the left internal il iac artery takeoff is 10.6 x 8.6 mm. Please See snapshot for details. The right pelvic arteries are relatively unremarkable despite the presence of calcification seen throughou t the left and the right pelvic arteries. 4. Details of the SFA, popliteal arter ies, and runoff vessels as described above. 5. Other findings as described above. 6. An addendum will be dictated regard ing the non-vascular findings by the [employer] Drill Operator Radiologist. Signed: Sean Harkins MD Report Verified Date/Time: 06/30/2019 14:20:00 Procedure Note Interface, External Ris In - 07/03/2019 4:31 PM OTOLARYNGOLOGY REP Addendum Begins REPORT STATUS:A I have reviewed the study below and agre e with the nonvascular findings. Signed: Mayo Roberts MD Report Verified Date/Time: 07/03/2019 1 6:29:07 Reading Location: [facility] Radiology Readin Room Addendum Ends FINAL REPORT CT angiography of the abdominal aorta an d pelvic arteries, 30 June 2019 INDICATION: This is a 89 years old male, with a diagnosis of aortic aneurysm presents for assessment. TECHNIQUE: Spiral acquisition before and during intravenous contrast administration using a Siemens multidete ctor CT scanner. Images were obtained before and during the dynamic p assage of intravenous contrast material. Multi-planar 3-D vol ume-rendering reconstruction was performed using an independent works tation interactively by the interpreting physician as well as the 3- D specialist for optimal visualisation of the abdominal aorta, pe lvic arteries, and its branches. Please refer to the contrast sheet scann ed in the Snatch that Jerky system for the amount and route of contrast given. This exam was performed according to our departmental dose-optimisation programme, which inclu enzo automated exposure control, adjustment of the mA and/or kV according to patient size and/or use of iterative reconstruction t echnique. Dose modulation, iterative reconstruction, and/or weight based adjustment of the mA/kV was utilized to reduce the radiation dos e to as low as reasonably achievable. FINDINGS: VASCULAR: The aortic root and the proximal ascendi ng thoracic aorta is unremarkable, with minimal calcification is identified. The mid and distal descending thoracic aorta only phillips s scattered calcific and noncalcific atherosclerosis identified. No dilation is seen. 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 The left internal sales al mammary artery bypass graft is partially identified and is pat ent. The left ventricle is enlarged. Left atrial enlargement is terence ntified. The central pulmonary artery is prominent. The proximal abdominal aorta is unremark able. At the renal level of the abdominal aort a, the left upper 20 of the left renal artery, substantial atheroma localized thrombus is identified, for example image 116. Aneurysmal dilation identified in the pr oximal infrarenal abdominal aorta, with maximum diameter measured to be approximately 5.1 x 4.7 cm in diameter, with some intraluminal t hrombus identified, as expected and is nonobstructive. The aubree th of the aneurysmal dilation is approximately 4.5 cm. Please See snap shot for details. The proximal neck is approximately 1.4 cm be low the takeoff of the right renal artery, and the proximal neck sonja ures approximately to 0.4 x 2.6 cm in diameter. The calibre of the d istal neck of the aneurysmal dilation is measured to be approximately 2.6 x 2.5 cm in diameter. Immediately distal to the dilation, it a ppears patient is post graft placement in the remainder of the infrar enal abdominal aorta. This need to be correlate with prior surgical report. This graft is widely patent with no proximal or distal anasto motic stenosis identified. The coeliac axis is widely patent. Moder ate calcification is seen at the takeoff of the SMA and remainder of the SMA is patent. The RAMÓN is not well visualised. Single left and rig ht renal arteries are seen. Nonobstructive calcific and is seen in t he proximal right renal artery. With the substantial atheroma id entified at the abdominal aorta abutting the origin of the renal a rtery, there is mild to moderate stenosis identified at its orig in. Remainder of the the left renal artery is widely patent. There is no evidence of acute aortic pat hology, specifically, there is no dissection, intramural hematoma, o r contained rupture. Quantitative dimensions of the abdominal aorta are as follows: 2.8 cm at the mesenteric segment; 2.8 x 2.7 cm at the renal segment. There is likely pseudoaneurysmal dilatio n identified in the proximal left common iliac artery, and the dilati on is approximately 5.4 x 5.3 cm in diameter with some intraluminal th rombus present. Please See snapshot for details. Moderate tortuosit y is identified in the left common iliac artery. The internal iliac artery artery is patent with some eccentric calcification identified though at the mid level it measures up to 1.7 cm in diameter. The left external iliac artery has nonob structed calcification identified. Reference diameter is at fam st 6 to 7 mm in diameter. No stenosis is seen. The left common femora l artery is unremarkable. The left SFA has mild to moderate diffus e calcification identified, however, no discrete lesion is seen. The left profunda system is unremarkable. In the second dynamic data set, the left popliteal artery has eccentric nonobstructive calcification i dentified. In the left lower extremity, the left an terior tibial artery has mild to moderate diffuse calcification identi fied, however, the artery is enhanced by contrast, and overall the im pression is no critical obstructive lesion is appreciated. The l eft tibioperoneal trunk has nonobstructive calcification identified. The left peroneal artery is widely patent, and is well seen down to level of the ankle. Whilst the proximal one third of the left poste rior tibial artery is patent, the distal two third of the artery has d iffuse calcification identified suggesting severe stenosis sims btotal occlusion present extending into the plantar arch approxim ately. In the right, the right common iliac rig ht external iliac artery and the right common femoral artery has nono bstructive calcification identified. Mild dilation is seen in the proximal right internal iliac artery that measure 1.5 cm in diam eter. Moderate diffuse calcification is identi fied in the right SFA, with moderate diffuse disease identified. By visual estimation, there appears to be no critical lesion appreci ated. The right popliteal artery also have ecc entric nonobstructive calcification identified. Diffuse calcification is seen throughout the course of the right anterior tibial artery, though enhanceme nt is seen indicating patency. There is also diffuse calcifica tion identified in the right tibioperoneal trunk, though enhancement is seen indicating patency. The right peroneal artery is well enhanc ed by contrast. Diffuse disease is identified throughout the cou rse of the right posterior tibial artery and the right posterior ti bial artery is occluded in the distal one third of the segment exte nding into the plantar arch. NON-VASCULAR: Dependent changes are seen in the right base. Pulmonary vasculature could be mildly prominent. Some subsegme ntal atelectatic changes are seen, especially in the right base. In the abdomen, the liver and spleen sim ears unremarkable. The liver edge is smooth. No abnormal enhancing st ructures identified. Patient is post cholecystectomy. The adrenal gla nds are not enlarged. The pancreas appears grossly unremarkable. No acute renal pathology is seen and no hydronephrosis or perirenal fluid collection is identified. Left ext rarenal pelvis is seen. Renal cysts identified and by Hounsfield unit measurement, the larger cysts are all simple in nature. Bowel is not well assessed by CT angiogr aphy as enteric contrast is not given. No obvious bowel dilation is identified. 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 A wide neck hernia is identified in the midline of the lower abdomen, with t he neck measures at least 14 cm with variable loops of bowel present with no incarceration of strangulation present. The prostate is prominent. The bladder i s mildly dilated. No free air free flow seen abdomen pelvi s and no significant retroperitoneal adenopathy is identified . In the bony windows, no acute bony patho logy is seen. Diffuse degenerative changes is noted. A vertebr al hemangioma is identified at L3 level. CONCLUSIONS: 1. The mid and distal descending thorac ic aorta is unremarkable with some atherosclerosis identified and no d ilation is seen. 2. Inferior to the takeoff of the renal arteries, localized aneurysmal dilation is identified, for l ength proximally 4.5 cm, with maximum diameter of approximately 5.1 x 4.7 cm thereafter, remainder of the mid/distal infrarenal abdominal a rima appears to have replaced by vascular graft. Correlate with operat antonia report. Atheroma/intraluminal thrombus is seen a t the renal level, abutting the takeoff of the left renal artery and may cause moderate stenosis of the origin of the left renal artery. 3. 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 However, the dilation does not involve t he left external iliac artery. The proximal left common iliac a rtery, distal to the dilation, distal to the left internal il iac artery takeoff is 10.6 x 8.6 mm. Please See snapshot for details. The right pelvic arteries are relatively unremarkable despite the presence of calcification seen throughou t the left and the right pelvic arteries. 4. Details of the SFA, popliteal arteri es, and runoff vessels as described above. 5. Other findings as described above. 6. An addendum will be dictated regardi ng the non-vascular findings by the [employer] Goods Drill Operator Radiologist. Signed: Sean Harkins MD Report Verified Date/Time: 06/30/2019 1 4:20:00 Performing Organization Address City/[facility]/Zipcode Phone Number otoniel BOSWELL (06/29/2019 5:16 AM OTOLARYNGOLOGY REP) Pathologist Sig nature ABO Grouping B [facility] Rh Factor POS [facility] Specimen Blood Performing Organization Address City/[facility]/Zipcode Phone Number [address] [address] TSH/Free T4 If Indicated (06/28/2019 2:00 AM OTOLARYNGOLOGY REP) Pathologist Sig nature TSH 1.01 0.35 - 4.94 uIU/mL [facility] Specimen Blood Narrative Performed At Therapeutic Support Staff ID - [facility] Performing Organization Address [facility]/Zipcode Phone Number [facility] [address] [place] [address] CENTER Vitamin D, 25-Hydroxy (06/28/2019 2:00 AM OTOLARYNGOLOGY REP) Pathologist Sig nature Vitamin D 25-Hydroxy 34.6 6.6 - 49.9 ng/mL [facility] Specimen Blood Narrative Performed At Effective 03/03/2017: Reference Range Harinder lowery [facility] New: 6.6-49.9 ng/mL Previous: 13.0-47.8 ng/mL Recommended Vitamin D Target Range: 30.0-40.0 ng/mL Therapeutic Support Staff ID - Performing Organization Address City/[facility]/Zipcode Phone Number [address] [address] CENTER RPR (06/28/2019 2:00 AM OTOLARYNGOLOGY REP) Pathologist Sig nature RPR Nonreactive Nonreactive [facility] Specimen Blood Performing Organization Address [facility] Phone Number [address] [address] [place] Vitamin B12 (06/28/2019 2:00 AM OTOLARYNGOLOGY REP) Pathologist Sig nature Vitamin B12 569 213 - 816 pg/mL [facility] Specimen Blood Narrative Performed At Therapeutic Support Staff ID - YVONNE M [facility] Performing Organization Address [facility] Cent[facility]ode Phone Number [address] [address] CENTER Platelet count (06/27/2019 10:05 AM OTOLARYNGOLOGY REP) Pathologist Sig nature Platelets 243 150 - 450 K/CU MM [facility] Specimen Blood Narrative Performed At Therapeutic Support Staff ID - [id number] [facility] Performing Organization Address [facility] Cent[facility]ode Phone Number [address] [address] CENTER US renal complete (06/27/2019 9:11 AM OTOLARYNGOLOGY REP) Specimen Narrative Performed At FINAL REPORT [facility] TECHNIQUE: Grayscale ultrasound of the k idneys and bladder. INDICATION: 89-year-old man with acute k idney injury. COMPARISON: None. FINDINGS: RIGHT KIDNEY: The right kidney is mildly echogenic and measures 10 x 4.7 x 4 cm. Cortical thickness measures 1.2 cm. No solid mass lesions. No hydronephrosis. Renal artery and vein are patent. LEFT KIDNEY: The left kidney is mildly e chogenic and measures 9.9 x 5.2 x 3.8 cm. Cortical thickness measure s 1.1 cm. No solid mass lesions. Simple cysts measure 1.1 x 0.9 x 1.1 cm and 2.1 x 2.4 x 2.2 cm. Mild hydronephrosis. Renal artery an d vein are patent. BLADDER/PROSTATE: The prostate is mildly prominent and measures 4.2 x 3.7 x 4.8 cm. The bladder is unremarkabl e. IMPRESSION: Mildly echogenic kidneys, suggestive of medical renal disease. Mild hydronephrosis on the left. If concetta cated, abdomen and pelvis CT may be obtained for further evaluation. Prostatomegaly. Signed: Ana Maria Clark MD Report Verified Date/Time: 06/27/2019 12:54:46 Reading Location: [address] Radiolog y Reading Room Procedure Note Interface, External Ris In - 06/27/2019 12:56 PM OTOLARYNGOLOGY REP FINAL REPORT TECHNIQUE: Grayscale ultrasound of the k idneys and bladder. INDICATION: 89-year-old man with acute k idney injury. COMPARISON: None. FINDINGS: RIGHT KIDNEY: The right kidney is mildly echogenic and measures 10 x 4.7 x 4 cm. Cortical thickness measures 1.2 cm. No solid mass lesions. No hydronephrosis. Renal artery and vein are patent. LEFT KIDNEY: The left kidney is mildly e chogenic and measures 9.9 x 5.2 x 3.8 cm. Cortical thickness measure s 1.1 cm. No solid mass lesions. Simple cysts measure 1.1 x 0.9 x 1.1 cm and 2.1 x 2.4 x 2.2 cm. Mild hydronephrosis. Renal artery an d vein are patent. BLADDER/PROSTATE: The prostate is mildly prominent and measures 4.2 x 3.7 x 4.8 cm. The bladder is unremarkabl e. IMPRESSION: Mildly echogenic kidneys, suggestive of medical renal disease. Mild hydronephrosis on the left. If concetta cated, abdomen and pelvis CT may be obtained for further evaluation. Prostatomegaly. Signed: Ana Maria Clark MD Report Verified Date/Time: 06/27/2019 1 2:54:46 Reading Location: [address] Radiolog Reading Room Performing Organization Address [facility] Cent[facility]ode Phone Number RIS Uric acid (06/27/2019 5:02 AM OTOLARYNGOLOGY REP)Only the most recent of2 resultswithin the time period is included. Pathologist Sig nature Uric Acid 8.7 (H) 2.6 - 7.2 mg/dL [facility] Specimen Blood Narrative Performed At Therapeutic Support Staff ID - YVONNE Maci [facility] Performing Organization Address [facility] Centerconv Phone Number [address] [address] CENTER ECHOCARDIOGRAM REPORT - SCAN (06/26/2019 9:20 PM OTOLARYNGOLOGY REP) Narrative Performed At This result has an attachment that is no t available. POCT-HEMATOCRIT (06/26/2019 8:04 PM OTOLARYNGOLOGY REP) Pathologist Sig nature POC-Hematocrit 34 (L)Comment: 40 - 50 % [facility] TESTED AT [address] [address] Specimen Blood Performing Organization Address [facility] Centerconv Phone Number [address] [phone] CENTER POCT-HEMOGLOBIN (06/26/2019 8:04 PM OTOLARYNGOLOGY REP) POC-Hemoglobin 11.6 (L)Comment: 13.0 - 16.8 [facility] TESTED AT [facility] g/dL [address] [id number] AT [address] [address] Specimen Blood Performing Organization Address [facility] Centercode Phone Number [facility] [address] [address] [place] POCT-GLUCOSE (06/26/2019 8:04 PM OTOLARYNGOLOGY REP) Pathologist [facility] POC-Glucose 96Comment: TESTED 70 - 110 mg/dL [facility] AT [address] [address] Specimen Blood Performing Organization Address City/[facility]/Zipcode Phone Number [address] [address] [place] POC-Sodium (06/26/2019 8:04 PM OTOLARYNGOLOGY REP) Pathologist [facility] POC-Sodium 134 (L)Comment: 135 - 148 meq/L [facility] TESTED AT [address] [address] Specimen Blood Performing Organization Address [facility] Phone Number [address] [address] [place] POC-Potassium (06/26/2019 8:04 PM OTOLARYNGOLOGY REP) Pathologist [facility] POC-Potassium 4.7Comment: 3.6 - 5.5 meq/L [facility] TESTED AT [address] [address] Specimen Blood Performing Organization Address [facility] Phone Number [address] [address] [place] POC-Calcium ionized (06/26/2019 8:04 PM OTOLARYNGOLOGY REP) [facility] POC-Calcium 1.16Comment: 1.12 - 1.27 [facility]S Ionized TESTED AT [facility] mmol/L [address] [address] Specimen Blood Performing Organization Address City/[facility] Centerconv Phone Number [address] [address] [place] POC-Blood gases, arterial (06/26/2019 8:04 PM OTOLARYNGOLOGY REP) Pathologist [facility] Temp. Celsius-POC 36.3 [facility] FIO2-POC 24Comment: [facility] TESTED AT [address] [address] pH, Arterial-POC 7.448 7.350 - 7.450 [facility] PCO2, Arterial-POC 33.8 (L) 35.0 - 45.0 mm [facility] PO2, Arterial-POC 56.0 (L) 80.0 - 90.0 mm [facility] SO2, Arterial-POC 91.0 (L) 96.0 - 97.0 % [facility] HCO3, 23.6 21.0 - 29.0 [facility] Arterilal-POC meq/L [facility] BE, Arterial-POC -1.0 -2.0 - 3.0 [facility] meq/L [facility] Specimen Blood Performing Organization Address [facility]/Zipcode Phone Number [address] [address] [place] Lactic Acid, Arterial (06/26/2019 8:00 PM OTOLARYNGOLOGY REP) Pathologist Sig nature Lactate, Art 0.9 0.5 - 2.2 mmol/L [facility] Specimen Blood, Arterial Narrative Performed At Therapeutic Support Staff ID - [id number] [facility] Performing Organization Address [facility]/Zipcode Phone Number [address] [address] [place] 2D Echo W/Doppler(CW/PW/Color) (06/26/2019 10:51 AM OTOLARYNGOLOGY REP) Pathologist Sig nature Ejection Fraction [facility] ECHO HEARTLAB [facility] Specimen Narrative Performed At Transthoracic Echocardiography Report (T TE) [facility] ECHO HEARTLAB [facility] Demographics Patient Name ROHAN PRADHAN Date of Study 06/26/2019 ROSALVA Gender Male Visit Number [id number] Race Unknown Room Number 1014 Number Date of 1930 Referring Physician Bennett Andrade MD Age 89 year(s) 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 Clinical History HGB 12.1 HCT 37.4 % ANEMIA CAD CHF COPD HIGH CHOLESTROL HTN Contrast Medium: Definity. Amount - 2 ml Height: 62 inches Weight: 89.36 kg (197 lbs) BSA: 1.9 m^2 BMI: 36.03 kg/m^2 HR: 76 bpm BP: 101/49 mmHg Summary Technically difficult exam. LV endocardium is partially visualized with IV ultrasound enhancing agent. The left ventricle is chamber size (by vol index) is mildly enlarged (male - LVED 75-89ml/m2). All of the LV segments are mildly hypokinetic . Estimated LVEF by qualitative assessment is mildly reduced (40-44%) . Unable to estimate peak systolic PA pressure; inadequate TR velocity signal. Signature Findings Left Ventricle LV endocardium is partially visualized with IV ultrasound enhancing agent. The left ventricle is chamber size (by vol index) is mildly enlarged (male - LVED 75-89ml/m2). Ligia l LV wall thickness. All of the LV segments are mildly hypokinetic . Estimated LVEF by qualitat antonia assessment is mildly reduced (40-44%) . Left Atrium LA size is normal . LA is incompletely visualized, size based on qualitative assessment. Right Ventricle RV is partially visualized. Right Atrium The RA is partially visualized. RA cavity size is normal . Aortic Valve Mild AoV cusp thickening. Mitral Valve Mild MV leaflet thickening. Moderate mitral annular calcification. Tricuspid Valve A trace of tricuspid regurgitation. Unable to estimate peak systolic PA pressure; inadequate TR velocity signal. Pulmonic Valve Normal PV structure and function by limited views and Doppler. Aorta Aortic root size (SInus of Valsalva diameter) is norm al . Pericardium No evidence of pericardial effusion. IVC/SVC/PA/PV/Pleural The estimated RA pressure by IVC dynamics indeterminate . Chambers/Structures Left Atrium LA Dimension: 4.45 cm Left Ventricle LVIDd: 6.32 cm LV Septum Diastolic: 1.03 cm LV PW Diastolic: 1.1 cm LVEDV Rodriguez's:158.17 ml LVESV Rodriguez's:89.19 ml LVEF Rodriguez's: 43.6 % LVEDVI: 83 ml/m^2 LVESVI: 47 ml/m^2 LVOT Diameter: 2.13 cm Right Ventricle RVOT VTI: 11.14 cm Aorta Ao Root S of Tiara.: 3.87 cm Doppler/Quantitative Measurements Mitral Valve MV Peak E-Wave: 0.45 m/s MV Peak A-Wave: 0.99 m/s P1/2t: 74.7 msec E/A Ratio: 0.45 Peak Gradient: 0.8 mmHg Deceleration Time: 257.4 msec MV Area (PHT): 2.95 cm^2 MV Javier. Peak: Aortic Valve Peak Velocity: 1.16 m/s Mean Velocity: 0.79 m/s Peak Gradient: 5.36 mmHg Mean Gradient: 2.95 mmHg AV Area (continuity): 3.53 cm^2 AV VTI: 22.15 cm AV DVI: 0.99 LVOT Peak Velocity: 0.98 m/s Peak Gradient: 3.88 mmHg Mean Velocity: 0.6 m/s Mean Gradient: 1.78 mmHg LVOT Diameter: 2.13 cm LVOT VTI: 21.97 cm LVOT Area: 3.56 cm^2 LVOT SV:78.25 ml LVOT CO: 5.95 l/min LVOT CI: 3.13 l/min/m^2 Procedure Note Interface, External Ris In - 06/26/2019 2:19 PM OTOLARYNGOLOGY REP Transthoracic Echocardiography Report (TTE) Demographics Patient Name ROHAN PRADHAN Date of Study 06/26/2019 ROSALVA Gende r Male Visit Number [id number] Race Unknown Room Number 1014 Number Date of 1930 Refer [facility] Physician Bennett Andrade MD Age 89 year(s) 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 Clinical History HGB 12.1 HCT 37.4 % ANEMIA CAD CHF COPD HIGH CHOLESTROL HTN Contrast Medium: Definity. Amount - 2 ml Height: 62 inches Weight: 89.36 kg (197 lbs) BSA: 1.9 m^2 BMI: 36.03 kg/m^2 HR: 76 bpm BP: 101/49 mmHg Summary Technically difficult exam. LV endocard ium is partially visualized with IV ultrasound enhancing agent. The left ventricle is chamber size (by vol index) is mildly enlarged (male - LVED 75-89ml/m2). All of the LV segme nts are mildly hypokinetic . Estimated LVEF by qualitative assessmen t is mildly reduced (40-44%) . Unable to estimate peak systolic PA pre ssure; inadequate TR velocity signal. Signature Findings Left Ventricle LV endocardium i s partially visualized with IV ultrasound enhan cing agent. The left ventric le is chamber size (by vol index) is mildly enlarg ed (male - LVED 75-89ml/m2). Normal LV wall thicknes s. All of the LV segments are mildly hypokinet ic . Estimated LVEF by qualitative assessment is mi ldly reduced (40-44%) . Left Atrium LA size is ligia l . LA is incomplete ly visualized, size based on qualitative asse ssment. Right Ventricle RV is partially visualized. Right Atrium The RA is partia lly visualized. RA cavity size i s normal . Aortic Valve Mild AoV cusp th ickening. Mitral Valve Mild MV leaflet thickening. Moderate mitral annular calcification. Tricuspid Valve A trace of tricu spid regurgitation. Unable to estima te peak systolic PA pressure; inadequate TR ve locity signal. Pulmonic Valve Normal PV struct ure and function by limited views and Doppler. Aorta Aortic root size (SInus of Valsalva diameter) is normal . Pericardium No evidence of p ericardial effusion. IVC/SVC/PA/PV/Pleural The estimated RA pressure by IVC dynamics indeterminate . Chambers/Structures Left Atrium LA Dimension: 4.45 cm Left Ventricle LVIDd: 6.32 cm LV Septum Diastolic: 1.03 cm LV PW Diastolic: 1.1 cm LVEDV Rodriguez's:158.17 ml LVESV Rodriguez's:89.19 ml LVEF Rodriguez's: 43.6 % LVEDVI: 83 ml/m^2 LVESVI: 47 ml/m^2 LVOT Diameter: 2.13 cm Right Ventricle RVOT VTI: 11.14 cm Aorta Ao Root S of Tiara.: 3.87 cm Doppler/Quantitative Measurements Mitral Valve MV Peak E-Wave: 0.45 m/s MV P eak A-Wave: 0.99 m/s P1/2t: 74.7 msec E/A Ratio: 0.45 Peak Gradient: 0.8 mmHg Dece leration Time: 257.4 msec MV Area (PHT): 2.95 cm^2 MV Javier. Peak: Aortic Valve Peak Velocity: 1.16 m/s Mean Velocity: 0.79 m/s Peak Gradient: 5.36 mmHg Mean Gradient: 2.95 mmHg AV Area (continuity): 3.53 cm^2 AV VTI: 22.15 cm AV DVI: 0.99 LVOT Peak Velocity: 0.98 m/s Pea k Gradient: 3.88 mmHg Mean Velocity: 0.6 m/s Ada n Gradient: 1.78 mmHg LVOT Diameter: 2.13 cm LVO T VTI: 21.97 cm LVOT Area: 3.56 cm^2 LVO T SV:78.25 ml LVOT CO: 5.95 l/min LVO T CI: 3.13 l/min/m^2 Performing Organization Address City/State/Zipcode Phone Number [facility] myocardial perfusion PET (rest and stress) (06/26/2019 10:15 AM OTOLARYNGOLOGY REP) Specimen Narrative Performed At FINAL REPORT [email or web address] PROCEDURE: MYOCARDIAL PERFUSION PET IMAG ING (Rest/Stress) CPT CODE: 58508 INDICATION: Chest discomfort, known CAD status post ACB, preoperative risk stratification for vascular surgery CARDIOVASCULAR PROFILE: CAD History: Known CAD status post ACB Symptoms: Chest discomfort, dyspnea Risk Factors: Known CAD, hypertension, C KD, obesity BMI: 36 Medications: Aspirin, Plavix, pravastati n STRESS PROTOCOL: Pharmacologic stress was achieved with a 10-second intravenous infusion of regadenoson 0.4 mg. The radi opharmaceutical was administered 30 seconds after the start of the regadenoson infusion. IMAGING PROTOCOL: Limited low-dose CT imaging was performe d for attenuation correction. 40.0 mCi of Rb-82 chloride was injected intravenously at rest, and gated PET images were obtained. Then, 40 .1 mCi of Rb-82 chloride was injected intravenously at peak stress, a nd gated PET images were obtained. REST FINDINGS: HR: 56/min BP: 107/49 mmHg Prelim. EKG: Sinus bradycardia, incomple te right bundle branch block, nonspecific T wave abnormalities. Perfusion: There is a marked severity pe rfusion defect of the basal to mid inferior, basal inferolateral, ba britney inferoseptal segments. There is a mild severity perfusion defec t of the apical inferior segment. Wall Motion:Gated Images non-interpretab le at rest. LV Volume: Normal. RV Volume: Normal. STRESS FINDINGS: HR: 76/min (57% of MPHR) BP: 75/42 mmHg Prelim. EKG: No ischemic changes. Symptoms: Shortness of breath (aminophyl line 125mg IV given). Perfusion: There is a marked severity pe rfusion defect of the basal to apical inferior, basal to mid inferos eptal and anteroseptal segments. There is a moderate severity p erfusion defect of the mid to apical anterior, apical lateral, apical septal, apical segments. Wall Motion: There is akinesis of the ba britney to mid inferior, basal to mid inferoseptal LV although the overall LVEF remains preserved. (LVEF 55%). LV Volume: Mildly increased from rest. IMPRESSION: 1. Abnormal study. 2. Abnormal myocardial perfusion. There is a large size, marked severity, partially reversible perfusion abnormality in the inferior and basal septal LV. There is a large si ze, moderate severity, mostly reversible perfusion abnormality in the mid to apical anterior and apical LV. This is indicative of multive ssel obstructive coronary artery disease. Given severity of the pe rfusion defect to the inferior LV, consider viability study to guide decision-making on revascularization. 3.Akinesis of the basal to mid inferior and basal septal segments at stress with overall preserved ejection f raction. 4. Normal extracardiac tracer distributi on. 5. There is no prior study for compariso n. Signed: Karl Diaz MD Report Verified Date/Time: 06/26/2019 14:27:49 Reading Location: [address] Reading Room Procedure Note Interface, External Ris In - 06/26/2019 2:30 PM OTOLARYNGOLOGY REP FINAL REPORT PROCEDURE: MYOCARDIAL PERFUSION PET IMAG ING (Rest/Stress) CPT CODE: 34241 INDICATION: Chest discomfort, known CAD status post ACB, preoperative risk stratification for vascular surgery CARDIOVASCULAR PROFILE: CAD History: Known CAD status post ACB Symptoms: Chest discomfort, dyspnea Risk Factors: Known CAD, hypertension, C KD, obesity BMI: 36 Medications: Aspirin, Plavix, pravastati n STRESS PROTOCOL: Pharmacologic stress was achieved with a 10-second intravenous infusion of regadenoson 0.4 mg. The radi opharmaceutical was administered 30 seconds after the start of the regadenoson infusion. IMAGING PROTOCOL: Limited low-dose CT imaging was performe d for attenuation correction. 40.0 mCi of Rb-82 chloride was injected intravenously at rest, and gated PET images were obtained. Then, 40 .1 mCi of Rb-82 chloride was injected intravenously at peak stress, a nd gated PET images were obtained. REST FINDINGS: HR: 56/min BP: 107/49 mmHg Prelim. EKG: Sinus bradycardia, incomple te right bundle branch block, nonspecific T wave abnormalities. Perfusion: There is a marked severity pe rfusion defect of the basal to mid inferior, basal inferolateral, ba britney inferoseptal segments. There is a mild severity perfusion defec t of the apical inferior segment. Wall Motion:Gated Images non-interpretab le at rest. LV Volume: Normal. RV Volume: Normal. STRESS FINDINGS: HR: 76/min (57% of MPHR) BP: 75/42 mmHg Prelim. EKG: No ischemic changes. Symptoms: Shortness of breath (aminophyl line 125mg IV given). Perfusion: There is a marked severity pe rfusion defect of the basal to apical inferior, basal to mid inferos eptal and anteroseptal segments. There is a moderate severity p erfusion defect of the mid to apical anterior, apical lateral, apical septal, apical segments. Wall Motion: There is akinesis of the ba britney to mid inferior, basal to mid inferoseptal LV although the overall LVEF remains preserved. (LVEF 55%). LV Volume: Mildly increased from rest. IMPRESSION: 1. Abnormal study. 2. Abnormal myocardial perfusion. There is a large size, marked severity, partially reversible perfusion abnormality in the inferior and basal septal LV. There is a large si ze, moderate severity, mostly reversible perfusion abnormality in the mid to apical anterior and apical LV. This is indicative of multive ssel obstructive coronary artery disease. Given severity of the pe rfusion defect to the inferior LV, consider viability study to guide decision-making on revascularization. 3.Akinesis of the basal to mid inferior and basal septal segments at stress with overall preserved ejection f raction. 4. Normal extracardiac tracer distributi on. 5. There is no prior study for compariso n. Signed: Karl Diaz MD Report Verified Date/Time: 06/26/2019 1 4:27:49 Reading Location: [id number] [facility] Reading Room Performing Organization Address City/State/Zipcode Phone Number [email or web address] Treadmill tolerance(Non-Nuclear Treadmill) (06/26/2019 10:08 AM OTOLARYNGOLOGY REP) Specimen Narrative Performed At Protocol Name Nerissa [employer] Time In Exercise Phase 00:01:00 Max. Systolic BP 73 mmHg Max Diastolic BP 42 mmHg Max Heart Rate 76 BPM Max Predicted Heart Rate 133 BPM Reason For Termination Predetermined end point Reason for Test Chest Pain,pre operative cardiac clearance. Target HR Formula (220 - Age)*100% Arrhythmias ventricular premature beats Resting ECG Sinus Bradycardia,Incomplete RBBB,T wave abnormal ST Changes No Significant Changes Overall Impression Indeterminate due to pharmacological stress Chest Pain none HR Response To Exercise BP Response To Exercise asa,clopidogrel,levothyroxine PRAVACHOL Confirmed by fellow Lola Richards ( [id number]) on 06/26/2019 1:21:37 PM Confirmed by Lucian Quarles ([id number]) on 07/07/2019 2:04: 31 PM Procedure Note Interface, External Ris In - 07/07/2019 2:04 PM OTOLARYNGOLOGY REP Protocol Name Regadenoson Time In Exercise Phase 00:01:00 Max. Systolic BP 73 mmHg Max Diastolic BP 42 mmHg Max Heart Rate 76 BPM Max Predicted Heart Rate 133 BPM Reason For Termination Predetermined end point Reason for Test Chest Pain,pre operative cardiac clearance. Target HR Formula (220 - Age)*100% Arrhythmias ventricular premature beats Resting ECG Sinus Bradycardia,Incomplete RBBB,T wave abnormal ST Changes No Significant Changes Overall Impression Indeterminate due to pharmacological stress Chest Pain none HR Response To Exercise BP Response To Exercise asa,clopidogrel,levothyroxine PRAVACHOL Confirmed by fellow Lola Richards ( [id number]) on 06/26/2019 1:21:37 PM Confirmed by Lucian Quarles ([id number]) on 2:04:31 PM Performing Organization Address City/State/[facility] Phone Number [employer] Urine culture (06/25/2019 12:47 PM OTOLARYNGOLOGY REP) Pathologist Sig nature Result No growth [facility] Specimen Urine - Urinary catheter, device (physic al object) Performing Organization Address City/[facility]/Zipcode Phone Number [facility] [address] [place] [address] CENTER XR chest 2 views (06/24/2019 9:17 AM OTOLARYNGOLOGY REP) Specimen Narrative Performed At FINAL REPORT [email or web address] TECHNIQUE: 2 views of the chest. COMPARISON: None FINDINGS: The cardiac silhouette is right. Posts urgical changes in the mediastinum. Lungs are hyperinflated. rspace opacities in the lower lungs may be due to atelectasis or pneum onitis. Vague curvilinear density in the right upper lobe measurin g 1.2 cm could be related to atelectasis, scarring, as well as lung n odule or mass. Similarly, 1.5 cm opacity in the left apex also seen. No acute skeletal abnormality. Soft tissues appear unremar kable. IMPRESSION: Bibasilar densities could be due to atel ectasis and/or pneumonitis. Opacities in the upper lobes as describe d for which nodule or pneumonia cannot be excluded. These coul d be further assessed with chest CT when feasible. Signed: Maoy Roberts MD Report Verified Date/Time: 06/24/2019 10:06:59 Reading Location: [facility] C013[facility] Reading Room Procedure Note Interface, External Ris In - 06/24/2019 10:09 AM OTOLARYNGOLOGY REP FINAL REPORT TECHNIQUE: 2 views of the chest. COMPARISON: None FINDINGS: The cardiac silhouette is right. Postsu rgical changes in the mediastinum. Lungs are hyperinflated. rspace opacities in the lower lungs may be due to atelectasis or pneum onitis. Vague curvilinear density in the right upper lobe measurin g 1.2 cm could be related to atelectasis, scarring, as well as lung n odule or mass. Similarly, 1.5 cm opacity in the left apex also seen. No acute skeletal abnormality. Soft tissues appear unremar kable. IMPRESSION: Bibasilar densities could be due to atel ectasis and/or pneumonitis. Opacities in the upper lobes as describe d for which nodule or pneumonia cannot be excluded. These coul d be further assessed with chest CT when feasible. Signed: Mayo Roberts MD Report Verified Date/Time: 06/24/2019 1 0:06:59 Reading Location: [facility] C013[facility] Reading Room Performing Organization Address City/State/Zipcode Phone Number [facility] Urinalysis Microscopic Only (06/23/2019 11:32 PM OTOLARYNGOLOGY REP) Pathologist Sig nature RBC, UA 107 /HPF [facility] WBC, UA 911Comment: Wbc /HPF [facility] clumps seen [facility] Bacteria, UA Many [facility] Hyaline Casts, UA 5 /LPF [facility] Specimen Urine Narrative Performed At Therapeutic Support Staff ID - tech [facility] Performing Organization Address [facility]/Zipcode Phone Number [facility] [address] [place] [address] [place] Urinalysis with Microscopic If Indicated (06/23/2019 11:32 PM OTOLARYNGOLOGY REP) Color, UA Light Yellow [facility] Clarity, UA Slightly Cloudy [facility] Specific [place], 1.013 1.001 - 1.035 [facility] pH, UA 7.0 5.0 - 8.0 [facility] Protein, UA 20 mg/dL (A) Negative [facility] Glucose, UA Negative Negative [facility] Ketones, UA Negative Negative [facility] Bilirubin, UA Negative Negative [facility] Blood, UA Small (A) Negative [facility] Nitrite, UA Negative Negative [facility] Leukocytes, UA Large (A) Negative [facility] Urobilinogen, UA 0.2 0.2 - 1.0 mg/dL [facility] Specimen Source [facility] Specimen Urine Narrative Performed At Therapeutic Support Staff ID - [[email or web address]] [facility] Therapeutic Support Staff ID - tech Performing Organization Address City/[facility]/Zipcode Phone Number [facility] [address] [place] [address] CENTER Urea Nitrogen, random urine (06/23/2019 11:32 PM OTOLARYNGOLOGY REP) Pathologist Sig nature Urea Nitrogen, Ur 544 mg/dL [facility] Specimen Urine Narrative Performed At Reference Range: No Normals [facility] Therapeutic Support Staff ID - LINDSEY W Performing Organization Address City/State/Zipcode Phone Number [facility] [address] [place] [address] [place] Creatinine, random urine (06/23/2019 11:32 PM OTOLARYNGOLOGY REP) Pathologist Sig nature Creatinine, Ur 33.7 mg/dL [facility] [place] Specimen Urine Narrative Performed At Reference Range: No Normals [facility] Therapeutic Support Staff ID - LINDSEY W Performing Organization Address City/State/Zipcode Phone Number [facility] [address] [place] [address] [place] after 03/16/2019 Insurance Payer Benefit Plan / Subscriber ID Effective Dates Phone Addre ss Type Group MEDICARE MEDICARE A B [id number] 1997-Presen Medicare t [employer] - MGD CARE [employer] INDEMNITY [id number] 2013-Present Comm NON CONTR Advance Directives For more information, please contact: [phone] Code Status Date Activated Date Inactivated Comments DNAR 08/31/2019 1:41 PM 09/11/2019 4:54 PM Per my disc ussion with his outpatient provi erik Dr. Olivier; she reports he has d ocumentation for this and that th tahir had discussed his wishes with him and MPOA in clinic many times. 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 No Have you Written ACP Note: No Full Code 08/30/2019 3:43 PM 08/31/2019 1:41 PM This code status was determined by: Patient Full Code 06/23/2019 10:32 PM 07/06/2019 10:46 AM This code status was determined by: Patient
--- OUTSIDE RECORDS SUMMARY | 2020-03-16 18:28 | XMS REPORT | Continuity of Care Document ---
:1930 Author Organization [facility] t Address [address] [place] [address] Care Team Providers Name Role Phone Asked, Pcp Primary Care Physician Unavailable Yaritza QUINTEROS Attending Clinician Irineo QUINTEROS Attending Clinician Zeenat Attending Clinician Unavailable Shira QIUNTEROS Attending Clinician Unavailable Chevy CORONA Attending Clinician Drew Ayers MD Attending Clinician Radha Strickland MD Attending Clinician Lacey Renteria MD Attending Clinician Luis Bone MD Attending Clinician Fabrizio Rodriguez MD Attending Clinician Magdi Chowdary MD Attending Clinician Jose Luis Fair Attending Clinician Unavailable Irineo QUINTEROS Attending Clinician DREW AYERS Attending Clinician Unavailable YARITZA Attending Clinician Unavailable Bhakti Chaney MD Attending Clinician Carlo QUINTEROS Attending Clinician Sylwia Byrd MD Attending Clinician Facundo Robles MD Attending Clinician Schuyler Rich MD Attending Clinician RADHA STRICKLAND Attending Clinician Unavailable Doctor Unassigned, Name Attending Clinician Unavailable Diego QUINTEROS, Regino Attending Clinician DREW AYERS Admitting Clinician Unavailable Sylwia BYRD Admitting Clinician Unavailable Payers Payer Name Policy Type Policy Effective Date Expiration Date Sour ce Number MEDICAREMEDICARE A [id number] [address] [facility] [id number] [facility] M[facility] CAREAETNA [id number] [address] [facility] INDEMNITY NON 00:00:00 - Medical [id number] 2013 Ce nter -PresentComm Problems Condition Condition Condition Status Onset Resolution Last Treating Co mments Source Name Details Category Date Date Treatment Clinician Date Acute Acute Disease Active 2020- [facility] postoperat postoperat 2-10 Emmie kes - an[place]ia pain an[place]ia pain 00:00: Medica l 00 Center Dementia Dementia Disease Active 2020-[facility] Medical [facility] Center Insomnia Insomnia Disease Active 2020-[facility] Medical 00 Center COPD COPD Disease Active 2020- [facility] (chronic (chronic 2-10 [facility] - obstructiv obstructiv 00:00: Me dical e e 00 Center pulmonary pulmonary disease) disease) CKD CKD Disease Active 2020-[address] [facility] (chronic (chronic 2-10 [facility] - kidney kidney 00:00: Medical disease) disease) 00 Center S/P common S/P common Disease Active 2020-[address] Fem artery Fem artery 2-10 Emmie kes - pseudoaneu pseudoaneu 00:00: Me dical rysm rysm 00 Center repair - repair - 09/01/19 - 09/01/19 - Irineo Cabello Essential Essential Disease Active 2020-[address] [facility] hypertensi hypertensi 2-10 Emmie kes - on on 00:00: Medical 00 Center Atrial Atrial Disease Active 2020-[address] [facility] fibrillati fibrillati 2-10 Emmie kes - on on 00:00: Medical 00 [place] Atrial Atrial Disease Active [facility] flutter flutter 2-10 [facility] - 00:00: Medical 00 [place] Leukocytos Leukocytos Disease Active [facility] is is 2-10 [facility] - 00:00: Medical 00 [place] Hypothyroi Hypothyroi Disease Active [facility] dism dism 2-10 [facility] - 00:00: Medical 00 Center BPH BPH Disease Active [facility] (benign (benign 2-10 [facility] - prostatic prostatic 00:00: Medi dmitriy hyperplasi hyperplasi 00 Ce nter a) a) ALDO (acute ALDO (acute Disease Active [facility] kidney kidney 1-31 [facility] - injury) injury) 00:00: Medical 00 [place] Chronic Chronic Disease Active [facility] diastolic diastolic 8-13 [facility] - heart heart 00:00: Medical failure failure 00 Center 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 7-07 [facility] - disease of disease of 00:00: Me dical [place] 00 Center heart 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 Dyslipidem Dyslipidem Disease Active [facility] ia ia 4-11 [facility] - 00:00: Medical 00 [place] CKD CKD Disease Active [facility] (chronic (chronic [facility] - kidney kidney Medical disease), disease), [facility] er stage III stage III History of Past Illness Condition Condition Condition Status Onset Resolution Last Treating Co mments Source Name Details Category Date Date Treatment Clinician Date Pseudoaneu Pseudoaneu Disease Resolve 2019-09-10 2019-09-[address] [facility] rysm of rysm of d 4-09 00:00:00 14:07:57 Luke [facility] - aorta aorta 00:00: Medical 00 [place] Allergies, Adverse Reactions, Alerts Allergy Allergy Status Severity Reaction(s) Onset Inactive Treating Comm ents Source Name Type Date Date Clinician Iodine Propensi Active Other (See Patient Axel ston ty to Comments) 6-17 and Methodi adverse 00:00: family st reaction 00 member s to does not drug know thw reaction Iodine Propensi Active Rash, Hives [facility] ty to 8-05 [facility] - adverse 00:00: Medical reaction 00 Center s Family History Family Member Diagnosis Comments Start Date Stop Date Source Natural son Diabetes [facility] Social History Social Habit Start Date Stop Date Quantity Comments Source History of tobacco Current smoker [facility] - use Medical Center History SDOH [facility] - Alcohol Std Drinks Medica l Center History SDOH [facility] - Alcohol Binge Medical Debbie ter Sex Assigned At [facility] Tobacco use and 2019-09-14 2019-09-14 Never used [facility] kes - exposure 00:00:00 00:00:00 [facility] Alcohol intake 2019-09-14 2019-09-[address] [facility] [address] Bteh es - 00:00:00 00:00:00 non-drinker of Medical Ce nter alcohol (finding) History SDOH 2019-06-23 2019-06-[address] [facility] [address] [facility] - Alcohol Frequency 00:00:00 00:00:00 [facility] Cigarettes smoked 2015-11-11 2015-11-11 Coy [employer] current (pack per 00:00:00 00:00:00 day) - Reported Cigarette 2015-11-11 2015-11-11 Coy Method ist pack-years 00:00:00 00:00:00 Smoking Status Start Date Stop Date Source Former smoker 2019-09-14 00:00:00 2019-09-14 00:00:00 [facility] Medications Ordered Filled Start Stop Current Ordering Indication Dosage Frequency Signature Comments Components Source Medication Medication Date Date Medication? Clinician (SIG) Name Name pravastatin Yes 40mg Take [address] [facility] (PRAVACHOL) 4-23 by mouth. Beth es - 40 MG 10:59: Medical tablet 51 [place] metOLazone Yes 2.5mg Q7D Take 2.[address] (ZAROXOLYN) 4-23 mg by [facility] - 2.5 MG 10:59: mouth once Medic al tablet 51 a week. [place] acetaminoph Yes 650mg Take [address] en 4-23 mg by [facility] - (TYLENOL) 10:59: mouth Medical 500 MG 51 every 6 Center tablet (six) hours as needed for Pain. melatonin 3 Yes 5mg QD Take [address] mg Tab 4-23 by mouth [facility] - tablet 10:59: nightly. Medical [address] [place] [address] fluticasone 0 2019- No QD Inhale by [facility] furoate-inocente 4-23 04-23 mouth via Emmie kes - anterol 10:59: 00:00 inhaler Medica l (BREO 09 :00 daily. [place] ELLIP) 200-25 mcg/dose DsDv umeclidiniu 2019-0 Yes Inhale by [facility] m 4-23 mouth via [facility] - brm/vilante 10:45: inhaler. Me dical rol tr 00 [place] (ANORO ELLIPTA INHL) albuterol 2019-0 Yes 2{puff} Inhale [address] HFA 4-23 puffs by [facility] - (VENTOLIN 10:45: mouth via Med ical HFA) 90 00 inhaler as Center mcg/actuati needed. on inhaler ferrous Yes 324mg Take [address] [facility] sulfate 324 4-23 tablet [facility] - mg (65 mg 00:00: (324 mg Medic al iron) TbEC 00 total) by [facility] er mouth daily with breakfast. tamsulosin Yes .4mg QD Take 1 [facility] (FLOMAX) 4-20 capsule [facility] - 0.4 mg Cap 00:00: (0.4 mg Medi dmitriy 24 hr 00 total) by [place] capsule mouth daily. apixaban 2019- No Chronic 2.5mg Q.5D Take 0.[address] [address] (ELIQUIS) 5 4-20 07-19 atrial tablets Emmie kes - mg Tab 00:00: 23:59 fibrillatio (2.5 mg Medical tablet 00 :00 n (HCC) total) by Cente r mouth 2 (two) times daily for 90 days. lisinopriL 2019- No 2.5mg QD Take [address] [facility] [address] (PRINIVIL,Z 4-20 04-20 tablet [facility] - ESTRIL) 2.5 00:00: 00:00 (2.5 mg Me dical MG tablet 00 :00 total) by Cente r mouth daily. levothyroxi 2020- No 125ug Take [address] ne 4-06 04-06 tablet [facility] - (SYNTHROID, 00:00: 23:59 (125 mcg M edical LEVOTHROID) 00 :00 total) by [facility] ter 125 MCG mouth tablet Every morning on an empty stomach. levothyroxi 2019- No 125ug Take [address] ne 08-27 04-06 tablet [facility] - (SYNTHROID, 00:00: 00:00 (125 mcg M edical LEVOTHROID) 00 :00 total) by Debbie ter 125 MCG mouth tablet Every morning on an empty stomach. finasteride Yes 5mg 5 mg. [facility] (PROSCAR) 5 3-29 [facility] - mg tablet 00:00: Medical 00 Center senna 2020- No Slow 8.6mg Take [address] (SENOKOT) 2-20 02-19 transit tablet Luke s - 8.6 mg 00:00: 23:59 constipatio (8.6 mg Medical tablet 00 :00 n total) by Center mouth daily as needed for Constipati on. bumetanide 2019- No Chronic 1mg QD Take [address] (BUMEX) 1 2-20 05-20 combined tablet (1 [facility] - MG tablet 00:00: 23:59 systolic mg total) Medical 00 :00 and by mouth Center diastolic daily for congestive 90 days. heart failure (HCC) clopidogrel 2019- No Coronary 75mg QD Take [address] [facility] [address] (PLAVIX) 75 2-20 05-20 artery tablet (75 [facility] - mg tablet 00:00: 23:59 disease mg total) Medical 00 :00 involving by mouth Center coronary daily for bypass 90 days. graft of [place] heart without angina pectoris apixaban 2019- No Chronic 5mg Q.5D Take [address] [facility] (ELIQUIS) 5 2-20 04-20 atrial tablet (5 [facility] - mg Tab 00:00: 00:00 fibrillatio mg total) Medical tablet 00 :00 n (HCC) by mouth 2 Cent er (two) times daily for 90 days. ranitidine 2019- No Gastroesoph 75mg Take [address] [facility] (ZANTAC) 75 2-20 04-08 ageal tablet (75 [facility] - MG tablet 00:00: 00:00 reflux mg total) Medical 00 :00 disease by mouth Center with daily as esophagitis needed for Heartburn. metOLazone 2019- No Chronic 2.5mg Q7D Take [address] [address] (ZAROXOLYN) 2-20 03-21 combined tablet L ukes - 2.5 MG 00:00: 23:59 systolic (2.5 mg Med ical tablet 00 :00 and total) by [place] diastolic mouth once congestive a week for heart 30 days. failure (HCC) pravastatin No Coronary 40mg QD Take [address] [facility] (PRAVACHOL) 07-13 artery tablet (40 [facility] - 40 MG 00:00: 23:59 disease mg total) Med ical tablet 00 :00 involving by mouth Cent er coronary nightly bypass for 30 graft of days. [place] heart without angina pectoris sodium 2019- No CKD 650mg [id number] Take [address] bicarbonate 07-13 (chronic [id number] tablet [facility] - 650 MG 00:00: 00:00 kidney 3D (650 mg Medic al tablet 00 :00 disease), total) by [facility] ter stage III mouth 3 (three) times daily for 90 days. donepezil 2019- No 1{tbl} Q24H Take [address] [facility] (ARICEPT) 5 07-06 tablet by Emmie kes - MG tablet 12:47: 00:00 mouth Medica l 07 :00 daily. [place] levothyroxi No 125ug QD Take [address] ne 07-06 mcg by Lesley - (SYNTHROID, 12:47: 00:00 mouth Medi dmitriy LEVOTHROID) 07 :00 daily . Cente r 125 MCG tablet clopidogrel 75mg QD Take [address] [facility] (PLAVIX) 75 07-06- by mouth Beth es - mg tablet 12:47: 00:00 daily. Medic al 07 :00 [place] pravastatin 2019- No 40mg QD Take [address] [facility] (PRAVACHOL) 07-06- by mouth Beth es - 40 MG 12:47: 00:00 nightly. Medical tablet 07 :00 [place] melatonin 5 2019- No 1{capsu QD Take [address] [facility] [facility] mg Cap 07-06 le} capsule by Lesley - 12:47: 00:00 mouth Medical 07 :00 nightly. [place] bumetanide 2019-2019- No 1{tbl} Q.5D Take [address] (BUMEX) 1 07-06 tablet by Luke s - MG tablet 12:47: 00:00 mouth 2 Medi dmitriy 04 :00 (two) Center times daily. donepezil 2019-2019- No 5mg Q24H Take 1 [facility] (ARICEPT) 5 07-06 tablet (5 Emmie kes - MG tablet 00:00: 23:59 mg total) Me dical 00 :00 by mouth Center daily for 30 days. finasteride 2019-2019- No 5mg QD Take [address] [facility] (PROSCAR) 5 07-06 tablet (5 Emmie kes - mg tablet 00:00: 23:59 mg total) Me dical 00 :00 by mouth Center daily for 30 days. levothyroxi 2019-2019- No 125ug QD Take [address] ne 07-06 tablet [facility] - (SYNTHROID, 00:00: 23:59 (125 mcg M edical LEVOTHROID) 00 :00 total) by Debbie ter 125 MCG mouth tablet daily for 30 days. melatonin 5 2019- No 1{capsu QD Take [address] [facility] [facility] mg Cap 07-06 le} capsule by [facility]ukes - 00:00: 23:59 mouth Medical 00 :00 nightly Center for 30 days. polyethylen 2019-2019- No 17g Take [address] e glycol 07-06 by mouth [facility] - (GLYCOLAX) 00:00: 23:59 daily as Me dical 17 gram 00 :00 needed for Center packet up to 30 days. clopidogrel 2019-2019- No 75mg QD Take [address] [facility] [facility] (PLAVIX) 75 07-06 tablet (75 L ukes - mg tablet 00:00: 00:00 mg total) Me dical 00 :00 by mouth Center daily for 30 days. pravastatin 2019-2019- No 40mg QD Take [address] [facility] (PRAVACHOL) 07-06-20 tablet (40 L ukes - 40 MG 00:00: 00:00 mg total) Medica l tablet 00 :00 by mouth Center nightly for 30 days. apixaban 2019-2019- No 5mg Q.5D Take [address] [facility] (ELIQUIS) 5 07-0620 tablet (5 Emmie kes - mg Tab 00:00: 00:00 mg total) Medic al tablet 00 :00 by mouth 2 Center (two) times daily for 30 days. bumetanide 2020-0 2020- No 1mg QD Take [address] [facility] (BUMEX) 1 07-06- tablet (1 Luke s - MG tablet 00:00: 00:00 mg total) Me dical 00 :00 by mouth Center daily for 30 days. clopidogrel 2020-0 2020- No 75mg QD Take [address] [facility] [address] (PLAVIX) 75 07-06- tablet (75 L ukes - mg tablet 00:00: 00:00 mg total) Me dical 00 :00 by mouth Center daily for 30 days. metOLazone 2019-0 2020- No 2.5mg Q7D Take [address] [facility] (ZAROXOLYN) 07-06 tablet [facility]ukes - 2.5 MG 00:00: 00:00 (2.5 mg Medical tablet 00 :00 total) by Center mouth once a week for 30 days. pantoprazol 2019-0 2020- No 40mg QD Take [address] [facility] e 07-06 tablet (40 [facility] - (PROTONIX) 00:00: 00:00 mg total) M edical 40 MG 00 :00 by mouth Center tablet daily for 30 days. sodium 2020-0 2020- No 650mg [id number] Take [address] bicarbonate 07-06 [id number] tablet [facility] - 650 MG 00:00: 00:00 3D (650 mg Medical tablet 00 :00 total) by Center mouth 3 (three) times daily for 30 days. pantoprazol 2020-0 2020- No 40mg QD Take [address] [facility] e 07-06 tablet (40 [facility] - (PROTONIX) 00:00: 00:00 mg total) M edical 40 MG 00 :00 by mouth Center tablet daily for 30 days. clopidogrel 2020-0 2020- No 75mg QD Take [address] [facility] (PLAVIX) 75 2- tablet (75 L ukes - mg tablet 00:00: 00:00 mg total) Me dical 00 :00 by mouth Center daily. bumetanide 2020-0 2020- No 1mg QD Take [address] [facility] (BUMEX) 1 07-06- tablet (1 Luke s - MG tablet 00:00: 00:00 mg total) Me dical 00 :00 by mouth Center daily for 30 days. apixaban 2019- No 5mg Q.5D Take [address] [facility] (ELIQUIS) 5 -06 07-13 tablet (5 Emmie kes - mg Tab 00:00: 00:00 mg total) Medic al tablet 00 :00 by mouth 2 Center (two) times daily for 30 days. aspirin 81 2019- No 1{tbl} QD Take [address] MG EC 07-05 tablet by [facility]ukes - tablet 14:28: 00:00 mouth Medical 46 :00 daily. [place] carvedilol 2019- No 3.125mg QD Take 3.[address] [facility] (COREG) 07-05-12 mg by [facility]ukes - 3.125 MG 14:28: 00:00 mouth Medical tablet 46 :00 daily. [place] pravastatin 2019- No 40mg QD Take [address] [facility] (PRAVACHOL) 07-05-20 tablet (40 L ukes - 40 MG 00:00: 00:00 mg total) Medica l tablet 00 :00 by mouth Center nightly. apixaban 2019- No 5mg Q.5D Take [address] [facility] (ELIQUIS) 5 07-05- tablet (5 Emmie kes - mg Tab 00:00: 00:00 mg total) Medic al tablet 00 :00 by mouth 2 Center (two) times daily for 30 days. polyethylen 2019- No 17g Take [address] e glycol 07-05 by mouth [facility] - (GLYCOLAX) 00:00: 00:00 daily as Me dical 17 gram 00 :00 needed for Center packet up to 30 days. sodium 2019- No 650mg Q.[id number] Take [address] bicarbonate -04 24- [id number] tablet [facility] - 650 MG 00:00: 00:00 3D (650 mg Medical tablet 00 :00 total) by Center mouth 3 (three) times daily for 30 days. bumetanide 2019- No 1mg QD Take [address] [facility] (BUMEX) 1 07-05-13 tablet (1 Luke s - MG tablet 00:00: 00:00 mg total) Me dical 00 :00 by mouth Center daily. torsemide 2020- No 100mg QD Take [address] (DEMADEX) 2-11 02-11 mg by [facility] - 100 MG 09:31: 00:00 mouth Medical tablet 14 :00 daily. [place] donepeziL 2020- No AT BEDTIME [facility] (ARICEPT) 5 1-07 04-20 [facility] - MG tablet 00:00: 00:00 Medical 00 :00 [place] metOLazone 2018-05- No 2.5mg Q7D Take 2.[address] (ZAROXOLYN) 0-14 02-13 mg by [facility] - 2.5 MG 00:00: 00:00 mouth once Medi dmitriy tablet 00 :00 a week. [place] spironolact 2018-05- No 50mg Q.5D Take [address] [facility] one 0-14 02-12 by mouth 2 [facility] - (ALDACTONE) 00:00: 00:00 (two) Medi dmitriy 25 MG 00 :00 times Center tablet daily. traZODone 2018-05- No 1{tbl} QD Take [address] [facility] (DESYREL) 0-13 02-12 tablet by Randy s - 50 MG 00:00: 00:00 mouth Medical tablet 00 :00 nightly. [place] potassium 2020- No 1{tbl} QD Take [address] [facility] chloride SA 9-12 02-12 tablet by Emmie costa - (K-DUR,KLOR 00:00: 00:00 mouth Medi dmitriy -CON) 10 00 :00 daily. [place] MEQ tablet finasteride 2020- No 1{tbl} QD Take [address] (PROSCAR) 5 8- 02-13 tablet by Emmie linders - mg tablet 00:00: 00:00 mouth Medica l 00 :00 daily. [place] carvedilol Yes 3.125mg Q.5D Take 3.125 [place] (COREG) 6-17 mg by Methodi 3.125 MG 10:32: mouth 2 st tablet 00 (two) times a day with meals. pravastatin Yes 40mg QD Take 40 mg [place] (PRAVACHOL) 6-17 by mouth Meth nanci 40 MG 10:32: daily. st tablet 00 clopidogrel Yes 75mg QD Take 75 mg [place] (PLAVIX) 75 6-17 by mouth Meth nanci mg tablet 10:32: daily. st 00 torsemide 2016- Yes 100mg QD Take 100 [facility] (DEMADEX) 6-17 mg by Methodi 100 MG 10:32: mouth st tablet 00 daily. ezetimibe 2016-0 Yes 10mg QD Take 10 mg [place] (ZETIA) 10 6-17 by mouth Metho di mg tablet 10:32: daily. st 00 levothyroxi 2016- Yes 75ug QD Take 75 Axel ston ne 6-17 mcg by Methodi (SYNTHROID, 10:32: mouth st LEVOTHROID) 00 every 75 MCG morning. tablet albuterol Yes 2{puff} Q6H Inhale 2 [place] (PROVENTIL 6-17 puffs Methodi HFA;VENTOLI 10:32: every 6 st N HFA) 90 00 (six) mcg/actuati hours as on inhaler needed for wheezing. spironolact 2015- Yes 25mg QD Take 25 mg [place] one 6-17 by mouth Methodi (ALDACTONE) 10:32: daily. st 25 MG 00 tablet tamsulosin Yes .4mg QD Take 0.4 [facility] (FLOMAX) 6-17 mg by Methodi 0.4 mg 10:32: mouth st capsule,ext 00 daily. ended release 24hr finasteride 2015- Yes 5mg QD Take 5 mg [place] (PROSCAR) 5 6-17 by mouth Meth nanci mg tablet 10:32: daily. st 00 Immunizations Ordered Immunization Filled Immunization Date Status Commen ts Source Name Name Influenza TIV (IM) 2019-06-14 Completed [facility] - 00:00:00 [facility] Vital Signs Vital Name Observation Time Observation Value Comments Source Systolic blood 2019-09-11 11:05:00 87 mm[Hg] [facility] Diastolic blood 2019-09-11 11:05:00 52 mm[Hg] [facility] t [facility] Heart rate 2019-09-11 11:05:00 76 /min [facility] Body temperature 2019-09-11 11:05:00 36.39 Kenisha [facility] Respiratory rate 2019-09-11 11:05:00 18 /min [facility] Oxygen saturation in 2019-09-11 11:05:00 92 /min [facility] - Arterial blood by Medical Ce nter Pulse oximetry Body weight 2019-09-08 10:00:00 88.905 kg [facility] BMI 2019-09-08 10:00:00 35.85 kg/m2 [facility] Body height 2019-09-03 07:00:00 157.5 cm [facility] Procedures Procedure Date / Time Performing Clinician Source Performed RHYTHM STRIP - SCAN 2019-09-18 15:52:17 Provider, [facility] MAGNESIUM 2019-09-11 05:06:[address] [facility] PHOSPHORUS 2019-09-11 05:06:[address] [facility] BASIC METABOLIC PANEL (7) 2019-09-11 05:06:[address] [facility] CBC W/PLT COUNT & AUTO 2019-09-11 05:06:[address] [facility] TRANSFUSION SERVICE 2019-09-10 18:00:19 Provider, [facility] REPORT [facility] MAGNESIUM 2019-09-10 04:06:[address] [facility] PHOSPHORUS 2019-09-10 04:06:[address] [facility] BASIC METABOLIC PANEL (7) 2019-09-10 04:06:[address] [facility] CBC W/PLT COUNT & AUTO 2019-09-10 04:06:[address] [facility] PREPARE LEUKO-REDUCED RBC 2019-09-09 23:54:00 Joe Villafuerte CH I [facility] TRANSFUSION SERVICE 2019-09-09 18:02:03 Provider, [facility] REPORT [facility] MAGNESIUM 2019-09-09 06:13:[address] [facility] PHOSPHORUS 2019-09-09 06:13:[address] [facility] BASIC METABOLIC PANEL (7) 2019-09-09 06:13:[address] [facility] CBC W/PLT COUNT & AUTO 2019-09-09 06:13:00 Trudy Preston [facility] DIFFERENTIAL [facility] HEMOGLOBIN AND HEMATOCRIT 2019-09-08 23:07:[address] [facility] TRANSFUSE LEUKO-REDUCED 2019-09-08 19:05:27 Joe Villafuerte [facility] - RED BLOOD CELLS [facility] HEMOGLOBIN AND HEMATOCRIT 2019-09-08 18:10:00 Jigna Booker [facility] MAGNESIUM 2019-09-08 15:00:00 Jhonatan Ortiz [facility] POTASSIUM 2019-09-08 15:00:00 Jhonatan Ortizsharoncherry [facility] TYPE AND SCREEN, 2019-09-08 11:38:00 Joe Villafuerte [facility] - AUTOMATED [facility] MAGNESIUM 2019-09-08 03:53:[address] [facility] PHOSPHORUS 2019-09-08 03:53:[address] [facility] BASIC METABOLIC PANEL (7) 2019-09-08 03:53:[address] [facility] CBC W/PLT COUNT & AUTO 2019-09-08 03:53:[address] [facility] IRON, TIBC, % SAT. 2019-09-07 14:55:00 Tameka Rodriguez I [facility] 2019-09-07 14:55:00 Tameka Rodriguez [facility] S [facility] MAGNESIUM 2019-09-07 14:55:00 Jhonatan Ortiz [facility] POTASSIUM 2019-09-07 14:55:00 Jhonatan Ortiz [facility] MAGNESIUM 2019-09-07 05:30:[address] [facility] PHOSPHORUS 2019-09-07 05:30:[address] [facility] BASIC METABOLIC PANEL (7) 2019-09-07 05:30:[address] [facility] CBC W/PLT COUNT & AUTO 2019-09-07 04:25:00 Trudy Preston [facility] DIFFERENTIAL [facility] XR CHEST 1 VIEW 2019-09-07 01:37:00 Trudy rPeston [facility] PORTABLE/BEDSIDE [facility] OXYGEN SATURATION, 2019-09-06 04:04:00 Kim Tanwie Polycarp [facility] BLOOD GAS, ARTERIAL 2019-09-06 03:58:00 Kim Tanwie Polycarp [facility] CALCIUM, IONIZED 2019-09-06 03:57:00 Kim, Tanwie Polycarp [facility] S [facility] MAGNESIUM 2019-09-06 03:57:[address] [facility] PHOSPHORUS 2019-09-06 03:57:[address] [facility] BASIC METABOLIC PANEL (7) 2019-09-06 03:57:[address] [facility] CBC W/PLT COUNT & AUTO 2019-09-06 03:57:[address] [facility] XR CHEST 1 VIEW 2019-09-06 01:43:00 Trudy Preston [facility] PORTABLE/BEDSIDE [facility] TRANSFUSION SERVICE 2019-09-05 17:51:39 Emilie Puga [facility] REPORT - SCAN Scanning [facility] MAGNESIUM 2019-09-05 05:06:[address] [facility] PHOSPHORUS 2019-09-05 05:06:[address] [facility] BASIC METABOLIC PANEL (7) 2019-09-05 05:06:[address] [facility] CBC W/PLT COUNT & AUTO 2019-09-05 05:06:[address] [facility] XR CHEST 1 VIEW 2019-09-05 04:05:00 Trudy Preston [facility] PORTABLE/BEDSIDE [facility] ECG 12-LEAD 2019-09-05 03:39:38 Unknown, Hl7 Doctor [facility] ECG 12-LEAD 2019-09-05 03:37:17 Unknown, Hl7 [facility] PREPARE LEUKO-REDUCED RBC 2019-09-04 23:54:00 Sonja Renteria [facility] TRANSFUSION SERVICE 2019-09-04 17:51:22 Provider, Default [facility] REPORT - SCAN Scanning [facility] ECG 12-LEAD 2019-09-04 10:57:40 Unknown, 7 Doctor [facility] BASIC METABOLIC PANEL (7) 2019-09-04 10:19:[address] [facility] CALCIUM, IONIZED 2019-09-04 09:32:[address] [facility] BLOOD GAS, ARTERIAL 2019-09-04 05:18:[address] [facility] CBC (HEMOGRAM ONLY) 2019-09-04 05:17:00 [place] [facility] BASIC METABOLIC PANEL (7) 2019-09-04 05:17:00 [place] [facility] PHOSPHORUS 2019-09-04 05:17:00 [place] [facility] MAGNESIUM 2019-09-04 05:17:00 [facility] XR CHEST 1 VIEW 2019-09-04 00:15:00 Jigna Booker [facility] PORTABLE/BEDSIDE [facility] BASIC METABOLIC PANEL (7) 2019-09-03 23:53:[address] [facility] MAGNESIUM 2019-09-03 23:53:[address] [facility] CALCIUM, IONIZED 2019-09-03 23:53:[address] [facility] ECHOCARDIOGRAM REPORT - 2019-09-03 21:10:22 Provider, Default [facility] I [facility] TRANSFUSION SERVICE 2019-09-03 17:51:22 Provider, Default [facility] HEMOGLOBIN AND HEMATOCRIT 2019-09-03 15:54:00 Hilda Reece [facility] BASIC METABOLIC PANEL (7) 2019-09-03 15:54:00 Hilda Reeceeo ma [facility] MAGNESIUM 2019-09-03 15:54:00 ChevyHilda [facility] TRANSFUSE LEUKO-REDUCED 2019-09-03 14:46:31 Sonja Renteria [facility] RED BLOOD CELLS [facility] ECG 12-LEAD 2019-09-03 11:20:32 Unknown, Hl7 Doctor [facility] 2D ECHO W/ DOPPLER 2019-09-03 09:52:36 Trudy Preston [facility] (CW/PW/COLOR) [facility] HEMOGLOBIN AND HEMATOCRIT 2019-09-03 09:18:[address] [facility] POTASSIUM 2019-09-03 09:17:[address] [facility] CALCIUM, IONIZED 2019-09-03 09:17:[address] [facility] CBC (HEMOGRAM ONLY) 2019-09-03 04:51:00 Lee Ann Strickland [facility] TROPONIN I 2019-09-03 04:51:[address] [facility] CALCIUM, IONIZED 2019-09-03 04:51:[address] [facility] BLOOD GAS, ARTERIAL 2019-09-03 04:51:[address] [facility] TRANSFUSE LEUKO-REDUCED 2019-09-03 03:33:17 Trudy Preston [facility] RED BLOOD CELLS [facility] ECG 12-LEAD 2019-09-03 03:31:56 Unknown, Hl7 Doctor [facility] BASIC METABOLIC PANEL (7) 2019-09-03 03:17:00 [facility] 2019-09-03 03:17:00 [facility] MAGNESIUM 2019-09-03 03:17:00 [facility] CREATINE KINASE (CK) 2019-09-03 03:17:00 Trudy Preston CH I [facility] XR CHEST 1 VIEW 2019-09-03 01:55:00 Jigna Booker [facility] - PORTABLE/BEDSIDE Medical [facility] PREPARE LEUKO-REDUCED RBC 2019-09-02 23:54:00 Jigna Booker [facility] HEMOGLOBIN AND HEMATOCRIT 2019-09-02 23:38:[address] [facility] BASIC METABOLIC PANEL (7) 2019-09-02 23:38:[address] [facility] MAGNESIUM 2019-09-02 23:38:[address] [facility] PHOSPHORUS 2019-09-02 23:38:[address] [facility] TROPONIN I 2019-09-02 23:38:[address] [facility] TYPE AND SCREEN, 2019-09-02 23:38:00 Trudy Preston [facility] AUTOMATED [facility] POCT-GLUCOSE METER 2019-09-02 23:25:00 [place] [facility] TRANSFUSION SERVICE 2019-09-02 17:51:36 Provider, [facility] REPORT - SCAN Scanning [facility] MAGNESIUM 2019-09-02 15:27:00 AliHilda giang Joanne [facility] POTASSIUM 2019-09-02 15:27:00 Chevy Hilda [facility] CBC (HEMOGRAM ONLY) 2019-09-02 03:25:00 [facility] BASIC METABOLIC PANEL (7) 2019-09-02 03:24:00 [facility] PHOSPHORUS 2019-09-02 03:24:00 [facility] MAGNESIUM 2019-09-02 03:24:00 [facility] XR CHEST 1 VIEW 2019-09-02 02:28:00 Jigna Booker [facility] PORTABLE/BEDSIDE [facility] TRANSFUSE LEUKO-REDUCED 2019-09-02 01:42:[address] [facility] RED BLOOD CELLS [facility] TRANSFUSION SERVICE 2019-09-01 17:50:32 Edd [facility] REPORT - SCAN Scanning [facility] XR CHEST 1 VIEW 2019-09-01 17:39:00 Jigna Booker [facility] PORTABLE/BEDSIDE [facility] BLOOD GAS, ARTERIAL 2019-09-01 15:23:00 Jigna Booker [facility] MAGNESIUM 2019-09-01 15:22:00 Jigna Booker [facility] PHOSPHORUS 2019-09-01 15:22:00 Jigna Booker [facility] CALCIUM, IONIZED 2019-09-01 15:22:00 Jigna Booker [facility] PREPARE RBC 2019-09-01 15:22:00 Yeison Cabello [facility] CBC W/PLT COUNT & AUTO 2019-09-01 15:22:00 Jigna Booker [facility] (CELLAVISION MANUAL DIFF) 2019-09-01 15:22:00 Jigna Booker [facility] XR CHEST 1 VIEW 2019-09-01 15:07:00 Jigna Booker [facility] CALCIUM, IONIZED 2019-09-01 12:46:09 Jhonatan Chowdary [facility] BLOOD GAS, ARTERIAL 2019-09-01 12:46:09 Jhonatan Chowdary [facility] SODIUM NA-STAT LAB 2019-09-01 12:46:09 Jhonatan Chowdary [facility] POTASSIUM-STAT LAB 2019-09-01 12:46:09 Jhonatan Chowdary [facility] GLUCOSE-STAT LAB 2019-09-01 12:46:09 Jhonatan Chowdary [facility] HGB/HCT (H&H) - STAT LAB 2019-09-01 12:46:09 Jhonatan Chowdary [facility] POCT-ACT 2019-09-01 12:19:00 Pedro [facility] POCT-ACT 2019-09-01 11:43:00 Pedro [facility] CALCIUM, IONIZED 2019-09-01 11:42:40 Schuyler Pena [facility] BLOOD GAS, ARTERIAL 2019-09-01 11:42:40 Schuyler Pena [facility] SODIUM NA-STAT LAB 2019-09-01 11:42:40 Schuyler Pena [facility] POTASSIUM-STAT LAB 2019-09-01 11:42:40 Schuyler Pena [facility] GLUCOSE-STAT LAB 2019-09-01 11:42:40 Schuyler Pena [facility] HGB/HCT (H&H) - STAT LAB 2019-09-01 11:42:40 Schuyler Pena [facility] POCT-ACT 2019-09-01 11:15:00 Pedro [facility] TRANSFUSE LEUKO-REDUCED 2019-09-01 10:46:48 Schuyler Pena [facility] RED BLOOD CELLS [facility] CALCIUM, IONIZED 2019-09-01 10:37:28 Schuyler Pena [facility] BLOOD GAS, ARTERIAL 2019-09-01 10:37:28 Schuyler Pena [facility] SODIUM NA-STAT LAB 2019-09-01 10:37:28 Schuyler Pena [facility] POTASSIUM-STAT LAB 2019-09-01 10:37:28 Schuyler Pena [facility] GLUCOSE-STAT LAB 2019-09-01 10:37:28 Schuyler Pena [facility] HGB/HCT (H&H) - STAT LAB 2019-09-01 10:37:28 Schuyler Pena [facility] POCT-ACT 2019-09-01 10:14:00 Pedro [facility] CALCIUM, IONIZED 2019-09-01 09:06:59 [facility]LO[facility], ARTERIAL 2019-09-01 09:06:59 Schuyler Pena [facility] SODIUM NA-STAT LAB 2019-09-01 09:06:59 Schuyler Pena [facility] POTASSIUM-STAT LAB 2019-09-01 09:06:59 Schuyler Pena [facility] GLUCOSE-STAT LAB 2019-09-01 09:06:59 Schuyler Pena [facility] HGB/HCT (H&H) - STAT LAB 2019-09-01 09:06:59 Schuyler Pena [facility] REPAIR,ANEURYSM 2019-09-01 07:37:00 Yeison Cabello [facility] FEMORAL/POPLITEAL [facility] REPAIR,ARTERY W/SUTURE 2019-09-01 07:37:00 Yeison Cabello [facility] CBC (HEMOGRAM ONLY) 2019-09-01 04:40:00 [facility] BASIC METABOLIC PANEL (7) 2019-09-01 04:40:00 [facility] PHOSPHORUS 2019-09-01 04:40:00 [facility] 2019-09-01 04:40:00 Pedro [facility] POCT-GLUCOSE METER 2019-09-01 00:50:00 [facility] TRANSFUSION SERVICE 2019-08-31 17:50:40 ProviderEmilie [facility] REPORT - SCAN [facility] BASIC METABOLIC PANEL (7) 2019-08-31 14:37:00 Pedro [facility] CBC (HEMOGRAM ONLY) 2019-08-31 04:13:00 [facility] BASIC METABOLIC PANEL (7) 2019-08-31 04:13:00 Pedro [facility] PHOSPHORUS 2019-08-31 04:13[facility] 2019-08-31 04:13:00 Pedro [facility] ECG 12-LEAD 2019-08-30 17:03:38 Unknown, Hl7 Doctor [facility] COMPREHENSIVE METABOLIC 2019-08-30 16:58:[address] [facility] PROTHROMBIN TIME/INR 2019-08-30 16:58:00 Pedro Lee Ann [facility] B-TYPE NATRIURETIC FACTOR 2019-08-30 16:58:00 [place] [facility] (BNP) [facility] TYPE AND SCREEN, 2019-08-30 16:58:00 [facility] CBC W/PLT COUNT & AUTO 2019-08-30 16:58:00 [place] [facility] DIFFERENTIAL [facility] BASIC METABOLIC PANEL (7) 2019-07-20 10:15:00 Omega Olivier CH, I [facility] IRON, TIBC, % SAT. 2019-07-13 11:46:[address] [facility] - (WITHOUT FERRITIN) Medical Cente r FERRITIN 2019-07-13 11:46:00 [facility] FOLATE, SERUM 2019-07-13 11:46:00 [facility] BASIC METABOLIC PANEL (7) 2019-07-13 11:46:00 Yaritza [facility] HEMOGLOBIN A1C 2019-07-13 11:46:00 [facility] CBC W/PLT COUNT & AUTO 2019-07-13 11:46:00 [facility] VASCULAR DIAGRAM -SCAN 2019-07-07 13:40:35 Provider, [facility] REPORT OF PROCEDURE - 2019-07-07 13:40:33 Provider, [facility] ENDOSCOPY [facility] RHYTHM STRIP - SCAN 2019-07-07 13:40:22 Provider, [facility] RHYTHM STRIP - SCAN 2019-07-07 13:40:20 Provider, [facility] CARDIAC CATH REPORT - 2019-07-07 13:40:16 Provider, [facility] CARDIAC CATH REPORT - 2019-07-07 13:40:14 Provider, [facility] VASCULAR DIAGRAM -SCAN 2019-07-05 13:32:00 Provider, [facility] BASIC METABOLIC PANEL (7) 2019-07-05 02:53:00 Carlo [facility] CBC (HEMOGRAM ONLY) 2019-07-05 02:53:00 Carlo [facility] HEPATIC FUNCTION PANEL 2019-07-05 02:53:00 Carlo [facility] MAGNESIUM 2019-07-05 02:53:00 Carlo [facility] TROPONIN I 2019-07-05 02:53:00 Razia Colbert [facility] PHOSPHORUS 2019-07-05 02:53:00 Corina Gomez [facility] POCT-GLUCOSE METER 2019-07-04 21:20:00 Carlo [facility] TROPONIN I 2019-07-04 20:08:00 Razia Colbret [facility] POCT-GLUCOSE METER 2019-07-04 18:02:00 Carlo [facility] TRANSFUSION SERVICE 2019-07-04 17:52:42 Provider, Default [facility] REPORT - SCAN [facility] CBC W/PLT COUNT & AUTO 2019-07-04 16:04:00 Razia Colbert [facility] (CELLAVISION MANUAL DIFF) 2019-07-04 16:04:00 Razia Colbert [facility] RHYTHM STRIP - SCAN 2019-07-04 15:50:15 Provider, Default [facility] ARRYTHMIA IMPLANT REPORT 2019-07-04 14:30:47 Provider, Default [facility] BASIC METABOLIC PANEL (7) 2019-07-04 13:04:00 Razia Colbert [facility] TROPONIN I 2019-07-04 13:04:00 Razia Colbert [facility] POCT-GLUCOSE METER 2019-07-04 11:34:00 Carlo [facility] POCT-GLUCOSE METER 2019-07-04 08:25:00 Carlo [facility] BASIC METABOLIC PANEL (7) 2019-07-04 03:16:00 Carlo [facility] CBC (HEMOGRAM ONLY) 2019-07-04 03:16:00 Carlo [facility] HEPATIC FUNCTION PANEL 2019-07-04 03:16:00 Carlo [facility] MAGNESIUM 2019-07-04 03:16:00 Carlo [facility] TROPONIN I 2019-07-04 03:16:00 Corina Gomez [facility] ECG 12-LEAD 2019-07-04 02:18:37 Unknown, Hl7 [facility] BASIC METABOLIC PANEL (7) 2019-07-03 20:50:00 Corina Gomez [facility] ECG 12-LEAD 2019-07-03 20:23:45 Unknown, Hl7 Doctor [facility] BLOOD GAS, ARTERIAL 2019-07-03 20:12:[address] [facility] CBC (HEMOGRAM ONLY) 2019-07-03 20:11:[address] [facility] MAGNESIUM 2019-07-03 20:11:[address] [facility] APTT 2019-07-03 20:11:[address] [facility] PHOSPHORUS 2019-07-03 20:11:[address] [facility] PREPARE LEUKO-REDUCED RBC 2019-07-03 19:19:00 Yeison Cabello [facility] POCT-ACT 2019-07-03 17:22:00 Carlo [facility] POCT-ACT 2019-07-03 16:39:00 Carlo [facility] POCT-ACT 2019-07-03 16:01:00 Carlo [facility] POCT-ACT 2019-07-03 15:27:00 Carlo [facility] EVAR EXCLUSION MCR - IP 2019-07-03 13:46:00 Yeison Cabello [facility] - PROC ONLY [facility] APTT 2019-07-03 12:42:00 Yeison Cabello [facility] TYPE AND SCREEN, 2019-07-03 08:35:00 Mariusz Devries [facility] BASIC METABOLIC PANEL (7) 2019-07-03 05:44:00 Carlo [facility] CBC (HEMOGRAM ONLY) 2019-07-03 05:44:00 Carlo [facility] HEPATIC FUNCTION PANEL 2019-07-03 05:44:00 Carlo [facility] MAGNESIUM 2019-07-03 05:44:00 Carlo [facility] APTT 2019-07-03 05:44:00 Carlo [facility] CBC W/PLT COUNT & AUTO 2019-07-03 05:44:00 Carlo [facility] BASIC METABOLIC PANEL (7) 2019-07-02 05:08:00 Carlo [facility] CBC (HEMOGRAM ONLY) 2019-07-02 05:08:00 Carlo [facility] HEPATIC FUNCTION PANEL 2019-07-02 05:08:00 Carlo [facility] MAGNESIUM 2019-07-02 05:08:00 Carlo, [facility] APTT 2019-07-02 05:08:00 Carlo, [facility] APTT 2019-07-01 23:17:00 Carlo, [facility] APTT 2019-07-01 16:29:00 Carlo, [facility] APTT 2019-07-01 08:05:00 Carlo, [facility] APTT 2019-07-01 05:30:00 Carlo [facility] BASIC METABOLIC PANEL (7) 2019-07-01 05:30:00 Carlo [facility] CBC (HEMOGRAM ONLY) 2019-07-01 05:30:00 Carlo [facility] HEPATIC FUNCTION PANEL 2019-07-01 05:30:00 Carlo [facility] MAGNESIUM 2019-07-01 05:30:00 Carlo [facility] CBC W/PLT COUNT & AUTO 2019-07-01 05:30:00 Carlo [facility] TRANSFUSION SERVICE 2019-06-30 17:50:24 Emilie Puga [facility] REPORT - SCAN Scanning [facility] CT/CTA AAA AND RUNOFF 2019-06-30 13:16:00 Mitchell Rain [facility] APTT 2019-06-30 03:14:00 Bennett Rich [facility] BASIC METABOLIC PANEL (7) 2019-06-30 03:14:00 Carlo [facility] CBC (HEMOGRAM ONLY) 2019-06-30 03:14:00 Carlo [facility] HEPATIC FUNCTION PANEL 2019-06-30 03:14:00 Matos, [facility] MAGNESIUM 2019-06-30 03:14:00 Carlo [facility] APTT 2019-06-29 20:24:00 Carlo [facility] TRANSFUSION SERVICE 2019-06-29 18:00:55 Emilie Puga [facility] REPORT - SCAN Scanning [facility] APTT 2019-06-29 12:34:00 Carlo [facility] BASIC METABOLIC PANEL (7) 2019-06-29 05:16:00 Carlo [facility] CBC (HEMOGRAM ONLY) 2019-06-29 05:16:00 Carlo [facility] HEPATIC FUNCTION PANEL 2019-06-29 05:16:00 Carlo [facility] MAGNESIUM 2019-06-29 05:16:00 Carlo [facility] APTT 2019-06-29 05:16:00 Carlo [facility] ABORH, MANUAL 2019-06-29 05:16:00 Mojgan Yanez [facility] CBC W/PLT COUNT & AUTO 2019-06-29 05:16:00 Carlo [facility] L CATH & PCI 2019-06-28 15:46:00 Bennett Rich [facility] TYPE AND SCREEN, 2019-06-28 15:04:[address] [facility] TROPONIN I 2019-06-28 02:35:00 Guillaume, [facility] BASIC METABOLIC PANEL (7) 2019-06-28 02:35:00 Guillaume, [facility] CH I [facility] MAGNESIUM 2019-06-28 02:35:00 Guillaume, [facility] HEPATIC FUNCTION PANEL 2019-06-28 02:35:00 Carlo [facility] CBC W/PLT COUNT & AUTO 2019-06-28 02:03:00 Guillaume, [facility] TSH/FREE T4 IF INDICATED 2019-06-28 02:00:00 Carlo [facility] VITAMIN D, 25-HYDROXY 2019-06-28 02:00:00 Yaritza [facility] VITAMIN B12 2019-06-28 02:00:00 Yaritza [facility] RPR 2019-06-28 02:00:00 Yaritza [facility] APTT 2019-06-28 02:00:00 Matos [facility] ECG 12-LEAD 2019-06-28 01:58:35 Unknown, [facility] ECG 12-LEAD 2019-06-28 01:55:23 Unknown, [address] ECG 12-LEAD 2019-06-28 01:55:00 Unknown, 7 [facility] ECG 12-LEAD 2019-06-28 01:41:30 Unknown, [address] ECG 12-LEAD 2019-06-28 01:33:51 Unknown, 7 [facility] APTT 2019-06-27 22:39:00 Carlo [facility] APTT 2019-06-27 15:21:00 Carlo [facility] PLATELET COUNT 2019-06-27 10:05:00 Bennett Rich [facility] APTT 2019-06-27 10:05:00 Bennett Rich [facility] US RENAL COMPLETE 2019-06-27 09:11:00 Carlo [facility] URIC ACID 2019-06-27 05:02:00 Carlo [facility] BASIC METABOLIC PANEL (7) 2019-06-27 05:02:00 Carlo [facility] HEPATIC FUNCTION PANEL 2019-06-27 05:02:00 Carlo [facility] MAGNESIUM 2019-06-27 05:02:00 Carlo [facility] CBC W/PLT COUNT & AUTO 2019-06-27 05:02:00 Carlo [facility] ECHOCARDIOGRAM REPORT - 2019-06-26 21:20:07 Provider, Default [facility] SCAN Scanning [facility] POCT-BLOOD GASES, 2019-06-26 20:04:00 Carlo [facility] ARTERIAL [facility] POCT-SODIUM 2019-06-26 20:04:00 Carlo, [facility] POCT-POTASSIUM 2019-06-26 20:04:00 Carlo, [facility] POCT-GLUCOSE 2019-06-26 20:04:00 Carlo, [facility] POCT-CALCIUM IONIZED 2019-06-26 20:04:00 Carlo, [facility] POCT-HEMATOCRIT 2019-06-26 20:04:00 Carlo, [facility] POCT-HEMOGLOBIN 2019-06-26 20:04:00 Carlo [facility] XR CHEST 1 VIEW 2019-06-26 20:03:00 Carlo [facility] PORTABLE/BEDSIDE Medical Center BASIC METABOLIC PANEL (7) 2019-06-26 20:00:00 Carlo [facility] MAGNESIUM 2019-06-26 20:00:00 Carlo [facility] LACTIC ACID, ARTERIAL 2019-06-26 20:00:00 Carlo [facility] TROPONIN I 2019-06-26 20:00:00 Carlo [facility] CBC W/PLT COUNT & AUTO 2019-06-26 20:00:00 Carlo [facility] DIFFERENTIAL [facility] ECG 12-LEAD 2019-06-26 19:50:29 Unknown, Hl7 [facility] 2D ECHO W/ DOPPLER 2019-06-26 10:51:41 Bennett Rich [facility] (CW/PW/COLOR) [facility] NM CARDIAC PET PERFUSION 2019-06-26 10:15:00 Bennett Rich [facility] - REST AND/OR STRESS Medical Cente r TREADMILL 2019-06-26 10:08:56 Unknown, Hl7 [facility] - [facility](NON-NUCLEAR Medical Ce nter TREADMILL) ECG 12-LEAD 2019-06-26 10:04:10 Unknown, Hl7 Doctor [facility] ECG 12-LEAD 2019-06-26 10:03:34 Unknown, Hl7 [facility] PROTHROMBIN TIME/INR 2019-06-26 05:28:[facility] 2019-06-26 05:28:00 [facility] CBC (HEMOGRAM ONLY) 2019-06-26 05:28:00 [facility] BASIC METABOLIC PANEL (7) 2019-06-26 05:28:00 [facility] HEPATIC FUNCTION PANEL 2019-06-26 05:28:00 [facility] URINE CULTURE 2019-06-25 12:47:00 Norma Chaney [facility] PROTHROMBIN TIME/INR 2019-06-25 04:19:00 [facility] MAGNESIUM 2019-06-25 04:19:00 [facility] CBC (HEMOGRAM ONLY) 2019-06-25 04:19:00 [facility] BASIC METABOLIC PANEL (7) 2019-06-25 04:19:00 [facility] HEPATIC FUNCTION PANEL 2019-06-25 04:19:00 [facility] ECG 12-LEAD 2019-06-24 15:56:08 Unknown, Hl7 [facility] TROPONIN I 2019-06-24 12:27:00 [facility] URIC ACID 2019-06-24 12:27[facility] 2 VIEWS 2019-06-24 09:17:00 [facility] TROPONIN I 2019-06-24 05:50:00 [facility] TROPONIN I 2019-06-24 00:46:00 [facility], [facility] BASIC METABOLIC PANEL (7) 2019-06-24 00:46:00 Madhu Byrd C [facility] HEPATIC FUNCTION PANEL 2019-06-24 00:46:00 [facility], [facility] B-TYPE NATRIURETIC FACTOR 2019-06-24 00:46:00 [place] [facility] ([facility]NP) [facility] PROTHROMBIN TIME/INR 2019-06-24 00:46:00 [facility], [facility] MAGNESIUM 2019-06-24 00:46:00 [facility], [facility] CBC (HEMOGRAM ONLY) 2019-06-24 00:46:00 [facility] CBC W/PLT COUNT & AUTO 2019-06-24 00:46:00 [facility], [facility] CREATININE, RANDOM URINE 2019-06-23 23:32:00 [facility], [facility] Sylwia I [facility] UREA NITROGEN, RANDOM 2019-06-23 23:32:00 [facility], [facility] URINALYSIS WITH 2019-06-23 23:32:00 [facility] MICROSCOPIC IF INDICATED [facility] URINALYSIS MICROSCOPIC 2019-06-23 23:32:00 [facility] Plan of Care Planned Activity Planned Date Details Comments Source Future Scheduled 2020-01-23 INFLUENZA VACCINE (#1) [facility] 00:[facility]:00 [code = INFLUENZA Medical Ce nter VACCINE (#1)] Future Scheduled 1998-02-[address] [facility] 00:00:00 WELLNESS (YEAR 2 or Medical Center FIRST YEAR if no IPPE) [code = MEDICARE ANNUAL WELLNESS (YEAR 2 or FIRST YEAR if no IPPE)] Future Scheduled 1997-02-22 PNEUMOCOCCAL 65+ YRS [facility] - Test 00:00:00 (1 of 1 - Medical Center [id number] PCV13) [code = PNEUMOCOCCAL 65+ YRS (1 of 1 - [id number] PCV13)] Encounters Start End Encounter Admission Attending Care Care Encounter Source Date/Time Date/Time Type Type Clinicians Facility Department ID 2019-10-18 2019-10-18 Office ROSALIA Cabello [id number] 14:15:00 14:30:00 Visit Yeison OMERATOR [id number] Y [id number] 2019-05-23 2019-05-23 Orders Doctor SCHUYLER [id number] 00:00:00 00:00:00 Only Unassigned, SURINDER [id number] [facility] [id number] 2019-02-09 2019-02-10 Office [facility] [id number] 09:06:32 07:54:06 Visit Hussein Lacy [facility] at [id number] [place] [id number] [place] [id number] 2019-02-10 2019-02-10 [facility] [id number] 00:00:00 00:00:00 Management Hussein Lacy [facility] at [id number] [place] [id number] [place] [phone] Results Test Description Test Time Test Comments Results Result Comments Source Basic Metabolic Panel 2019-09-11 07:25:00 Test Item Value Reference Range Interpretation Comme nts Sodium (test code = 2951-2) 141 meq/L 136-145 Potassium (test code = 3.8 meq/L 3.5-5.1 2823-3) Chloride (test code = 108 meq/L 98-107 H 5-0) CO2 (test code = 2027-9) 28 meq/L 22-29 BUN (test code = 3094-0) 11 mg/dL 7-21 Creatinine (test code = 1.26 mg/dL 0.57-1.25 H 2160-0) Glucose (test code = 81 mg/dL 70-105 2345-7) Calcium (test code = 8.0 mg/dL 8.4-10.2 L 49884-9) EGFR (test code = 20444-7) I NSUFFICIENT CLINICAL DATA TO CALCULA TE ESTIMATED GFR. GRISELDA (test code = GRISELDA) Banking Manager ID - ZENIA L Lab Interpretation (test Abnormal code = 79555-3) [facility] [id number] 07:25:00 Test Item Value Reference Range Interpretation Comments SODIUM (BEAKER) (test 141 meq/L 136-145 code = 381) POTASSIUM (BEAKER) 3.8 meq/L 3.5-5.1 (test code = 379) CHLORIDE (BEAKER) 108 meq/L 98-107 H (test code = 382) CO2 (BEAKER) (test 28 meq/L 22-29 code = 355) BLOOD UREA NITROGEN 11 mg/dL 7-21 (BEAKER) (test code = 354) CREATININE (BEAKER) 1.26 mg/dL 0.57-1.25 H (test code = 358) GLUCOSE RANDOM 81 mg/dL 70-105 (BEAKER) (test code = 652) CALCIUM (BEAKER) 8.0 mg/dL 8.4-10.2 L (test code = 697) EGFR (BEAKER) (test INSUFFIC IENT CLINICAL code = 1092) DATA TO CALCULA TE ESTIMATED GFR. Banking Manager ID - ZENIA XCtepgmuld3454-02-29 07:12:00 Test Item Value Reference Range Interpretation Comments Magnesium (test code = 1.8 mg/dL 1.6-2.6 22704-3) GRISELDA (test code = GRISELDA) Banking Manager ID - ZENIA L Lab Interpretation (test Normal code = 60726-4) [facility] 07:12[facility]00 Test Item Value Reference Range Interpretation Comments Phosphorus (test code = 2.6 mg/dL 2.3-4.7 2777-1) GRISELDA (test code = GRISELDA) Banking Manager ID - ZENIA L Lab Interpretation (test Normal code = 59517-8) [facility] 07:12:00 Test Item Value Reference Range Interpretation Comments PHOSPHORUS (BEAKER) (test code = 2.6 mg/dL 2.3-4.7 604) Banking Manager ID - ZENIA CSNFBUGYEM9419-25-72 07:12:00 Test Item Value Reference Range Interpretation Comments MAGNESIUM (BEAKER) (test code = 1.8 mg/dL 1.6-2.6 627) Banking Manager ID - ZENIA LCBC with platelet count + automated [id number] 06:19:00 Test Item Value Reference Range Interpretation Comments WBC (test code = 6690-2) 6.7 3.5- 10.5 K/L RBC (test code = 789-8) 2.88 4.63- 6.08 M/L L MCHC (test code = 786-4) 31.1 32.3- 36.5 GM/DL L Hematocrit (test code = 4544-3) 28.6 % 40.1-51 L MCV (test code = 787-2) 99.3 fL 79-92.2 H MCH (test code = 785-6) 30.9 pg 25.7-32.2 RDW (test code = 788-0) 17.4 % 11.6-14.4 H Platelets (test code = 777-3) 228 150- 450 K/CU MM MPV (test code = 59749-8) 9.4 fL 9.4-12.4 nRBC (test code = 413) 0 0- 0 /100 WBC % Neutros (test code = 429) 60 % % Lymphs (test code = 430) 26 % % Monos (test code = 431) 10 % % Eos (test code = 432) 3 % % Baso (test code = 437) 0 % # Neutros (test code = 670) 4.04 1.78- 5.38 K/L # Lymphs (test code = 414) 1.73 1.32- 3.57 K/L # Monos (test code = 415) 0.68 0.30- 0.82 K/L # Eos (test code = 416) 0.23 0.04- 0.54 K/L # Baso (test code = 417) 0.02 0.01- 0.08 K/L Immature Granulocytes-Relative 0 % 0-1 (test code = 2801) Lab Interpretation (test code = Abnormal 54541-5) [facility] W/PLT COUNT & AUTO [id number] 06:19:00 Test Item Value Reference Range Interpretation Comments WHITE BLOOD CELL COUNT (BEAKER) 6.7 K/ L 3.5-10.5 (test code = 775) RED BLOOD CELL COUNT (BEAKER) 2.88 M/ L 4.63-6.08 L (test code = 761) HEMOGLOBIN (BEAKER) (test code = 8.9 GM/DL 13.7-17.5 L 410) HEMATOCRIT (BEAKER) (test code = 28.6 % 40.1-51.0 L 411) MEAN CORPUSCULAR VOLUME (BEAKER) 99.3 fL 79.0-92.2 H (test code = 753) MEAN CORPUSCULAR HEMOGLOBIN 30.9 pg 25.7-32.2 (BEAKER) (test code = 751) MEAN CORPUSCULAR HEMOGLOBIN CONC 31.1 GM/DL 32.3-36.5 L (BEAKER) (test code = 752) RED CELL DISTRIBUTION WIDTH 17.4 % 11.6-14.4 H (BEAKER) (test code = 412) PLATELET COUNT (BEAKER) (test 228 K/CU MM 150-450 code = 756) MEAN PLATELET VOLUME (BEAKER) 9.4 fL 9.4-12.4 (test code = 754) NUCLEATED RED BLOOD CELLS 0 /100 WBC 0-0 (BEAKER) (test code = 413) NEUTROPHILS RELATIVE PERCENT 60 % (BEAKER) (test code = 429) LYMPHOCYTES RELATIVE PERCENT 26 % (BEAKER) (test code = 430) MONOCYTES RELATIVE PERCENT 10 % (BEAKER) (test code = 431) EOSINOPHILS RELATIVE PERCENT 3 % (BEAKER) (test code = 432) BASOPHILS RELATIVE PERCENT 0 % (BEAKER) (test code = 437) NEUTROPHILS ABSOLUTE COUNT 4.04 K/ L 1.78-5.38 (BEAKER) (test code = 670) LYMPHOCYTES ABSOLUTE COUNT 1.73 K/ L 1.32-3.57 (BEAKER) (test code = 414) MONOCYTES ABSOLUTE COUNT (BEAKER) 0.68 K/ L 0.30-0.82 (test code = 415) EOSINOPHILS ABSOLUTE COUNT 0.23 K/ L 0.04-0.54 (BEAKER) (test code = 416) BASOPHILS ABSOLUTE COUNT (BEAKER) 0.02 K/ L 0.01-0.08 (test code = 417) IMMATURE GRANULOCYTES-RELATIVE 0 % 0-1 PERCENT (BEAKER) (test code = 2801) BASIC METABOLIC [id number] 05:56:00 Test Item Value Reference Range Interpretation Comments SODIUM (BEAKER) (test 139 meq/L 136-145 code = 381) POTASSIUM (BEAKER) 3.7 meq/L 3.5-5.1 (test code = 379) CHLORIDE (BEAKER) 108 meq/L 98-107 H (test code = 382) CO2 (BEAKER) (test 26 meq/L 22-29 code = 355) BLOOD UREA NITROGEN 13 mg/dL 7-21 (BEAKER) (test code = 354) CREATININE (BEAKER) 1.40 mg/dL 0.57-1.25 H (test code = 358) GLUCOSE RANDOM 107 mg/dL 70-105 H (BEAKER) (test code = 652) CALCIUM (BEAKER) 7.8 mg/dL 8.4-10.2 L (test code = 697) EGFR (BEAKER) (test INSUFFIC IENT CLINICAL code = 1092) DATA TO CALCULA TE ESTIMATED GFR. Banking Manager ID - PISANYA [id number] 05:25:00 Test Item Value Reference Range Interpretation Comments PHOSPHORUS (BEAKER) (test code = 2.4 mg/dL 2.3-4.7 604) Banking Manager ID - PISANYA [id number] 05:25:00 Test Item Value Reference Range Interpretation Comments MAGNESIUM (BEAKER) (test code = 2.0 mg/dL 1.6-2.6 627) Banking Manager ID - ZENIA LCBC W/PLT COUNT & AUTO [id number] 04:41:00 Test Item Value Reference Range Interpretation Comments WHITE BLOOD CELL COUNT (BEAKER) 5.5 K/ L 3.5-10.5 (test code = 775) RED BLOOD CELL COUNT (BEAKER) 2.75 M/ L 4.63-6.08 L (test code = 761) HEMOGLOBIN (BEAKER) (test code = 8.2 GM/DL 13.7-17.5 L 410) HEMATOCRIT (BEAKER) (test code = 26.9 % 40.1-51.0 L 411) MEAN CORPUSCULAR VOLUME (BEAKER) 97.8 fL 79.0-92.2 H (test code = 753) MEAN CORPUSCULAR HEMOGLOBIN 29.8 pg 25.7-32.2 (BEAKER) (test code = 751) MEAN CORPUSCULAR HEMOGLOBIN CONC 30.5 GM/DL 32.3-36.5 L (BEAKER) (test code = 752) RED CELL DISTRIBUTION WIDTH 17.2 % 11.6-14.4 H (BEAKER) (test code = 412) PLATELET COUNT (BEAKER) (test 165 K/CU MM 150-450 code = 756) MEAN PLATELET VOLUME (BEAKER) 9.4 fL 9.4-12.4 (test code = 754) NUCLEATED RED BLOOD CELLS 0 /100 WBC 0-0 (BEAKER) (test code = 413) NEUTROPHILS RELATIVE PERCENT 57 % (BEAKER) (test code = 429) LYMPHOCYTES RELATIVE PERCENT 27 % (BEAKER) (test code = 430) MONOCYTES RELATIVE PERCENT 12 % (BEAKER) (test code = 431) EOSINOPHILS RELATIVE PERCENT 4 % (BEAKER) (test code = 432) BASOPHILS RELATIVE PERCENT 0 % (BEAKER) (test code = 437) NEUTROPHILS ABSOLUTE COUNT 3.13 K/ L 1.78-5.38 (BEAKER) (test code = 670) LYMPHOCYTES ABSOLUTE COUNT 1.45 K/ L 1.32-3.57 (BEAKER) (test code = 414) MONOCYTES ABSOLUTE COUNT (BEAKER) 0.65 K/ L 0.30-0.82 (test code = 415) EOSINOPHILS ABSOLUTE COUNT 0.22 K/ L 0.04-0.54 (BEAKER) (test code = 416) BASOPHILS ABSOLUTE COUNT (BEAKER) 0.01 K/ L 0.01-0.08 (test code = 417) IMMATURE GRANULOCYTES-RELATIVE 0 % 0-1 PERCENT (BEAKER) (test code = 2801) Prepare Leuko-Red [id number] 23:54:00 Test Item Value Reference Range Interpretation Comments CROSSMATCH (test code = 2264) COMPATIBLE Unit ABO (test code = B Pos 9273792) UNIT NUMBER (test code = [id number] 934-0) Status (test code = 3869402) TX_TIMEINCHART Blood Bank Product (test code RED BLOOD CELLS = 2263) PRODUCT CODE (test code = [id number] 933-2) [facility] [id number] 07:38:00 Test Item Value Reference Range Interpretation Comments SODIUM (BEAKER) (test 140 meq/L 136-145 code = 381) POTASSIUM (BEAKER) 3.8 meq/L 3.5-5.1 (test code = 379) CHLORIDE (BEAKER) 107 meq/L 98-107 (test code = 382) CO2 (BEAKER) (test 29 meq/L 22-29 code = 355) BLOOD UREA NITROGEN 12 mg/dL 7-21 (BEAKER) (test code = 354) CREATININE (BEAKER) 1.19 mg/dL 0.57-1.25 (test code = 358) GLUCOSE RANDOM 90 mg/dL 70-105 (BEAKER) (test code = 652) CALCIUM (BEAKER) 7.8 mg/dL 8.4-10.2 L (test code = 697) EGFR (BEAKER) (test INSUFFIC IENT CLINICAL code = 1092) DATA TO CALCULA TE ESTIMATED GFR. Banking Manager ID - PISANYA [id number] 07:36:00 Test Item Value Reference Range Interpretation Comments PHOSPHORUS (BEAKER) (test code = 2.3 mg/dL 2.3-4.7 604) Banking Manager ID - ZENIA ILVVQXHAGQ5509-25-45 07:36:00 Test Item Value Reference Range Interpretation Comments MAGNESIUM (BEAKER) (test code = 2.1 mg/dL 1.6-2.6 627) Banking Manager ID - ZENIA LCBC W/PLT COUNT & AUTO [id number] 06:35:00 Test Item Value Reference Range Interpretation Comments WHITE BLOOD CELL COUNT (BEAKER) 6.5 K/ L 3.5-10.5 (test code = 775) RED BLOOD CELL COUNT (BEAKER) 2.95 M/ L 4.63-6.08 L (test code = 761) HEMOGLOBIN (BEAKER) (test code = 8.7 GM/DL 13.7-17.5 L 410) HEMATOCRIT (BEAKER) (test code = 28.2 % 40.1-51.0 L 411) MEAN CORPUSCULAR VOLUME (BEAKER) 95.6 fL 79.0-92.2 H (test code = 753) MEAN CORPUSCULAR HEMOGLOBIN 29.5 pg 25.7-32.2 (BEAKER) (test code = 751) MEAN CORPUSCULAR HEMOGLOBIN CONC 30.9 GM/DL 32.3-36.5 L (BEAKER) (test code = 752) RED CELL DISTRIBUTION WIDTH 17.4 % 11.6-14.4 H (BEAKER) (test code = 412) PLATELET COUNT (BEAKER) (test 203 K/CU MM 150-450 code = 756) MEAN PLATELET VOLUME (BEAKER) 9.2 fL 9.4-12.4 L (test code = 754) NUCLEATED RED BLOOD CELLS 0 /100 WBC 0-0 (BEAKER) (test code = 413) NEUTROPHILS RELATIVE PERCENT 62 % (BEAKER) (test code = 429) LYMPHOCYTES RELATIVE PERCENT 25 % (BEAKER) (test code = 430) MONOCYTES RELATIVE PERCENT 10 % (BEAKER) (test code = 431) EOSINOPHILS RELATIVE PERCENT 3 % (BEAKER) (test code = 432) BASOPHILS RELATIVE PERCENT 0 % (BEAKER) (test code = 437) NEUTROPHILS ABSOLUTE COUNT 4.01 K/ L 1.78-5.38 (BEAKER) (test code = 670) LYMPHOCYTES ABSOLUTE COUNT 1.60 K/ L 1.32-3.57 (BEAKER) (test code = 414) MONOCYTES ABSOLUTE COUNT (BEAKER) 0.66 K/ L 0.30-0.82 (test code = 415) EOSINOPHILS ABSOLUTE COUNT 0.21 K/ L 0.04-0.54 (BEAKER) (test code = 416) BASOPHILS ABSOLUTE COUNT (BEAKER) 0.01 K/ L 0.01-0.08 (test code = 417) IMMATURE GRANULOCYTES-RELATIVE 0 % 0-1 PERCENT (BEAKER) (test code = 2801) Hemoglobin and [id number] 23:15:00 Test Item Value Reference Range Interpretation Comments Hemoglobin (test code = 8.5 13.7- 17.5 GM/DL L 786-4) Hematocrit (test code = 27.1 % 40.1-51 L 4544-3) GRISELDA (test code = GRISELDA) Banking Manager ID - [id number] Lab Interpretation (test Abnormal code = 84249-2) [facility] HospitalHEMOGLOBIN AND [id number] 23:15:00 Test Item Value Reference Range Interpretation Comments HEMOGLOBIN (BEAKER) (test code = 8.5 GM/DL 13.7-17.5 L 410) HEMATOCRIT (BEAKER) (test code = 27.1 % 40.1-51.0 L 411) Banking Manager ID - [id number] AND [id number] 18:34:00 Test Item Value Reference Range Interpretation Comments HEMOGLOBIN (BEAKER) (test code = 9.5 GM/DL 13.7-17.5 L 410) HEMATOCRIT (BEAKER) (test code = 30.6 % 40.1-51.0 L 411) Banking Manager ID - 2059Fjwhzejda0914-28-77 15:27:00 Test Item Value Reference Range Interpretation Comments Potassium (test code = 4.4 meq/L 3.5-5.1 2823-3) GRISELDA (test code = GRISELDA) Banking Manager ID - DB Lab Interpretation (test Normal code = 04588-1) [facility]OT[facility]UM2020-[facility]-17 15:27:00 Test Item Value Reference Range Interpretation Comments POTASSIUM (BEAKER) (test code = 4.4 meq/L 3.5-5.1 379) Banking Manager ID - [id number] 15:27:00 Test Item Value Reference Range Interpretation Comments MAGNESIUM (BEAKER) (test code = 2.0 mg/dL 1.6-2.6 627) Banking Manager ID - DBType and screen, [id number] 12:34:00 Test Item Value Reference Range Interpretation Comments ABO/RH AUTOMATED (BEAKER) (test B POSITIVE code = 2260) Ab Scrn (test code = 890-4) NEGATIVE [facility]T [facility] & AUTO [id number] 05:26:00 Test Item Value Reference Range Interpretation Comments WHITE BLOOD CELL COUNT (BEAKER) 6.1 K/ L 3.5-10.5 (test code = 775) RED BLOOD CELL COUNT (BEAKER) 2.37 M/ L 4.63-6.08 L (test code = 761) HEMOGLOBIN (BEAKER) (test code = 7.1 GM/DL 13.7-17.5 L 410) HEMATOCRIT (BEAKER) (test code = 23.2 % 40.1-51.0 L 411) MEAN CORPUSCULAR VOLUME (BEAKER) 97.9 fL 79.0-92.2 H (test code = 753) MEAN CORPUSCULAR HEMOGLOBIN 30.0 pg 25.7-32.2 (BEAKER) (test code = 751) MEAN CORPUSCULAR HEMOGLOBIN CONC 30.6 GM/DL 32.3-36.5 L (BEAKER) (test code = 752) RED CELL DISTRIBUTION WIDTH 16.8 % 11.6-14.4 H (BEAKER) (test code = 412) PLATELET COUNT (BEAKER) (test 171 K/CU MM 150-450 code = 756) MEAN PLATELET VOLUME (BEAKER) 9.3 fL 9.4-12.4 L (test code = 754) NUCLEATED RED BLOOD CELLS 0 /100 WBC 0-0 (BEAKER) (test code = 413) NEUTROPHILS RELATIVE PERCENT 64 % (BEAKER) (test code = 429) LYMPHOCYTES RELATIVE PERCENT 20 % (BEAKER) (test code = 430) MONOCYTES RELATIVE PERCENT 11 % (BEAKER) (test code = 431) EOSINOPHILS RELATIVE PERCENT 4 % (BEAKER) (test code = 432) BASOPHILS RELATIVE PERCENT 0 % (BEAKER) (test code = 437) NEUTROPHILS ABSOLUTE COUNT 3.94 K/ L 1.78-5.38 (BEAKER) (test code = 670) LYMPHOCYTES ABSOLUTE COUNT 1.22 K/ L 1.32-3.57 L (BEAKER) (test code = 414) MONOCYTES ABSOLUTE COUNT (BEAKER) 0.69 K/ L 0.30-0.82 (test code = 415) EOSINOPHILS ABSOLUTE COUNT 0.25 K/ L 0.04-0.54 (BEAKER) (test code = 416) BASOPHILS ABSOLUTE COUNT (BEAKER) 0.01 K/ L 0.01-0.08 (test code = 417) IMMATURE GRANULOCYTES-RELATIVE 0 % 0-1 PERCENT (BEAKER) (test code = 2801) BASIC METABOLIC [id number] 05:08:00 Test Item Value Reference Range Interpretation Comments SODIUM (BEAKER) (test 140 meq/L 136-145 code = 381) POTASSIUM (BEAKER) 3.9 meq/L 3.5-5.1 (test code = 379) CHLORIDE (BEAKER) 109 meq/L 98-107 H (test code = 382) CO2 (BEAKER) (test 26 meq/L 22-29 code = 355) BLOOD UREA NITROGEN 12 mg/dL 7-21 (BEAKER) (test code = 354) CREATININE (BEAKER) 1.17 mg/dL 0.57-1.25 (test code = 358) GLUCOSE RANDOM 92 mg/dL 70-105 (BEAKER) (test code = 652) CALCIUM (BEAKER) 7.4 mg/dL 8.4-10.2 L (test code = 697) EGFR (BEAKER) (test INSUFFIC IENT CLINICAL code = 1092) DATA TO CALCULA TE ESTIMATED GFR. Banking Manager ID - ILNDSEY [id number] 04:56:00 Test Item Value Reference Range Interpretation Comments PHOSPHORUS (BEAKER) (test code = 2.3 mg/dL 2.3-4.7 604) Banking Manager ID - LINDSEY [id number] 04:56:00 Test Item Value Reference Range Interpretation Comments MAGNESIUM (BEAKER) (test code = 2.1 mg/dL 1.6-2.6 627) Banking Manager ID - LINDSEY TAkzdksqv8310-93-49 15:40:00 Test Item Value Reference Range Interpretation Comments Ferritin (test code = 97.89 ng/mL 5-275 2276-4) GRISELDA (test code = GRISELDA) Banking Manager ID Leonidas Lux Lab Interpretation (test Normal code = 67538-1) [facility]IN2020-[facility] 15:40:00 Test Item Value Reference Range Interpretation Comments FERRITIN (BEAKER) (test code = 97.89 ng/mL 5.00-275.00 361) Banking Manager ID Leonidas Victoriaon, TIBC, % sat. (without ferritin)2019-09-07 15:20:00 Test Item Value Reference Range Interpretation Comments Iron (test code = 2498-4) 21.0 ug/dL 40-160 L TIBC (test code = 2500-7) 224 ug/dL 250-450 L Iron % Saturation (test 9 % 20-55 L code = 2502-3) GRISELDA (test code = GRISELDA) Banking Manager ID Leonidas RUSSELL Lab Interpretation (test Abnormal code = 94028-6) [facility] HospitalIRON, TIBC, % SAT. (WITHOUT FERRITIN)2019-09-07 15:20:00 Test Item Value Reference Range Interpretation Comments IRON (BEAKER) (test code = 547) 21.0 ug/dL 40.0-160.0 L TOTAL IRON BINDING CAPACITY 224 ug/dL 250-450 L (BEAKER) (test code = 769) IRON % SATURATION (2) (BEAKER) 9 % 20-55 L (test code = 2590) Banking Manager ID - YVONNE IVRLUHUNPD2980-77-09 15:19:00 Test Item Value Reference Range Interpretation Comments POTASSIUM (BEAKER) (test code = 4.4 meq/L 3.5-5.1 379) Banking Manager ID - YVONNE [id number] 15:19:00 Test Item Value Reference Range Interpretation Comments MAGNESIUM (BEAKER) (test code = 2.2 mg/dL 1.6-2.6 627) Banking Manager ID - YVONNE MBASIC METABOLIC [id number] 06:12:00 Test Item Value Reference Range Interpretation Comments SODIUM (BEAKER) (test 144 meq/L 136-145 code = 381) POTASSIUM (BEAKER) 3.4 meq/L 3.5-5.1 L (test code = 379) CHLORIDE (BEAKER) 114 meq/L 98-107 H (test code = 382) CO2 (BEAKER) (test 26 meq/L 22-29 code = 355) BLOOD UREA NITROGEN 12 mg/dL 7-21 (BEAKER) (test code = 354) CREATININE (BEAKER) 1.06 mg/dL 0.57-1.25 (test code = 358) GLUCOSE RANDOM 87 mg/dL 70-105 (BEAKER) (test code = 652) CALCIUM (BEAKER) 6.7 mg/dL 8.4-10.2 L (test code = 697) EGFR (BEAKER) (test INSUFFIC IENT CLINICAL code = 1092) DATA TO CALCULA TE ESTIMATED GFR. Banking Manager ID - YVONNE [id number] 06:02:00 Test Item Value Reference Range Interpretation Comments PHOSPHORUS (BEAKER) (test code = 2.2 mg/dL 2.3-4.7 L 604) Banking Manager ID - YVONNE IUIHSHJHOQ2474-57-05 06:02:00 Test Item Value Reference Range Interpretation Comments MAGNESIUM (BEAKER) (test code = 1.6 mg/dL 1.6-2.6 627) Banking Manager ID - YVONNE MCBC W/PLT COUNT & AUTO [id number] 05:27:00 Test Item Value Reference Range Interpretation Comments WHITE BLOOD CELL COUNT (BEAKER) 6.2 K/ L 3.5-10.5 (test code = 775) RED BLOOD CELL COUNT (BEAKER) 2.48 M/ L 4.63-6.08 L (test code = 761) HEMOGLOBIN (BEAKER) (test code = 7.4 GM/DL 13.7-17.5 L 410) HEMATOCRIT (BEAKER) (test code = 24.3 % 40.1-51.0 L 411) MEAN CORPUSCULAR VOLUME (BEAKER) 98.0 fL 79.0-92.2 H (test code = 753) MEAN CORPUSCULAR HEMOGLOBIN 29.8 pg 25.7-32.2 (BEAKER) (test code = 751) MEAN CORPUSCULAR HEMOGLOBIN CONC 30.5 GM/DL 32.3-36.5 L (BEAKER) (test code = 752) RED CELL DISTRIBUTION WIDTH 16.9 % 11.6-14.4 H (BEAKER) (test code = 412) PLATELET COUNT (BEAKER) (test 163 K/CU MM 150-450 code = 756) MEAN PLATELET VOLUME (BEAKER) 9.3 fL 9.4-12.4 L (test code = 754) NUCLEATED RED BLOOD CELLS 0 /100 WBC 0-0 (BEAKER) (test code = 413) NEUTROPHILS RELATIVE PERCENT 62 % (BEAKER) (test code = 429) LYMPHOCYTES RELATIVE PERCENT 22 % (BEAKER) (test code = 430) MONOCYTES RELATIVE PERCENT 11 % (BEAKER) (test code = 431) EOSINOPHILS RELATIVE PERCENT 4 % (BEAKER) (test code = 432) BASOPHILS RELATIVE PERCENT 0 % (BEAKER) (test code = 437) NEUTROPHILS ABSOLUTE COUNT 3.86 K/ L 1.78-5.38 (BEAKER) (test code = 670) LYMPHOCYTES ABSOLUTE COUNT 1.38 K/ L 1.32-3.57 (BEAKER) (test code = 414) MONOCYTES ABSOLUTE COUNT (BEAKER) 0.66 K/ L 0.30-0.82 (test code = 415) EOSINOPHILS ABSOLUTE COUNT 0.26 K/ L 0.04-0.54 (BEAKER) (test code = 416) BASOPHILS ABSOLUTE COUNT (BEAKER) 0.02 K/ L 0.01-0.08 (test code = 417) IMMATURE GRANULOCYTES-RELATIVE 0 % 0-1 PERCENT (BEAKER) (test code = 2801) RAD, CHEST, 1 VIEW, NON [id number] 02:58:00Reason for exam:->acute respiratory insufficiencyShould this be [...] surgical changes.Additional findings: None. Signed: Singh Tuttle MDRlishaort Verified Date/Time: 09/07/2019 02:58:19 XR chest 1 view portable / [id number] 02:58:00 Interface, External Ris In - 09/07/2019 3:00 AM CDTFINAL REPORT RAD, CHEST, 1 VIEW, NON DEPT INDICATION: acute respiratory insufficiency COMPARISON: Prior day's exam FINDINGS: Portable frontal view of the chest. IMPRESSION: Support Lines: Stable. Lungs and pleura: No signific ant change in diffuse bilateral coarse interstitial opacities with central venous congestion. Small bilateral pleural effusions similar to prior. No pneumothorax.Heart and mediastinum: Stable contours.Stable surgical changes.Additional findings: None. Signed: Singh Tuttle MDReport Verified Date/Time: 09/07/2019 02:58:19 [facility] 2019-09-06 05:22:00 Test Item Value Reference Range Interpretation Comments SODIUM (BEAKER) (test 141 meq/L 136-145 code = 381) POTASSIUM (BEAKER) 3.8 meq/L 3.5-5.1 Specimen slightly (test code = 379) hemolyzed CHLORIDE (BEAKER) 108 meq/L 98-107 H (test code = 382) CO2 (BEAKER) (test 27 meq/L 22-29 code = 355) BLOOD UREA NITROGEN 15 mg/dL 7-21 (BEAKER) (test code = 354) CREATININE (BEAKER) 1.22 mg/dL 0.57-1.25 Specimen slightly (test code = 358) hemolyzed GLUCOSE RANDOM 96 mg/dL 70-105 (BEAKER) (test code = 652) CALCIUM (BEAKER) 7.4 mg/dL 8.4-10.2 L (test code = 697) EGFR (BEAKER) (test INSUFFIC IENT CLINICAL code = 1092) DATA TO CALCULA TE ESTIMATED GFR. Banking Manager ID - ZENIA [id number] 05:20:00 Test Item Value Reference Range Interpretation Comments MAGNESIUM (BEAKER) 1.9 mg/dL 1.6-2.6 Specimen slightly (test code = 627) hemolyzed Banking Manager ID Leonidas KNUTSON [id number] 05:20:00 Test Item Value Reference Range Interpretation Comments PHOSPHORUS (BEAKER) 2.1 mg/dL 2.3-4.7 L Specimen slightly (test code = 604) hemolyzed Banking Manager NADJA KNUTSON LCalcium, [id number] 05:12:00 Test Item Value Reference Range Interpretation Comments Calcium, Ion (test code = 1993-) 1.01 mmol/L 1.12-1.27 L pH, Blood (test code = 76379-6) 7.41 Lab Interpretation (test code = Abnormal 43265-7) [facility] [id number] 05:12:00 Test Item Value Reference Range Interpretation Comments CALCIUM IONIZED (BEAKER) (test 1.01 mmol/L 1.12-1.27 L code = 698) PH, BLOOD (BEAKER) (test code = 7.41 1810) Blood gas, [id number] 04:58:00 Test Item Value Reference Range Interpretation Comments pH, Arterial (test code = 2744-1) 7.41 7.35-7.45 pCO2, Arterial (test code = 44 35- 45 mmHg 2018-12) pO2, Arterial (test code = 2703-7) 82 80- 90 mmHg O2 Sat, Arterial (test code = 96.1 % 96-97 8-6) HCO3, Arterial (test code = 27 mmol/L -29 1959-08) Base Excess, Arterial (test code = 2.4 mmol/L -2-3 1925-7) Patient Temperature (test code = 37.0 C 8310-5) FIO2 (test code = 1819) 50 % [facility], [id number] 04:58:00 Test Item Value Reference Range Interpretation Comments PH ARTERIAL (BEAKER) (test code = 7.41 7.35-7.45 383) PCO2 ARTERIAL (BEAKER) (test code 44 mmHg 35-45 = 384) PO2 ARTERIAL (BEAKER) (test code = 82 mmHg 80-90 385) O2 SATURATION ARTERIAL (BEAKER) 96.1 % 96.0-97.0 (test code = 386) HCO3 ARTERIAL (BEAKER) (test code 27 mmol/L 21-29 = 388) BASE EXCESS ARTERIAL (BEAKER) 2.4 mmol/L -2.0-3.0 (test code = 387) PATIENT TEMPERATURE (BEAKER) (test 37.0 C code = 1818) FIO2 (BEAKER) (test code = 1819) 50.0 % Oxygen saturation, [id number] 04:56:00 Test Item Value Reference Range Interpretation Comments O2 Saturation (Measured) (test code = 64.5 % 45493-6) [facility]OX[facility]ATION, [id number] 04:56:00 Test Item Value Reference Range Interpretation Comments O2 SATURATION (MEASURED) (BEAKER) 64.5 % (test code = 1455) CBC W/PLT COUNT & AUTO [id number] 04:52:00 Test Item Value Reference Range Interpretation Comments WHITE BLOOD CELL COUNT (BEAKER) 6.8 K/ L 3.5-10.5 (test code = 775) RED BLOOD CELL COUNT (BEAKER) 2.46 M/ L 4.63-6.08 L (test code = 761) HEMOGLOBIN (BEAKER) (test code = 7.4 GM/DL 13.7-17.5 L 410) HEMATOCRIT (BEAKER) (test code = 24.0 % 40.1-51.0 L 411) MEAN CORPUSCULAR VOLUME (BEAKER) 97.6 fL 79.0-92.2 H (test code = 753) MEAN CORPUSCULAR HEMOGLOBIN 30.1 pg 25.7-32.2 (BEAKER) (test code = 751) MEAN CORPUSCULAR HEMOGLOBIN CONC 30.8 GM/DL 32.3-36.5 L (BEAKER) (test code = 752) RED CELL DISTRIBUTION WIDTH 16.8 % 11.6-14.4 H (BEAKER) (test code = 412) PLATELET COUNT (BEAKER) (test 175 K/CU MM 150-450 code = 756) MEAN PLATELET VOLUME (BEAKER) 9.8 fL 9.4-12.4 (test code = 754) NUCLEATED RED BLOOD CELLS 0 /100 WBC 0-0 (BEAKER) (test code = 413) NEUTROPHILS RELATIVE PERCENT 64 % (BEAKER) (test code = 429) LYMPHOCYTES RELATIVE PERCENT 20 % (BEAKER) (test code = 430) MONOCYTES RELATIVE PERCENT 12 % (BEAKER) (test code = 431) EOSINOPHILS RELATIVE PERCENT 4 % (BEAKER) (test code = 432) BASOPHILS RELATIVE PERCENT 0 % (BEAKER) (test code = 437) NEUTROPHILS ABSOLUTE COUNT 4.35 K/ L 1.78-5.38 (BEAKER) (test code = 670) LYMPHOCYTES ABSOLUTE COUNT 1.32 K/ L 1.32-3.57 (BEAKER) (test code = 414) MONOCYTES ABSOLUTE COUNT (BEAKER) 0.79 K/ L 0.30-0.82 (test code = 415) EOSINOPHILS ABSOLUTE COUNT 0.25 K/ L 0.04-0.54 (BEAKER) (test code = 416) BASOPHILS ABSOLUTE COUNT (BEAKER) 0.02 K/ L 0.01-0.08 (test code = 417) IMMATURE GRANULOCYTES-RELATIVE 0 % 0-1 PERCENT (BEAKER) (test code = 2801) RAD, CHEST, 1 VIEW, NON [id number] 02:04:00Reason for exam:->acute respiratory insufficiencyShould this be [...] pleural effusions. There is no pneumothorax. Signed: Amuta, Ashley MDReport Verified Date/Time: 09/06/2019 02:04:04 BASIC METABOLIC [id number] 06:36:00 Test Item Value Reference Range Interpretation Comments SODIUM (BEAKER) (test 140 meq/L 136-145 code = 381) POTASSIUM (BEAKER) 3.8 meq/L 3.5-5.1 (test code = 379) CHLORIDE (BEAKER) 107 meq/L 98-107 (test code = 382) CO2 (BEAKER) (test 26 meq/L 22-29 code = 355) BLOOD UREA NITROGEN 18 mg/dL 7-21 (BEAKER) (test code = 354) CREATININE (BEAKER) 1.29 mg/dL 0.57-1.25 H (test code = 358) GLUCOSE RANDOM 120 mg/dL 70-105 H (BEAKER) (test code = 652) CALCIUM (BEAKER) 7.8 mg/dL 8.4-10.2 L (test code = 697) EGFR (BEAKER) (test INSUFFIC IENT CLINICAL code = 1092) DATA TO CALCULA TE ESTIMATED GFR. Banking Manager ID - [id number] 06:34:00 Test Item Value Reference Range Interpretation Comments PHOSPHORUS (BEAKER) (test code = 1.6 mg/dL 2.3-4.7 L 604) Banking Manager ID - [id number] 06:34:00 Test Item Value Reference Range Interpretation Comments MAGNESIUM (BEAKER) (test code = 1.8 mg/dL 1.6-2.6 627) Banking Manager ID - LMECG 12 [id number] 06:28:39Interface, External Ris In - 09/05/2019 6:28 AM CDTVentricular Rate 54 BPMAtrial Rate 54 BPMP-R Interval 148 msQRS Duration 114 msQ-T Interval 522 msQTC Calculation(Bazett) 495 msP Sawyer 10 degreesR Sawyer 48 degreesT Sawyer 44 degreesSinus bradycardia with Premature atrial complexesCannot rule out Inferior infarct (cited on or before 30-AUG-2019)ST & T wave abnormality, consider anterior ischemiaAbnormal ECGWhen compared with ECG of 30-AUG-2019 17:03,No significant change was foundConfirmed by POLLY SUMMERS MD, DAKOTA Savage ([id number]) on 09/05/2019 6:28:38 [facility] W/PLT COUNT & AUTO [id number] 06:06:00 Test Item Value Reference Range Interpretation Comments WHITE BLOOD CELL COUNT (BEAKER) 10.0 K/ L 3.5-10.5 (test code = 775) RED BLOOD CELL COUNT (BEAKER) 2.62 M/ L 4.63-6.08 L (test code = 761) HEMOGLOBIN (BEAKER) (test code = 7.9 GM/DL 13.7-17.5 L 410) HEMATOCRIT (BEAKER) (test code = 25.3 % 40.1-51.0 L 411) MEAN CORPUSCULAR VOLUME (BEAKER) 96.6 fL 79.0-92.2 H (test code = 753) MEAN CORPUSCULAR HEMOGLOBIN 30.2 pg 25.7-32.2 (BEAKER) (test code = 751) MEAN CORPUSCULAR HEMOGLOBIN CONC 31.2 GM/DL 32.3-36.5 L (BEAKER) (test code = 752) RED CELL DISTRIBUTION WIDTH 16.7 % 11.6-14.4 H (BEAKER) (test code = 412) PLATELET COUNT (BEAKER) (test 165 K/CU MM 150-450 code = 756) MEAN PLATELET VOLUME (BEAKER) 9.3 fL 9.4-12.4 L (test code = 754) NUCLEATED RED BLOOD CELLS 0 /100 WBC 0-0 (BEAKER) (test code = 413) NEUTROPHILS RELATIVE PERCENT 72 % (BEAKER) (test code = 429) LYMPHOCYTES RELATIVE PERCENT 15 % (BEAKER) (test code = 430) MONOCYTES RELATIVE PERCENT 10 % (BEAKER) (test code = 431) EOSINOPHILS RELATIVE PERCENT 2 % (BEAKER) (test code = 432) BASOPHILS RELATIVE PERCENT 0 % (BEAKER) (test code = 437) NEUTROPHILS ABSOLUTE COUNT 7.21 K/ L 1.78-5.38 H (BEAKER) (test code = 670) LYMPHOCYTES ABSOLUTE COUNT 1.48 K/ L 1.32-3.57 (BEAKER) (test code = 414) MONOCYTES ABSOLUTE COUNT (BEAKER) 0.98 K/ L 0.30-0.82 H (test code = 415) EOSINOPHILS ABSOLUTE COUNT 0.24 K/ L 0.04-0.54 (BEAKER) (test code = 416) BASOPHILS ABSOLUTE COUNT (BEAKER) 0.03 K/ L 0.01-0.08 (test code = 417) IMMATURE GRANULOCYTES-RELATIVE 0 % 0-1 PERCENT (BEAKER) (test code = 2801) RAD, CHEST, 1 VIEW, NON [id number] 04:24:00Reason for exam:->acute respiratory insufficiencyShould this be [...] pleural effusions. There isno pneumothorax. Signed: Ashley Senior [facility] Verified Date/Time: 09/05/2019 04:24:00 BASIC METABOLIC [id number] 10:52:00 Test Item Value Reference Range Interpretation Comments SODIUM (BEAKER) (test 139 meq/L 136-145 code = 381) POTASSIUM (BEAKER) 4.2 meq/L 3.5-5.1 (test code = 379) CHLORIDE (BEAKER) 105 meq/L 98-107 (test code = 382) CO2 (BEAKER) (test 25 meq/L 22-29 code = 355) BLOOD UREA NITROGEN 27 mg/dL 7-21 H (BEAKER) (test code = 354) CREATININE (BEAKER) 1.50 mg/dL 0.57-1.25 H (test code = 358) GLUCOSE RANDOM 173 mg/dL 70-105 H (BEAKER) (test code = 652) CALCIUM (BEAKER) 8.1 mg/dL 8.4-10.2 L (test code = 697) EGFR (BEAKER) (test INSUFFIC IENT CLINICAL code = 1092) DATA TO CALCULA TE ESTIMATED GFR. Banking Manager ID - AYANA CCALCIUM, [id number] 09:38:00 Test Item Value Reference Range Interpretation Comments CALCIUM IONIZED (BEAKER) (test 1.10 mmol/L 1.12-1.27 L code = 698) PH, BLOOD (BEAKER) (test code = 7.40 1810) BLOOD GAS, [id number] 06:11:00 Test Item Value Reference Range Interpretation Comments PH ARTERIAL (BEAKER) (test code = 7.37 7.35-7.45 383) PCO2 ARTERIAL (BEAKER) (test code 49 mmHg 35-45 H = 384) PO2 ARTERIAL (BEAKER) (test code = 124 mmHg 80-90 H 385) O2 SATURATION ARTERIAL (BEAKER) 98.3 % 96.0-97.0 H (test code = 386) HCO3 ARTERIAL (BEAKER) (test code 28 mmol/L 21-29 = 388) BASE EXCESS ARTERIAL (BEAKER) 2.1 mmol/L -2.0-3.0 (test code = 387) PATIENT TEMPERATURE (BEAKER) (test 37.0 C code = 1818) FIO2 (BEAKER) (test code = 1819) 100.0 % BASIC METABOLIC [id number] 05:59:00 Test Item Value Reference Range Interpretation Comments SODIUM (BEAKER) (test 139 meq/L 136-145 code = 381) POTASSIUM (BEAKER) 4.3 meq/L 3.5-5.1 (test code = 379) CHLORIDE (BEAKER) 106 meq/L 98-107 (test code = 382) CO2 (BEAKER) (test 27 meq/L 22-29 code = 355) BLOOD UREA NITROGEN 28 mg/dL 7-21 H (BEAKER) (test code = 354) CREATININE (BEAKER) 1.45 mg/dL 0.57-1.25 H (test code = 358) GLUCOSE RANDOM 161 mg/dL 70-105 H (BEAKER) (test code = 652) CALCIUM (BEAKER) 8.1 mg/dL 8.4-10.2 L (test code = 697) EGFR (BEAKER) (test INSUFFIC IENT CLINICAL code = 1092) DATA TO CALCULA TE ESTIMATED GFR. Banking Manager ID - YVONNE [id number] 05:58:00 Test Item Value Reference Range Interpretation Comments PHOSPHORUS (BEAKER) (test code = 2.2 mg/dL 2.3-4.7 L 604) Banking Manager ID - YVONNE [id number] 05:58:00 Test Item Value Reference Range Interpretation Comments MAGNESIUM (BEAKER) (test code = 2.2 mg/dL 1.6-2.6 627) Banking Manager ID - YVONNE [facility]BC (Hemogram only)2019-09-04 05:37:00 Test Item Value Reference Range Interpretation Comments WBC (test code = 6690-2) 12.5 3.5- 10.5 K/L H RBC (test code = 789-8) 2.96 4.63- 6.08 M/L L MCHC (test code = 786-4) 30.7 32.3- 36.5 GM/DL L Hematocrit (test code = 4544-3) 27.7 % 40.1-51 L MCV (test code = 787-2) 93.6 fL 79-92.2 H MCH (test code = 785-6) 28.7 pg 25.7-32.2 RDW (test code = 788-0) 16.8 % 11.6-14.4 H Platelets (test code = 777-3) 182 150- 450 K/CU MM MPV (test code = 67735-5) 9.0 fL 9.4-12.4 L nRBC (test code = 413) 0 0- 0 /100 WBC Lab Interpretation (test code = Abnormal 55552-9) [facility] 05:37:00 Test Item Value Reference Range Interpretation Comments WHITE BLOOD CELL COUNT (BEAKER) 12.5 K/ L 3.5-10.5 H (test code = 775) RED BLOOD CELL COUNT (BEAKER) 2.96 M/ L 4.63-6.08 L (test code = 761) HEMOGLOBIN (BEAKER) (test code = 8.5 GM/DL 13.7-17.5 L 410) HEMATOCRIT (BEAKER) (test code = 27.7 % 40.1-51.0 L 411) MEAN CORPUSCULAR VOLUME (BEAKER) 93.6 fL 79.0-92.2 H (test code = 753) MEAN CORPUSCULAR HEMOGLOBIN 28.7 pg 25.7-32.2 (BEAKER) (test code = 751) MEAN CORPUSCULAR HEMOGLOBIN CONC 30.7 GM/DL 32.3-36.5 L (BEAKER) (test code = 752) RED CELL DISTRIBUTION WIDTH 16.8 % 11.6-14.4 H (BEAKER) (test code = 412) PLATELET COUNT (BEAKER) (test 182 K/CU MM 150-450 code = 756) MEAN PLATELET VOLUME (BEAKER) 9.0 fL 9.4-12.4 L (test code = 754) NUCLEATED RED BLOOD CELLS 0 /100 WBC 0-0 (BEAKER) (test code = 413) BASIC METABOLIC [id number] 01:33:00 Test Item Value Reference Range Interpretation Comments SODIUM (BEAKER) (test 140 meq/L 136-145 code = 381) POTASSIUM (BEAKER) 3.8 meq/L 3.5-5.1 (test code = 379) CHLORIDE (BEAKER) 105 meq/L 98-107 (test code = 382) CO2 (BEAKER) (test 27 meq/L 22-29 code = 355) BLOOD UREA NITROGEN 30 mg/dL 7-21 H (BEAKER) (test code = 354) CREATININE (BEAKER) 1.46 mg/dL 0.57-1.25 H (test code = 358) GLUCOSE RANDOM 133 mg/dL 70-105 H (BEAKER) (test code = 652) CALCIUM (BEAKER) 8.1 mg/dL 8.4-10.2 L (test code = 697) EGFR (BEAKER) (test INSUFFIC IENT CLINICAL code = 1092) DATA TO CALCULA TE ESTIMATED GFR. Banking Manager ID - YVONNE [id number] 01:23:00 Test Item Value Reference Range Interpretation Comments MAGNESIUM (BEAKER) (test code = 2.4 mg/dL 1.6-2.6 627) Banking Manager ID - YVONNE MCALCIUM, [id number] 00:57:00 Test Item Value Reference Range Interpretation Comments CALCIUM IONIZED (BEAKER) (test 1.00 mmol/L 1.12-1.27 L code = 698) PH, BLOOD (BEAKER) (test code = 7.48 1810) RAD, CHEST, 1 VIEW, NON [id number] 00:24:00Reason for exam:->pulm statusShould this be performed [...] IJ central venous catheter is stable. Signed: Miguel Garcia MDReport Verified Date/Time: 09/04/2019 00:24:21 BASIC METABOLIC [id number] 16:31:00 Test Item Value Reference Range Interpretation Comments SODIUM (BEAKER) (test 137 meq/L 136-145 code = 381) POTASSIUM (BEAKER) 3.8 meq/L 3.5-5.1 (test code = 379) CHLORIDE (BEAKER) 105 meq/L 98-107 (test code = 382) CO2 (BEAKER) (test 24 meq/L 22-29 code = 355) BLOOD UREA NITROGEN 34 mg/dL 7-21 H (BEAKER) (test code = 354) CREATININE (BEAKER) 1.49 mg/dL 0.57-1.25 H (test code = 358) GLUCOSE RANDOM 153 mg/dL 70-105 H (BEAKER) (test code = 652) CALCIUM (BEAKER) 7.8 mg/dL 8.4-10.2 L (test code = 697) EGFR (BEAKER) (test INSUFFIC IENT CLINICAL code = 1092) DATA TO CALCULA TE ESTIMATED GFR. Banking Manager ID - [id number] 16:28:00 Test Item Value Reference Range Interpretation Comments MAGNESIUM (BEAKER) (test code = 2.1 mg/dL 1.6-2.6 627) Banking Manager ID - DBHEMOGLOBIN AND [id number] 16:08:00 Test Item Value Reference Range Interpretation Comments HEMOGLOBIN (BEAKER) (test code = 8.3 GM/DL 13.7-17.5 L 410) HEMATOCRIT (MP) (test code = 26.1 % 40.1-51.0 L 411) Banking Manager ID - [id number] Echo W/Doppler(CW/PW/Color)2019-09-03 13:56:39Ejection FractionSLEH ECHO HEARTLAB MKCKMARIBELLON CPACSInterface, External Ris In - 09/03/2019 1:56 PM CDTTransthoracic Echocardiography Report (TTE) Demographics Patient Name FIDEL PRADHAN Date of Study 09/03/2019 ROS[place] Gender Male Visit Number [id number] Race Unknown Room Number C825 Number Date of 1930 Referring Physician Mitchell Chapman Age 89 year(s) 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 Amount - 2 mlHeight: 62 inches Weight: 91.63 kg (202 lbs) BSA: 1.92 m^2 BMI: 36.95 kg/m^2HR: 73 bpm BP: 117/50 mmHg Summary 1. The left ventricle is chamber size (by vol index) is mildly enlarged. Mild septal hypertrophy is present. Basal to mid inferior and inferolateral latham are severely hypokinetic. All other LV segments have low normal contractility. LVEF by Rodriguez's method of disk assessment is mildly reduced (40-44%) . Grade 1 diastolic dysfunction (impaired relaxation and low- normal LA pressure). 2. RV chamber size is moderately enlarged . Global RV systolic function is mild to moderately reduced. Estimated peak systolic PA pressure is 40-45 mmHg (mild pulmonary hypertension). 3. No significant valvular abnormalities. Previous Study In comparison with the prior exam on 06-26-19 there are nosignificant changes. Signature Findings Left Ventricle The left ventricle is chamber size (by vol index) is mildly enlarged (male - LVED 75-89ml/m2). Mild septal hypertrophy is present. Basal to mid inferior and inferolateral latham are severely hypokinetic. All other LV segmentshave low normal contractility. Global LV systolic function mildly reduced . LVEF by Rodriguez's method of disk assessment is mildly reduced (40- 44%) . The LVEF was measured using Rodriguez's bi-plane method of disk . LV endocardium is adequately visualized with IV ultrasound enhancing agent. Grade 1 diastolic dysfunction (impaired relaxation and low-normal LA pressure). Left Atrium LA size by qualitative assessment (unable to measure). LA size is normal . Right Ventricle RV chamber size is moderately enlarged . Global RV systolic function is mild to moderately reduced. Right Atrium RA cavity size is mildly [...] diameter) is normal . Pericardium No significant pericardial effusion is visualized. IVC/SVC/PA/PV/Pleural A left pleural effusion is noted. The estimated RA pressure byIVC dynamics 5-10mmHg . Chambers/Structures Left Ventricle LVIDd: 5.3 cm LV Septum Diastolic: 1.32 cm LV PW Diastolic: 0.78 cm LVEDV Rodriguez's:170.11 ml LVESV Rodriguez's:97.85 mlLVEF Rodriguez's: 42.5 % LVEDVI: 89 ml/m^2 LVESVI: 51 ml/m^2 LVOT Diameter: 2.21 cm Right Atrium RA Vol. (Sngl Plane): 62.82 mlRight Ventricle RVOT VTI: 15.99 cm TAPSE: 1.4 [...] 0.84 m/s Peak Gradient: 2.81 mmHg Mean Velocity:0.54 m/s Mean Gradient: 1.37 mmHg LVOT Diameter: 2.21 cm LVOT VTI: 20.07 cmLVOT Area: 3.84 cm^2 LVOT SV:76.95 ml LVOT CO: 5.62 l/min LVOT CI: 2.93 l/min/m^2 Tricuspid Valve TR Velocity: 2.89 m/s TR Gradient: 33.5 mmHgLodi Memorial HospitalPOTASSIUM2020-04-12 09:51:00 Test Item Value Reference Range Interpretation Comments POTASSIUM (BEAKER) 4.0 meq/L 3.5-5.1 Specimen slightly (test code = 379) hemolyzed Banking Manager ID - AYANA CHEMOGLOBIN AND [id number] 09:38:00 Test Item Value Reference Range Interpretation Comments HEMOGLOBIN (BEAKER) (test code = 7.6 GM/DL 13.7-17.5 L 410) HEMATOCRIT (BEAKER) (test code = 23.3 % 40.1-51.0 L 411) Banking Manager ID - 6000CALCIUM, [id number] 09:36:00 Test Item Value Reference Range Interpretation Comments CALCIUM IONIZED (BEAKER) (test 1.04 mmol/L 1.12-1.27 L code = 698) PH, BLOOD (BEAKER) (test code = 7.39 1810) Troponin [id number] 07:06:00 Test Item Value Reference Range Interpretation Comments Troponin I (test code = 0.88 ng/mL 0-0.03 11173-4) GRISELDA (test code = GRISELDA) Troponin I (TnI) levels must be interpreted [...] failure, acidosis, acute neurological disease, and persistent tachyarrhythmia.Opera tor ID Leonidas KNUTSON L Lab Interpretation (test Abnormal code = 53871-1) [facility] HospitalTRSHRINERS HOSPITALS FOR CHILDREN - GREENVILLENIN [id number] 07:06:00 Test Item Value Reference Range Interpretation Comments TROPONIN I (BEAKER) (test code = 0.88 ng/mL 0.00-0.03 397) Troponin I (TnI) levels must be interpreted [...] failure, acidosis, acute neurological disease, and persistent tachyarrhythmia.Banking Manager ID - PIAYA LCALCIUM, IONIZED 2019-09-03 05:40:00 Test Item Value Reference Range Interpretation Comments CALCIUM IONIZED (BEAKER) (test 1.05 mmol/L 1.12-1.27 L code = 698) PH, BLOOD (BEAKER) (test code = 7.37 1810) BLOOD GAS, [id number] 05:34:00 Test Item Value Reference Range Interpretation Comments PH ARTERIAL (BEAKER) (test code = 7.37 7.35-7.45 383) PCO2 ARTERIAL (BEAKER) (test code 47 mmHg 35-45 H = 384) PO2 ARTERIAL (BEAKER) (test code = 67 mmHg 80-90 L 385) O2 SATURATION ARTERIAL (BEAKER) 92.5 % 96.0-97.0 L (test code = 386) HCO3 ARTERIAL (BEAKER) (test code 26 mmol/L 21-29 = 388) BASE EXCESS ARTERIAL (BEAKER) 0.5 mmol/L -2.0-3.0 (test code = 387) PATIENT TEMPERATURE (BEAKER) (test 37.0 C code = 1818) FIO2 (BEAKER) (test code = 1819) 100.0 % CBC (HEMOGRAM ONLY)2019-09-03 05:10:00 Test Item Value Reference Range Interpretation Comments WHITE BLOOD CELL COUNT (BEAKER) 13.0 K/ L 3.5-10.5 H (test code = 775) RED BLOOD CELL COUNT (BEAKER) 2.64 M/ L 4.63-6.08 L (test code = 761) HEMOGLOBIN (BEAKER) (test code = 7.9 GM/DL 13.7-17.5 L 410) HEMATOCRIT (BEAKER) (test code = 24.7 % 40.1-51.0 L 411) MEAN CORPUSCULAR VOLUME (BEAKER) 93.6 fL 79.0-92.2 H (test code = 753) MEAN CORPUSCULAR HEMOGLOBIN 29.9 pg 25.7-32.2 (BEAKER) (test code = 751) MEAN CORPUSCULAR HEMOGLOBIN CONC 32.0 GM/DL 32.3-36.5 L (BEAKER) (test code = 752) RED CELL DISTRIBUTION WIDTH 15.7 % 11.6-14.4 H (BEAKER) (test code = 412) PLATELET COUNT (BEAKER) (test 172 K/CU MM 150-450 code = 756) MEAN PLATELET VOLUME (BEAKER) 9.3 fL 9.4-12.4 L (test code = 754) NUCLEATED RED BLOOD CELLS 0 /100 WBC 0-0 (BEAKER) (test code = 413) BASIC METABOLIC [id number] 05:10:00 Test Item Value Reference Range Interpretation Comments SODIUM (BEAKER) (test 139 meq/L 136-145 code = 381) POTASSIUM (BEAKER) 3.4 meq/L 3.5-5.1 L (test code = 379) CHLORIDE (BEAKER) 105 meq/L 98-107 (test code = 382) CO2 (BEAKER) (test 25 meq/L 22-29 code = 355) BLOOD UREA NITROGEN 42 mg/dL 7-21 H (BEAKER) (test code = 354) CREATININE (BEAKER) 1.71 mg/dL 0.57-1.25 H (test code = 358) GLUCOSE RANDOM 143 mg/dL 70-105 H (BEAKER) (test code = 652) CALCIUM (BEAKER) 7.8 mg/dL 8.4-10.2 L (test code = 697) EGFR (BEAKER) (test INSUFFIC IENT CLINICAL code = 1092) DATA TO CALCULA TE ESTIMATED GFR. Banking Manager NADJA KNUTSON LCreatine Kinase (CK)2019-09-03 04:36:00 Test Item Value Reference Range Interpretation Comments Total CK (test code = 89 U/L 29-200 2157-6) GRISELDA (test code = GRISELDA) Banking Manager ID Leonidas KNUTSON L Lab Interpretation (test Normal code = 30144-0) [facility] HospitalPHOSPHORUS2020-04-12 04:36:00 Test Item Value Reference Range Interpretation Comments PHOSPHORUS (BEAKER) (test code = 3.3 mg/dL 2.3-4.7 604) Banking Manager ID Leonidas KNUTSON [id number] 04:36:00 Test Item Value Reference Range Interpretation Comments MAGNESIUM (BEAKER) (test code = 2.2 mg/dL 1.6-2.6 627) Banking Manager ID Leonidas KNUTSON LCREATINE KINASE (CK)2019-09-03 04:36:00 Test Item Value Reference Range Interpretation Comments CREATINE KINASE TOTAL (BEAKER) (test 89 U/L 29-200 code = 380) Banking Manager NADJA KNUTSON LRAD, CHEST, 1 VIEW, NON [id number] 02:21:00Reason for exam:->pulm statusShould this be performed [...] effusion. There is no pneumothorax. Signed: Ashley Senior MDReport Verified Date/Time: 09/03/2019 02:21:07 IS [id number] 01:53:00 Test Item Value Reference Range Interpretation Comments TROPONIN I (BEAKER) (test code = 1.18 ng/mL 0.00-0.03 397) Troponin I (TnI) levels must be interpreted [...] failure, acidosis, acute neurological disease, and persistent tachyarrhythmia.Banking Manager ID - ZENIA LBASIC METABOLIC [id number] 00:44:00 Test Item Value Reference Range Interpretation Comments SODIUM (BEAKER) (test 137 meq/L 136-145 code = 381) POTASSIUM (BEAKER) 3.6 meq/L 3.5-5.1 (test code = 379) CHLORIDE (BEAKER) 103 meq/L 98-107 (test code = 382) CO2 (BEAKER) (test 24 meq/L 22-29 code = 355) BLOOD UREA NITROGEN 45 mg/dL 7-21 H (BEAKER) (test code = 354) CREATININE (BEAKER) 1.88 mg/dL 0.57-1.25 H (test code = 358) GLUCOSE RANDOM 153 mg/dL 70-105 H (BEAKER) (test code = 652) CALCIUM (BEAKER) 8.0 mg/dL 8.4-10.2 L (test code = 697) EGFR (BEAKER) (test INSUFFIC IENT CLINICAL code = 1092) DATA TO CALCULA TE ESTIMATED GFR. Banking Manager ID - ZENIA [id number] 00:19:00 Test Item Value Reference Range Interpretation Comments PHOSPHORUS (BEAKER) (test code = 3.1 mg/dL 2.3-4.7 604) Banking Manager ID - ZENIA [id number] 00:19:00 Test Item Value Reference Range Interpretation Comments MAGNESIUM (BEAKER) (test code = 2.2 mg/dL 1.6-2.6 627) Banking Manager ID - PIAYA LHEMOGLOBIN AND [id number] 23:59:00 Test Item Value Reference Range Interpretation Comments HEMOGLOBIN (BEAKER) (test code = 6.7 GM/DL 13.7-17.5 L 410) HEMATOCRIT (BEAKER) (test code = 20.6 % 40.1-51.0 L 411) Banking Manager ID - 6000POC-Glucose [id number] 23:37:00 Test Item Value Reference Range Interpretation Comments POC-Glucose Meter (test 167 mg/dL 70-110 H : TE STED AT [facility] code = 1538) [address] [facility], [address] 30: Banking Manager/Techni aidee ID = [id number] for DEBRA FOX Lab Interpretation (test Abnormal code = 82882-9) [facility] HospitalPOCT[facility]GLUCOSE [id number] 23:37:00 Test Item Value Reference Range Interpretation Comments POC-GLUCOSE METER 167 mg/dL 70-110 H : TESTED A T [facility] 6720 (BEAKER) (test code = [address], 1538) [address]: Banking Manager/Techni aidee ID = [id number] for DEBRA YANEZ [id number] 15:57:00 Test Item Value Reference Range Interpretation Comments POTASSIUM (BEAKER) (test code = 3.7 meq/L 3.5-5.1 379) Banking Manager ID - [id number] 15:57:00 Test Item Value Reference Range Interpretation Comments MAGNESIUM (BEAKER) (test code = 1.7 mg/dL 1.6-2.6 627) Banking Manager ID - DBBASIC METABOLIC [id number] 04:06:00 Test Item Value Reference Range Interpretation Comments SODIUM (BEAKER) (test 145 meq/L 136-145 code = 381) POTASSIUM (BEAKER) 4.0 meq/L 3.5-5.1 (test code = 379) CHLORIDE (BEAKER) 111 meq/L 98-107 H (test code = 382) CO2 (BEAKER) (test 28 meq/L 22-29 code = 355) BLOOD UREA NITROGEN 46 mg/dL 7-21 H (BEAKER) (test code = 354) CREATININE (BEAKER) 1.80 mg/dL 0.57-1.25 H (test code = 358) GLUCOSE RANDOM 168 mg/dL 70-105 H (BEAKER) (test code = 652) CALCIUM (BEAKER) 8.2 mg/dL 8.4-10.2 L (test code = 697) EGFR (BEAKER) (test INSUFFIC IENT CLINICAL code = 1092) DATA TO CALCULA TE ESTIMATED GFR. Banking Manager ID - YVONNE [id number] 04:03:00 Test Item Value Reference Range Interpretation Comments PHOSPHORUS (BEAKER) (test code = 3.6 mg/dL 2.3-4.7 604) Banking Manager ID - YVONNE [id number] 04:03:00 Test Item Value Reference Range Interpretation Comments MAGNESIUM (BEAKER) (test code = 1.8 mg/dL 1.6-2.6 627) Banking Manager ID - YVONNE [facility] (HEMOGRAM ONLY)2019-09-02 03:56:00 Test Item Value Reference Range Interpretation Comments WHITE BLOOD CELL COUNT (BEAKER) 16.1 K/ L 3.5-10.5 H (test code = 775) RED BLOOD CELL COUNT (BEAKER) 2.52 M/ L 4.63-6.08 L (test code = 761) HEMOGLOBIN (BEAKER) (test code = 7.4 GM/DL 13.7-17.5 L 410) HEMATOCRIT (BEAKER) (test code = 23.5 % 40.1-51.0 L 411) MEAN CORPUSCULAR VOLUME (BEAKER) 93.3 fL 79.0-92.2 H (test code = 753) MEAN CORPUSCULAR HEMOGLOBIN 29.4 pg 25.7-32.2 (BEAKER) (test code = 751) MEAN CORPUSCULAR HEMOGLOBIN CONC 31.5 GM/DL 32.3-36.5 L (BEAKER) (test code = 752) RED CELL DISTRIBUTION WIDTH 16.3 % 11.6-14.4 H (BEAKER) (test code = 412) PLATELET COUNT (BEAKER) (test 171 K/CU MM 150-450 code = 756) MEAN PLATELET VOLUME (BEAKER) 9.6 fL 9.4-12.4 (test code = 754) NUCLEATED RED BLOOD CELLS 0 /100 WBC 0-0 (BEAKER) (test code = 413) RAD, CHEST, 1 VIEW, NON [id number] 02:45:00Reason for exam:->pulm statusShould this be performed at the bedside?->YesFINAL REPORT CLINICAL INDICATION: Pulmonary status Comparison: 09/01/2019 at 1739 hours The cardiomediastinal contours are stable. The lung volumes remain low. Central pulmonary vascular congestion and bilateral parenchymal and pleural opacities are unchanged. There is no pneumothorax. A right subclavian CVC has been removed. A left IJ CVC is stable. Signed: Miguel Garcia MDRlishaort Verified Date/Time: 09/02/2019 02:45:46 RAD, CHEST, 1 VIEW, NON [id number] 18:23:00Reason for exam:->left ij tlc placementFINAL REPORT [...] acute bony abnormality. Prior median sternotomy Signed: Manav Zurita MDRlishaort Verified Date/Time: 09/01/2019 18:23:54 Reading Location: [address] Radiology Reading Room RAD, CHEST, 1 VIEW, NON [id number] 17:04:00Reason for exam:->central line placementShould this be [...] MDReport Verified Date/Time: 09/01/2019 17:04:54 Reading Location: [address] Body Reading Room POC ACTIVATED CLOTTING [id number] 16:58:00 Test Item Value Reference Range Interpretation Comments Activated Clotting Time 136 sec : 74 -137 seconds, (test code = 441) Baseline: TESTED AT [place] [address] 30: Banking Manager/Techni aidee ID = [id number] for HUSSEIN MARAVILLA [id number] 16:58:00 Test Item Value Reference Range Interpretation Comments ACTIVATED CLOTTING TIME 136 sec : 74 -137 seconds, (BEAKER) (test code = Baseli ne: TESTED AT 441) [address], [facility] 30: Banking Manager/Techni aidee ID = [id number] for HUSSEIN MARAVILLA [id number] 16:58:00 Test Item Value Reference Range Interpretation Comments ACTIVATED CLOTTING TIME 274 sec : 74 -137 seconds, (BEAKER) (test code = Baseli ne: TESTED AT 441) [address], [facility] 30: Banking Manager/Techni aidee ID = [id number] for VICK TREVORHEATHERLEIDA GEORGE [id number] 16:58:00 Test Item Value Reference Range Interpretation Comments ACTIVATED CLOTTING TIME 257 sec : 74 -137 seconds, (BEAKER) (test code = Baseli ne: TESTED AT 441) [facility] [address] [facility], [address] 30: Banking Manager/Techni aidee ID = [id number] for HUSSEIN MARAVILLA [id number] 16:57:00 Test Item Value Reference Range Interpretation Comments ACTIVATED CLOTTING TIME 235 sec : 74 -137 seconds, (BEAKER) (test code = Baseli ne: TESTED AT 441) [facility] [address] [facility], [address] 30: Banking Manager/Techni aidee ID = [id number] for HUSSEIN MARAVILLA Manual [id number] 16:33:00 Test Item Value Reference Range Interpretation Comments % Neutros (test code = 85 % 2816) % Lymphs (test code = 6 % 2817) % Monos (test code = 4 % 2818) % Bands (test code = 5 % 0-10 2826) # Neutros (test code = 18.02 K/ul 1.78-5.38 H 2830) # Lymphs (test code = 1.27 K/ul 1.32-3.57 L 2831) # Monos (test code = 0.85 K/uL 0.3-0.82 H 2832) # Bands (test code = 1.06 K/uL 0-0.8 H 2840) Total Counted (test 100 code = 1351) Platelet Morphology Normal (test code = 486) Smudge Cells (test code Present = 1371) Anisocytosis (test code 1+ few = 961) Microcytes (test code = 1+ few 965) Poikilocytes (test code 1+ few = 966) Elliptocytes (test code 1+ few = 962) Artifact (test code = Present 3432) Helmet Cells (test code 1+ few = 3434) Platelet Conc (test Adequate code = 3438) GRISELDA (test code = GRISELDA) Banking Manager ID - Marguerite comments: Slide comments: Lab Interpretation Abnormal (test code = 13048-9) [facility](CELLAVISION MANUAL DIFF)2019-09-01 16:33:00 Test Item Value Reference Range Interpretation Comments NEUTROPHILS - REL 85 % (CELLAVISION)(BEAKER) (test code = 2816) LYMPHOCYTES - REL 6 % (CELLAVISION)(BEAKER) (test code = 2817) MONOCYTES - REL 4 % (CELLAVISION)(BEAKER) (test code = 2818) BANDS - REL (CELLAVISION)(BEAKER) 5 % 0-10 (test code = 2826) NEUTROPHILS - ABS 18.02 K/ul 1.78-5.38 H (CELLAVISION)(BEAKER) (test code = 2830) LYMPHOCYTES - ABS 1.27 K/ul 1.32-3.57 L (CELLAVISION)(BEAKER) (test code = 2831) MONOCYTES - ABS 0.85 K/uL 0.30-0.82 H (CELLAVISION)(BEAKER) (test code = 2832) BANDS - ABS (CELLAVISION)(BEAKER) 1.06 K/uL 0.00-0.80 H (test code = 2840) TOTAL COUNTED (BEAKER) (test code 100 = 1351) PLT MORPHOLOGY (BEAKER) (test code Normal = 486) SMUDGE CELLS (BEAKER) (test code = Present 1371) ANISOCYTOSIS (BEAKER) (test code = 1+ few 961) MICROCYTES (BEAKER) (test code = 1+ few 965) POIKILOCYTES (BEAKER) (test code = 1+ few 966) ELLIPTOCYTES (BEAKER) (test code = 1+ few 962) ARTIFACT (CELLAVISION)(BEAKER) Present (test code = 3432) HELMET CELLS (CELLAVISION)(BEAKER) 1+ few (test code = 3434) PLATELET CONCENTRATION Adequate (CELLAVISION)(BEAKER) (test code = 3438) Banking Manager ID - Marguerite comments: Slide comments:[id number] 16:24:00 Test Item Value Reference Range Interpretation Comments PHOSPHORUS (BEAKER) (test code = 5.6 mg/dL 2.3-4.7 H 604) Banking Manager ID - [id number] 16:24:00 Test Item Value Reference Range Interpretation Comments MAGNESIUM (BEAKER) (test code = 1.8 mg/dL 1.6-2.6 627) Banking Manager ID - RADHAGCBC W/PLT COUNT & AUTO [id number] 16:16:00 Test Item Value Reference Range Interpretation Comments WHITE BLOOD CELL COUNT (BEAKER) 21.2 K/ L 3.5-10.5 H (test code = 775) RED BLOOD CELL COUNT (BEAKER) 2.59 M/ L 4.63-6.08 L (test code = 761) HEMOGLOBIN (BEAKER) (test code = 7.6 GM/DL 13.7-17.5 L 410) HEMATOCRIT (BEAKER) (test code = 25.6 % 40.1-51.0 L 411) MEAN CORPUSCULAR VOLUME (BEAKER) 98.8 fL 79.0-92.2 H (test code = 753) MEAN CORPUSCULAR HEMOGLOBIN 29.3 pg 25.7-32.2 (BEAKER) (test code = 751) MEAN CORPUSCULAR HEMOGLOBIN CONC 29.7 GM/DL 32.3-36.5 L (BEAKER) (test code = 752) RED CELL DISTRIBUTION WIDTH 16.3 % 11.6-14.4 H (BEAKER) (test code = 412) PLATELET COUNT (BEAKER) (test 231 K/CU MM 150-450 code = 756) MEAN PLATELET VOLUME (BEAKER) 9.7 fL 9.4-12.4 (test code = 754) NUCLEATED RED BLOOD CELLS 0 /100 WBC 0-0 (BEAKER) (test code = 413) NEUTROPHILS RELATIVE PERCENT 81 % (BEAKER) (test code = 429) LYMPHOCYTES RELATIVE PERCENT 10 % (BEAKER) (test code = 430) MONOCYTES RELATIVE PERCENT 7 % (BEAKER) (test code = 431) EOSINOPHILS RELATIVE PERCENT 0 % (BEAKER) (test code = 432) BASOPHILS RELATIVE PERCENT 0 % (BEAKER) (test code = 437) NEUTROPHILS ABSOLUTE COUNT 17.19 K/ L 1.78-5.38 H (BEAKER) (test code = 670) LYMPHOCYTES ABSOLUTE COUNT 2.17 K/ L 1.32-3.57 (BEAKER) (test code = 414) MONOCYTES ABSOLUTE COUNT (BEAKER) 1.56 K/ L 0.30-0.82 H (test code = 415) EOSINOPHILS ABSOLUTE COUNT 0.03 K/ L 0.04-0.54 L (BEAKER) (test code = 416) BASOPHILS ABSOLUTE COUNT (BEAKER) 0.04 K/ L 0.01-0.08 (test code = 417) IMMATURE GRANULOCYTES-RELATIVE 1 % 0-1 PERCENT (BEAKER) (test code = 2801) BLOOD GAS, [id number] 15:39:00 Test Item Value Reference Range Interpretation Comments PH ARTERIAL (BEAKER) (test code = 7.31 7.35-7.45 L 383) PCO2 ARTERIAL (BEAKER) (test code 45 mmHg 35-45 = 384) PO2 ARTERIAL (BEAKER) (test code 82 mmHg 80-90 = 385) O2 SATURATION ARTERIAL (BEAKER) 95.7 % 96.0-97.0 L (test code = 386) HCO3 ARTERIAL (BEAKER) (test code 22 mmol/L 21-29 = 388) BASE EXCESS ARTERIAL (BEAKER) -3.9 mmol/L -2.0-3.0 L (test code = 387) PATIENT TEMPERATURE (BEAKER) 36.0 C (test code = 1818) FIO2 (BEAKER) (test code = 1819) 100.0 % CALCIUM, [id number] 15:39:00 Test Item Value Reference Range Interpretation Comments CALCIUM IONIZED (BEAKER) (test 1.13 mmol/L 1.12-1.27 code = 698) PH, BLOOD (BEAKER) (test code = 7.31 1810) Prepare [id number] 15:22:00 Test Item Value Reference Range Interpretation Comments CROSSMATCH (test code = COMPATIBLE 2264) Unit ABO (test code = B Pos [id number]) UNIT NUMBER (test code = [id number] 934-0) Status (test code = RETURNED FROM ISSUE [id number]) Blood Bank Product (test RED BLOOD CELLS code = 2263) PRODUCT CODE (test code = [id number] 933-2) [facility] [id number] 13:02:00 Test Item Value Reference Range Interpretation Comments Hemoglobin (test code = 786-4) 8.5 g/dL 13-16.8 L Hematocrit (test code = 4544-3) 25.0 % 40-50 L Lab Interpretation (test code = Abnormal 58776-3) [facility] [id number] 13:02:00 Test Item Value Reference Range Interpretation Comments Glucose (test code = 2345-7) 175 mg/dL 70-110 H Lab Interpretation (test code = Abnormal 80206-4) [facility] [id number] 13:02:00 Test Item Value Reference Range Interpretation Comments Sodium (test code = 2951-2) 139 meq/L 135-148 Lab Interpretation (test code = Normal 77487-6) [facility]assium[facility] [id number] 13:02:00 Test Item Value Reference Range Interpretation Comments Potassium (test code = 2823-3) 3.3 meq/L 3.6-5.5 L Lab Interpretation (test code = Abnormal 87879-7) [facility] [id number] 13:02:00 Test Item Value Reference Range Interpretation Comments SODIUM (BEAKER) (test code = 381) 139 meq/L 135-148 CALCIUM, [id number] 13:02:00 Test Item Value Reference Range Interpretation Comments CALCIUM IONIZED (BEAKER) (test 1.05 mmol/L 1.12-1.27 L code = 698) PH, BLOOD (BEAKER) (test code = 7.35 1810) BLOOD GAS, [id number] 13:02:00 Test Item Value Reference Range Interpretation Comments PH ARTERIAL (BEAKER) (test code = 7.37 7.35-7.45 383) PCO2 ARTERIAL (BEAKER) (test code 42 mmHg 35-45 = 384) PO2 ARTERIAL (BEAKER) (test code 229 mmHg 80-90 H = 385) O2 SATURATION ARTERIAL (BEAKER) 99.5 % 96.0-97.0 H (test code = 386) HCO3 ARTERIAL (BEAKER) (test code 24 mmol/L 21-29 = 388) BASE EXCESS ARTERIAL (BEAKER) -2.0 mmol/L -2.0-3.0 (test code = 387) PATIENT TEMPERATURE (BEAKER) 36.0 C (test code = 1818) FIO2 (BEAKER) (test code = 1819) 80.0 % POTASSIUM-STAT [id number] 13:02:00 Test Item Value Reference Range Interpretation Comments POTASSIUM (BEAKER) (test code = 3.3 meq/L 3.6-5.5 L 379) GLUCOSE-STAT [id number] 13:02:00 Test Item Value Reference Range Interpretation Comments GLUCOSE RANDOM (BEAKER) (test code 175 mg/dL 70-110 H = 652) HGB/HCT (H&H) - STAT [id number] 13:02:00 Test Item Value Reference Range Interpretation Comments HEMOGLOBIN (BEAKER) (test code = 8.5 g/dL 13.0-16.8 L 410) HEMATOCRIT (BEAKER) (test code = 25.0 % 40.0-50.0 L 411) SODIUM NA-STAT [id number] 11:53:00 Test Item Value Reference Range Interpretation Comments SODIUM (BEAKER) (test code = 381) 139 meq/L 135-148 POTASSIUM-STAT [id number] 11:53:00 Test Item Value Reference Range Interpretation Comments POTASSIUM (BEAKER) (test code = 3.6 meq/L 3.6-5.5 379) BLOOD GAS, [id number] 11:53:00 Test Item Value Reference Range Interpretation Comments PH ARTERIAL (BEAKER) (test code = 7.45 7.35-7.45 383) PCO2 ARTERIAL (BEAKER) (test code 41 mmHg 35-45 = 384) PO2 ARTERIAL (BEAKER) (test code = 154 mmHg 80-90 H 385) O2 SATURATION ARTERIAL (BEAKER) 99.1 % 96.0-97.0 H (test code = 386) HCO3 ARTERIAL (BEAKER) (test code 28 mmol/L 21-29 = 388) BASE EXCESS ARTERIAL (BEAKER) 3.4 mmol/L -2.0-3.0 H (test code = 387) PATIENT TEMPERATURE (BEAKER) (test 36.0 C code = 1818) FIO2 (BEAKER) (test code = 1819) 80.0 % GLUCOSE-STAT [id number] 11:53:00 Test Item Value Reference Range Interpretation Comments GLUCOSE RANDOM (BEAKER) (test code 163 mg/dL 70-110 H = 652) HGB/HCT (H&H) - STAT [id number] 11:53:00 Test Item Value Reference Range Interpretation Comments HEMOGLOBIN (BEAKER) (test code = 10.1 g/dL 13.0-16.8 L 410) HEMATOCRIT (BEAKER) (test code = 30.0 % 40.0-50.0 L 411) CALCIUM, [id number] 11:52:00 Test Item Value Reference Range Interpretation Comments CALCIUM IONIZED (BEAKER) (test 1.17 mmol/L 1.12-1.27 code = 698) PH, BLOOD (BEAKER) (test code = 7.44 1810) BLOOD GAS, [id number] 10:46:00 Test Item Value Reference Range Interpretation Comments PH ARTERIAL (BEAKER) (test code = 7.46 7.35-7.45 H 383) PCO2 ARTERIAL (BEAKER) (test code 44 mmHg 35-45 = 384) PO2 ARTERIAL (BEAKER) (test code = 98 mmHg 80-90 H 385) O2 SATURATION ARTERIAL (BEAKER) 97.9 % 96.0-97.0 H (test code = 386) HCO3 ARTERIAL (BEAKER) (test code 31 mmol/L 21-29 H = 388) BASE EXCESS ARTERIAL (BEAKER) 6.0 mmol/L -2.0-3.0 H (test code = 387) PATIENT TEMPERATURE (BEAKER) (test 35.8 C code = 1818) FIO2 (BEAKER) (test code = 1819) 66.0 % GLUCOSE-STAT [id number] 10:46:00 Test Item Value Reference Range Interpretation Comments GLUCOSE RANDOM (BEAKER) (test code 144 mg/dL 70-110 H = 652) HGB/HCT (H&H) - STAT [id number] 10:46:00 Test Item Value Reference Range Interpretation Comments HEMOGLOBIN (BEAKER) (test code = 10.7 g/dL 13.0-16.8 L 410) HEMATOCRIT (BEAKER) (test code = 31.0 % 40.0-50.0 L 411) CALCIUM, [id number] 10:46:00 Test Item Value Reference Range Interpretation Comments CALCIUM IONIZED (BEAKER) (test 1.08 mmol/L 1.12-1.27 L code = 698) PH, BLOOD (BEAKER) (test code = 7.44 1810) SODIUM NA-STAT [id number] 10:45:00 Test Item Value Reference Range Interpretation Comments SODIUM (BEAKER) (test code = 381) 142 meq/L 135-148 POTASSIUM-STAT [id number] 10:45:00 Test Item Value Reference Range Interpretation Comments POTASSIUM (BEAKER) (test code = 3.5 meq/L 3.6-5.5 L 379) BLOOD GAS, [id number] 09:19:00 Test Item Value Reference Range Interpretation Comments PH ARTERIAL (BEAKER) (test code = 7.53 7.35-7.45 H 383) PCO2 ARTERIAL (BEAKER) (test code 39 mmHg 35-45 = 384) PO2 ARTERIAL (BEAKER) (test code = 129 mmHg 80-90 H 385) O2 SATURATION ARTERIAL (BEAKER) 98.9 % 96.0-97.0 H (test code = 386) HCO3 ARTERIAL (BEAKER) (test code 32 mmol/L 21-29 H = 388) BASE EXCESS ARTERIAL (BEAKER) 8.5 mmol/L -2.0-3.0 H (test code = 387) PATIENT TEMPERATURE (BEAKER) (test 36.2 C code = 1818) FIO2 (BEAKER) (test code = 1819) 60.0 % POTASSIUM-STAT [id number] 09:19:00 Test Item Value Reference Range Interpretation Comments POTASSIUM (BEAKER) (test code = 3.4 meq/L 3.6-5.5 L 379) GLUCOSE-STAT [id number] 09:19:00 Test Item Value Reference Range Interpretation Comments GLUCOSE RANDOM (BEAKER) (test code 129 mg/dL 70-110 H = 652) HGB/HCT (H&H) - STAT [id number] 09:19:00 Test Item Value Reference Range Interpretation Comments HEMOGLOBIN (BEAKER) (test code = 10.9 g/dL 13.0-16.8 L 410) HEMATOCRIT (BEAKER) (test code = 32.0 % 40.0-50.0 L 411) CALCIUM, [id number] 09:19:00 Test Item Value Reference Range Interpretation Comments CALCIUM IONIZED (BEAKER) (test 1.06 mmol/L 1.12-1.27 L code = 698) PH, BLOOD (BEAKER) (test code = 7.52 1810) SODIUM NA-STAT [id number] 09:18:00 Test Item Value Reference Range Interpretation Comments SODIUM (BEAKER) (test code = 381) 139 meq/L 135-148 [id number] 05:20:00 Test Item Value Reference Range Interpretation Comments PHOSPHORUS (BEAKER) (test code = 4.6 mg/dL 2.3-4.7 604) Banking Manager NADJA PORTILLO [id number] 05:20:00 Test Item Value Reference Range Interpretation Comments MAGNESIUM (BEAKER) (test code = 2.1 mg/dL 1.6-2.6 627) Banking Manager ID Leonidas PORTILLO WBASIC METABOLIC [id number] 05:20:00 Test Item Value Reference Range Interpretation Comments SODIUM (BEAKER) (test 143 meq/L 136-145 code = 381) POTASSIUM (BEAKER) 3.9 meq/L 3.5-5.1 (test code = 379) CHLORIDE (BEAKER) 99 meq/L 98-107 (test code = 382) CO2 (BEAKER) (test 31 meq/L 22-29 H code = 355) BLOOD UREA NITROGEN 56 mg/dL 7-21 H (BEAKER) (test code = 354) CREATININE (BEAKER) 1.78 mg/dL 0.57-1.25 H (test code = 358) GLUCOSE RANDOM 131 mg/dL 70-105 H (BEAKER) (test code = 652) CALCIUM (BEAKER) 9.3 mg/dL 8.4-10.2 (test code = 697) EGFR (BEAKER) (test INSUFFIC IENT CLINICAL code = 1092) DATA TO CALCULA TE ESTIMATED GFR. Banking Manager NADJA PORTILLO WCBC (HEMOGRAM ONLY)2019-09-01 05:11:00 Test Item Value Reference Range Interpretation Comments WHITE BLOOD CELL COUNT (BEAKER) 10.1 K/ L 3.5-10.5 (test code = 775) RED BLOOD CELL COUNT (BEAKER) 3.74 M/ L 4.63-6.08 L (test code = 761) HEMOGLOBIN (BEAKER) (test code = 11.0 GM/DL 13.7-17.5 L 410) HEMATOCRIT (BEAKER) (test code = 36.1 % 40.1-51.0 L 411) MEAN CORPUSCULAR VOLUME (BEAKER) 96.5 fL 79.0-92.2 H (test code = 753) MEAN CORPUSCULAR HEMOGLOBIN 29.4 pg 25.7-32.2 (BEAKER) (test code = 751) MEAN CORPUSCULAR HEMOGLOBIN CONC 30.5 GM/DL 32.3-36.5 L (BEAKER) (test code = 752) RED CELL DISTRIBUTION WIDTH 15.0 % 11.6-14.4 H (BEAKER) (test code = 412) PLATELET COUNT (BEAKER) (test 264 K/CU MM 150-450 code = 756) MEAN PLATELET VOLUME (BEAKER) 9.2 fL 9.4-12.4 L (test code = 754) NUCLEATED RED BLOOD CELLS 0 /100 WBC 0-0 (BEAKER) (test code = 413) POCT-GLUCOSE [id number] 01:02:00 Test Item Value Reference Range Interpretation Comments POC-GLUCOSE METER 125 mg/dL 70-110 H : TESTED A T [facility] 6720 (BEAKER) (test code = [facility], 1538) [address]: Banking Manager/Techni aidee ID = [id number] for JESENIA HURTADO BASIC METABOLIC [id number] 15:53:00 Test Item Value Reference Range Interpretation Comments SODIUM (BEAKER) (test 140 meq/L 136-145 code = 381) POTASSIUM (BEAKER) 3.5 meq/L 3.5-5.1 (test code = 379) CHLORIDE (BEAKER) 96 meq/L 98-107 L (test code = 382) CO2 (BEAKER) (test 29 meq/L 22-29 code = 355) BLOOD UREA NITROGEN 61 mg/dL 7-21 H (BEAKER) (test code = 354) CREATININE (BEAKER) 1.72 mg/dL 0.57-1.25 H (test code = 358) GLUCOSE RANDOM 118 mg/dL 70-105 H (BEAKER) (test code = 652) CALCIUM (BEAKER) 9.2 mg/dL 8.4-10.2 (test code = 697) EGFR (BEAKER) (test INSUFFIC IENT CLINICAL code = 1092) DATA TO CALCULA TE ESTIMATED GFR. Banking Manager ID - BSBASIC METABOLIC [id number] 05:34:00 Test Item Value Reference Range Interpretation Comments SODIUM (BEAKER) (test 142 meq/L 136-145 code = 381) POTASSIUM (BEAKER) 3.2 meq/L 3.5-5.1 L (test code = 379) CHLORIDE (BEAKER) 96 meq/L 98-107 L (test code = 382) CO2 (BEAKER) (test 33 meq/L 22-29 H code = 355) BLOOD UREA NITROGEN 70 mg/dL 7-21 H (BEAKER) (test code = 354) CREATININE (BEAKER) 1.88 mg/dL 0.57-1.25 H (test code = 358) GLUCOSE RANDOM 125 mg/dL 70-105 H (BEAKER) (test code = 652) CALCIUM (BEAKER) 9.3 mg/dL 8.4-10.2 (test code = 697) EGFR (BEAKER) (test INSUFFIC IENT CLINICAL code = 1092) DATA TO CALCULA TE ESTIMATED GFR. Banking Manager ID Leonidas KNUTSON [id number] 05:32:00 Test Item Value Reference Range Interpretation Comments PHOSPHORUS (BEAKER) (test code = 3.9 mg/dL 2.3-4.7 604) Banking Manager ID - ZENIA [id number] 05:32:00 Test Item Value Reference Range Interpretation Comments MAGNESIUM (BEAKER) (test code = 2.0 mg/dL 1.6-2.6 627) Banking Manager ID - ZENIA LCBC (HEMOGRAM ONLY)2019-08-31 04:56:00 Test Item Value Reference Range Interpretation Comments WHITE BLOOD CELL COUNT (BEAKER) 9.5 K/ L 3.5-10.5 (test code = 775) RED BLOOD CELL COUNT (BEAKER) 3.76 M/ L 4.63-6.08 L (test code = 761) HEMOGLOBIN (BEAKER) (test code = 10.6 GM/DL 13.7-17.5 L 410) HEMATOCRIT (BEAKER) (test code = 35.2 % 40.1-51.0 L 411) MEAN CORPUSCULAR VOLUME (BEAKER) 93.6 fL 79.0-92.2 H (test code = 753) MEAN CORPUSCULAR HEMOGLOBIN 28.2 pg 25.7-32.2 (BEAKER) (test code = 751) MEAN CORPUSCULAR HEMOGLOBIN CONC 30.1 GM/DL 32.3-36.5 L (BEAKER) (test code = 752) RED CELL DISTRIBUTION WIDTH 14.7 % 11.6-14.4 H (BEAKER) (test code = 412) PLATELET COUNT (BEAKER) (test 290 K/CU MM 150-450 code = 756) MEAN PLATELET VOLUME (BEAKER) 9.3 fL 9.4-12.4 L (test code = 754) NUCLEATED RED BLOOD CELLS 0 /100 WBC 0-0 (BEAKER) (test code = 413) B-type Natriuretic Factor (BNP)2019-08-30 18:09:00 Test Item Value Reference Range Interpretation Comments BNP (test code = 23916-4) 55 pg/mL 0-100 GRISELDA (test code = GRISELDA) Banking Manager ID - BS Lab Interpretation (test Normal code = 40960-3) [facility]BNP[facility]2019-08-30 18:09:00 Test Item Value Reference Range Interpretation Comments B-TYPE NATRIURETIC PEPTIDE (BEAKER) 55 pg/mL 0-100 (test code = 700) Banking Manager ID - BSComprehensive metabolic [id number] 18:04:00 Test Item Value Reference Range Interpretation Comments Protein, Total (test 6.8 6.0- 8.3 gm/dL code = 2885-2) Albumin (test code = 3.6 g/dL 3.5-5 61283-1) Alkaline Phosphatase 58 U/L 40-150 (test code = 6768-6) Total Bilirubin (test 0.2 mg/dL 0.2-1.2 code = 1975-2) Sodium (test code = 140 meq/L 095-664 0361-2) Potassium (test code 3.4 meq/L 3.5-5.1 L = 2823-3) Chloride (test code = 95 meq/L 98-107 L 5-0) CO2 (test code = 31 meq/L 22-29 H 2027-9) BUN (test code = 80 mg/dL 7-21 H 3094-0) Creatinine (test code 2.08 mg/dL 0.57-1.25 H = 2160-0) Glucose (test code = 85 mg/dL 70-105 2345-7) Calcium (test code = 8.7 mg/dL 8.4-10.2 74183-0) AST (test code = 13 U/L 5-34 1920-8) ALT (test code = 8 U/L 6-55 1742-6) EGFR (test code = [place] [address]-3) CLINICAL DATA T O CALCULATE ESTIMATED GFR. GRISELDA (test code = GRISELDA) Banking Manager ID - BS Lab Interpretation Abnormal (test code = 42937-1) [facility] [id number] 18:04:00 Test Item Value Reference Range Interpretation Comments TOTAL PROTEIN 6.8 gm/dL 6.0-8.3 (BEAKER) (test code = 770) ALBUMIN (BEAKER) 3.6 g/dL 3.5-5.0 (test code = 1145) ALKALINE PHOSPHATASE 58 U/L 40-150 (BEAKER) (test code = 346) BILIRUBIN TOTAL 0.2 mg/dL 0.2-1.2 (BEAKER) (test code = 377) SODIUM (BEAKER) (test 140 meq/L 136-145 code = 381) POTASSIUM (BEAKER) 3.4 meq/L 3.5-5.1 L (test code = 379) CHLORIDE (BEAKER) 95 meq/L 98-107 L (test code = 382) CO2 (BEAKER) (test 31 meq/L 22-29 H code = 355) BLOOD UREA NITROGEN 80 mg/dL 7-21 H (BEAKER) (test code = 354) CREATININE (BEAKER) 2.08 mg/dL 0.57-1.25 H (test code = 358) GLUCOSE RANDOM 85 mg/dL 70-105 (BEAKER) (test code = 652) CALCIUM (BEAKER) 8.7 mg/dL 8.4-10.2 (test code = 697) AST (SGOT) (BEAKER) 13 U/L 5-34 (test code = 353) ALT (SGPT) (BEAKER) 8 U/L 6-55 (test code = 347) EGFR (BEAKER) (test INSUFFIC IENT CLINICAL code = 1092) DATA TO CALCULA TE ESTIMATED GFR. Banking Manager ID - BSProthrombin time/[id number] 17:36:00 Test Item Value Reference Range Interpretation Comments Protime (test code = 15.5 11.9- 14.2 H 5902-2) seconds INR (test code = 1.3 <=5.9 6301-6) GRISELDA (test code = GRISELDA) Effective 10/19/2018: PT Reference Range ChangeNew: 11.9-14.2 Previous: 11.7-14.7 RECOMMENDED COUMADIN/WARFARIN INR THERAPY RANGESSTANDARD DOSE: 2.0-3.0 Includes: PROPHYLAXIS for venous thrombosis, systemic embolization; TREATMENT for venous thrombosis and/or pulmonary embolus.HIGH RISK: Target INR is 2.5-3.5 for patients wiht mechanical heart valves. Lab Interpretation Abnormal (test code = 77720-9) [id number] 17:36:00 Test Item Value Reference Range Interpretation Comments PROTIME (BEAKER) (test code = 15.5 seconds 11.9-14.2 H 759) INR (BEAKER) (test code = 370) 1.3 <=5.9 Effective 10/19/2018: PT Reference Range ChangeNew: 11.9-14.2 Previous: 11.7- 14.7RECOMMENDED COUMADIN/WARFARIN INR THERAPY RANGESSTANDARD DOSE: 2.0-3.0 Includes: PROPHYLAXIS for venous thrombosis, systemic embolization; TREATMENT for venous thrombosis and/or pulmonary embolus.HIGH RISK: Target INR is2.5-3.5 for patients wiht mechanical heart valves.CBC W/PLT COUNT & AUTO [id number] 17:29:00 Test Item Value Reference Range Interpretation Comments WHITE BLOOD CELL COUNT (BEAKER) 10.2 K/ L 3.5-10.5 (test code = 775) RED BLOOD CELL COUNT (BEAKER) 3.31 M/ L 4.63-6.08 L (test code = 761) HEMOGLOBIN (BEAKER) (test code = 9.8 GM/DL 13.7-17.5 L 410) HEMATOCRIT (BEAKER) (test code = 31.6 % 40.1-51.0 L 411) MEAN CORPUSCULAR VOLUME (BEAKER) 95.5 fL 79.0-92.2 H (test code = 753) MEAN CORPUSCULAR HEMOGLOBIN 29.6 pg 25.7-32.2 (BEAKER) (test code = 751) MEAN CORPUSCULAR HEMOGLOBIN CONC 31.0 GM/DL 32.3-36.5 L (BEAKER) (test code = 752) RED CELL DISTRIBUTION WIDTH 14.8 % 11.6-14.4 H (BEAKER) (test code = 412) PLATELET COUNT (BEAKER) (test 279 K/CU MM 150-450 code = 756) MEAN PLATELET VOLUME (BEAKER) 9.5 fL 9.4-12.4 (test code = 754) NUCLEATED RED BLOOD CELLS 0 /100 WBC 0-0 (BEAKER) (test code = 413) NEUTROPHILS RELATIVE PERCENT 58 % (BEAKER) (test code = 429) LYMPHOCYTES RELATIVE PERCENT 28 % (BEAKER) (test code = 430) MONOCYTES RELATIVE PERCENT 11 % (BEAKER) (test code = 431) EOSINOPHILS RELATIVE PERCENT 2 % (BEAKER) (test code = 432) BASOPHILS RELATIVE PERCENT 0 % (BEAKER) (test code = 437) NEUTROPHILS ABSOLUTE COUNT 5.96 K/ L 1.78-5.38 H (BEAKER) (test code = 670) LYMPHOCYTES ABSOLUTE COUNT 2.85 K/ L 1.32-3.57 (BEAKER) (test code = 414) MONOCYTES ABSOLUTE COUNT (BEAKER) 1.12 K/ L 0.30-0.82 H (test code = 415) EOSINOPHILS ABSOLUTE COUNT 0.20 K/ L 0.04-0.54 (BEAKER) (test code = 416) BASOPHILS ABSOLUTE COUNT (BEAKER) 0.03 K/ L 0.01-0.08 (test code = 417) IMMATURE GRANULOCYTES-RELATIVE 1 % 0-1 PERCENT (BEAKER) (test code = 2801) BASIC METABOLIC [id number] 12:02:00 Test Item Value Reference Range Interpretation Comments SODIUM (BEAKER) (test 138 meq/L 136-145 code = 381) POTASSIUM (BEAKER) 4.5 meq/L 3.5-5.1 (test code = 379) CHLORIDE (BEAKER) 99 meq/L 98-107 (test code = 382) CO2 (BEAKER) (test 31 meq/L 22-29 H code = 355) BLOOD UREA NITROGEN 34 mg/dL 7-21 H (BEAKER) (test code = 354) CREATININE (BEAKER) 1.47 mg/dL 0.57-1.25 H (test code = 358) GLUCOSE RANDOM 101 mg/dL 70-105 (BEAKER) (test code = 652) CALCIUM (BEAKER) 9.3 mg/dL 8.4-10.2 (test code = 697) EGFR (BEAKER) (test INSUFFIC IENT CLINICAL code = 1092) DATA TO CALCULA TE ESTIMATED GFR. Banking Manager ID - [place] [id number] 21:38:00 Test Item Value Reference Range Interpretation Comments Folate (test code = 2284-8) 16.6 ng/mL >=7.0 GRISELDA (test code = GRISELDA) Banking Manager ID - BS Lab Interpretation (test Normal code = 84825-8) [facility]OL[facility], [id number] 21:38:00 Test Item Value Reference Range Interpretation Comments FOLATE (BEAKER) (test code = 362) 16.6 ng/mL >=7.0 Banking Manager ID - [id number] 16:11:00 Test Item Value Reference Range Interpretation Comments FERRITIN (BEAKER) (test code = 361) 124 ng/mL 5-275 Banking Manager ID - BSHemoglobin [id number] 14:54:00 Test Item Value Reference Range Interpretation Comments Hemoglobin A1C (test code = 4548-4) 6.1 % 4.3-6.1 Lab Interpretation (test code = Normal 94783-4) [facility]HEMOGLOBIN [id number] 14:54:00 Test Item Value Reference Range Interpretation Comments HEMOGLOBIN A1C (BEAKER) (test code = 6.1 % 4.3-6.1 368) BASIC METABOLIC [id number] 14:54:00 Test Item Value Reference Range Interpretation Comments SODIUM (BEAKER) (test 135 meq/L 136-145 L code = 381) POTASSIUM (BEAKER) 3.2 meq/L 3.5-5.1 L (test code = 379) CHLORIDE (BEAKER) 92 meq/L 98-107 L (test code = 382) CO2 (BEAKER) (test 32 meq/L 22-29 H code = 355) BLOOD UREA NITROGEN 40 mg/dL 7-21 H (BEAKER) (test code = 354) CREATININE (BEAKER) 1.69 mg/dL 0.57-1.25 H (test code = 358) GLUCOSE RANDOM 112 mg/dL 70-105 H (BEAKER) (test code = 652) CALCIUM (BEAKER) 8.7 mg/dL 8.4-10.2 (test code = 697) EGFR (BEAKER) (test INSUFFIC IENT CLINICAL code = 1092) DATA TO CALCULA TE ESTIMATED GFR. Banking Manager ID - BSIRON, TIBC, % SAT. (WITHOUT FERRITIN)2019-07-13 14:50:00 Test Item Value Reference Range Interpretation Comments IRON (BEAKER) (test code = 547) 40.0 ug/dL 40.0-160.0 TOTAL IRON BINDING CAPACITY 250 ug/dL 250-450 (BEAKER) (test code = 769) IRON % SATURATION (2) (BEAKER) 16 % 20-55 L (test code = 2590) Banking Manager ID - BSCBC W/PLT COUNT & AUTO [id number] 14:31:00 Test Item Value Reference Range Interpretation Comments WHITE BLOOD CELL COUNT 7.7 K/ L 3.5-10.5 (BEAKER) (test code = 775) RED BLOOD CELL COUNT 3.00 M/ L 4.63-6.08 L (BEAKER) (test code = 761) HEMOGLOBIN (BEAKER) 9.2 GM/DL 13.7-17.5 L (test code = 410) HEMATOCRIT (BEAKER) 29.6 % 40.1-51.0 L (test code = 411) MEAN CORPUSCULAR VOLUME 98.7 fL 79.0-92.2 H (BEAKER) (test code = 753) MEAN CORPUSCULAR 30.7 pg 25.7-32.2 HEMOGLOBIN (BEAKER) (test code = 751) MEAN CORPUSCULAR 31.1 GM/DL 32.3-36.5 L HEMOGLOBIN CONC (BEAKER) (test code = 752) RED CELL DISTRIBUTION 15.5 % 11.6-14.4 H WIDTH (BEAKER) (test code = 412) PLATELET COUNT (BEAKER) 278 K/CU MM 150-450 (test code = 756) MEAN PLATELET VOLUME 9.3 fL 9.4-12.4 L MPV-Lisette roximately (BEAKER) (test code = 20% po sitive bias 754) due to method change. NUCLEATED RED BLOOD 0 /100 WBC 0-0 CELLS (BEAKER) (test code = 413) NEUTROPHILS RELATIVE 68 % PERCENT (BEAKER) (test code = 429) LYMPHOCYTES RELATIVE 20 % PERCENT (BEAKER) (test code = 430) MONOCYTES RELATIVE 9 % PERCENT (BEAKER) (test code = 431) EOSINOPHILS RELATIVE 2 % PERCENT (BEAKER) (test code = 432) BASOPHILS RELATIVE 0 % PERCENT (BEAKER) (test code = 437) NEUTROPHILS ABSOLUTE 5.27 K/ L 1.78-5.38 COUNT (BEAKER) (test code = 670) LYMPHOCYTES ABSOLUTE 1.54 K/ L 1.32-3.57 COUNT (BEAKER) (test code = 414) MONOCYTES ABSOLUTE 0.67 K/ L 0.30-0.82 COUNT (BEAKER) (test code = 415) EOSINOPHILS ABSOLUTE 0.17 K/ L 0.04-0.54 COUNT (BEAKER) (test code = 416) BASOPHILS ABSOLUTE 0.03 K/ L 0.01-0.08 COUNT (BEAKER) (test code = 417) IMMATURE 0 % 0-1 GRANULOCYTES-RELATIVE PERCENT (BEAKER) (test code = 2801) Treadmill tolerance(Non-Nuclear Treadmill)2019-07-07 14:04:38Interface, External Ris In - 07/07/2019 2:04 PM CSTProtocol Name Regadenoson Time In Exercise Phase 00:01:00 Max. Systolic BP 73 mmHgMax Diastolic BP 42 mmHgMax Heart Rate 76 BPMMax Predicted Heart Rate 133 BPMReason For Termination Predetermined end point Reason for Test Chest Pain,pre operative cardiac clearance. Target HR Formula (220 - Age)*100% Arrhythmias ventricular premature beats Resting ECG Sinus Bradycardia,Incomplete RBBB,T wave abnormal ST Changes No Significant Changes Overall Impression Indeterminate due to pharmacological stress Chest Pain none HR Response To Exercise BP Response To Exercise asa,clopidogrel,levothyroxinePRAVACHOLConfirmed by fellow Lola Richards ([id number]) on 06/26/2019 1:21:37 PMConfirmed by Lucian Quarles ([id number]) on 07/07/2019 2:04:31 [facility]TRZA[facility] [id number] 03:50:00 Test Item Value Reference Range Interpretation Comments TROPONIN I (BEAKER) (test code = 0.01 ng/mL 0.00-0.03 397) Troponin I (TnI) levels must be interpreted [...] failure, acidosis, acute neurological disease, and persistent tachyarrhythmia.Banking Manager ID - HAROONAPTROPONIN [id number] 03:49:00 Test Item Value Reference Range Interpretation Comments TROPONIN I (BEAKER) (test code = 0.02 ng/mL 0.00-0.03 397) Troponin I (TnI) levels must be interpreted [...] failure, acidosis, acute neurological disease, and persistent tachyarrhythmia.Banking Manager ID - GALAPBASIC METABOLIC PANEL 2019-07-05 03:45:00 Test Item Value Reference Range Interpretation Comments SODIUM (BEAKER) (test 137 meq/L 136-145 code = 381) POTASSIUM (BEAKER) 4.9 meq/L 3.5-5.1 Specimen slightly (test code = 379) hemolyzed CHLORIDE (BEAKER) 103 meq/L 98-107 (test code = 382) CO2 (BEAKER) (test 26 meq/L 22-29 code = 355) BLOOD UREA NITROGEN 33 mg/dL 7-21 H (BEAKER) (test code = 354) CREATININE (BEAKER) 1.33 mg/dL 0.57-1.25 H Specimen slightly (test code = 358) hemolyzed GLUCOSE RANDOM 117 mg/dL 70-105 H (BEAKER) (test code = 652) CALCIUM (BEAKER) 8.6 mg/dL 8.4-10.2 (test code = 697) EGFR (BEAKER) (test INSUFFIC IENT CLINICAL code = 1092) DATA TO CALCULA TE ESTIMATED GFR. Banking Manager ID - GALAPHepatic function [id number] 03:42:00 Test Item Value Reference Range Interpretation Comments Protein, Total (test 5.6 6.0- 8.3 gm/dL L Speci men code = 2885-2) slightly hemolyzed Albumin (test code = 3.0 g/dL 3.5-5 L Specime n 15104-4) slightly hemolyzed Total Bilirubin (test 0.4 mg/dL 0.2-1.2 Specim en code = 1975-2) slightly hemolyzed Bilirubin, Direct 0.3 mg/dL 0.1-0.5 Specimen (test code = 1967-7) slightl y hemolyzed Alkaline Phosphatase 44 U/L 40-150 (test code = 6768-6) AST (test code = 13 U/L 5-34 Specimen 1920-8) slightly hemolyzed ALT (test code = 12 U/L 6-55 Specimen 1742-6) slightly hemolyzed GRISELDA (test code = GRISELDA) Banking Manager ID - GALAP Lab Interpretation Abnormal (test code = 42162-4) [id number] 03:42:00 Test Item Value Reference Range Interpretation Comments MAGNESIUM (BEAKER) 1.8 mg/dL 1.6-2.6 Specimen slightly (test code = 627) hemolyzed Banking Manager ID - [id number] 03:42:00 Test Item Value Reference Range Interpretation Comments PHOSPHORUS (BEAKER) 3.3 mg/dL 2.3-4.7 Specimen slightly (test code = 604) hemolyzed Banking Manager ID - GALAPHEPATIC FUNCTION [id number] 03:42:00 Test Item Value Reference Range Interpretation Comments TOTAL PROTEIN (BEAKER) 5.6 gm/dL 6.0-8.3 L Speci men slightly (test code = 770) hemolyzed ALBUMIN (BEAKER) (test 3.0 g/dL 3.5-5.0 L Speci men slightly code = 1145) hemolyzed BILIRUBIN TOTAL 0.4 mg/dL 0.2-1.2 Specimen sli ghtly (BEAKER) (test code = hemoly zed 377) BILIRUBIN DIRECT 0.3 mg/dL 0.1-0.5 Specimen sl ightly (BEAKER) (test code = hemoly zed 706) ALKALINE PHOSPHATASE 44 U/L 40-150 (BEAKER) (test code = 346) AST (SGOT) (BEAKER) 13 U/L 5-34 Specimen slightly (test code = 353) hemolyzed ALT (SGPT) (BEAKER) 12 U/L 6-55 Specimen slightly (test code = 347) hemolyzed Banking Manager ID - GALAPCBC (HEMOGRAM ONLY)2019-07-05 03:10:00 Test Item Value Reference Range Interpretation Comments WHITE BLOOD CELL COUNT (BEAKER) 13.0 K/ L 3.5-10.5 H (test code = 775) RED BLOOD CELL COUNT (BEAKER) 3.05 M/ L 4.63-6.08 L (test code = 761) HEMOGLOBIN (BEAKER) (test code = 9.1 GM/DL 13.7-17.5 L 410) HEMATOCRIT (BEAKER) (test code = 29.2 % 40.1-51.0 L 411) MEAN CORPUSCULAR VOLUME (BEAKER) 95.7 fL 79.0-92.2 H (test code = 753) MEAN CORPUSCULAR HEMOGLOBIN 29.8 pg 25.7-32.2 (BEAKER) (test code = 751) MEAN CORPUSCULAR HEMOGLOBIN CONC 31.2 GM/DL 32.3-36.5 L (BEAKER) (test code = 752) RED CELL DISTRIBUTION WIDTH 15.2 % 11.6-14.4 H (BEAKER) (test code = 412) PLATELET COUNT (BEAKER) (test 189 K/CU MM 150-450 code = 756) MEAN PLATELET VOLUME (BEAKER) 9.3 fL 9.4-12.4 L (test code = 754) NUCLEATED RED BLOOD CELLS 0 /100 WBC 0-0 (BEAKER) (test code = 413) POCT-GLUCOSE [id number] 21:31:00 Test Item Value Reference Range Interpretation Comments POC-GLUCOSE METER 106 mg/dL 70-110 : TESTED A T [facility] 6720 (BEAKER) (test code = [facility], 1538) [id number]: Banking Manager/Techni aidee ID = [id number] for BRYANT ARGUELLOSARAHI POCT-GLUCOSE [id number] 18:15:00 Test Item Value Reference Range Interpretation Comments POC-GLUCOSE METER 115 mg/dL 70-110 H : TESTED A T [facility] 6720 (BEAKER) (test code = [place], 1538) [address]: Banking Manager/Techni aidee ID = [id number] for JAN HAIRSTON (CELLAVISION MANUAL DIFF)2019-07-04 16:47:00 Test Item Value Reference Range Interpretation Comments NEUTROPHILS - REL 83 % (CELLAVISION)(BEAKER) (test code = 2816) LYMPHOCYTES - REL 9 % (CELLAVISION)(BEAKER) (test code = 2817) MONOCYTES - REL 8 % (CELLAVISION)(BEAKER) (test code = 2818) NEUTROPHILS - ABS 13.78 K/ul 1.78-5.38 H (CELLAVISION)(BEAKER) (test code = 2830) LYMPHOCYTES - ABS 1.49 K/ul 1.32-3.57 (CELLAVISION)(BEAKER) (test code = 2831) MONOCYTES - ABS 1.33 K/uL 0.30-0.82 H (CELLAVISION)(BEAKER) (test code = 2832) TOTAL COUNTED (BEAKER) (test code 100 = 1351) WBC MORPHOLOGY (BEAKER) (test code Normal = 487) GIANT PLATELETS (BEAKER) (test Present code = 313) POLYCHROMATOPHILLIC RBCS(BEAKER) 3+ many (test code = 478) ANISOCYTOSIS (BEAKER) (test code = 1+ few 961) POIKILOCYTES (BEAKER) (test code = 1+ few 966) OVALOCYTES (BEAKER) (test code = 1+ few 477) ARTIFACT (CELLAVISION)(BEAKER) Present (test code = 3432) PLATELET CONCENTRATION Adequate (CELLAVISION)(BEAKER) (test code = 3438) Banking Manager ID - joshua Parker comments: Slide comments:CBC W/PLT COUNT & AUTO [id number] 16:26:00 Test Item Value Reference Range Interpretation Comments WHITE BLOOD CELL COUNT 16.6 K/ L 3.5-10.5 H (BEAKER) (test code = 775) RED BLOOD CELL COUNT 3.35 M/ L 4.63-6.08 L (BEAKER) (test code = 761) HEMOGLOBIN (BEAKER) 10.0 GM/DL 13.7-17.5 L (test code = 410) HEMATOCRIT (BEAKER) 32.5 % 40.1-51.0 L (test code = 411) MEAN CORPUSCULAR VOLUME 97.0 fL 79.0-92.2 H (BEAKER) (test code = 753) MEAN CORPUSCULAR 29.9 pg 25.7-32.2 HEMOGLOBIN (BEAKER) (test code = 751) MEAN CORPUSCULAR 30.8 GM/DL 32.3-36.5 L HEMOGLOBIN CONC (BEAKER) (test code = 752) RED CELL DISTRIBUTION 15.1 % 11.6-14.4 H WIDTH (BEAKER) (test code = 412) PLATELET COUNT (BEAKER) 216 K/CU MM 150-450 (test code = 756) MEAN PLATELET VOLUME 9.5 fL 9.4-12.4 MPV-Lisette roximately (BEAKER) (test code = 20% po sitive bias 754) due to method change. NUCLEATED RED BLOOD 0 /100 WBC 0-0 CELLS (BEAKER) (test code = 413) BASIC METABOLIC [id number] 14:18:00 Test Item Value Reference Range Interpretation Comments SODIUM (BEAKER) (test 137 meq/L 136-145 code = 381) POTASSIUM (BEAKER) 4.7 meq/L 3.5-5.1 (test code = 379) CHLORIDE (BEAKER) 107 meq/L 98-107 (test code = 382) CO2 (BEAKER) (test 27 meq/L 22-29 code = 355) BLOOD UREA NITROGEN 26 mg/dL 7-21 H (BEAKER) (test code = 354) CREATININE (BEAKER) 1.12 mg/dL 0.57-1.25 (test code = 358) GLUCOSE RANDOM 139 mg/dL 70-105 H (BEAKER) (test code = 652) CALCIUM (BEAKER) 8.8 mg/dL 8.4-10.2 (test code = 697) EGFR (BEAKER) (test INSUFFIC IENT CLINICAL code = 1092) DATA TO CALCULA TE ESTIMATED GFR. Banking Manager NADJA Leonidas PIÑA OZZY [id number] 14:08:00 Test Item Value Reference Range Interpretation Comments TROPONIN I (BEAKER) (test code = 0.01 ng/mL 0.00-0.03 397) Troponin I (TnI) levels must be interpreted [...] failure, acidosis, acute neurological disease, and persistent tachyarrhythmia.Banking Manager ID - AYANA CPOCT-GLUCOSE METER 2019-07-04 11:46:00 Test Item Value Reference Range Interpretation Comments POC-GLUCOSE METER 171 mg/dL 70-110 H : TESTED A T [facility] 6720 (BEAKER) (test code = [facility], 1538) [address]: Banking Manager/Techni aidee ID = [id number] for SYLVESTER LOPEZ TROPONIN [id number] 09:55:00 Test Item Value Reference Range Interpretation Comments TROPONIN I (BEAKER) (test code = 0.61 ng/mL 0.00-0.03 397) Troponin I (TnI) levels must be interpreted [...] failure, acidosis, acute neurological disease, and persistent tachyarrhythmia.Banking Manager ID - YVONNE MPOCT-GLUCOSE METER 2019-07-04 08:37:00 Test Item Value Reference Range Interpretation Comments POC-GLUCOSE METER 118 mg/dL 70-110 H : TESTED A T [facility] 6720 (BEAKER) (test code = [facility], 1538) [address]: Banking Manager/Techni aidee ID = [id number] for SYLVESTER LOPEZ BASIC METABOLIC [id number] 04:19:00 Test Item Value Reference Range Interpretation Comments SODIUM (BEAKER) (test 136 meq/L 136-145 code = 381) POTASSIUM (BEAKER) 5.5 meq/L 3.5-5.1 H Specimen slightly (test code = 379) hemolyzed CHLORIDE (BEAKER) 107 meq/L 98-107 (test code = 382) CO2 (BEAKER) (test 21 meq/L 22-29 L code = 355) BLOOD UREA NITROGEN 31 mg/dL 7-21 H (BEAKER) (test code = 354) CREATININE (BEAKER) 1.23 mg/dL 0.57-1.25 Specimen slightly (test code = 358) hemolyzed GLUCOSE RANDOM 184 mg/dL 70-105 H (BEAKER) (test code = 652) CALCIUM (BEAKER) 8.6 mg/dL 8.4-10.2 (test code = 697) EGFR (BEAKER) (test INSUFFIC IENT CLINICAL code = 1092) DATA TO CALCULA TE ESTIMATED GFR. Banking Manager ID - [id number] 03:58:00 Test Item Value Reference Range Interpretation Comments MAGNESIUM (BEAKER) 2.3 mg/dL 1.6-2.6 Specimen slightly (test code = 627) hemolyzed Banking Manager ID - GALAPHEPATIC FUNCTION [id number] 03:58:00 Test Item Value Reference Range Interpretation Comments TOTAL PROTEIN (BEAKER) 5.9 gm/dL 6.0-8.3 L Speci men slightly (test code = 770) hemolyzed ALBUMIN (BEAKER) (test 3.0 g/dL 3.5-5.0 L Speci men slightly code = 1145) hemolyzed BILIRUBIN TOTAL 0.3 mg/dL 0.2-1.2 Specimen sli ghtly (BEAKER) (test code = hemoly zed 377) BILIRUBIN DIRECT 0.1 mg/dL 0.1-0.5 Specimen sl ightly (BEAKER) (test code = hemoly zed 706) ALKALINE PHOSPHATASE 48 U/L 40-150 (BEAKER) (test code = 346) AST (SGOT) (BEAKER) 15 U/L 5-34 Specimen slightly (test code = 353) hemolyzed ALT (SGPT) (BEAKER) 11 U/L 6-55 Specimen slightly (test code = 347) hemolyzed Banking Manager ID - GALAPCBC (HEMOGRAM ONLY)2019-07-04 03:31:00 Test Item Value Reference Range Interpretation Comments WHITE BLOOD CELL COUNT (BEAKER) 14.6 K/ L 3.5-10.5 H (test code = 775) RED BLOOD CELL COUNT (BEAKER) 3.38 M/ L 4.63-6.08 L (test code = 761) HEMOGLOBIN (BEAKER) (test code = 10.1 GM/DL 13.7-17.5 L 410) HEMATOCRIT (BEAKER) (test code = 32.7 % 40.1-51.0 L 411) MEAN CORPUSCULAR VOLUME (BEAKER) 96.7 fL 79.0-92.2 H (test code = 753) MEAN CORPUSCULAR HEMOGLOBIN 29.9 pg 25.7-32.2 (BEAKER) (test code = 751) MEAN CORPUSCULAR HEMOGLOBIN CONC 30.9 GM/DL 32.3-36.5 L (BEAKER) (test code = 752) RED CELL DISTRIBUTION WIDTH 14.8 % 11.6-14.4 H (BEAKER) (test code = 412) PLATELET COUNT (BEAKER) (test 215 K/CU MM 150-450 code = 756) MEAN PLATELET VOLUME (BEAKER) 9.6 fL 9.4-12.4 (test code = 754) NUCLEATED RED BLOOD CELLS 0 /100 WBC 0-0 (BEAKER) (test code = 413) BASIC METABOLIC [id number] 21:21:00 Test Item Value Reference Range Interpretation Comments SODIUM (BEAKER) (test 138 meq/L 136-145 code = 381) POTASSIUM (BEAKER) 5.3 meq/L 3.5-5.1 H (test code = 379) CHLORIDE (BEAKER) 108 meq/L 98-107 H (test code = 382) CO2 (BEAKER) (test 23 meq/L 22-29 code = 355) BLOOD UREA NITROGEN 34 mg/dL 7-21 H (BEAKER) (test code = 354) CREATININE (BEAKER) 1.29 mg/dL 0.57-1.25 H (test code = 358) GLUCOSE RANDOM 167 mg/dL 70-105 H (BEAKER) (test code = 652) CALCIUM (BEAKER) 9.4 mg/dL 8.4-10.2 (test code = 697) EGFR (BEAKER) (test INSUFFIC IENT CLINICAL code = 1092) DATA TO CALCULA TE ESTIMATED GFR. Banking Manager ID - [id number] 20:49:00 Test Item Value Reference Range Interpretation Comments PTT (test code = 18971-2) 30.2 22.5- 36.0 seconds Lab Interpretation (test code = Normal 32006-3) [id number]:49[facility]00 Test Item Value Reference Range Interpretation Comments PARTIAL THROMBOPLASTIN TIME 30.2 seconds 22.5-36.0 (BEAKER) (test code = 760) [id number] 20:42:00 Test Item Value Reference Range Interpretation Comments MAGNESIUM (BEAKER) 1.8 mg/dL 1.6-2.6 Specimen markedly (test code = 627) hemolyzed Banking Manager ID - [id number] 20:42:00 Test Item Value Reference Range Interpretation Comments PHOSPHORUS (BEAKER) 4.4 mg/dL 2.3-4.7 Specimen markedly (test code = 604) hemolyzed Banking Manager ID - BSCBC (HEMOGRAM ONLY)2019-07-03 20:25:00 Test Item Value Reference Range Interpretation Comments WHITE BLOOD CELL COUNT (BEAKER) 13.6 K/ L 3.5-10.5 H (test code = 775) RED BLOOD CELL COUNT (BEAKER) 3.66 M/ L 4.63-6.08 L (test code = 761) HEMOGLOBIN (BEAKER) (test code = 11.0 GM/DL 13.7-17.5 L 410) HEMATOCRIT (BEAKER) (test code = 35.2 % 40.1-51.0 L 411) MEAN CORPUSCULAR VOLUME (BEAKER) 96.2 fL 79.0-92.2 H (test code = 753) MEAN CORPUSCULAR HEMOGLOBIN 30.1 pg 25.7-32.2 (BEAKER) (test code = 751) MEAN CORPUSCULAR HEMOGLOBIN CONC 31.3 GM/DL 32.3-36.5 L (BEAKER) (test code = 752) RED CELL DISTRIBUTION WIDTH 14.8 % 11.6-14.4 H (BEAKER) (test code = 412) PLATELET COUNT (BEAKER) (test 239 K/CU MM 150-450 code = 756) MEAN PLATELET VOLUME (BEAKER) 9.7 fL 9.4-12.4 (test code = 754) NUCLEATED RED BLOOD CELLS 0 /100 WBC 0-0 (BEAKER) (test code = 413) BLOOD GAS, [id number] 20:16:00 Test Item Value Reference Range Interpretation Comments PH ARTERIAL (BEAKER) (test code = 7.39 7.35-7.45 383) PCO2 ARTERIAL (BEAKER) (test code 41 mmHg 35-45 = 384) PO2 ARTERIAL (BEAKER) (test code 65 mmHg 80-90 L = 385) O2 SATURATION ARTERIAL (BEAKER) 93.3 % 96.0-97.0 L (test code = 386) HCO3 ARTERIAL (BEAKER) (test code 25 mmol/L 21-29 = 388) BASE EXCESS ARTERIAL (BEAKER) -0.5 mmol/L -2.0-3.0 (test code = 387) PATIENT TEMPERATURE (BEAKER) 36.5 C (test code = 1818) FIO2 (BEAKER) (test code = 1819) 36.0 % [id number] 17:30:00 Test Item Value Reference Range Interpretation Comments ACTIVATED CLOTTING TIME 235 sec Refe rence Range: (BEAKER) (test code = 74-137 seconds, 441) Baseline/TESTED AT [address] [address] [id number] 16:46:00 Test Item Value Reference Range Interpretation Comments ACTIVATED CLOTTING TIME 257 sec Refe rence Range: (BEAKER) (test code = 74-137 seconds, 441) Baseline/TESTED AT [address], CTA AAA, W/ HIRAM.EXT.[id number] 16:29:00Please start scan high in abdomen/chest for eval of distal thoracic aortaAddendum BeginsREPORT STATUS:A I have reviewed the study below and agree with the nonvascular findings. Signed: Mayo Roberts MDReport Verified Date/Time: 07/03/2019 16:29:07 Reading Location: [facility] Radiology Reading RoomAddendum EndsFINAL REPORT CT angiography of the abdominal aorta and pelvic arteries, 30 June 2019 INDICATION: This is a 89 years old male, with a diagnosis of aortic aneurysm presents for assessment. TECHNIQUE: Spiral acquisition before and during intravenous contrast administration using a Siemens multidetector CT scanner. Images were obtained before and during the dynamic passage of intravenous contrast material. [id number] volume- rendering reconstruction was performed using an [...] dictated regarding the non-vascular findings by the Machine Shop Worker Radiologist. Signed: Sean Harkinseport Verified Date/Time: 06/30/2019 14:20:00 Electronicallysigned by: MAYO ROBERTS M.D. on 07/03/2019 04:29 [id number] 16:07:00 Test Item Value Reference Range Interpretation Comments ACTIVATED CLOTTING TIME 235 sec Refe rence Range: (BEAKER) (test code = 74-137 seconds, 441) Baseline/TESTED AT [address] [address] [id number] 15:44:00 Test Item Value Reference Range Interpretation Comments ACTIVATED CLOTTING TIME 285 sec Refe rence Range: (BEAKER) (test code = 74-137 seconds, 441) Baseline/TESTED AT [address] [address] [id number] 13:13:00 Test Item Value Reference Range Interpretation Comments PARTIAL THROMBOPLASTIN TIME 91.7 seconds 22.5-36.0 H (BEAKER) (test code = 760) BASIC METABOLIC [id number] 06:51:00 Test Item Value Reference Range Interpretation Comments SODIUM (BEAKER) (test 138 meq/L 136-145 code = 381) POTASSIUM (BEAKER) 5.0 meq/L 3.5-5.1 (test code = 379) CHLORIDE (BEAKER) 105 meq/L 98-107 (test code = 382) CO2 (BEAKER) (test 26 meq/L 22-29 code = 355) BLOOD UREA NITROGEN 38 mg/dL 7-21 H (BEAKER) (test code = 354) CREATININE (BEAKER) 1.20 mg/dL 0.57-1.25 (test code = 358) GLUCOSE RANDOM 106 mg/dL 70-105 H (BEAKER) (test code = 652) CALCIUM (BEAKER) 8.9 mg/dL 8.4-10.2 (test code = 697) EGFR (BEAKER) (test INSUFFIC IENT CLINICAL code = 1092) DATA TO CALCULA TE ESTIMATED GFR. Banking Manager ID Leonidas PORTILLO [id number] 06:48:00 Test Item Value Reference Range Interpretation Comments MAGNESIUM (BEAKER) (test code = 1.8 mg/dL 1.6-2.6 627) Banking Manager ID Leonidas PORTILLO WHEPATIC FUNCTION [id number] 06:48:00 Test Item Value Reference Range Interpretation Comments TOTAL PROTEIN (BEAKER) (test code = 6.3 gm/dL 6.0-8.3 770) ALBUMIN (BEAKER) (test code = 1145) 3.3 g/dL 3.5-5.0 L BILIRUBIN TOTAL (BEAKER) (test code 0.3 mg/dL 0.2-1.2 = 377) BILIRUBIN DIRECT (BEAKER) (test 0.2 mg/dL 0.1-0.5 code = 706) ALKALINE PHOSPHATASE (BEAKER) (test 51 U/L 40-150 code = 346) AST (SGOT) (BEAKER) (test code = 10 U/L 5-34 353) ALT (SGPT) (BEAKER) (test code = 11 U/L 6-55 347) Banking Manager ID Leonidas PORTILLO [id number] 06:24:00 Test Item Value Reference Range Interpretation Comments PARTIAL THROMBOPLASTIN TIME 98.9 seconds 22.5-36.0 H (BEAKER) (test code = 760) CBC W/PLT COUNT & AUTO [id number] 06:16:00 Test Item Value Reference Range Interpretation Comments WHITE BLOOD CELL COUNT (BEAKER) 9.9 K/ L 3.5-10.5 (test code = 775) RED BLOOD CELL COUNT (BEAKER) 3.78 M/ L 4.63-6.08 L (test code = 761) HEMOGLOBIN (BEAKER) (test code = 11.4 GM/DL 13.7-17.5 L 410) HEMATOCRIT (BEAKER) (test code = 35.6 % 40.1-51.0 L 411) MEAN CORPUSCULAR VOLUME (BEAKER) 94.2 fL 79.0-92.2 H (test code = 753) MEAN CORPUSCULAR HEMOGLOBIN 30.2 pg 25.7-32.2 (BEAKER) (test code = 751) MEAN CORPUSCULAR HEMOGLOBIN CONC 32.0 GM/DL 32.3-36.5 L (BEAKER) (test code = 752) RED CELL DISTRIBUTION WIDTH 14.9 % 11.6-14.4 H (BEAKER) (test code = 412) PLATELET COUNT (BEAKER) (test 235 K/CU MM 150-450 code = 756) MEAN PLATELET VOLUME (BEAKER) 9.6 fL 9.4-12.4 (test code = 754) NUCLEATED RED BLOOD CELLS 0 /100 WBC 0-0 (BEAKER) (test code = 413) NEUTROPHILS RELATIVE PERCENT 62 % (BEAKER) (test code = 429) LYMPHOCYTES RELATIVE PERCENT 24 % (BEAKER) (test code = 430) MONOCYTES RELATIVE PERCENT 11 % (BEAKER) (test code = 431) EOSINOPHILS RELATIVE PERCENT 3 % (BEAKER) (test code = 432) BASOPHILS RELATIVE PERCENT 0 % (BEAKER) (test code = 437) NEUTROPHILS ABSOLUTE COUNT 6.16 K/ L 1.78-5.38 H (BEAKER) (test code = 670) LYMPHOCYTES ABSOLUTE COUNT 2.36 K/ L 1.32-3.57 (BEAKER) (test code = 414) MONOCYTES ABSOLUTE COUNT (BEAKER) 1.07 K/ L 0.30-0.82 H (test code = 415) EOSINOPHILS ABSOLUTE COUNT 0.28 K/ L 0.04-0.54 (BEAKER) (test code = 416) BASOPHILS ABSOLUTE COUNT (BEAKER) 0.01 K/ L 0.01-0.08 (test code = 417) IMMATURE GRANULOCYTES-RELATIVE 1 % 0-1 PERCENT (BEAKER) (test code = 2801) CBC (HEMOGRAM ONLY)2019-07-03 06:16:00 Test Item Value Reference Range Interpretation Comments WHITE BLOOD CELL COUNT (BEAKER) 9.9 K/ L 3.5-10.5 (test code = 775) RED BLOOD CELL COUNT (BEAKER) 3.78 M/ L 4.63-6.08 L (test code = 761) HEMOGLOBIN (BEAKER) (test code = 11.4 GM/DL 13.7-17.5 L 410) HEMATOCRIT (BEAKER) (test code = 35.6 % 40.1-51.0 L 411) MEAN CORPUSCULAR VOLUME (BEAKER) 94.2 fL 79.0-92.2 H (test code = 753) MEAN CORPUSCULAR HEMOGLOBIN 30.2 pg 25.7-32.2 (BEAKER) (test code = 751) MEAN CORPUSCULAR HEMOGLOBIN CONC 32.0 GM/DL 32.3-36.5 L (BEAKER) (test code = 752) RED CELL DISTRIBUTION WIDTH 14.9 % 11.6-14.4 H (BEAKER) (test code = 412) PLATELET COUNT (BEAKER) (test 235 K/CU MM 150-450 code = 756) MEAN PLATELET VOLUME (BEAKER) 9.6 fL 9.4-12.4 (test code = 754) NUCLEATED RED BLOOD CELLS 0 /100 WBC 0-0 (BEAKER) (test code = 413) BASIC METABOLIC [id number] 06:25:00 Test Item Value Reference Range Interpretation Comments SODIUM (BEAKER) (test 135 meq/L 136-145 L code = 381) POTASSIUM (BEAKER) 4.9 meq/L 3.5-5.1 (test code = 379) CHLORIDE (BEAKER) 103 meq/L 98-107 (test code = 382) CO2 (BEAKER) (test 25 meq/L 22-29 code = 355) BLOOD UREA NITROGEN 48 mg/dL 7-21 H (BEAKER) (test code = 354) CREATININE (BEAKER) 1.33 mg/dL 0.57-1.25 H (test code = 358) GLUCOSE RANDOM 98 mg/dL 70-105 (BEAKER) (test code = 652) CALCIUM (BEAKER) 8.5 mg/dL 8.4-10.2 (test code = 697) EGFR (BEAKER) (test INSUFFIC IENT CLINICAL code = 1092) DATA TO CALCULA TE ESTIMATED GFR. Banking Manager ID - LINDSEY [id number] 06:20:00 Test Item Value Reference Range Interpretation Comments MAGNESIUM (BEAKER) (test code = 1.8 mg/dL 1.6-2.6 627) Banking Manager ID - LINDSEY WHEPATIC FUNCTION [id number] 06:20:00 Test Item Value Reference Range Interpretation Comments TOTAL PROTEIN (BEAKER) (test code = 6.0 gm/dL 6.0-8.3 770) ALBUMIN (BEAKER) (test code = 1145) 3.2 g/dL 3.5-5.0 L BILIRUBIN TOTAL (BEAKER) (test code 0.3 mg/dL 0.2-1.2 = 377) BILIRUBIN DIRECT (BEAKER) (test 0.2 mg/dL 0.1-0.5 code = 706) ALKALINE PHOSPHATASE (BEAKER) (test 47 U/L 40-150 code = 346) AST (SGOT) (BEAKER) (test code = 10 U/L 5-34 353) ALT (SGPT) (BEAKER) (test code = 11 U/L 6-55 347) Banking Manager ID - LINDSEY [id number] 05:42:00 Test Item Value Reference Range Interpretation Comments PARTIAL THROMBOPLASTIN TIME 84.3 seconds 22.5-36.0 H (BEAKER) (test code = 760) CBC (HEMOGRAM ONLY)2019-07-02 05:33:00 Test Item Value Reference Range Interpretation Comments WHITE BLOOD CELL COUNT (BEAKER) 10.1 K/ L 3.5-10.5 (test code = 775) RED BLOOD CELL COUNT (BEAKER) 3.77 M/ L 4.63-6.08 L (test code = 761) HEMOGLOBIN (BEAKER) (test code = 11.3 GM/DL 13.7-17.5 L 410) HEMATOCRIT (BEAKER) (test code = 35.7 % 40.1-51.0 L 411) MEAN CORPUSCULAR VOLUME (BEAKER) 94.7 fL 79.0-92.2 H (test code = 753) MEAN CORPUSCULAR HEMOGLOBIN 30.0 pg 25.7-32.2 (BEAKER) (test code = 751) MEAN CORPUSCULAR HEMOGLOBIN CONC 31.7 GM/DL 32.3-36.5 L (BEAKER) (test code = 752) RED CELL DISTRIBUTION WIDTH 14.9 % 11.6-14.4 H (BEAKER) (test code = 412) PLATELET COUNT (BEAKER) (test 240 K/CU MM 150-450 code = 756) MEAN PLATELET VOLUME (BEAKER) 9.5 fL 9.4-12.4 (test code = 754) NUCLEATED RED BLOOD CELLS 0 /100 WBC 0-0 (BEAKER) (test code = 413) [id number] 23:45:00 Test Item Value Reference Range Interpretation Comments PARTIAL THROMBOPLASTIN TIME 74.9 seconds 22.5-36.0 H (BEAKER) (test code = 760) [id number] 16:47:00 Test Item Value Reference Range Interpretation Comments PARTIAL THROMBOPLASTIN TIME 54.8 seconds 22.5-36.0 H (BEAKER) (test code = 760) [id number] 08:48:00 Test Item Value Reference Range Interpretation Comments PARTIAL THROMBOPLASTIN TIME 71.0 seconds 22.5-36.0 H (BEAKER) (test code = 760) BASIC METABOLIC [id number] 08:02:00 Test Item Value Reference Range Interpretation Comments SODIUM (BEAKER) (test 135 meq/L 136-145 L code = 381) POTASSIUM (BEAKER) 4.4 meq/L 3.5-5.1 (test code = 379) CHLORIDE (BEAKER) 103 meq/L 98-107 (test code = 382) CO2 (BEAKER) (test 25 meq/L 22-29 code = 355) BLOOD UREA NITROGEN 45 mg/dL 7-21 H (BEAKER) (test code = 354) CREATININE (BEAKER) 1.29 mg/dL 0.57-1.25 H (test code = 358) GLUCOSE RANDOM 160 mg/dL 70-105 H (BEAKER) (test code = 652) CALCIUM (BEAKER) 8.7 mg/dL 8.4-10.2 (test code = 697) EGFR (BEAKER) (test INSUFFIC IENT CLINICAL code = 1092) DATA TO CALCULA TE ESTIMATED GFR. Banking Manager ID - YVONNE [id number] 07:58:00 Test Item Value Reference Range Interpretation Comments MAGNESIUM (BEAKER) (test code = 1.9 mg/dL 1.6-2.6 627) Banking Manager ID - YVONNE MHEPATIC FUNCTION [id number] 07:58:00 Test Item Value Reference Range Interpretation Comments TOTAL PROTEIN (BEAKER) (test code = 6.5 gm/dL 6.0-8.3 770) ALBUMIN (BEAKER) (test code = 1145) 3.4 g/dL 3.5-5.0 L BILIRUBIN TOTAL (BEAKER) (test code 0.2 mg/dL 0.2-1.2 = 377) BILIRUBIN DIRECT (BEAKER) (test 0.1 mg/dL 0.1-0.5 code = 706) ALKALINE PHOSPHATASE (BEAKER) (test 52 U/L 40-150 code = 346) AST (SGOT) (BEAKER) (test code = 11 U/L 5-34 353) ALT (SGPT) (BEAKER) (test code = 11 U/L 6-55 347) Banking Manager ID - YVONNE MCBC W/PLT COUNT & AUTO [id number] 06:40:00 Test Item Value Reference Range Interpretation Comments WHITE BLOOD CELL COUNT (BEAKER) 12.3 K/ L 3.5-10.5 H (test code = 775) RED BLOOD CELL COUNT (BEAKER) 3.77 M/ L 4.63-6.08 L (test code = 761) HEMOGLOBIN (BEAKER) (test code = 11.2 GM/DL 13.7-17.5 L 410) HEMATOCRIT (BEAKER) (test code = 36.1 % 40.1-51.0 L 411) MEAN CORPUSCULAR VOLUME (BEAKER) 95.8 fL 79.0-92.2 H (test code = 753) MEAN CORPUSCULAR HEMOGLOBIN 29.7 pg 25.7-32.2 (BEAKER) (test code = 751) MEAN CORPUSCULAR HEMOGLOBIN CONC 31.0 GM/DL 32.3-36.5 L (BEAKER) (test code = 752) RED CELL DISTRIBUTION WIDTH 14.6 % 11.6-14.4 H (BEAKER) (test code = 412) PLATELET COUNT (BEAKER) (test 250 K/CU MM 150-450 code = 756) MEAN PLATELET VOLUME (BEAKER) 9.7 fL 9.4-12.4 (test code = 754) NUCLEATED RED BLOOD CELLS 0 /100 WBC 0-0 (BEAKER) (test code = 413) NEUTROPHILS RELATIVE PERCENT 80 % (BEAKER) (test code = 429) LYMPHOCYTES RELATIVE PERCENT 13 % (BEAKER) (test code = 430) MONOCYTES RELATIVE PERCENT 7 % (BEAKER) (test code = 431) EOSINOPHILS RELATIVE PERCENT 0 % (BEAKER) (test code = 432) BASOPHILS RELATIVE PERCENT 0 % (BEAKER) (test code = 437) NEUTROPHILS ABSOLUTE COUNT 9.79 K/ L 1.78-5.38 H (BEAKER) (test code = 670) LYMPHOCYTES ABSOLUTE COUNT 1.61 K/ L 1.32-3.57 (BEAKER) (test code = 414) MONOCYTES ABSOLUTE COUNT (BEAKER) 0.82 K/ L 0.30-0.82 (test code = 415) EOSINOPHILS ABSOLUTE COUNT 0.00 K/ L 0.04-0.54 L (BEAKER) (test code = 416) BASOPHILS ABSOLUTE COUNT (BEAKER) 0.01 K/ L 0.01-0.08 (test code = 417) IMMATURE GRANULOCYTES-RELATIVE 1 % 0-1 PERCENT (BEAKER) (test code = 2801) [id number] 06:38:00 Test Item Value Reference Range Interpretation Comments PARTIAL THROMBOPLASTIN TIME 123.8 seconds 22.5-36.0 H (BEAKER) (test code = 760) CBC (HEMOGRAM ONLY)2019-07-01 06:24:00 Test Item Value Reference Range Interpretation Comments WHITE BLOOD CELL COUNT (BEAKER) 12.3 K/ L 3.5-10.5 H (test code = 775) RED BLOOD CELL COUNT (BEAKER) 3.77 M/ L 4.63-6.08 L (test code = 761) HEMOGLOBIN (BEAKER) (test code = 11.2 GM/DL 13.7-17.5 L 410) HEMATOCRIT (BEAKER) (test code = 36.1 % 40.1-51.0 L 411) MEAN CORPUSCULAR VOLUME (BEAKER) 95.8 fL 79.0-92.2 H (test code = 753) MEAN CORPUSCULAR HEMOGLOBIN 29.7 pg 25.7-32.2 (BEAKER) (test code = 751) MEAN CORPUSCULAR HEMOGLOBIN CONC 31.0 GM/DL 32.3-36.5 L (BEAKER) (test code = 752) RED CELL DISTRIBUTION WIDTH 14.6 % 11.6-14.4 H (BEAKER) (test code = 412) PLATELET COUNT (BEAKER) (test 250 K/CU MM 150-450 code = 756) MEAN PLATELET VOLUME (BEAKER) 9.7 fL 9.4-12.4 (test code = 754) NUCLEATED RED BLOOD CELLS 0 /100 WBC 0-0 (BEAKER) (test code = 413) CTA AAA and [id number] 14:20:00Interface, External Ris In - 07/03/2019 4:31 PM CSTAddendum BeginsREPORT STATUS:A I have reviewed the study below and agree with the nonvascular findings. Signed: Mayo Roberts MDReport Verified Date/Time: 07/03/2019 16:29:07 Reading Location: [facility] Radiology Reading RoomAddendum EndsFINAL REPORT CT angiography of the abdominal aorta and pelvic arteries, 30 June 2019 INDICATION: This is a 89 years old male, with a diagnosis of aortic aneurysm presents for assessment. TECHNIQUE: Spiral acquisition before and during intravenous contrast administration using a Siemens multidetector CT scanner. Images were obtained before and during the dynamic passage of intravenous contrast material. Multi-planar 3-D volume-rendering reconstruction was performed using an independent workstation [...] Dose modulation, iterative reconstruction, and/or weight based adjustmentof the mA/kV was utilized to reduce the [...] partially identified and is patent. The left ventricle is enlarged. Left atrial enlargement is identified. The central pulmonary artery is prominent. The proximal abdominal aorta is unremarkable. At the renal level of the abdominal aorta, the left upper 20 of the left renal artery, substantial atheroma localized thrombus is identified, for example image 116. Aneurysmal dilation identified in the proximal infrarenal abdominal aorta, with maximum diameter measured to be approximately 5.1 x 4.7 cm in diameter, with some intraluminal thrombus identified, as expected and is nonobstructive. The length of the aneurysmal dilation is approximately 4.5 cm. Please See snapshot for details. The proximal neck isapproximately 1.4 cm below the takeoff of the right renal artery, and the proximal neck measures approximately to 0.4 x 2.6 cm in diameter. 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 Immediately distal to the dilation, it appearspatient is post graft placement in the remainder of the infrarenal abdominal aorta. This need to be [...] is seen in the proximal right renal artery.With the substantial atheroma identified at the abdominal aorta abutting the origin of the renal artery, there is mild to moderate stenosis identified at its origin. Remainder of the the left renal jesus ry is widely patent. There is no evidence of acute aortic pathology, specifically, there is no dissection, intramural hematoma, or contained rupture. Quantitative dimensions of the abdominal aorta areas follows: 2.8 cm at the mesenteric segment; 2.8 x 2.7 cm at the renal segment. 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 Please See snapshot fordetails. Moderate tortuosity is identified in the left common iliac artery. The internal iliac artery artery is patent with some eccentric calcification identified though at the mid level it measures up to 1.7 cm in diameter. The left external iliac artery has nonobstructed calcification identified. Reference diameter is at least 6 to 7 mm in diameter. No stenosis is seen. The left common femoral [...] is appreciated. The left tibioperoneal trunk has nonobstructive calcification identified. The left berry noel artery is widely patent, and is well seen down to level of the ankle. Whilst the proximal one third of the left posterior tibial artery is patent, the distal two third of the artery has diffuse calcification identified suggesting severe stenosis subtotal occlusion present extending into the plantar arch approximately. In the right, the right common iliac right external iliac artery and the rightcommon femoral artery has nonobstructive calcification identified. Mild dilation is seen in the proximal right internal iliac artery that measure 1.5 cm in diameter. Moderate diffuse calcification is identified in the right SFA, with moderate diffuse disease identified. By visual estimation, there appe ars to be no critical lesion appreciated. The right popliteal artery also have eccentric nonobstructive calcification identified. Diffuse calcification is seen throughout the course of the right anterior tibial artery, though enhancement is seen indicating patency. There is also diffuse calcification identified in the right tibioperoneal trunk, though enhancement is seen indicating patency. The rightperoneal artery is well enhanced by contrast. Diffuse disease is identified throughout the course ofthe right posterior tibial artery and the right posterior tibial artery is occluded in the distal one third of the segment extending into the plantar arch. NON-VASCULAR: Dependent changes are seen in the right base. Pulmonary vasculature could be mildly prominent. Some subsegmental atelectatic changesare seen, especially in the right base. In [...] disease is seen in the descending and sigmoid colon withno inflammatory changes identified. A wide neck hernia [...] seen. 2. 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 Correlate with operative report. Atheroma/intraluminal thrombus is seen at the renal level, abutting the takeoff of [...] unremarkable despite the presence of calcification seen throughout the left and the right pelvic arteries. 4. Details of the SFA, popliteal arteries, and runoff vessels as described above. 5. Other findings as described above. 6. An addendum will be dictated regardingthe non-vascular findings by the Machine Shop Worker Radiologist. Signed: Sean Harkins MDReport Verified Date/Time: 06/30/2019 14:20:00 [facility] Test Item Value Reference Range Interpretation Comments PARTIAL THROMBOPLASTIN TIME 87.2 seconds 22.5-36.0 H (BEAKER) (test code = 760) [id number] 03:43:00 Test Item Value Reference Range Interpretation Comments MAGNESIUM (BEAKER) (test code = 1.9 mg/dL 1.6-2.6 627) Banking Manager ID - YVONNE MHEPATIC FUNCTION [id number] 03:43:00 Test Item Value Reference Range Interpretation Comments TOTAL PROTEIN (BEAKER) (test code = 6.4 gm/dL 6.0-8.3 770) ALBUMIN (BEAKER) (test code = 1145) 3.3 g/dL 3.5-5.0 L BILIRUBIN TOTAL (BEAKER) (test code 0.2 mg/dL 0.2-1.2 = 377) BILIRUBIN DIRECT (BEAKER) (test 0.1 mg/dL 0.1-0.5 code = 706) ALKALINE PHOSPHATASE (BEAKER) (test 50 U/L 40-150 code = 346) AST (SGOT) (BEAKER) (test code = 9 U/L 5-34 353) ALT (SGPT) (BEAKER) (test code = 9 U/L 6-55 347) Banking Manager NADJA RUSSELL MBASIC METABOLIC [id number] 03:43:00 Test Item Value Reference Range Interpretation Comments SODIUM (BEAKER) (test 137 meq/L 136-145 code = 381) POTASSIUM (BEAKER) 5.3 meq/L 3.5-5.1 H (test code = 379) CHLORIDE (BEAKER) 104 meq/L 98-107 (test code = 382) CO2 (BEAKER) (test 28 meq/L 22-29 code = 355) BLOOD UREA NITROGEN 46 mg/dL 7-21 H (BEAKER) (test code = 354) CREATININE (BEAKER) 1.43 mg/dL 0.57-1.25 H (test code = 358) GLUCOSE RANDOM 147 mg/dL 70-105 H (BEAKER) (test code = 652) CALCIUM (BEAKER) 8.9 mg/dL 8.4-10.2 (test code = 697) EGFR (BEAKER) (test INSUFFIC IENT CLINICAL code = 1092) DATA TO CALCULA TE ESTIMATED GFR. Banking Manager NADJA RUSSELL MCBC (HEMOGRAM ONLY)2019-06-30 03:25:00 Test Item Value Reference Range Interpretation Comments WHITE BLOOD CELL COUNT (BEAKER) 11.8 K/ L 3.5-10.5 H (test code = 775) RED BLOOD CELL COUNT (BEAKER) 3.55 M/ L 4.63-6.08 L (test code = 761) HEMOGLOBIN (BEAKER) (test code = 10.6 GM/DL 13.7-17.5 L 410) HEMATOCRIT (BEAKER) (test code = 33.5 % 40.1-51.0 L 411) MEAN CORPUSCULAR VOLUME (BEAKER) 94.4 fL 79.0-92.2 H (test code = 753) MEAN CORPUSCULAR HEMOGLOBIN 29.9 pg 25.7-32.2 (BEAKER) (test code = 751) MEAN CORPUSCULAR HEMOGLOBIN CONC 31.6 GM/DL 32.3-36.5 L (BEAKER) (test code = 752) RED CELL DISTRIBUTION WIDTH 14.4 % 11.6-14.4 (BEAKER) (test code = 412) PLATELET COUNT (BEAKER) (test 233 K/CU MM 150-450 code = 756) MEAN PLATELET VOLUME (BEAKER) 9.6 fL 9.4-12.4 (test code = 754) NUCLEATED RED BLOOD CELLS 0 /100 WBC 0-0 (BEAKER) (test code = 413) [id number] 20:41:00 Test Item Value Reference Range Interpretation Comments PARTIAL THROMBOPLASTIN TIME 67.8 seconds 22.5-36.0 H (BEAKER) (test code = 760) [id number] 12:53:00 Test Item Value Reference Range Interpretation Comments PARTIAL THROMBOPLASTIN TIME 60.7 seconds 22.5-36.0 H (BEAKER) (test code = 760) BASIC METABOLIC [id number] 06:39:00 Test Item Value Reference Range Interpretation Comments SODIUM (BEAKER) (test 138 meq/L 136-145 code = 381) POTASSIUM (BEAKER) 5.5 meq/L 3.5-5.1 H (test code = 379) CHLORIDE (BEAKER) 106 meq/L 98-107 (test code = 382) CO2 (BEAKER) (test 25 meq/L 22-29 code = 355) BLOOD UREA NITROGEN 38 mg/dL 7-21 H (BEAKER) (test code = 354) CREATININE (BEAKER) 1.45 mg/dL 0.57-1.25 H (test code = 358) GLUCOSE RANDOM 150 mg/dL 70-105 H (BEAKER) (test code = 652) CALCIUM (BEAKER) 9.3 mg/dL 8.4-10.2 (test code = 697) EGFR (BEAKER) (test INSUFFIC IENT CLINICAL code = 1092) DATA TO CALCULA TE ESTIMATED GFR. Banking Manager ID - LINDSEY [id number] 06:38:00 Test Item Value Reference Range Interpretation Comments MAGNESIUM (BEAKER) (test code = 2.1 mg/dL 1.6-2.6 627) Banking Manager ID - LINDSEY WHEPATIC FUNCTION [id number] 06:38:00 Test Item Value Reference Range Interpretation Comments TOTAL PROTEIN (BEAKER) (test code = 7.0 gm/dL 6.0-8.3 770) ALBUMIN (BEAKER) (test code = 1145) 3.5 g/dL 3.5-5.0 BILIRUBIN TOTAL (BEAKER) (test code 0.3 mg/dL 0.2-1.2 = 377) BILIRUBIN DIRECT (BEAKER) (test 0.2 mg/dL 0.1-0.5 code = 706) ALKALINE PHOSPHATASE (BEAKER) (test 58 U/L 40-150 code = 346) AST (SGOT) (BEAKER) (test code = 10 U/L 5-34 353) ALT (SGPT) (BEAKER) (test code = 8 U/L 6-55 347) Banking Manager ID - LINDSEY WCBC W/PLT COUNT & AUTO [id number] 06:12:00 Test Item Value Reference Range Interpretation Comments WHITE BLOOD CELL COUNT (BEAKER) 6.1 K/ L 3.5-10.5 (test code = 775) RED BLOOD CELL COUNT (BEAKER) 3.97 M/ L 4.63-6.08 L (test code = 761) HEMOGLOBIN (BEAKER) (test code = 11.6 GM/DL 13.7-17.5 L 410) HEMATOCRIT (BEAKER) (test code = 38.1 % 40.1-51.0 L 411) MEAN CORPUSCULAR VOLUME (BEAKER) 96.0 fL 79.0-92.2 H (test code = 753) MEAN CORPUSCULAR HEMOGLOBIN 29.2 pg 25.7-32.2 (BEAKER) (test code = 751) MEAN CORPUSCULAR HEMOGLOBIN CONC 30.4 GM/DL 32.3-36.5 L (BEAKER) (test code = 752) RED CELL DISTRIBUTION WIDTH 14.2 % 11.6-14.4 (BEAKER) (test code = 412) PLATELET COUNT (BEAKER) (test 235 K/CU MM 150-450 code = 756) MEAN PLATELET VOLUME (BEAKER) 9.3 fL 9.4-12.4 L (test code = 754) NUCLEATED RED BLOOD CELLS 0 /100 WBC 0-0 (BEAKER) (test code = 413) NEUTROPHILS RELATIVE PERCENT 84 % (BEAKER) (test code = 429) LYMPHOCYTES RELATIVE PERCENT 15 % (BEAKER) (test code = 430) MONOCYTES RELATIVE PERCENT 1 % (BEAKER) (test code = 431) EOSINOPHILS RELATIVE PERCENT 0 % (BEAKER) (test code = 432) BASOPHILS RELATIVE PERCENT 0 % (BEAKER) (test code = 437) NEUTROPHILS ABSOLUTE COUNT 5.10 K/ L 1.78-5.38 (BEAKER) (test code = 670) LYMPHOCYTES ABSOLUTE COUNT 0.89 K/ L 1.32-3.57 L (BEAKER) (test code = 414) MONOCYTES ABSOLUTE COUNT (BEAKER) 0.08 K/ L 0.30-0.82 L (test code = 415) EOSINOPHILS ABSOLUTE COUNT 0.00 K/ L 0.04-0.54 L (BEAKER) (test code = 416) BASOPHILS ABSOLUTE COUNT (BEAKER) 0.00 K/ L 0.01-0.08 L (test code = 417) IMMATURE GRANULOCYTES-RELATIVE 0 % 0-1 PERCENT (BEAKER) (test code = 2801) ABORH, [id number] 06:00:00 Test Item Value Reference Range Interpretation Comments ABO Grouping (test code = 2588) B Rh Factor (test code = 2589) [facility] Test Item Value Reference Range Interpretation Comments PARTIAL THROMBOPLASTIN TIME 49.8 seconds 22.5-36.0 H (BEAKER) (test code = 760) CBC (HEMOGRAM ONLY)2019-06-29 05:42:00 Test Item Value Reference Range Interpretation Comments WHITE BLOOD CELL COUNT (BEAKER) 6.1 K/ L 3.5-10.5 (test code = 775) RED BLOOD CELL COUNT (BEAKER) 3.97 M/ L 4.63-6.08 L (test code = 761) HEMOGLOBIN (BEAKER) (test code = 11.6 GM/DL 13.7-17.5 L 410) HEMATOCRIT (BEAKER) (test code = 38.1 % 40.1-51.0 L 411) MEAN CORPUSCULAR VOLUME (BEAKER) 96.0 fL 79.0-92.2 H (test code = 753) MEAN CORPUSCULAR HEMOGLOBIN 29.2 pg 25.7-32.2 (BEAKER) (test code = 751) MEAN CORPUSCULAR HEMOGLOBIN CONC 30.4 GM/DL 32.3-36.5 L (BEAKER) (test code = 752) RED CELL DISTRIBUTION WIDTH 14.2 % 11.6-14.4 (BEAKER) (test code = 412) PLATELET COUNT (BEAKER) (test 235 K/CU MM 150-450 code = 756) MEAN PLATELET VOLUME (BEAKER) 9.3 fL 9.4-12.4 L (test code = 754) NUCLEATED RED BLOOD CELLS 0 /100 WBC 0-0 (BEAKER) (test code = 413) [id number] 11:49:00 Test Item Value Reference Range Interpretation Comments RPR (test code = 64204-1) Nonreactive Nonreactive Lab Interpretation (test code = Normal 52998-8) [facility] 11:49:00 Test Item Value Reference Range Interpretation Comments RPR SCREEN (BEAKER) (test code = Nonreactive Nonreactive 420) HEPATIC FUNCTION [id number] 09:29:00 Test Item Value Reference Range Interpretation Comments TOTAL PROTEIN (BEAKER) 7.2 gm/dL 6.0-8.3 Speci men slightly (test code = 770) hemolyzed ALBUMIN (BEAKER) (test 3.6 g/dL 3.5-5.0 Speci men slightly code = 1145) hemolyzed BILIRUBIN TOTAL 0.5 mg/dL 0.2-1.2 Specimen sli ghtly (BEAKER) (test code = hemoly zed 377) BILIRUBIN DIRECT 0.2 mg/dL 0.1-0.5 Specimen sl ightly (BEAKER) (test code = hemoly zed 706) ALKALINE PHOSPHATASE 58 U/L 40-150 (BEAKER) (test code = 346) AST (SGOT) (BEAKER) 13 U/L 5-34 Specimen slightly (test code = 353) hemolyzed ALT (SGPT) (AKER) 10 U/L 6-55 Specimen slightly (test code = 347) hemolyzed Banking Manager ID - CAROLIN [id number] 04:02:00 Test Item Value Reference Range Interpretation Comments TROPONIN I (BEAKER) (test code = 0.01 ng/mL 0.00-0.03 397) Troponin I (TnI) levels must be interpreted [...] failure, acidosis, acute neurological disease, and persistent tachyarrhythmia.Banking Manager ID - ASVitamin [id number] 03:54:00 Test Item Value Reference Range Interpretation Comments Vitamin B12 (test code = 569 pg/mL 384-666 6164-9) GRISELDA (test code = GRISELDA) Banking Manager ID - YVONNE M Lab Interpretation (test Normal code = 74746-1) [facility] [id number] 03:54:00 Test Item Value Reference Range Interpretation Comments VITAMIN B12 (MP) (test code = 569 pg/mL 213-816 774) Banking Manager ID - YVONNE MVitamin D, [id number] 03:18:00 Test Item Value Reference Range Interpretation Comments Vitamin D 25-Hydroxy 34.6 ng/mL 6.6-49.9 (test code = 2764) GRISELDA (test code = GRISELDA) Effective 03/03/2017: Reference Range ChangeNew: 6.6-49.9 ng/mL Previous: 13.0-47.8 ng/mL Recommended Vitamin D Target Range: 30.0-40.0 ng/mLOperator ID - Lab Interpretation (test Normal code = 99304-7) [facility]Free T4 If [id number] 03:18:00 Test Item Value Reference Range Interpretation Comments TSH (test code = 62044-4) 1.01 0.35- 4.94 uIU/mL GRISELDA (test code = GRISELDA) Banking Manager ID - Lab Interpretation (test Normal code = 78116-0) [facility] D, [id number] 03:18:00 Test Item Value Reference Range Interpretation Comments VITAMIN D 25-OH (BEAKER) (test 34.6 ng/mL 6.6-49.9 code = 2764) Effective 03/03/2017: Reference Range ChangeNew: 6.6-49.9 ng/mL Previous: 13.0-47.8 ng/mLRecommended Vitamin D Target Range: 30.0-40.0 ng/mLOperator ID - ASTSH/FREE T4 IF [id number] 03:18:00 Test Item Value Reference Range Interpretation Comments THYROID STIMULATING HORMONE 1.01 uIU/mL 0.35-4.94 (BEAKER) (test code = 772) Banking Manager ID - ASBASIC METABOLIC [id number] 03:07:00 Test Item Value Reference Range Interpretation Comments SODIUM (BEAKER) (test 135 meq/L 136-145 L code = 381) POTASSIUM (BEAKER) 4.8 meq/L 3.5-5.1 Specimen slightly (test code = 379) hemolyzed CHLORIDE (BEAKER) 102 meq/L 98-107 (test code = 382) CO2 (BEAKER) (test 24 meq/L 22-29 code = 355) BLOOD UREA NITROGEN 44 mg/dL 7-21 H (BEAKER) (test code = 354) CREATININE (BEAKER) 1.60 mg/dL 0.57-1.25 H Specimen slightly (test code = 358) hemolyzed GLUCOSE RANDOM 125 mg/dL 70-105 H (BEAKER) (test code = 652) CALCIUM (BEAKER) 9.2 mg/dL 8.4-10.2 (test code = 697) EGFR (BEAKER) (test INSUFFIC IENT CLINICAL code = 1092) DATA TO CALCULA TE ESTIMATED GFR. Banking Manager ID - YVONNE [id number] 03:02:00 Test Item Value Reference Range Interpretation Comments MAGNESIUM (BEAKER) 1.9 mg/dL 1.6-2.6 Specimen slightly (test code = 627) hemolyzed Banking Manager ID - YVONNE [id number] 02:25:00 Test Item Value Reference Range Interpretation Comments PARTIAL THROMBOPLASTIN TIME 79.6 seconds 22.5-36.0 H (BEAKER) (test code = 760) CBC W/PLT COUNT & AUTO [id number] 02:11:00 Test Item Value Reference Range Interpretation Comments WHITE BLOOD CELL COUNT (BEAKER) 12.2 K/ L 3.5-10.5 H (test code = 775) RED BLOOD CELL COUNT (BEAKER) 3.95 M/ L 4.63-6.08 L (test code = 761) HEMOGLOBIN (BEAKER) (test code = 11.6 GM/DL 13.7-17.5 L 410) HEMATOCRIT (BEAKER) (test code = 37.3 % 40.1-51.0 L 411) MEAN CORPUSCULAR VOLUME (BEAKER) 94.4 fL 79.0-92.2 H (test code = 753) MEAN CORPUSCULAR HEMOGLOBIN 29.4 pg 25.7-32.2 (BEAKER) (test code = 751) MEAN CORPUSCULAR HEMOGLOBIN CONC 31.1 GM/DL 32.3-36.5 L (BEAKER) (test code = 752) RED CELL DISTRIBUTION WIDTH 14.5 % 11.6-14.4 H (BEAKER) (test code = 412) PLATELET COUNT (BEAKER) (test 267 K/CU MM 150-450 code = 756) MEAN PLATELET VOLUME (BEAKER) 9.9 fL 9.4-12.4 (test code = 754) NUCLEATED RED BLOOD CELLS 0 /100 WBC 0-0 (BEAKER) (test code = 413) NEUTROPHILS RELATIVE PERCENT 60 % (BEAKER) (test code = 429) LYMPHOCYTES RELATIVE PERCENT 27 % (BEAKER) (test code = 430) MONOCYTES RELATIVE PERCENT 10 % (BEAKER) (test code = 431) EOSINOPHILS RELATIVE PERCENT 3 % (BEAKER) (test code = 432) BASOPHILS RELATIVE PERCENT 0 % (BEAKER) (test code = 437) NEUTROPHILS ABSOLUTE COUNT 7.30 K/ L 1.78-5.38 H (BEAKER) (test code = 670) LYMPHOCYTES ABSOLUTE COUNT 3.26 K/ L 1.32-3.57 (BEAKER) (test code = 414) MONOCYTES ABSOLUTE COUNT (BEAKER) 1.24 K/ L 0.30-0.82 H (test code = 415) EOSINOPHILS ABSOLUTE COUNT 0.30 K/ L 0.04-0.54 (BEAKER) (test code = 416) BASOPHILS ABSOLUTE COUNT (BEAKER) 0.05 K/ L 0.01-0.08 (test code = 417) IMMATURE GRANULOCYTES-RELATIVE 0 % 0-1 PERCENT (BEAKER) (test code = 2801) [id number] 23:22:00 Test Item Value Reference Range Interpretation Comments PARTIAL THROMBOPLASTIN TIME 77.6 seconds 22.5-36.0 H (BEAKER) (test code = 760) [id number] 15:45:00 Test Item Value Reference Range Interpretation Comments PARTIAL THROMBOPLASTIN TIME 60.8 seconds 22.5-36.0 H (BEAKER) (test code = 760) 6 hours after starting heparin infusion and as indicated per sliding scaleU/S, RENAL, [id number] 12:54:00Reason for exam:->r/o hydronephrosisShould this be performed [...] forfurther evaluation. Prostatomegaly. Signed: Ana Maria Clark [facility]ITALeport Verified Date/Time: 06/27/201912:54:46 Reading Location: [address] Radiology Reading Room US renal [id number] 12:54:00Interface, External Ris In - 06/27/2019 12:56 PM CSTFINAL REPORT TECHNIQUE: Gr ayscale ultrasound of the kidneys and bladder. INDICATION: 89-year-old man with acute kidney injury.COMPARISON: None. FINDINGS: RIGHT KIDNEY: The right kidney is mildly echogenic and measures 10 x 4.7 x 4 cm. Cortical thickness measures 1.2 cm. No solid mass lesions. No hydronephrosis. Renal artery and vein are patent. LEFT KIDNEY: The left kidney is mildly echogenic and measures 9.9 x 5.2 x [...] further evaluation. Prostatomegaly. Signed: Ana Maria Clark MDReport Verified Date/Time: 06/27/2019 12:54:46 Reading Location: [address] Radiology Reading [id number] 10[facility]29:00 Test Item Value Reference Range Interpretation Comments PARTIAL THROMBOPLASTIN TIME 28.1 seconds 22.5-36.0 (BEAKER) (test code = 760) Prior to initiating heparinPlatelet [id number] 10:14:00 Test Item Value Reference Range Interpretation Comments Platelets (test code = 243 150- 450 K/CU MM 777-3) GRISELDA (test code = GRISELDA) Banking Manager ID - [id number] Lab Interpretation (test Normal code = 04619-8) [facility] [id number] 10:14:00 Test Item Value Reference Range Interpretation Comments PLATELET COUNT (BEAKER) (test 243 K/CU MM 150-450 code = 756) Banking Manager ID Leonidas Martinez [id number] 09:58:00 Test Item Value Reference Range Interpretation Comments Result (test code = 6463-4) No growth [facility]UR[facility] [id number] 09:58:00 Test Item Value Reference Range Interpretation Comments CULTURE (BEAKER) (test code = 1095) No growth BASIC METABOLIC [id number] 07:43:00 Test Item Value Reference Range Interpretation Comments SODIUM (BEAKER) (test 136 meq/L 136-145 code = 381) POTASSIUM (BEAKER) 4.7 meq/L 3.5-5.1 (test code = 379) CHLORIDE (BEAKER) 103 meq/L 98-107 (test code = 382) CO2 (BEAKER) (test 23 meq/L 22-29 code = 355) BLOOD UREA NITROGEN 55 mg/dL 7-21 H (BEAKER) (test code = 354) CREATININE (BEAKER) 1.59 mg/dL 0.57-1.25 H (test code = 358) GLUCOSE RANDOM 102 mg/dL 70-105 (BEAKER) (test code = 652) CALCIUM (BEAKER) 8.7 mg/dL 8.4-10.2 (test code = 697) EGFR (BEAKER) (test INSUFFIC IENT CLINICAL code = 1092) DATA TO CALCULA TE ESTIMATED GFR. Banking Manager ID - YVONNE MUric [id number] 07:35:00 Test Item Value Reference Range Interpretation Comments Uric Acid (test code = 8.7 mg/dL 2.6-7.2 H 3084-1) GRISELDA (test code = GRISELDA) Banking Manager ID - YVONNE M Lab Interpretation (test Abnormal code = 08989-1) [facility]UR[facility] [id number] 07:35:00 Test Item Value Reference Range Interpretation Comments URIC ACID (BEAKER) (test code = 8.7 mg/dL 2.6-7.2 H 773) Banking Manager ID - YVONNE [id number] 07:35:00 Test Item Value Reference Range Interpretation Comments MAGNESIUM (BEAKER) (test code = 2.1 mg/dL 1.6-2.6 627) Banking Manager ID - YVONNE EPATIC FUNCTION [id number] 07:35:00 Test Item Value Reference Range Interpretation Comments TOTAL PROTEIN (BEAKER) (test code = 6.7 gm/dL 6.0-8.3 770) ALBUMIN (BEAKER) (test code = 1145) 3.4 g/dL 3.5-5.0 L BILIRUBIN TOTAL (BEAKER) (test code 0.5 mg/dL 0.2-1.2 = 377) BILIRUBIN DIRECT (BEAKER) (test 0.2 mg/dL 0.1-0.5 code = 706) ALKALINE PHOSPHATASE (BEAKER) (test 55 U/L 40-150 code = 346) AST (SGOT) (BEAKER) (test code = 13 U/L 5-34 353) ALT (SGPT) (BEAKER) (test code = 9 U/L 6-55 347) Banking Manager ID - YVONNE MCBC W/PLT COUNT & AUTO [id number] 05:50:00 Test Item Value Reference Range Interpretation Comments WHITE BLOOD CELL COUNT (BEAKER) 8.9 K/ L 3.5-10.5 (test code = 775) RED BLOOD CELL COUNT (BEAKER) 3.68 M/ L 4.63-6.08 L (test code = 761) HEMOGLOBIN (BEAKER) (test code = 11.1 GM/DL 13.7-17.5 L 410) HEMATOCRIT (BEAKER) (test code = 34.9 % 40.1-51.0 L 411) MEAN CORPUSCULAR VOLUME (BEAKER) 94.8 fL 79.0-92.2 H (test code = 753) MEAN CORPUSCULAR HEMOGLOBIN 30.2 pg 25.7-32.2 (BEAKER) (test code = 751) MEAN CORPUSCULAR HEMOGLOBIN CONC 31.8 GM/DL 32.3-36.5 L (BEAKER) (test code = 752) RED CELL DISTRIBUTION WIDTH 14.6 % 11.6-14.4 H (BEAKER) (test code = 412) PLATELET COUNT (BEAKER) (test 208 K/CU MM 150-450 code = 756) MEAN PLATELET VOLUME (BEAKER) 9.6 fL 9.4-12.4 (test code = 754) NUCLEATED RED BLOOD CELLS 0 /100 WBC 0-0 (BEAKER) (test code = 413) NEUTROPHILS RELATIVE PERCENT 60 % (BEAKER) (test code = 429) LYMPHOCYTES RELATIVE PERCENT 26 % (BEAKER) (test code = 430) MONOCYTES RELATIVE PERCENT 11 % (BEAKER) (test code = 431) EOSINOPHILS RELATIVE PERCENT 3 % (BEAKER) (test code = 432) BASOPHILS RELATIVE PERCENT 0 % (BEAKER) (test code = 437) NEUTROPHILS ABSOLUTE COUNT 5.34 K/ L 1.78-5.38 (BEAKER) (test code = 670) LYMPHOCYTES ABSOLUTE COUNT 2.26 K/ L 1.32-3.57 (BEAKER) (test code = 414) MONOCYTES ABSOLUTE COUNT (BEAKER) 0.97 K/ L 0.30-0.82 H (test code = 415) EOSINOPHILS ABSOLUTE COUNT 0.25 K/ L 0.04-0.54 (BEAKER) (test code = 416) BASOPHILS ABSOLUTE COUNT (BEAKER) 0.03 K/ L 0.01-0.08 (test code = 417) IMMATURE GRANULOCYTES-RELATIVE 0 % 0-1 PERCENT (BEAKER) (test code = 2801) RAD, CHEST, 1 VIEW, NON [id number] 21:33:00Reason for exam:- >DyspneaShould this be performed [...] effusion. There is no pneumothorax. Signed: Ashley Senior MDReport VerifiedDate/Time: 06/26/2019 21:33:13 09:33 PMTROPONIN [id number] 21:26:00 Test Item Value Reference Range Interpretation Comments TROPONIN I (BEAKER) (test code = [...] failure, acidosis, acute neurological disease, and persistent tachyarrhythmia.Banking Manager ID - DBLactic Acid, Arterial 2019-06-26 20:52:00 Test Item Value Reference Range Interpretation Comments Lactate, Art (test code = 0.9 mmol/L 0.5-2.2 2874) GRISELDA (test code = GRISELDA) Banking Manager ID - DB Lab Interpretation (test Normal code = 82184-2) [facility] HospitalLACTIC ACID, [id number] 20:52:00 Test Item Value Reference Range Interpretation Comments LACTATE BLOOD ARTERIAL (2) 0.9 mmol/L 0.5-2.2 (BEAKER) (test code = 2874) Banking Manager ID - [id number] 20:36:00 Test Item Value Reference Range Interpretation Comments MAGNESIUM (BEAKER) (test code = 2.1 mg/dL 1.6-2.6 627) Banking Manager ID - DBBASIC METABOLIC [id number] 20:36:00 Test Item Value Reference Range Interpretation Comments SODIUM (BEAKER) (test 133 meq/L 136-145 L code = 381) POTASSIUM (BEAKER) 4.9 meq/L 3.5-5.1 (test code = 379) CHLORIDE (BEAKER) 102 meq/L 98-107 (test code = 382) CO2 (BEAKER) (test 21 meq/L 22-29 L code = 355) BLOOD UREA NITROGEN 62 mg/dL 7-21 H (BEAKER) (test code = 354) CREATININE (BEAKER) 1.65 mg/dL 0.57-1.25 H (test code = 358) GLUCOSE RANDOM 92 mg/dL 70-105 (BEAKER) (test code = 652) CALCIUM (BEAKER) 8.7 mg/dL 8.4-10.2 (test code = 697) EGFR (BEAKER) (test INSUFFIC IENT CLINICAL code = 1092) DATA TO CALCULA TE ESTIMATED GFR. Banking Manager ID - DBCBC W/PLT COUNT & AUTO [id number] 20:13:00 Test Item Value Reference Range Interpretation Comments WHITE BLOOD CELL COUNT (BEAKER) 9.6 K/ L 3.5-10.5 (test code = 775) RED BLOOD CELL COUNT (BEAKER) 3.78 M/ L 4.63-6.08 L (test code = 761) HEMOGLOBIN (BEAKER) (test code = 11.1 GM/DL 13.7-17.5 L 410) HEMATOCRIT (BEAKER) (test code = 35.4 % 40.1-51.0 L 411) MEAN CORPUSCULAR VOLUME (BEAKER) 93.7 fL 79.0-92.2 H (test code = 753) MEAN CORPUSCULAR HEMOGLOBIN 29.4 pg 25.7-32.2 (BEAKER) (test code = 751) MEAN CORPUSCULAR HEMOGLOBIN CONC 31.4 GM/DL 32.3-36.5 L (BEAKER) (test code = 752) RED CELL DISTRIBUTION WIDTH 14.4 % 11.6-14.4 (BEAKER) (test code = 412) PLATELET COUNT (BEAKER) (test 224 K/CU MM 150-450 code = 756) MEAN PLATELET VOLUME (BEAKER) 9.2 fL 9.4-12.4 L (test code = 754) NUCLEATED RED BLOOD CELLS 0 /100 WBC 0-0 (BEAKER) (test code = 413) NEUTROPHILS RELATIVE PERCENT 63 % (BEAKER) (test code = 429) LYMPHOCYTES RELATIVE PERCENT 23 % (BEAKER) (test code = 430) MONOCYTES RELATIVE PERCENT 12 % (BEAKER) (test code = 431) EOSINOPHILS RELATIVE PERCENT 2 % (BEAKER) (test code = 432) BASOPHILS RELATIVE PERCENT 0 % (BEAKER) (test code = 437) NEUTROPHILS ABSOLUTE COUNT 6.03 K/ L 1.78-5.38 H (BEAKER) (test code = 670) LYMPHOCYTES ABSOLUTE COUNT 2.22 K/ L 1.32-3.57 (BEAKER) (test code = 414) MONOCYTES ABSOLUTE COUNT (BEAKER) 1.13 K/ L 0.30-0.82 H (test code = 415) EOSINOPHILS ABSOLUTE COUNT 0.18 K/ L 0.04-0.54 (BEAKER) (test code = 416) BASOPHILS ABSOLUTE COUNT (BEAKER) 0.04 K/ L 0.01-0.08 (test code = 417) IMMATURE GRANULOCYTES-RELATIVE 0 % 0-1 PERCENT (BEAKER) (test code = 2801) POC-Blood gases, [id number] 20:09:00 Test Item Value Reference Range Interpretation Comments Temp. Celsius-POC (test 36.3 code = 1834) FIO2-POC (test code = 24 TESTED AT [facility] 1835) [address] [place] [address] 7703 0 pH, Arterial-POC (test 7.448 7.350-7.450 code = 1836) PCO2, Arterial-POC (test 33.8 35.0- 45.0 mm Hg L code = 1837) PO2, Arterial-POC (test 56.0 80.0- 90.0 mm Hg L code = 1838) SO2, Arterial-POC (test 91.0 % 96-97 L code = 1839) HCO3, Arterilal-POC 23.6 meq/L 21-29 (test code = 1840) BE, Arterial-POC (test -1.0 meq/L -2-3 code = 1841) Lab Interpretation (test Abnormal code = 56378-8) [facility]-Calcium [id number] 20:09:00 Test Item Value Reference Range Interpretation Comments POC-Calcium Ionized 1.16 mmol/L 1.12-1.27 TESTED A T [facility] (test code = 1536) [address] [place] [address] 7703 0 Lab Interpretation (test Normal code = 32983-2) [facility]-[id number] 20:09:00 Test Item Value Reference Range Interpretation Comments POC-Potassium (test code 4.7 meq/L 3.6-5.5 WILL TIARRA AT [facility] = 1540) [address] [place] [address] 7703 0 Lab Interpretation (test Normal code = 20829-8) [facility]-[id number] 20:09:00 Test Item Value Reference Range Interpretation Comments POC-Sodium (test code = 134 meq/L 135-148 L TEST ED AT [facility] 1542) [address] [place], [place] [address] 0 Lab Interpretation (test Abnormal code = 68788-8) [facility]-[id number] 20:09:00 Test Item Value Reference Range Interpretation Comments POC-Glucose (test code = 96 mg/dL 70-110 WILL TIARRA AT [facility] 1855) [address] [place], [place] [address] 0 Lab Interpretation (test Normal code = 78792-9) [facility]-[id number] 20:09:00 Test Item Value Reference Range Interpretation Comments POC-Hemoglobin (test code 11.6 g/dL 13-16.8 L TE STED AT [facility] = 1856) [address] [place] [address] 84260LOHZIX AT [facility] [address] [place], [place] [address] 0 Lab Interpretation (test Abnormal code = 94123-5) [facility]-[id number] 20:09:00 Test Item Value Reference Range Interpretation Comments POC-Hematocrit (test code 34 % 40-50 L TE STED AT [facility] = 1857) [address] [place], [place] [address] 0 Lab Interpretation (test Abnormal code = 07846-6) [facility]-BLOOD GASES, [id number] 20:09:00 Test Item Value Reference Range Interpretation Comments TEMP, CELSIUS-POC 36.3 (BEAKER) (test code = 1834) FIO2-POC (BEAKER) 24 TESTED AT [facility] 6720 (test code = 1835) [facility] [address] PH, ARTERIAL-POC 7.448 7.350-7.450 (BEAKER) (test code = 1836) PCO2, ARTERIAL-POC 33.8 mm Hg 35.0-45.0 L (BEAKER) (test code = 1837) PO2, ARTERIAL-POC 56.0 mm Hg 80.0-90.0 L (BEAKER) (test code = 1838) SO2, ARTERIAL-POC 91.0 % 96.0-97.0 L (BEAKER) (test code = 1839) HCO3, ARTERIAL-POC 23.6 meq/L 21.0-29.0 (BEAKER) (test code = 1840) BASE EXCESS, -1.0 meq/L -2.0-3.0 ARTERIAL-POC (BEAKER) (test code = 1841) [id number] 20:09:00 Test Item Value Reference Range Interpretation Comments POC-SODIUM (BEAKER) 134 meq/L 135-148 L TESTED A T [place] [address] (test code = 1542) [facility] [address] [id number] 20:09:00 Test Item Value Reference Range Interpretation Comments POC-POTASSIUM 4.7 meq/L 3.6-5.5 TESTED AT [place] [address] ([facility]) (test code [place] [address] = 1540) [id number] 20:09:00 Test Item Value Reference Range Interpretation Comments POC-GLUCOSE ([facility]) 96 mg/dL 70-110 TESTED AT [place] [address] (test code = 1855) [facility] [address] POCT-CALCIUM [id number] 20:09:00 Test Item Value Reference Range Interpretation Comments POC-CALCIUM IONIZED 1.16 mmol/L 1.12-1.27 TESTED A [place] [address] ([facility]) (test code = [facility] 1536) [address] [id number] 20:09:00 Test Item Value Reference Range Interpretation Comments POC-HEMATOCRIT 34 % 40-50 L TESTED AT [place] [address] ([facility]) (test code = [facility] [address]6) [id number] 20:09:00 Test Item Value Reference Range Interpretation Comments POC-HEMOGLOBIN 11.6 g/dL 13.0-16.8 L TESTED AT [place] [address] ([facility]) (test code [facility] = 1856) [id number] AT [address] [place] [address] [address] PET, CARDIAC PERFUSION MULTIPLE STUDIES, REST AND [id number] 14:27:00 Reason for exam:->chest painFINAL REPORT PROCEDURE: MYOCARDIAL PERFUSION PET IMAGING (Rest/Stress)CPT CODE: 43805 INDICATION: Chest discomfort, known CAD status post [...] is no prior study for comparison. Signed: Karl Diaz MDReport Verified Date/Time: 06/26/2019 14:27:49 Reading Location: [address] P327B [facility] Reading Room NM myocardial perfusion PET (rest and stress)2019-06-26 14:27:00Interface, External Ris In - 06/26/2019 2:30 PM CSTFINAL REPORT PROCEDURE: MYOCARDIAL PERFUSION PET IMAGING (Rest/Stress)CPT CODE: 69932 INDICATION: Chest discomfort, known CAD status post ACB, preoperative risk stratification for vascular surgery CARDIOVASCULAR PROFILE:CAD History: Known CAD status post ACBSymptoms: Chest discomfort, dyspneaRisk Factors: Known CAD, hypertension, CKD, obesityBMI: 36Medications: Aspirin, Plavix, pravastatin STRESS PROTOCOL:Pharmacologic stresswas achieved with a 10-second intravenous infusion of [...] 56/minBP: 107/49 mmHgPrelim. EKG: Sinus bradycardia, incomplete right bundle branch block, nonspecific T wave abnormali ties.Perfusion: There is a marked severity perfusion defect [...] LV. 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 Given severity of the perfusion defect to the inferior LV, consider viability study to guide decision-making on revascularization.3.Akinesis of the basal to mid inferior and basal septal segments at stress with overall preserved ejection fraction.4. Normal extracardiac tracer distribution.5. There is no prior study for comparison. 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 Amount - 2 mlHeight: 62 inches Weight: 89.36 kg (197 lbs) BSA: 1.9 m^2 BMI: 36.03 kg/m^2HR: 76 bpm BP: 101/49 mmHg Summ delphine Technically difficult exam. LV endocardium is partially visualized with IV ultrasound enhancing agent. The left ventricle is chamber size (by vol index) is mildly enlarged (male - LVED 75-89ml/m2).All of the LV segments are mildly hypokinetic . Estimated LVEF by qualitative assessment is mildly reduced (40- 44%) . Unable to estimate peak systolic PA pressure; inadequate TR velocity signal. Signature Findings Left Ventricle LV endocardium is partially visualizedwith IV ultrasound enhancing agent. The left ventricleis chamber size (by vol index) is mildly enlarged (male - LVED 75-89ml/m2). Normal LV wall thickness. All of the LV segments are mildly hypokinetic . Estimated LVEF by qualitative assessment is mildly reduced (40-44%) . Left [...] of tricuspid regurgitation. Unable to estimate peak systolicPA pressure; inadequate TR velocity signal. Pulmonic Valve Normal PVstructure and function by limited views and Doppler. Aorta Aortic root size (SInus of Valsalva diameter) is normal . Pericardium No evidence of pericardial effusion. IVC/SVC/PA/PV/Pleural The estimated RA pressure by IVC dynamics indeterminate . Chambers/Structures Left Atrium LA Dimension: 4.45 cm L eft Ventricle LVIDd: 6.32 cm LV Septum Diastolic: [...] LVOT CO: 5.95 l/min LVOT CI: 3.13 l/min/m^2[facility] [id number] 06:43:00 Test Item Value Reference Range Interpretation Comments MAGNESIUM (BEAKER) (test code = 2.2 mg/dL 1.6-2.6 627) Banking Manager ID - PIAYA EPATIC FUNCTION [id number] 06:43:00 Test Item Value Reference Range Interpretation Comments TOTAL PROTEIN (BEAKER) (test code = 7.6 gm/dL 6.0-8.3 770) ALBUMIN (BEAKER) (test code = 1145) 3.8 g/dL 3.5-5.0 BILIRUBIN TOTAL (BEAKER) (test code 0.6 mg/dL 0.2-1.2 = 377) BILIRUBIN DIRECT (BEAKER) (test 0.2 mg/dL 0.1-0.5 code = 706) ALKALINE PHOSPHATASE (BEAKER) (test 59 U/L 40-150 code = 346) AST (SGOT) (BEAKER) (test code = 11 U/L 5-34 353) ALT (SGPT) (BEAKER) (test code = 9 U/L 6-55 347) Banking Manager NADJA KNUTSON LBASIC METABOLIC [id number] 06:43:00 Test Item Value Reference Range Interpretation Comments SODIUM (BEAKER) (test 128 meq/L 136-145 L code = 381) POTASSIUM (BEAKER) 4.7 meq/L 3.5-5.1 (test code = 379) CHLORIDE (BEAKER) 96 meq/L 98-107 L (test code = 382) CO2 (BEAKER) (test 23 meq/L 22-29 code = 355) BLOOD UREA NITROGEN 64 mg/dL 7-21 H (BEAKER) (test code = 354) CREATININE (BEAKER) 1.85 mg/dL 0.57-1.25 H (test code = 358) GLUCOSE RANDOM 109 mg/dL 70-105 H (BEAKER) (test code = 652) CALCIUM (BEAKER) 9.0 mg/dL 8.4-10.2 (test code = 697) EGFR (BEAKER) (test INSUFFIC IENT CLINICAL code = 1092) DATA TO CALCULA TE ESTIMATED GFR. Banking Manager NADJA KNUTSON LPROTHROMBIN TIME/[id number] 05:58:00 Test Item Value Reference Range Interpretation Comments PROTIME (BEAKER) (test code = 14.7 seconds 11.9-14.2 H 759) INR (BEAKER) (test code = 370) 1.2 <=5.9 Effective 10/19/2018: PT Reference Range ChangeNew: 11.9-14.2 Previous: 11.7- 14.7RECOMMENDED COUMADIN/WARFARIN INR THERAPY RANGESSTANDARD DOSE: 2.0-3.0 Includes: PROPHYLAXIS for venous thrombosis, systemic embolization; TREATMENT for venous thrombosis and/or pulmonary embolus.HIGH RISK: Target INR is2.5-3.5 for patients wiht mechanical heart valves.CBC (HEMOGRAM ONLY)2019-06-26 05:49:00 Test Item Value Reference Range Interpretation Comments WHITE BLOOD CELL COUNT (BEAKER) 10.4 K/ L 3.5-10.5 (test code = 775) RED BLOOD CELL COUNT (BEAKER) 4.00 M/ L 4.63-6.08 L (test code = 761) HEMOGLOBIN (BEAKER) (test code = 12.1 GM/DL 13.7-17.5 L 410) HEMATOCRIT (BEAKER) (test code = 37.4 % 40.1-51.0 L 411) MEAN CORPUSCULAR VOLUME (BEAKER) 93.5 fL 79.0-92.2 H (test code = 753) MEAN CORPUSCULAR HEMOGLOBIN 30.3 pg 25.7-32.2 (BEAKER) (test code = 751) MEAN CORPUSCULAR HEMOGLOBIN CONC 32.4 GM/DL 32.3-36.5 (BEAKER) (test code = 752) RED CELL DISTRIBUTION WIDTH 14.4 % 11.6-14.4 (BEAKER) (test code = 412) PLATELET COUNT (BEAKER) (test 229 K/CU MM 150-450 code = 756) MEAN PLATELET VOLUME (BEAKER) 9.5 fL 9.4-12.4 (test code = 754) NUCLEATED RED BLOOD CELLS 0 /100 WBC 0-0 (BEAKER) (test code = 413) BASIC METABOLIC [id number] 05:21:00 Test Item Value Reference Range Interpretation Comments SODIUM (BEAKER) (test 135 meq/L 136-145 L code = 381) POTASSIUM (BEAKER) 4.9 meq/L 3.5-5.1 (test code = 379) CHLORIDE (BEAKER) 101 meq/L 98-107 (test code = 382) CO2 (BEAKER) (test 24 meq/L 22-29 code = 355) BLOOD UREA NITROGEN 55 mg/dL 7-21 H (BEAKER) (test code = 354) CREATININE (BEAKER) 1.75 mg/dL 0.57-1.25 H (test code = 358) GLUCOSE RANDOM 112 mg/dL 70-105 H (BEAKER) (test code = 652) CALCIUM (BEAKER) 9.7 mg/dL 8.4-10.2 (test code = 697) EGFR (BEAKER) (test INSUFFIC IENT CLINICAL code = 1092) DATA TO CALCULA TE ESTIMATED GFR. Banking Manager ID - ZENIA [id number] 05:18:00 Test Item Value Reference Range Interpretation Comments MAGNESIUM (BEAKER) (test code = 2.2 mg/dL 1.6-2.6 627) Banking Manager ID Leonidas KNUTSON LHEPATIC FUNCTION [id number] 05:18:00 Test Item Value Reference Range Interpretation Comments TOTAL PROTEIN (BEAKER) (test code = 8.1 gm/dL 6.0-8.3 770) ALBUMIN (BEAKER) (test code = 1145) 4.0 g/dL 3.5-5.0 BILIRUBIN TOTAL (BEAKER) (test code 0.5 mg/dL 0.2-1.2 = 377) BILIRUBIN DIRECT (BEAKER) (test 0.3 mg/dL 0.1-0.5 code = 706) ALKALINE PHOSPHATASE (BEAKER) (test 66 U/L 40-150 code = 346) AST (SGOT) (BEAKER) (test code = 11 U/L 5-34 353) ALT (SGPT) (BEAKER) (test code = 8 U/L 6-55 347) Banking Manager ID - ZENIA LPROTHROMBIN [id number] 04:51:00 Test Item Value Reference Range Interpretation Comments PROTIME (BEAKER) (test code = 15.1 seconds 11.9-14.2 H 759) INR (BEAKER) (test code = 370) 1.2 <=5.9 Effective 10/19/2018: PT Reference Range ChangeNew: 11.9-14.2 Previous: 11.7- 14.7RECOMMENDED COUMADIN/WARFARIN INR THERAPY RANGESSTANDARD DOSE: 2.0-3.0 Includes: PROPHYLAXIS for venous thrombosis, systemic embolization; TREATMENT for venous thrombosis and/or pulmonary embolus.HIGH RISK: Target INR is2.5-3.5 for patients wiht mechanical heart valves.CBC (HEMOGRAM ONLY)2019-06-25 04:46:00 Test Item Value Reference Range Interpretation Comments WHITE BLOOD CELL COUNT (BEAKER) 11.5 K/ L 3.5-10.5 H (test code = 775) RED BLOOD CELL COUNT (BEAKER) 4.21 M/ L 4.63-6.08 L (test code = 761) HEMOGLOBIN (BEAKER) (test code = 12.6 GM/DL 13.7-17.5 L 410) HEMATOCRIT (BEAKER) (test code = 39.5 % 40.1-51.0 L 411) MEAN CORPUSCULAR VOLUME (BEAKER) 93.8 fL 79.0-92.2 H (test code = 753) MEAN CORPUSCULAR HEMOGLOBIN 29.9 pg 25.7-32.2 (BEAKER) (test code = 751) MEAN CORPUSCULAR HEMOGLOBIN CONC 31.9 GM/DL 32.3-36.5 L (BEAKER) (test code = 752) RED CELL DISTRIBUTION WIDTH 14.6 % 11.6-14.4 H (BEAKER) (test code = 412) PLATELET COUNT (BEAKER) (test 240 K/CU MM 150-450 code = 756) MEAN PLATELET VOLUME (BEAKER) 9.5 fL 9.4-12.4 (test code = 754) NUCLEATED RED BLOOD CELLS 0 /100 WBC 0-0 (BEAKER) (test code = 413) URIC [id number] 19:33:00 Test Item Value Reference Range Interpretation Comments URIC ACID (BEAKER) (test code = 9.0 mg/dL 2.6-7.2 H 773) Banking Manager ID - DBTROPONIN [id number] 12:57:00 Test Item Value Reference Range Interpretation Comments TROPONIN I (BEAKER) (test code = [...] failure, acidosis, acute neurological disease, and persistent tachyarrhythmia.Banking Manager ID - PIAYA LRAD, CHEST, 2 VIEWS [...] MDReport Verified Date/Time: 06/24/2019 10:06:59 Reading Location: [address] Transitional Reading Room XR chest 2 [id number] 10:06:00Interface, External Ris In - 06/24/2019 10:09 AM CSTFINAL REPORT TECHNIQUE: 2 views of the chest. COMPARISON: None FINDINGS: The cardiac silhouette is right. Postsurgical changes in the mediastinum. Lungs are hyperinflated. Airspace opacities in the lower lungs may be due to atelectasis or pneumonitis. Vague curvilinear density in the right upper lobe measuring 1.2 cm could be related to atelectasis, scarring, as well as lung nodule or mass. Similarly, 1.5 cm opacity in the left apex also seen. No acute skeletal abnormality. Soft tissues appear unremarkable. IMPRESSION: Bibasilar densities could be due to atelectasis and/or pneumonitis. Opacities in the upper lobes asdescribed for which nodule or pneumonia cannot be excluded. These could be further assessed with chest CT when feasible. Signed: Mayo Roberts MDReport Verified Date/Time: 06/24/2019 10:06:59 Reading Location: [facility] Transitional Reading Room [facility] [id number] 09:07:00 Test Item Value Reference Range Interpretation Comments TROPONIN I (BEAKER) (test code = [...] failure, acidosis, acute neurological disease, and persistent tachyarrhythmia.Banking Manager ID - ZENIA LUrinalysis with Microscopic If [id number] 01:53:00 Test Item Value Reference Range Interpretation Comments Color, UA (test code = Light Yellow 5778-6) Clarity, UA (test code = Slightly Cloudy 5767-9) Specific [place], UA (test 1.013 1.001-1.035 code = 5811-5) pH, UA (test code = 7.0 5.0-8.0 5803-2) Protein, UA (test code = 20 mg/dL Negative A 95498-8) Glucose, UA (test code = Negative Negative 365) Ketones, UA (test code = Negative Negative 2514-8) Bilirubin, UA (test code = Negative Negative 07907-9) Blood, UA (test code = Small Negative A 04279-8) Nitrite, UA (test code = Negative Negative 5802-4) Leukocytes, UA (test code Large Negative A = 5799-2) Urobilinogen, UA (test 0.2 mg/dL 0.2-1 code = 95292-3) Specimen Source (test code = 2795) GRISELDA (test code = GRISELDA) Banking Manager ID - [auto]Banking Manager ID - tech Lab Interpretation (test Abnormal code = 04645-5) [facility] [id number] 01:53:00 Test Item Value Reference Range Interpretation Comments RBC, UA (test code 107 /HPF = 95296-4) WBC, UA (test code 911 /HPF Wbc clump s seen = 5821-4) Bacteria, UA (test Many code = 26628-2) Hyaline Casts, UA 5 /LPF (test code = 04187-0) GRISELDA (test code = Banking Manager ID - tech GRISELDA) [facility] WITH MICROSCOPIC IF [id number] 01:53:00 Test Item Value Reference Range Interpretation Comments COLOR (BEAKER) (test code = Light Yellow 470) CLARITY (BEAKER) (test code = Slightly Cloudy 469) SPECIFIC GRAVITY UA (BEAKER) 1.013 1.001-1.035 (test code = 468) PH UA (BEAKER) (test code = 7.0 5.0-8.0 467) PROTEIN UA (BEAKER) (test 20 mg/dL Negative A code = 464) GLUCOSE UA (BEAKER) (test Negative Negative code = 365) KETONES UA (BEAKER) (test Negative Negative code = 371) BILIRUBIN UA (BEAKER) (test Negative Negative code = 462) BLOOD UA (BEAKER) (test code Small Negative A = 461) NITRITE UA (BEAKER) (test Negative Negative code = 465) LEUKOCYTE ESTERASE UA Large Negative A (BEAKER) (test code = 466) UROBILINOGEN UA (BEAKER) 0.2 mg/dL 0.2-1.0 (test code = 463) SOURCE(BEAKER) (test code = 2795) Banking Manager ID - [auto]Banking Manager ID - techURINALYSIS [id number] 01:53:00 Test Item Value Reference Range Interpretation Comments RBC UA (BEAKER) (test code = 107 /HPF 519) WBC UA (BEAKER) (test code = 911 /HPF Wbc clumps seen 520) BACTERIA (BEAKER) (test code Many = 517) HYALINE CASTS (BEAKER) (test 5 /LPF code = 514) Banking Manager ID - techBASIC METABOLIC [id number] 01:52:00 Test Item Value Reference Range Interpretation Comments SODIUM (BEAKER) (test 136 meq/L 136-145 code = 381) POTASSIUM (BEAKER) 4.8 meq/L 3.5-5.1 (test code = 379) CHLORIDE (BEAKER) 99 meq/L 98-107 (test code = 382) CO2 (BEAKER) (test 26 meq/L 22-29 code = 355) BLOOD UREA NITROGEN 68 mg/dL 7-21 H (BEAKER) (test code = 354) CREATININE (BEAKER) 1.85 mg/dL 0.57-1.25 H (test code = 358) GLUCOSE RANDOM 95 mg/dL 70-105 (BEAKER) (test code = 652) CALCIUM (BEAKER) 9.1 mg/dL 8.4-10.2 (test code = 697) EGFR (BEAKER) (test INSUFFIC IENT CLINICAL code = 1092) DATA TO CALCULA TE ESTIMATED GFR. Banking Manager ID Leonidas MEDLEYROPOHAZELN [id number] 01:50:00 Test Item Value Reference Range Interpretation Comments TROPONIN I (BEAKER) (test code = [...] failure, acidosis, acute neurological disease, and persistent tachyarrhythmia.Banking Manager ID Leonidas PORTILLO WB-TYPE NATRIURETIC FACTOR (BNP)2019-06-24 01:46:00 Test Item Value Reference Range Interpretation Comments B-TYPE NATRIURETIC PEPTIDE (BEAKER) 66 pg/mL 0-100 (test code = 700) Banking Manager ID - LINDSEY [id number] 01:43:00 Test Item Value Reference Range Interpretation Comments MAGNESIUM (BEAKER) (test code = 2.2 mg/dL 1.6-2.6 627) Banking Manager ID Leonidas PORTILLO WHEPATIC FUNCTION [id number] 01:43:00 Test Item Value Reference Range Interpretation Comments TOTAL PROTEIN (BEAKER) (test code = 7.6 gm/dL 6.0-8.3 770) ALBUMIN (BEAKER) (test code = 1145) 3.9 g/dL 3.5-5.0 BILIRUBIN TOTAL (BEAKER) (test code 0.5 mg/dL 0.2-1.2 = 377) BILIRUBIN DIRECT (BEAKER) (test 0.2 mg/dL 0.1-0.5 code = 706) ALKALINE PHOSPHATASE (BEAKER) (test 60 U/L 40-150 code = 346) AST (SGOT) (BEAKER) (test code = 9 U/L 5-34 353) ALT (SGPT) (BEAKER) (test code = 7 U/L 6-55 347) Banking Manager ID Leonidas PORTILLO WPROTHROMBIN TIME/[id number] 01:38:00 Test Item Value Reference Range Interpretation Comments PROTIME (BEAKER) (test code = 14.4 seconds 11.9-14.2 H 759) INR (BEAKER) (test code = 370) 1.2 <=5.9 Effective 10/19/2018: PT Reference Range ChangeNew: 11.9-14.2 Previous: 11.7- 14.7RECOMMENDED COUMADIN/WARFARIN INR THERAPY RANGESSTANDARD DOSE: 2.0-3.0 Includes: PROPHYLAXIS for venous thrombosis, systemic embolization; TREATMENT for venous thrombosis and/or pulmonary embolus.HIGH RISK: Target INR is2.5-3.5 for patients wiht mechanical heart valves.CBC W/PLT COUNT & AUTO [id number] 00:58:00 Test Item Value Reference Range Interpretation Comments WHITE BLOOD CELL COUNT (BEAKER) 10.8 K/ L 3.5-10.5 H (test code = 775) RED BLOOD CELL COUNT (BEAKER) 4.03 M/ L 4.63-6.08 L (test code = 761) HEMOGLOBIN (BEAKER) (test code = 12.1 GM/DL 13.7-17.5 L 410) HEMATOCRIT (BEAKER) (test code = 37.6 % 40.1-51.0 L 411) MEAN CORPUSCULAR VOLUME (BEAKER) 93.3 fL 79.0-92.2 H (test code = 753) MEAN CORPUSCULAR HEMOGLOBIN 30.0 pg 25.7-32.2 (BEAKER) (test code = 751) MEAN CORPUSCULAR HEMOGLOBIN CONC 32.2 GM/DL 32.3-36.5 L (BEAKER) (test code = 752) RED CELL DISTRIBUTION WIDTH 14.4 % 11.6-14.4 (BEAKER) (test code = 412) PLATELET COUNT (BEAKER) (test 225 K/CU MM 150-450 code = 756) MEAN PLATELET VOLUME (BEAKER) 9.4 fL 9.4-12.4 (test code = 754) NUCLEATED RED BLOOD CELLS 0 /100 WBC 0-0 (BEAKER) (test code = 413) NEUTROPHILS RELATIVE PERCENT 67 % (BEAKER) (test code = 429) LYMPHOCYTES RELATIVE PERCENT 21 % (BEAKER) (test code = 430) MONOCYTES RELATIVE PERCENT 9 % (BEAKER) (test code = 431) EOSINOPHILS RELATIVE PERCENT 2 % (BEAKER) (test code = 432) BASOPHILS RELATIVE PERCENT 0 % (BEAKER) (test code = 437) NEUTROPHILS ABSOLUTE COUNT 7.23 K/ L 1.78-5.38 H (BEAKER) (test code = 670) LYMPHOCYTES ABSOLUTE COUNT 2.32 K/ L 1.32-3.57 (BEAKER) (test code = 414) MONOCYTES ABSOLUTE COUNT (BEAKER) 1.01 K/ L 0.30-0.82 H (test code = 415) EOSINOPHILS ABSOLUTE COUNT 0.19 K/ L 0.04-0.54 (BEAKER) (test code = 416) BASOPHILS ABSOLUTE COUNT (BEAKER) 0.04 K/ L 0.01-0.08 (test code = 417) IMMATURE GRANULOCYTES-RELATIVE 0 % 0-1 PERCENT (BEAKER) (test code = 2801) CBC (HEMOGRAM ONLY)2019-06-24 00:58:00 Test Item Value Reference Range Interpretation Comments WHITE BLOOD CELL COUNT (BEAKER) 10.8 K/ L 3.5-10.5 H (test code = 775) RED BLOOD CELL COUNT (BEAKER) 4.03 M/ L 4.63-6.08 L (test code = 761) HEMOGLOBIN (BEAKER) (test code = 12.1 GM/DL 13.7-17.5 L 410) HEMATOCRIT (BEAKER) (test code = 37.6 % 40.1-51.0 L 411) MEAN CORPUSCULAR VOLUME (BEAKER) 93.3 fL 79.0-92.2 H (test code = 753) MEAN CORPUSCULAR HEMOGLOBIN 30.0 pg 25.7-32.2 (BEAKER) (test code = 751) MEAN CORPUSCULAR HEMOGLOBIN CONC 32.2 GM/DL 32.3-36.5 L (BEAKER) (test code = 752) RED CELL DISTRIBUTION WIDTH 14.4 % 11.6-14.4 (BEAKER) (test code = 412) PLATELET COUNT (BEAKER) (test 225 K/CU MM 150-450 code = 756) MEAN PLATELET VOLUME (BEAKER) 9.4 fL 9.4-12.4 (test code = 754) NUCLEATED RED BLOOD CELLS 0 /100 WBC 0-0 (BEAKER) (test code = 413) Creatinine, random [id number] 00:42:00 Test Item Value Reference Range Interpretation Comments Creatinine, Ur 33.7 mg/dL (test code = 2161-8) GRISELDA (test code = Reference Range: No GRISELDA) NormalsOperator ID - LINDSEY W [facility] HospitalUrea Nitrogen, random [id number] 00:42:00 Test Item Value Reference Range Interpretation Comments Urea Nitrogen, Ur 544 mg/dL (test code = 3095-7) GRISELDA (test code = Reference Range: No GRISELDA) NormalsOperator ID - LINDSEY W [facility] HospitalCREATININE, RANDOM [id number] 00:42:00 Test Item Value Reference Range Interpretation Comments CREATININE URINE (BEAKER) (test 33.7 mg/dL code = 375) Reference Range: No NormalsOperator ID - LINDSEY WUREA NITROGEN, RANDOM URINE 2019-06-24 00:42:00 Test Item Value Reference Range Interpretation Comments UREA NITROGEN URINE (BEAKER) (test 544 mg/dL code = 538) Reference Range: No NormalsOperator ID - LINDSEY W
[2020-03-16] MEDS ORDERED: D5W 100 ML IV ONE (18:36)
[2020-03-16] MEDS ORDERED: AMIODARONE IN DEXTROSE,ISO-OSM 360 MG/200 ML BAG IV ONE (18:36)
--- NOTE | 2020-03-16 18:37 | EDPHYS ---
Physician Documentation [facility] [place], [place] Name: Rohan Eubanks Age: 89 yrs Sex: Male : 1930 Arrival Date: 03/16/2020 Time: 18:16 Bed 2 Private MD: ED Physician Neeraj Douglas HPI: 03/16 18:31 This 89 yrs old Male presents to ER via Unassigned with complaints of CPR. rn 18:31 Preceding the arrest, the patient collapsed, was dyspneic. The arrest occurred at home. rn Pre-hospital course: The arrest was witnessed Bystanders at the scene performed CPR. ACLS details: Initial rhythm was asystole. The presenting rhythm is PEA. Airway: Ambu assist ventilation, LMA, It is unknown whether or not the patient has had similar symptoms in the past. Per family, having trouble breathing, collapsed, + bystander CPR, asystole initial rhythm, PEA here, multiple epi and 1 shock delivered, no response, not intubated 2/2 difficult airway. . Historical: - Allergies: 19:12 Iodine; rb1 - PMHx: 19:12 Hypertension; Sepsis; Hernia (obstructed, gangrene, cholostomy); High Cholesterol; rb1 Dementia; Anemia; COPD; Open wound to abdomen; CAD; CHF; renal insufficiency; - PSHx: 19:12 Colostomy; 2 abdominal surgeries; rb1 - Immunization history:: Adult Immunizations unknown. - Family history:: not pertinent. - Social history:: Smoking status: unknown. - Hospitalizations: : No recent hospitalization is reported. ROS: 18:31 Unable to obtain ROS due to comatose state. rn Exam: 18:31 Constitutional: This is a well developed patient, unresponsive, no spont internet systems administrator activity or respiratory activity. Head/Face: Normocephalic, atraumatic. Eyes: Pupils 4mm, nonreactive Cardiovascular: No spont activity noted Respiratory: No spont respirations, after intubation, diminished at bases Abdomen/GI: soft, non-distended, + ventral wound and colostomy bag Skin: cool periphery, no cyanosis MS/ Extremity: No cyanosis. No spont pulses Neuro: GCS 3, intubated Vital Signs: 18:46 Temp 99.0(R); rb1 Procedures: 18:34 CPR: See CPR flow sheet. Initial patient assessment: unresponsive, no respiratory rn effort, Ambu ventilation, pulses present w/ compressions, The presenting cardiac rhythm is PEA. respirations assisted with BVM, Compressions: began Defibrillation: 200 joules X 3. despite ED evaluation and treatment, the patient . CPR was stopped at 18:27. MDM: 18:17 Patient medically screened. rn 18:30 Differential diagnosis: cardiac arrest, respiratory arrest. Data reviewed: vital signs, rn nurses notes, and as a result, I will. ED course: CPR stopped at 1827. . 18:34 Counseling: I had a detailed discussion with the patient and/or guardian regarding: the rn historical points, exam findings, and any diagnostic results supporting the discharge/admit diagnosis. 03/16 18:18 Order name: EKG; Complete Time: 18:19 rn 03/16 18:18 Order name: Cardiac monitoring; Complete Time: :24 rn 03/16 18:18 Order name: EKG - Nurse/Tech; Complete Time: 19:24 rn 03/16 18:18 Order name: IV Saline Lock; Complete Time: 19:24 rn 03/16 18:18 Order name: O2 Per Protocol; Complete Time: 19:24 rn 03/16 18:18 Order name: O2 Sat Monitoring; Complete Time: 19:25 rn Administered Medications: 18:10 Drug: EPINEPHrine 0.1mg/mL 1:10,000 1 mg {Note: IO .} Route: IVP; Site: Other; rb1 18:27 Follow up: Response: No adverse reaction rb1 18:12 Drug: Sodium Bicarbonate 1 amp {Note: IO.} Route: IVP; Site: Other; rb1 18:27 Follow up: Response: No adverse reaction rb1 18:27 Follow up: Response: No adverse reaction rb1 18:13 Drug: EPINEPHrine 0.1mg/mL 1:10,000 1 mg {Note: IO.} Route: IVP; Site: Other; rb1 18:27 Follow up: Response: No adverse reaction rb1 18:21 Drug: EPINEPHrine 0.1mg/mL 1:10,000 1 mg {Note: IO.} Route: IVP; Site: Other; rb1 18:27 Follow up: Response: No adverse reaction rb1 18:21 Drug: Magnesium Sulfate 2 grams {Note: IO, GIVEN IVP PER DR. DOUGLAS.} Route: IVPB; rb1 Infused Over: 2 continuous; Site: Other; 18:22 Follow up: IV Status: Completed infusion rb1 18:27 Follow up: Response: No adverse reaction rb1 18:23 Drug: Atropine 1 mg {Note: IO.} Route: IVP; Site: Other; rb1 18:27 Follow up: Response: No adverse reaction rb1 18:23 Drug: amiodarone 300 mg {Note: IO.} Route: IVP; Site: Other; rb1 18:27 Follow up: Response: No adverse reaction rb1 18:24 Drug: EPINEPHrine 0.1mg/mL 1:10,000 1 mg {Note: IO.} Route: IVP; Site: Other; rb1 18:27 Follow up: Response: No adverse reaction rb1 18:57 CANCELLED (Physician Discretion): SOLU-Medrol 125 mg IVP once rb1 18:57 CANCELLED (Physician Discretion): amiodarone 150 mg 100 ml IVPB once over 10 mins; (mix rb1 in D5W) 18:57 CANCELLED (Physician Discretion): amiodarone 900 mg, D5W 500 ml IVPB at 1 mg/min rb1 continuous; for 6 hrs, then change to 0.5 mg/min Disposition: 18:34 Critical Care:. . rn Disposition: Patient pronounced on 03/16/20 18:27 by Neeraj Douglas. Impression: Cardiac arrest. - Released to Home. Critical care time excluding procedures: 18:34 Critical care time: Bedside Care: 30 minutes. Total time: 30 minutes rn Signatures: Dispatcher [employer] EDFL Neeraj Douglas MD MD rn Barber, Rebecca, RN RN rb1 Carmelo Oleary RN RN rv Corrections: (The following items were deleted from the chart) 18:33 18:19 Chest Single View+RAD.RAD.BRZ ordered. EDFL EDMS 18:35 18:31 Constitutional: This is a well developed patient, unresponsive, no spont internet systems administrator activity or respiratory activity. rn 18:57 18:19 SOLU-Medrol 125 mg IVP once ordered. rn rb1 18:57 18:19 amiodarone 150 mg 100 ml IVPB once over 10 mins; (mix in D5W) ordered. rn rb1 18:57 18:19 amiodarone 900 mg, D5W 500 ml IVPB at 1 mg/min continuous; for 6 hrs, then change rb1 to 0.5 mg/min ordered. rn 19:24 18:18 Labs collected and sent ordered. rn rb1 20:11 18:19 BASIC METABOLIC PANEL+C.LAB.BRZ ordered. EDMS EDMS 20:11 18:19 CBC+H.LAB.BRZ ordered. EDMS EDMS 20:11 18:19 HEPATIC FUNCTION+C.LAB.BRZ ordered. EDMS EDMS 20:11 18:19 MAGNESIUM+C.LAB.BRZ ordered. EDMS EDMS 20:11 18:19 PROBNP+C.LAB.BRZ ordered. EDMS EDMS 20:11 18:19 PROTIME (+INR)+COAG.LAB.BRZ ordered. EDMS EDMS 20:11 18:19 TROPONIN (EMERG DEPT USE ONLY)+C.LAB.BRZ ordered. EDMS EDMS 20:11 18:19 Procalcitonin+C.LAB.BRZ ordered. EDMS EDMS 20:11 18:19 LACTATE+C.LAB.BRZ ordered. EDMS EDMS 21:29 18:36 03/16/2020 18:36 Patient pronounced on 03/16/2020 at 18:27 by Neeraj Douglas. rv Impression: Cardiac arrest. Released to Home. rn
--- NOTE | 2020-03-16 21:30 | ER ---
Nurse's Notes [facility] Name: Rohan Eubanks Age: 89 yrs Sex: Male : 1930 Arrival Date: 03/16/2020 Time: 18:16 Bed 2 Private MD: Diagnosis: Cardiac arrest Presentation: 03/16 18:05 Chief complaint: EMS states: 89 yr old male, was at home and he c/o difficulty rb1 breathing, he had seizure activity per family report. The family tried to put him on the C-Pap before EMS arrived. EMS arrived at the home at 1726, CPR initiated via thumper by EMS. History of COPD, seizures, hernia, nose cancer, and a colostomy. Allergy to Iodine (topical). EMS administered six does of Epinephrine and shocked the pt. one time. Initiated an IO to the left tibia. Care prior to arrival: CPR via thumper Medication(s) given: Six doses of Epinephrine via an IO to the left tibia. Compressions began prior to arrival. 18:05 Method Of Arrival: EMS: [facility] rb1 18:05 Acuity: [place] 1 rb1 19:13 Coronavirus screen: unable to complete. Ebola Screen: Unable to complete the Ebola rb1 screening because: Patient is unresponsive. Initial Sepsis Screen: Does the patient meet any 2 criteria? Does the patient have a suspected source of infection?. Risk Assessment: Do you want to hurt yourself or someone else? Unable to obtain. Onset of symptoms was March 16, 2020. Historical: - Allergies: 19:12 Iodine; rb1 - PMHx: 19:12 Hypertension; Sepsis; Hernia (obstructed, gangrene, cholostomy); High Cholesterol; rb1 Dementia; Anemia; COPD; Open wound to abdomen; CAD; CHF; renal insufficiency; - PSHx: 19:12 Colostomy; 2 abdominal surgeries; rb1 - Immunization history:: Adult Immunizations unknown. - Family history:: not pertinent. - Social history:: Smoking status: unknown. - Hospitalizations: : No recent hospitalization is reported. Screenin:14 Abuse screen: unable to complete. Nutritional screening: unable to complete. rb1 Tuberculosis screening: unable to complete . Assessment: 18:05 CPR assessment: unresponsive, no respiratory effort, Ambu ventilation, pale. Cardiac rb1 rhythm is asystole. General: Appears Behavior is unresponsive. Neuro: Level of Consciousness is unresponsive. Cardiovascular: Rhythm is asystole. Respiratory: Being Bagged by ambu. Respiratory: Airway is patent Respiratory effort is none Respiratory pattern is apnea. GI: Abdomen is distended, Ileostomy site Ostomy appliance is intact. Dressing noted the abdomen above the umbilicus. : Is wearing a diaper. Derm: Skin is pale. 18:05 General: CPR paused, pulse check, asystole. CPR resumed.. rb1 18:10 General: Pt was intubated, ET Tube is 7 1/2 and 23 cm at the gums. rb1 18:10 General: CPR paused, pulse check, asystole. CPR resumed. . rb1 18:13 General: CPR paused, pulse check, asystole. CPR resumed. . rb1 18:16 General: CPR paused, pulse check, asystole. CPR resumed. . rb1 18:20 Reassessment: Thumper removed by EMS, open wound about 1 cm in diameter noted rb1 underneath thumper appliance when removed. Small amount of bleeding and bruising noted. 18:22 General: CPR paused, pulse check, ViFib. shocked 200 J. CPR resumed. . rb1 18:25 General: CPR paused, pulse check, VFib. shocked 200 J CPR resumed. . rb1 18:27 General: CPR paused, pulse check, VFib. shocked 200 J. Time of pronounced by Dr. carissa Douglas \\T\\ 1827 . 19:37 Reassessment: Contacted [facility], spoke to Darion. Case # [id number]. rb1 19:40 Reassessment: Waiting for family to decide what home they wish to use. rb1 20:07 Reassessment: [facility] at bedside[facility]1 20:19 Reassessment: family notified nurse of arrangements at [facility]; family at lp1 bedside called home to arrange for transfer of patient; awaiting call back for ETA. 20:59 Reassessment: Spoke with Josue with [facility], patient demographics given; lp1 reports ETA of 10-15 min for transfer of body. 21:28 Reassessment: TAKEN BY HOME. rv Vital Signs: 18:46 Temp 99.0(R); rb1 ED Course: 18:05 Patient placed in an exam room. rb1 18:05 Maintain EMS IV. Dressing intact. Site clean \\T\\ dry. Gauge \\T\\ site: IO Left Tibia. rb 1 18:10 Patient has correct armband on for positive identification. rb1 18:10 Assisted provider with intubation using 7.5 mm ETT via oral route. ET tube secured at rb1 23cm at the gums. Set up intubation tray. Intubated by Neeraj Douglas MD Placement verified by CO2 detector w/ + color change, auscultating bilateral breath sounds, Patient tolerated well. 18:16 Patient arrived in ED. rn 18:17 Neeraj Douglas MD is Attending Physician. rn 18:36 Neeraj Douglas MD is Pronouncing Provider. rn 18:37 [facility] dispatch called and notified to call onboarding specialist/ per dispatch they will send eb an officer to sit with the patient until [place] [facility] is able to come out. 18:38 Triage completed. rb1 19:35 Liz Lewis RN is Primary Nurse. ss 19:50 Report given to AAKASH Weinstein. rb1 20:06 called [place] [facility] spoke to Barbie to ask what the Film Sound Engineer's ETA is she stated "Film Sound Engineer crystal Alanis is the onboarding specialist independent beauty consultant he is not coming because the investigation is already done, so the body can be released by the family.". Administered Medications: 18:10 Drug: EPINEPHrine 0.1mg/mL 1:10,000 1 mg {Note: IO .} Route: IVP; Site: Other; rb1 18:27 Follow up: Response: No adverse reaction rb1 18:12 Drug: Sodium Bicarbonate 1 amp {Note: IO.} Route: IVP; Site: Other; rb1 18:27 Follow up: Response: No adverse reaction rb1 18:27 Follow up: Response: No adverse reaction rb1 18:13 Drug: EPINEPHrine 0.1mg/mL 1:10,000 1 mg {Note: IO.} Route: IVP; Site: Other; rb1 18:27 Follow up: Response: No adverse reaction rb1 18:21 Drug: EPINEPHrine 0.1mg/mL 1:10,000 1 mg {Note: IO.} Route: IVP; Site: Other; rb1 18:27 Follow up: Response: No adverse reaction rb1 18:21 Drug: Magnesium Sulfate 2 grams {Note: IO, GIVEN IVP PER DR. DOUGLAS.} Route: IVPB; rb1 Infused Over: 2 continuous; Site: Other; 18:22 Follow up: IV Status: Completed infusion rb1 18:27 Follow up: Response: No adverse reaction rb1 18:23 Drug: Atropine 1 mg {Note: IO.} Route: IVP; Site: Other; rb1 18:27 Follow up: Response: No adverse reaction rb1 18:23 Drug: amiodarone 300 mg {Note: IO.} Route: IVP; Site: Other; rb1 18:27 Follow up: Response: No adverse reaction rb1 18:24 Drug: EPINEPHrine 0.1mg/mL 1:10,000 1 mg {Note: IO.} Route: IVP; Site: Other; rb1 18:27 Follow up: Response: No adverse reaction rb1 18:57 CANCELLED (Physician Discretion): SOLU-Medrol 125 mg IVP once rb1 18:57 CANCELLED (Physician Discretion): amiodarone 150 mg 100 ml IVPB once over 10 mins; (mix rb1 in D5W) 18:57 CANCELLED (Physician Discretion): amiodarone 900 mg, D5W 500 ml IVPB at 1 mg/min rb1 continuous; for 6 hrs, then change to 0.5 mg/min Outcome: 18:27 Patient : Time of 18:27 Pronounced by Neeraj Douglas MD rb1 18:27 Condition: 21:29 Patient left the ED. rv Signatures: Neeraj Douglas MD MD rn Smirch, Shelby, RN RN ss Jigna Riddle RN RN lp1 Mirella Nolen RN RN rb1 Sonali Ernst 2 Julia Koch Ronaldo, RN RN rv Corrections: (The following items were deleted from the chart) 19:00 18:05 Chief complaint: EMS states: 89 yr old male, was at home and he c/o difficulty rb1 breathing, he had seizure activity per family report. The family tried to put him on the C-Pap before EMS arrived. EMS arrived at the home at 1726. History of COPD, seizures, hernia, nose cancer, and a colostomy. Allergy to Iodine (topical). EMS administered six does of Epinephrine and shocked the pt. one time. Initiated an IO to the left tibia. rb1 19:48 19:37 Reassessment: Contacted [facility], spoke to Darion. Case # [id number]. ss ss
[2020-03-16 21:56] VITALS: TEMP 99
== END 2020-03-16 21:29 | disposition expired ==
LOC: ER 18:14
DX: I46.9 Cardiac arrest, cause unspecified (principal); I50.9 Heart failure, unspecified; I10 Essential (primary) hypertension; N28.9 Disorder of kidney and ureter, unspecified; Z91.048 Other nonmedicinal substance allergy status
CPT/HCPCS: 31500; 96375; 96374; 92950; 99285; J0282 ×2; J3475; J0171; J7030 ×2